=== PATIENT | female | born 1955 | race Caucasian/White ===

== ENCOUNTER 2018-12-21 12:05 | Inpatient (IN) | payer OTHER ==
[2018-12-21] MEDS ORDERED: D50W 25 GM/50 ML SYRINGE IV ONE (12:24)
[2018-12-21] MEDS ORDERED: D5 0.45 NS 1,000 ML IV ONE (12:39)
[2018-12-21 12:40] LABS: Absolute Lymphocytes (CBC) 0.4 K/uL (0.7-4.9); Absolute Monocytes 0.3 K/uL (0.1-1.3); Absolute Neutrophil 7.5 K/uL (1.8-8.0); Basophils % 0.3 % (0-1.3); Eosinophils % 0.2 % (0-4.4); Hematocrit 43.6 % (36.0-45.0); Lymphocytes % 4.6 % (15.3-44.8); MPV 9.4 fL (7.6-11.3); Monocytes % 3.9 % (3.3-12.3); RBC Red Blood Cell Count 4.62 M/uL (3.86-4.86)
--- NOTE | 2018-12-21 12:45 | RAD REPORT ---
EXAM DESCRIPTION: RAD - Tib Fib Left - 12/21/2018 12:38 pm CLINICAL HISTORY: PAIN Ankle pain, deformity COMPARISON: No comparisons FINDINGS: Fracture of the medial malleolus and posterior malleolus is seen with complete tibiotalar dislocation. There is probably also a fracture of the proximal fibular neck although assessment is so mewhat limited. Moderate soft tissue swelling is evident.
[2018-12-21 12:51] LABS: Protime INR 1.11
[2018-12-21] MEDS ORDERED: ONDANSETRON 4 MG/2 ML VIAL ONE (12:52)
[2018-12-21] MEDS ORDERED: HYDROMORPHONE HCL 1 MG/ML INJ ONE ×2 (12:52→18:23)
[2018-12-21 12:53] LABS: BUN Blood Urea Nitrogen 14 mg/dL (7-18); Bicarbonate 27 mmol/L (21-32); Glucose Level 59 mg/dL (74-106); Potassium 3.7 mmol/L (3.5-5.1); Sodium Level 142 mmol/L (136-145)
[2018-12-21 12:59] LABS: Blood Morphology Comment NOT SEEN (NOT SEEN); Platelet Estimate ADEQ
[2018-12-21] MEDS ORDERED: PROPOFOL 200 MG/20 ML VIAL IV ONE (13:09)
--- NOTE | 2018-12-21 14:01 | RAD REPORT ---
EXAM DESCRIPTION: RAD - Ankle Left 3 View - 12/21/2018 1:55 pm CLINICAL HISTORY: post redux Ankle fracture COMPARISON: No comparisons FINDINGS: Previously noted tibiotalar dislocation has been reduced and placed within a splint. Media l and posterior malleolar fracture fragments again noted. Evidence of syndesmotic disruption is prese nt. Bone detail is mildly obscured.
--- NOTE | 2018-12-21 15:48 | ER ---
Nurse's Notes [facility] Name: Adilia Barros Age: 63 yrs Sex: Female : 1955 Arrival Date: 12/21/2018 Time: 12:07 Bed 4 Private MD: Diagnosis: Displaced fracture of medial malleolus of left tibia;Subluxation and dislocation of ankle joint;Other fracture of shaft of left fibula Presentation: 12/21 12:05 Presenting complaint: EMS states: Pt. A \T\ O x 4, felt shaky and fell from a standing rb1 position hitting her head. Denies LOC and being on blood thinners. Left ankle had a deformity at the scene and a splint was applied. Administered Fentanyl 100 mcg IVP x 1 to 20 G L AC. History of breast cancer, hypoglycemia, and hypothyroidism. Is not currently receiving chemotherapy. Allergy to Codeine. Medications Lisinopril and cancer medications, unknown. BGL was 45 at the scene, when EMS rechecked it BGL 65. Care prior to arrival: Splint applied. left ankle Medication(s) given: Fentanyl 100 mcg IVP x 1. Mechanism of Injury: Fall from standing position. 12:05 Method Of Arrival: EMS: [facility] rb1 12:05 Acuity: ROMAIN 2 ss 12:48 Transition of care: patient was not received from another setting of care. Onset of tw2 symptoms was December 21, 2018. Risk Assessment: Do you want to hurt yourself or someone else? Patient reports no desire to harm self or others. Initial Sepsis Screen: Does the patient meet any 2 criteria? No. Patient's initial sepsis screen is negative. Does the patient have a suspected source of infection? No. Patient's initial sepsis screen is negative. 12:49 Trauma event details: Injury occurred in the [facility]. tw2 Trauma Activation: Alert Physician: ED Physician; Name: ; Notified At: ; Arrived At: Physician: General Surgeon; Name: ; Notified At: ; Arrived At: Physician: Radiology; Name: ; Notified At: ; Arrived At: Physician: Respiratory; Name: ; Notified At: ; Arrived At: Physician: Lab; Name: ; Notified At: ; Arrived At: Historical: - Allergies: 12:05 Codeine; rb1 - Home Meds: 12:05 Lisinopril Oral [Active]; cancer medication-unknown [Active]; rb1 - PMHx: 12:05 breast cancer; hypoglycemia; Hypothyroidism; rb1 - PSHx: 12:05 abhijeet knee replacement; Appendectomy; Lumpectomy; ankle; rb1 - Immunization history:: Adult Immunizations up to date. - Social history:: Smoking status: Patient/guardian denies using tobacco. - Immunization history: Last tetanus immunization: < 10 years ago. - Ebola Screening: : Patient negative for fever greater than or equal to 101.5 degrees Fahrenheit, and additional compatible Ebola Virus Disease symptoms. Screenin:05 Abuse screen: Denies threats or abuse. Tuberculosis screening: No symptoms or risk rb1 factors identified. 12:48 Nutritional screening: No deficits noted. Fall Risk Secondary diagnosis (15 points) tw2 hypoglycemia. Primary Survey: 12:05 NO uncontrolled hemorrhage observed. A: The patient needs verbal stimulation to rb1 respond. Airway: patent. Breathing/Chest: Respiratory pattern: regular, Respiratory effort: spontaneous, unlabored, Breath sounds: clear, bilaterally. Chest inspection: symmetrical rise and fall of the chest. Circulation: Pulses: palpable right dorsalis pedis artery and left dorsalis pedis artery. Skin color: cyanotic. Disability Alert. Exposure/Environment: There is no evidence of uncontrolled external bleeding. Obvious injury(ies) are noted at this time: broken left ankle. 12:49 Reassessment Airway Airway Patent Breathing/Chest Respiratory pattern Regular tw2 Respiratory effort Spontaneous Unlabored Breath sounds Clear Chest inspection Symmetrical Circulation Heart tones Present Temperature Warm Dry Disability Alert. Secondary Survey: 12:05 HEENT: No deficits noted. Gastrointestinal: No deficits noted. : No signs and/or rb1 symptoms were reported regarding the genitourinary system. Musculoskeletal: Bony deformity noted of left ankle. Assessment: 12:05 General: Appears uncomfortable, Behavior is calm, cooperative. Pain: Complains of pain rb1 in left ankle Pain currently is 10 out of 10 on a pain scale. Neuro: Level of Consciousness is awake, alert, obeys commands, Oriented to person, place, time, situation. Cardiovascular: Capillary refill < 3 seconds is brisk in bilateral toes. Respiratory: Airway is patent Respiratory effort is even, unlabored, Respiratory pattern is regular, symmetrical. GI: No signs and/or symptoms were reported involving the gastrointestinal system. : No signs and/or symptoms were reported regarding the genitourinary system. Derm: Skin is dry, Skin is normal, Skin temperature is warm left foot is cool, palpable pulses, strong, regular. Musculoskeletal: Range of motion: limited in left ankle. Injury Description: Deformity sustained to left ankle is splint applied to left ankle. 13:10 Reassessment: Patient appears in no apparent distress at this time. Reassessment: sg received report from Erin WRIGHT. Neuro: Level of Consciousness is awake, alert, obeys commands, Oriented to person, place, time, situation. Cardiovascular: Capillary refill is brisk in bilateral toes Patient's skin is warm and dry. Pulses are palpable in left popliteal artery, left posterior tibial artery and left dorsalis pedis artery. Derm: Skin is normal, Skin temperature is warm. 13:35 Reassessment: Patient appears in no apparent distress at this time. Patient is alert, sg oriented x 3, equal unlabored respirations, skin warm/dry/pink. Patient states feeling better. Patient states symptoms have improved. 13:35 Cardiovascular: Capillary refill is brisk in bilateral fingers toes Patient's skin is sg warm and dry. Pulses are palpable in left popliteal artery, left posterior tibial artery and left dorsalis pedis artery. Derm: Skin temperature is warm. 13:50 Reassessment: Patient appears in no apparent distress at this time. Patient is alert, sg oriented x 3, equal unlabored respirations, skin warm/dry/pink. Patient states feeling better. Patient states symptoms have improved. 14:37 Reassessment: Patient appears in no apparent distress at this time. awaiting a call sg back from at this time per , pt updated on POC, v/o received to remove posterior shortleg and apply a long posterior leg splint for support of the LLE, pt updated, stated understanding, will continue to monitor. 15:08 Reassessment: Patient appears in no apparent distress at this time. Patient and/or sg family updated on plan of care and expected duration. Pain level reassessed. Patient is alert, oriented x 3, equal unlabored respirations, skin warm/dry/pink. pt friends at the bedside with pt at this time, awaiting new orders, will continue to monitor Patient states feeling better. Cardiovascular: Patient's skin is warm and dry. Pulses are palpable in right posterior tibial artery, right dorsalis pedis artery, left popliteal artery, left posterior tibial artery and left dorsalis pedis artery. Respiratory: Airway is patent Respiratory effort is even, unlabored, Respiratory pattern is regular, symmetrical. Derm: Skin is pink, warm \T\ dry. 16:00 Reassessment: Patient appears in no apparent distress at this time. Patient and/or sg family updated on plan of care and expected duration. Pain level reassessed. Patient is alert, oriented x 3, equal unlabored respirations, skin warm/dry/pink. Patient states feeling better. Cardiovascular: Patient's skin is warm and dry. Pulses are palpable in right posterior tibial artery, right dorsalis pedis artery, left posterior tibial artery and left dorsalis pedis artery. Respiratory: Airway is patent Respiratory effort is even, unlabored, Respiratory pattern is regular, symmetrical. Derm: Skin is pink, warm \T\ dry. 17:00 Reassessment: Patient appears in no apparent distress at this time. Patient and/or sg family updated on plan of care and expected duration. Pain level reassessed. Patient is alert, oriented x 3, equal unlabored respirations, skin warm/dry/pink. Neuro: Level of Consciousness is awake, alert, obeys commands, Oriented to person, place, time, situation. Cardiovascular: Capillary refill is brisk in bilateral fingers toes Patient's skin is warm and dry. Pulses are palpable in right posterior tibial artery, right dorsalis pedis artery, left posterior tibial artery and left dorsalis pedis artery. Derm: Skin is pink, warm \T\ dry. Derm: Vital Signs: 12:05 BP 126 / 89; Pulse 95; Resp 19; Temp 98.3(O); Pulse Ox 100% ; Weight 90.72 kg (R); rb1 Height 5 ft. 7 in. (170.18 cm) (R); Pain 2/10; 13:05 BP 132 / 82; Pulse 87; Resp 18; Pulse Ox 98% on 100% Non-rebreather mask; Pain 4/10; sg 13:30 BP 117 / 84; Pulse 90; Resp 17; Pulse Ox 96% on R/A; sg 14:26 BP 115 / 78; Pulse 91; Resp 16; Pulse Ox 96% on R/A; Pain 0/10; sg 15:42 BP 118 / 66; Pulse 90; Resp 18 S; Pulse Ox 98% on R/A; sg 16:30 BP 142 / 66; Pulse 90; Resp 17; Pulse Ox 98% on R/A; Pain 0/10; sg 17:30 BP 132 / 70; Pulse 90; Resp 16; Pulse Ox 97% on R/A; Pain 2/10; sg 18:00 BP 165 / 62; Pulse 90; Resp 17; Pulse Ox 98% on R/A; sg 12:05 Body Mass Index 31.32 (90.72 kg, 170.18 cm) rb1 Bryant Coma Score: 12:05 Eye Response: spontaneous(4). Verbal Response: oriented(5). Motor Response: obeys rb1 commands(6). Total: 15. 13:05 Eye Response: spontaneous(4). Verbal Response: oriented(5). Motor Response: obeys sg commands(6). Total: 15. Trauma Score (Adult): 12:05 Eye Response: spontaneous(1); Verbal Response: oriented(1); Motor Response: obeys rb1 commands(2); Systolic BP: > 89 mm Hg(4); Respiratory Rate: 10 to 29 per min(4); Patsy Score: 15; Trauma Score: 12 13:05 Eye Response: spontaneous(1); Verbal Response: oriented(1); Motor Response: obeys sg commands(2); Systolic BP: > 89 mm Hg(4); Respiratory Rate: 10 to 29 per min(4); Bryant Score: 15; Trauma Score: 12 ED Course: 12:05 Patient has correct armband on for positive identification. Bed in low position. Call rb1 light in reach. Side rails up X 1. 12:05 Patient maintains SpO2 saturation greater than 95% on room air. rb1 12:07 Patient arrived in ED. ss 12:09 Robert Lynn MD is Attending Physician. gs 12:22 Erin Danielle, ADRIANA is Primary Nurse. tw2 12:23 Arm band placed on. tw2 12:34 Triage completed. ss 12:39 Initial lab(s) drawn, by nc, sent to lab. Maintain EMS IV. Flushed left saline lock mh5 with 5 ml normal saline. 12:41 Protime (+inr) Sent. mh5 12:41 Basic Metabolic Panel Sent. 5 12:41 CBC with Diff Sent. mh5 12:44 Tib Fib Left XRAY In Process Unspecified. EDMS 12:49 Thermoregulation: warm blanket given to patient. tw2 13:00 Assist provider with reduction of left ankle using manipulation, Set up for procedure. sg Performed by Robert Lynn MD Immobilized with hunter wrap, Patient tolerated well. 13:05 Report given to ADRIANA Rodriguez. tw2 13:15 Consent for conscious sedation explained by physician, signed by patient. sg 13:32 Hunter wrap to left knee and left ankle Orthoglass splint: Posterior short lleg splint sg applied on left leg. stirrup splint applied on left leg. 13:32 Applied post reduction by a physician. sg 13:59 Ankle Left 3 View XRAY In Process Unspecified. EDMS 14:21 Primary Nurse role handed off by Erin Danielle RN sg 14:21 Michael Grant, ADRIANA is Primary Nurse. sg 14:50 Orthoglass splint: Posterior long leg splint applied on left leg. sg 15:46 Sonja Mata MD is Hospitalizing Provider. gs 18:00 Patient admitted, IV remains in place. intact, No redness/swelling at site. sg Administered Medications: 12:14 Drug: D50W 25 ml Route: IVP; Site: left antecubital; ss 12:47 Follow up: Response: No adverse reaction; Blood sugar is elevated; 104 mg/dL tw2 12:30 Drug: D5-1/2 NS 125 ml Route: IV; Rate: bolus; Site: left antecubital; tw2 12:46 Drug: Zofran 4 mg Route: IVP; Site: left antecubital; tw2 13:08 Follow up: Response: No adverse reaction tw2 12:48 Drug: Dilaudid 1 mg Route: IVP; Site: left antecubital; tw2 13:07 Follow up: Response: No adverse reaction tw2 13:25 Drug: Propofol 100 mg {Note: medication administered by , see Moderate Sedation sg Flowsheet.} Route: IVP; Site: left antecubital; 14:00 Follow up: Response: No adverse reaction sg 18:15 Drug: Dilaudid 1 mg Route: IVP; Site: left antecubital; sg Point of Care Testing: Blood Glucose: 12:09 Blood Glucose: 56 mg/dL; rb1 12:48 Blood Glucose: 104 mg/dL; tw2 Ranges: Intake: 12:15 PO: 0ml; Total: 0ml. sg Outcome: 15:47 Decision to Hospitalize by Provider. gs 18:00 Admitted to Med/surg accompanied by tech, family with patient, via stretcher, room 208, sg with chart, Report called to Vinnie WRIGHT 18:00 Condition: good 18:00 Instructed on the need for admit, safety practices, Demonstrated understanding of instructions. 18:00 Patient's length of stay in the Emergency Department was greater than 2 hours. ERP sg decision to dispo ptPatient's length of stay extended due to 18:34 Patient left the ED. sg Signatures: Dispatcher [employer] EDMS Michael Grant RN RN sg Marlene Sheth RN RN Kathy Brody RN RN rb1 Erin Danielle RN RN 2 Linsey Lidna [facility] Robert Lynn MD MD Corrections: (The following items were deleted from the chart) 14:24 13:35 Reassessment: Patient appears in no apparent distress at this time. Patient is sg alert, oriented x 3, equal unlabored respirations, skin warm/dry/pink. report received from Erin Danielle RN sg
--- NOTE | 2018-12-21 15:49 | EDPHYS ---
Physician Documentation [facility] Name: Adilia Barros Age: 63 yrs Sex: Female : 1955 Arrival Date: 12/21/2018 Time: 12:07 Bed 4 Private MD: ED Physician Robert Lynn HPI: 12/21 15:37 This 63 yrs old Female presents to ER via EMS with complaints of Fall Injury. gs 15:37 Details of fall: The patient fell from an upright position. Onset: The symptoms/episode gs began/occurred acutely, just prior to arrival. Associated injuries: The patient sustained anterior aspect of left ankle. Severity of symptoms: At their worst the symptoms were moderate, severe, in the emergency department the symptoms are unchanged. The patient has not experienced similar symptoms in the past. The patient has not recently seen a physician. Historical: - Allergies: 12:05 Codeine; rb1 - Home Meds: 12:05 Lisinopril Oral [Active]; cancer medication-unknown [Active]; rb1 - PMHx: 12:05 breast cancer; hypoglycemia; Hypothyroidism; rb1 - PSHx: 12:05 abhijeet knee replacement; Appendectomy; Lumpectomy; ankle; rb1 - Immunization history:: Adult Immunizations up to date. - Social history:: Smoking status: Patient/guardian denies using tobacco. - Immunization history: Last tetanus immunization: < 10 years ago. - Ebola Screening: : Patient negative for fever greater than or equal to 101.5 degrees Fahrenheit, and additional compatible Ebola Virus Disease symptoms. ROS: 15:37 All other systems are negative. gs Exam: 15:37 Head/Face: Normocephalic, atraumatic. Eyes: Pupils equal round and reactive to light, gs extra-ocular motions intact. Lids and lashes normal. Conjunctiva and sclera are non-icteric and not injected. Cornea within normal limits. Periorbital areas with no swelling, redness, or edema. ENT: Nares patent. No nasal discharge, no septal abnormalities noted. Tympanic membranes are normal and external auditory canals are clear. Oropharynx with no redness, swelling, or masses, exudates, or evidence of obstruction, uvula midline. Mucous membranes moist. Neck: Trachea midline, no thyromegaly or masses palpated, and no cervical lymphadenopathy. Supple, full range of motion without nuchal rigidity, or vertebral point tenderness. No Meningismus. Chest/axilla: Normal chest wall appearance and motion. Nontender with no deformity. No lesions are appreciated. Cardiovascular: Regular rate and rhythm with a normal S1 and S2. No gallops, murmurs, or rubs. Normal PMI, no JVD. No pulse deficits. Respiratory: Lungs have equal breath sounds bilaterally, clear to auscultation and percussion. No rales, rhonchi or wheezes noted. No increased work of breathing, no retractions or nasal flaring. 15:37 Abdomen/GI: Soft, non-tender, with normal bowel sounds. No distension or tympany. No guarding or rebound. No evidence of tenderness throughout. Back: No spinal tenderness. No costovertebral tenderness. Full range of motion. Skin: Warm, dry with normal turgor. Normal color with no rashes, no lesions, and no evidence of cellulitis. Neuro: Awake and alert, GCS 15, oriented to person, place, time, and situation. Cranial nerves II-XII grossly intact. Motor strength 5/5 in all extremities. Sensory grossly intact. Cerebellar exam normal. Normal gait. 15:37 Constitutional: The patient appears alert, awake, in obvious distress, severely distressed. 15:37 Musculoskeletal/extremity: Extremities: noted in the left mcneil: tenderness, ROM: limited active range of motion, limited passive range of motion, limited active range of motion due to pain, limited passive range of motion due to pain, Pulses: are normal with no appreciated deficits, Sensation intact. Joints: the left ankle displays deformity, dislocation, pain at rest, painful range of motion, swelling, tenderness. Vital Signs: 12:05 BP 126 / 89; Pulse 95; Resp 19; Temp 98.3(O); Pulse Ox 100% ; Weight 90.72 kg (R); rb1 Height 5 ft. 7 in. (170.18 cm) (R); Pain 2/10; 13:05 BP 132 / 82; Pulse 87; Resp 18; Pulse Ox 98% on 100% Non-rebreather mask; Pain 4/10; sg 13:30 BP 117 / 84; Pulse 90; Resp 17; Pulse Ox 96% on R/A; sg 14:26 BP 115 / 78; Pulse 91; Resp 16; Pulse Ox 96% on R/A; Pain 0/10; sg 15:42 BP 118 / 66; Pulse 90; Resp 18 S; Pulse Ox 98% on R/A; sg 16:30 BP 142 / 66; Pulse 90; Resp 17; Pulse Ox 98% on R/A; Pain 0/10; sg 17:30 BP 132 / 70; Pulse 90; Resp 16; Pulse Ox 97% on R/A; Pain 2/10; sg 18:00 BP 165 / 62; Pulse 90; Resp 17; Pulse Ox 98% on R/A; sg 12:05 Body Mass Index 31.32 (90.72 kg, 170.18 cm) rb1 Patsy Coma Score: 12:05 Eye Response: spontaneous(4). Verbal Response: oriented(5). Motor Response: obeys rb1 commands(6). Total: 15. 13:05 Eye Response: spontaneous(4). Verbal Response: oriented(5). Motor Response: obeys sg commands(6). Total: 15. Trauma Score (Adult): 12:05 Eye Response: spontaneous(1); Verbal Response: oriented(1); Motor Response: obeys rb1 commands(2); Systolic BP: > 89 mm Hg(4); Respiratory Rate: 10 to 29 per min(4); Patsy Score: 15; Trauma Score: 12 13:05 Eye Response: spontaneous(1); Verbal Response: oriented(1); Motor Response: obeys sg commands(2); Systolic BP: > 89 mm Hg(4); Respiratory Rate: 10 to 29 per min(4); Zap Score: 15; Trauma Score: 12 Procedures: 15:37 Splinting: Splint applied to left leg using Orthoglass splint, applied by tech. post gs reduction film - reveals normal alignment, Examined by me, post splint application: neurovascular intact, 2+ distal pulses palpable, brisk capillary refill noted, Patient tolerated well. Reduction: of the left ankle, using manipulation, Immobilized with OCL splint, Patient tolerated well. Post reduction film - reveals normal alignment. Moderate sedation: Pre-procedure assessment: the patient has been NPO 2 hour(s) prior to arrival, ASA physical classification: II - mild/mod systemic disease that does not interfere with daily routines, Airway assessment: able to hyperextend neck, able to maintain airway, can open mouth without difficulty, Mallampati classification of tongue size: II - faucial pillars and soft palate can be visualized, but uvula is masked by the base of the tongue, Monitoring during procedure: cardiac cath lab manager, continuous pulse oximetry, nurse at bedside at all times, Medications employed: propofol, Post-procedure assessment: the patient is mildly sedated, Respiratory status: even and unlabored. MDM: 12:12 Patient medically screened. gs 13:27 Patient medically screened. gs 15:37 Differential diagnosis: abrasion, fracture, sprain, strain. Data reviewed: vital signs, gs nurses notes. Data reviewed: lab test result(s), radiologic studies. Counseling: I had a detailed discussion with the patient and/or guardian regarding: the historical points, exam findings, and any diagnostic results supporting the discharge/admit diagnosis, the need for further work-up and treatment in the hospital. Response to treatment: the patient's symptoms have markedly improved after treatment. 12/21 12:14 Order name: CBC with Diff; Complete Time: 13:27 12/21 12:14 Order name: Basic Metabolic Panel; Complete Time: 13:27 12/21 12:14 Order name: Protime (+inr); Complete Time: 13:27 12/21 12:14 Order name: Tib Fib Left XRAY; Complete Time: 12:51 12/21 13:02 Order name: Manual Differential; Complete Time: 13:27 EDMS 12/21 13:28 Order name: Ankle Left 3 View XRAY; Complete Time: 14:13 12/21 12:14 Order name: NPO; Complete Time: 13:54 12/21 13:07 Order name: Conscious Sedation; Complete Time: 13:43 tw2 Administered Medications: 12:14 Drug: D50W 25 ml Route: IVP; Site: left antecubital; ss 12:47 Follow up: Response: No adverse reaction; Blood sugar is elevated; 104 mg/dL tw2 12:30 Drug: D5-1/2 NS 125 ml Route: IV; Rate: bolus; Site: left antecubital; tw2 12:46 Drug: Zofran 4 mg Route: IVP; Site: left antecubital; tw2 13:08 Follow up: Response: No adverse reaction tw2 12:48 Drug: Dilaudid 1 mg Route: IVP; Site: left antecubital; tw2 13:07 Follow up: Response: No adverse reaction tw2 13:25 Drug: Propofol 100 mg {Note: medication administered by , see Moderate Sedation sg Flowsheet.} Route: IVP; Site: left antecubital; 14:00 Follow up: Response: No adverse reaction sg 18:15 Drug: Dilaudid 1 mg Route: IVP; Site: left antecubital; sg Point of Care Testing: Blood Glucose: 12:09 Blood Glucose: 56 mg/dL; rb1 12:48 Blood Glucose: 104 mg/dL; tw2 Ranges: Critical Glucose Levels:Adult <50 mg/dl or >400 mg/dl <40 mg/dl or >180 mg/dl Disposition: 12/21/18 15:47 Hospitalization ordered by Sonja Mata for Inpatient Admission. Preliminary diagnosis are Displaced fracture of medial malleolus of left tibia, Subluxation and dislocation of ankle joint, Other fracture of shaft of left fibula. - Bed requested for Telemetry/MedSurg (Inpatient). - Status is Inpatient Admission. sg - Condition is Stable. - Problem is new. - Symptoms have improved. UTI on Admission? No Signatures: Dispatcher [employer] EDMS Mansi Ty Steven, RN RN sg Marlene Sheth RN RN Kathy Brody, ADRIANA WRIGHT [facility] Erin Danielle RN RN tw2 Robert Lynn MD MD Corrections: (The following items were deleted from the chart) 15:47 15:47 Hospitalization Ordered by Sonja Mata MD for Inpatient Admission. Preliminary gs diagnosis is Displaced fracture of medial malleolus of left tibia; Subluxation and dislocation of ankle joint. Bed requested for Telemetry/MedSurg (Inpatient). Status is Inpatient Admission. Condition is Stable. Problem is new. Symptoms have improved. UTI on Admission? No. gs 17:39 15:47 12/21/2018 15:47 Hospitalization Ordered by Sonja Mata MD for Inpatient bd Admission. Preliminary diagnosis is Displaced fracture of medial malleolus of left tibia; Subluxation and dislocation of ankle joint; Other fracture of shaft of left fibula. Bed requested for Telemetry/MedSurg (Inpatient). Status is Inpatient Admission. Condition is Stable. Problem is new. Symptoms have improved. UTI on Admission? No. gs 18:34 17:39 12/21/2018 15:47 Hospitalization Ordered by Sonja Mata MD for Inpatient sg Admission. Preliminary diagnosis is Displaced fracture of medial malleolus of left tibia; Subluxation and dislocation of ankle joint; Other fracture of shaft of left fibula. Bed requested for Telemetry/MedSurg (Inpatient). Status is Inpatient Admission. Condition is Stable. Problem is new. Symptoms have improved. UTI on Admission? No. bd
[2018-12-21] MEDS ORDERED: ONDANSETRON 4 MG/2 ML VIAL IV PRN (18:50)
[2018-12-21 19:59] VITALS: BMI 31.3
[2018-12-21] MEDS: D5.45NS W/KCL 20MEQ 1,000 ML IV SCH (20:00)
[2018-12-21] MEDS: MORPHINE 2 MG/ML SYR IV PRN (20:56)
[2018-12-21] MEDS: DIPHENHYDRAMINE 50 MG/ML VIAL IV PRN (22:03)
[2018-12-21] MEDS ORDERED: TRAZODONE 50 MG TABLET PO PRN (22:38)
[2018-12-22] MEDS: MORPHINE 2 MG/ML SYR IV PRN ×3 (01:02→08:48)
[2018-12-22 04:48] LABS: Urine Appearance CLEAR; Urine Bilirubin NEGATIVE (NEG); Urine Blood NEGATIVE (NEG); Urine Color YELLOW; Urine Glucose NEGATIVE (NEG); Urine Protein NEGATIVE (NEG); Urine Urobilinogen 0.2 mg/dL (0.2-1.0); Urine pH 5.5 (5.0-7.0)
--- NOTE | 2018-12-22 04:50 | HP ---
Date of Admission: 12/21/2018 Chief Complaint: Fall, ankle pain on the left. Code Status: Full. Consultants: Dr. Granda with Orthopedics. History Of Present Illness: The patient is a 63-year-old female with past medical history of hypertension, hypothyroidism, and history of breast cancer on the right breast status post lumpectomy, who was in her usual state of health until day of admission when the patient had a feeling of hypoglycemia. She felt jittery, dizzy, lightheaded, and she had not eaten since 6 p.m. the night prior. The patient ended up having her legs give out from under her and twisted her ankle. The patient had significant pain in her left leg and ankle. Her symptoms are constant, moderate, progressively worsening. She was brought into the ER for further evaluation. Her workup showed a fracture of the medial malleolus and posterior malleolus with complete tibiotalar dislocation, also fracture of the proximal fibular neck. The patient had a reduction done by Dr. Bonner in the ER and cast was placed on the leg. The patient was given medications for pain and then referred for admission. When the patient was seen in the ER, she was awake, alert, oriented x3, complaining of pain. Past Medical History: Hypertension, hypothyroid, history of breast cancer status post lumpectomy and chemotherapy and radiation therapy. Surgical History: Bilateral knee replacements. Allergies: CODEINE, WHICH CAUSES ITCHING. Social History: The patient denies any tobacco use. The patient does use some alcohol. Drinks wine, red wine on occasion, not a daily drinker. The patient is independent in her activities of daily living. Family History: Significant for breast cancer in the mother and the sister. Review of Systems: An 11-point system reviewed, negative except as per HPI. Physical Examination: Vital Signs: Blood pressure 126/89, pulse 95, respirations 19, temperature 98.3 , O2 100% on room air. General: Awake, alert, oriented x3. Elderly female, ill appearing, in pain, obese, BMI 31. HEENT: Normocephalic, atraumatic. PERRLA. EOMI. Moist mucous membranes. Oropharynx is clear. Conjunctiva is anicteric. Neck: Supple. No JVD. Trachea midline. CV: S1, S2. Regular rate and rhythm. Peripheral pulses present. Respiratory: Moving air well bilaterally. No wheezing or stridor. No use of accessory muscles. Gastrointestinal: Abdomen is soft, nontender, nondistended. Positive bowel sounds. No guarding or rigidity. Extremities: No clubbing, cyanosis. The patient does have some left lower extremity edema around the ankle. Musculoskeletal: Left leg in cast. Some tenderness to palpation around the ankle. Neuro: Cranial nerves 2 through 12 intact grossly. No focal neurological deficits. Sensation intact to light touch. Strength is symmetric, bilateral upper and lower extremities. Psych: Mood is okay. Affect is full. Insight and judgment are good. Laboratory Data: INR 1.11. Sodium 142, potassium 3.7, chloride 105, CO2 27, BUN 14, creatinine 0.66, glucose 69, calcium 9.8. WBC 8.2, H and H 14.9, platelets 163, neutrophils 91%, 2% bands. X-ray, tib-fib, left shows fracture of the medial malleolus and posterior malleolus is seen with complete tibiotalar dislocation, probably also a fracture of the proximal fibular neck, although assessment is somewhat limited. Moderate soft tissue swelling is evident. Ankle x-ray reviewed personally. Post reduction shows previously noted tibiotalar dislocation has been reduced and placed with a splint. Medial and posterior malleolar fracture fragments again noted. Evidence of syndesmotic disruption at present. Assessment: A 63-year-old female with: 1. Fall due to hypoglycemia. The patient's blood sugar was 49. Apparently, she has had history of hypoglycemia previously. We will continue to monitor blood glucose levels q.1 hour x2 if not above 70. We will continue to monitor closely. We will start on D5 half NS. Fall precaution. 2. Acute fracture of the left medial malleolus and posterior malleolus with complete tibiotalar dislocation status post reduction with improvement in the displacement. Dr. Granda with Orthopedics has been consulted. The patient will be started on pain control with IV morphine. The patient states that fentanyl did not improve her pain. We will keep n.p.o. after midnight. The patient is stable for surgery. Medically cleared. 3. Essential hypertension. We will resume home medications as appropriate. 4. Hypothyroidism. Resume Synthroid. 5. Obesity. BMI greater than 30. Plan: Admit the patient to Med-Surg, place as inpatient. Length of stay greater than 2 midnights. GAYATHRI Voice ID: [id number]
[2018-12-22 05:10] LABS: Urine Bacteria <20 /HPF (<20); Urine Culture Reflex Order NOT NEEDED; Urine RBC NONE SEEN /HPF (NONE SEEN)
[2018-12-22 05:56] LABS: Absolute Lymphocytes (CBC) 0.6 K/uL (0.7-4.9); Absolute Monocytes 0.5 K/uL (0.1-1.3); Absolute Neutrophil 3.6 K/uL (1.8-8.0); Basophils % 0.3 % (0-1.3); Eosinophils % 3.4 % (0-4.4); Hematocrit 37.8 % (36.0-45.0); Lymphocytes % 11.8 % (15.3-44.8); MPV 9.3 fL (7.6-11.3); Monocytes % 9.5 % (3.3-12.3); RBC Red Blood Cell Count 3.93 M/uL (3.86-4.86)
[2018-12-22 06:12] LABS: BUN Blood Urea Nitrogen 12 mg/dL (7-18); Bicarbonate 30 mmol/L (21-32); Glucose Level 89 mg/dL (74-106); Magnesium 1.9 mg/dL (1.8-2.4); Potassium 3.7 mmol/L (3.5-5.1); Sodium Level 141 mmol/L (136-145)
[2018-12-22] MEDS: D5.45NS W/KCL 20MEQ 1,000 ML IV SCH ×3 (06:23→20:37)
[2018-12-22] MEDS: LEVOTHYROXINE SOD 0.05 MG TABLET PO SCH (06:30)
[2018-12-22] MEDS: VENLAFAXINE HCL XR 75 MG CAP PO SCH (08:00)
[2018-12-22] MEDS: GABAPENTIN 300 MG CAP PO SCH ×2 (08:00→12:00)
[2018-12-22] MEDS ORDERED: CEFAZOLIN/SWI 1gm 1 GM/10 ML SYR IV SCH (08:45)
[2018-12-22] MEDS ORDERED: MORPHINE 2 MG/ML SYR IV ONE (10:58)
--- NOTE | 2018-12-22 11:03 | RAD REPORT ---
EXAM DESCRIPTION: CT - Tib Fib Left Wo Con - 12/22/2018 9:23 am CLINICAL HISTORY: pre-op for ORIF; need proximal fibula as well COMPARISON: Ankle Left 3 View dated 12/21/2018; Tib Fib Left dated 12/21/2018 FINDINGS: Left total knee arthroplasty is noted. Moderate left knee joint effusion is seen. Oblique fracture of the proximal fibular metaphysis is seen. The trimalleolar fracture is seen of the ankle with moderate tibiotalar subluxation. Medial clear spa ce widening of 9 mm is seen compatible with disruption of the syndesmosis. No subtalar dislocation id entified. IMPRESSION: Trimalleolar fracture and subluxation of the ankle with significant disruption of the sy ndesmosis. Oblique fracture proximal fibula. All CT scans are performed using dose optimization technique as appropriate and may include automated exposure control or mA/KV adjustment according to patient size.
[2018-12-22] MEDS ORDERED: CEFAZOLIN SODIUM 1 GM/VIAL ONE (11:12)
[2018-12-22] MEDS ORDERED: Ringers Lactate 1,000 ML IV ONE ×2 (11:12→15:59)
--- NOTE | 2018-12-22 11:53 | P.CNS ---
Date of Consult: 12/22/18 Reason for Consult: fracture dislocation left ankle Requesting Physician: Sonja Mata History of Present Illness: This is a 63-year-old female who suffered a fracture dislocation of her left ankle on 12/21/18.he was given IV sedation and a closed reduction with posterior and coaptation splint applied. The reduction appeared adequate for the posterior dislocation but concern with proximal fibular fracture prompted application of a posterior splint reaching up behind the thigh. Seen the morning following admission, the patient is alert and oriented 3 and cooperative with significant complaints of pain regarding the left ankle. She denies loss of consciousness indicating she tripped on a rug. She denies other injuries Allergies codeine Allergy (Verified 12/21/18 19:37) Itching Hydrocodone-Acetaminophen Allergy (Uncoded 12/21/18 19:37) Itching Home medications list reviewed: Yes Home Medications: Gabapentin 300 mg PO BREAKFAST & LUNCH 12/21/18 Gabapentin 600 mg PO BEDTIME 12/21/18 Levothyroxine [Synthroid*] 0.05 mg PO DAILY 12/21/18 Lisinopril/Hydrochlorothiazide [Zestoretic 20-25 mg Tablet] 1 each PO DAILY Solifenacin [Vesicare*] 5 mg PO BREAKFAST 12/21/18 Trazodone [Desyrel*] 100 mg PO BEDTIME PRN 12/21/18 Venlafaxine HCl [Venlafaxine HCl ER] 150 mg PO BREAKFAST 12/21/18 - Past Medical/Surgical History Diabetic: No -: hypothroidism -: hypertension -: BILATERAL knee surgeries - TKAs -: ANKLE SURGERY -: hYSTERECTOMY -: LUMPECTOMY - Family History Father Medical History: Hypertension Notes: THYROID PROBLEM - Social History Smoking Status: Unknown if ever smoked Alcohol use: Yes CD- Drugs: No Caffeine use: Yes Place of Residence: Home Review of Systems 10-point ROS is otherwise unremarkable Physical Examination Temp Pulse Resp BP Pulse Ox 98.9 F 83 18 117/71 92 12/22/18 08:00 12/22/18 08:00 12/22/18 08:00 12/22/18 08:00 12/22/18 08:00 General: Cooperative, Mild distress Neck: Supple Cardiovascular: Normal pulses Capillary refill: <2 Seconds Gastrointestinal: Soft and benign, Non-distended Musculoskeletal: Tenderness, Cast in place, Other (this patient can demonstrate dorsiflexion of toes and has normal sensation at the first webspace. The Hunter wrap and fiberglass splinting material prevents further exam until removal of splint under anesthesia.) Integumentary: Tenderness/swelling (left ankle) Neurological: Normal tone, Sensation intact External genitalia: Deferred Rectal: Deferred Laboratory Data (last 24 hrs) 12/21/18 12:20: PT 13.0 H, INR 1.11 12/21/18 12:20: Sodium 142, Potassium 3.7, BUN 14, Creatinine 0.66, Glucose 59 L 12/21/18 12:20: WBC 8.2, Hgb 14.9, Hct 43.6, Plt Count 163 Imagings Data: Post-reduction x-rays were reviewed showing excellent position for the talus without evidence of fracture medial malleolus and posterior malleolus and proximal fibular fracture suspected with minimal displacement. STAT CT scan of the ankle and proximal fibula showed the minimally displaced oblique fracture of the proximal fibula. The lateral malleolus indicated disrupted interosseous membrane with avulsion of the anterior tibiofibular ligament with a bone fragment. Posterior malleolar fragment appeared to be small with regard to percentage of articular surface. Medial malleolar fragment and avulsed with dislocation is large. - Problems (1) Ankle dislocation Current Visit: Yes Status: Acute Qualifiers: Encounter type: initial encounter Laterality: left Qualified Code(s): S93.05XA - Dislocation of left ankle joint, initial encounter (2) Closed trimalleolar fracture of left ankle Current Visit: Yes Status: Acute Qualifiers: Encounter type: initial encounter Qualified Code(s): S82.852A - Displaced trimalleolar fracture of left lower leg, initial encounter for closed fracture Conclusions/Impression: This patient has had a fracture dislocation with proximal fibular fracture associated with some fracture lines noted on CT scan in the distal fibula as well as displacement of the interosseous membrane and then avulsion fragment anterior to the fibula from the tibial insertion of the anterior tibiofibular ligament. The lateral malleolus has a large fragment as well the posterior malleolus appears to be a small percentage of the articular margin minimally displaced in the reduction x-ray. PLAN: After discussion of risks and benefits with all questions answered the patient has elected to proceed with general anesthesia and planned open reduction internal fixation left ankle status post closed displaced posterior fracture dislocation left ankle, trimalleolar. Opening the splint should blisters be encountered, the patient is aware that delay of procedure would be necessary waiting for healing of the skin surface to allow an adequate prep prior to ORIF.
[2018-12-22] MEDS ORDERED: BUPIVACA 0.5%/EPI 0.0005%/PF 10 ML VIAL ONE (12:10)
[2018-12-22] MEDS ORDERED: PROPOFOL 200 MG/20 ML VIAL IV ONE (12:28)
[2018-12-22] MEDS ORDERED: MIDAZOLAM HCL 2 MG/2 ML INJ ONE (12:29)
[2018-12-22] MEDS ORDERED: LIDOCAINE 2% MPF 5 ML VIAL ONE (12:29)
[2018-12-22] MEDS ORDERED: FENTANYL CITR 100 MCG/2 ML ONE ×2 (12:29→14:33)
[2018-12-22] MEDS: HYDROMORPHONE HCL 1 MG/ML INJ ONE ×4 (16:03→16:25)
--- NOTE | 2018-12-22 16:17 | P.BOP ---
Preoperative diagnosis: CLOSED DIPLACED FRACTURE DISLOCATION LEFT ANKLE TRIMALLEOLAR Postoperative diagnosis: SAME Primary procedure: ORIF LEFT ANKLE TRIMALLEOLAR FRACTURE DISLOCATION Appeals Analyst: Bhupendra Granda Estimated blood loss: 50 mL Specimen: NONE Findings: FRACTURE DISTAL TIP LATERAL MALL.,MED.MALL.&POST. MALL. Anesthesia: General Complications: None Implants: 6HOLE1/3 TUBULAR PLATE;3.5mmCORT.SCREWS3;4.0 CANNSCREWS2; [id number] Transferred to: Recovery Room Condition: Good
[2018-12-22] MEDS ORDERED: ONDANSETRON 4 MG/2 ML VIAL ONE (16:19)
[2018-12-22] MEDS: MORPHINE 4 MG/ML SYR ONE ×2 (16:36→16:46)
[2018-12-22] MEDS: CEFAZOLIN/SWI 1gm 1 GM/10 ML SYR IVP SCH (17:45)
--- NOTE | 2018-12-22 17:47 | PN ---
Date of Progress Note: 12/22/2018 Subjective: The patient seen and examined, chart reviewed, and case discussed with RN and Dr. Granda . The patient awaiting surgery. Overall, tolerating pain well, but still having some difficulty. A sking for changes in her pain medications. The patient is n.p.o. Medications: List reviewed. Objective: Vital Signs: Temperature 98.9, heart rate 83, blood pressure 117/71, respirations 18, O2 92% on room air. General: Awake, alert, oriented x3. Ill-appearing female, in some moderate distress due to pain. CV: S1, S2. Regular rate and rhythm. Peripheral pulses present. Respiratory: Moving air well bilaterally. No wheezing or stridor. Gastrointestinal: Abdomen is soft, nontender, nondistended. Positive bowel sounds. Extremities: No clubbing, cyanosis. The patient does have some edema on her left ankle. MUSCULOSKELETAL: Pain with range of motion of THE left lower extremity. Tenderness to palpation on the ankle. Neurologic: Nonfocal. The patient has good sensation to light touch. Laboratory Data: Sodium 141, potassium 3.7, chloride 105, CO2 30, BUN 12, creatinine 0.58, glucose 8 9, calcium 8.6, magnesium 1.9. WBC 4.8, H and H 12.5, 37.8, platelets 133, neutrophils 75%. UA is n egative. Lower extremity CT shows trimalleolar fracture and subluxation of the ankle with significan t destruction of the syndesmosis, oblique fracture of the proximal fibula. Assessment And Plan: A 63-year-old female with: 1.Mechanical fall. 2.Left ankle dislocation. 3.Closed fracture of the trimalleolar of the left ankle. 4.Oblique fracture of the proximal fibula. 5.Coronary artery disease. 6.Hypertension, stable. 7.Hypothyroidism. We will continue with Synthroid. 8.Deep vein thrombosis prophylaxis. Will start Lovenox 24 hours post surgery. Plan: The patient is pending surgery today with Dr. Granda. We will resume home medications as appr opriate. SA/MODL Voice ID: [id number] Report ID: [id number]
[2018-12-22] MEDS: MORPHINE 4 MG/ML SYR IV PRN (20:49)
[2018-12-22] MEDS ORDERED: GABAPENTIN 300 MG CAP PO SCH (21:00)
[2018-12-22] MEDS: HYDROCODONE/APAP 7.5/325 MG TAB PO PRN (23:32)
[2018-12-23] MEDS: CEFAZOLIN/SWI 1gm 1 GM/10 ML SYR IVP SCH (01:15)
--- NOTE | 2018-12-23 02:51 | OP ---
Date of Procedure: 12/22/2018 Surgeon: Bhupendra Granda MD Car Groomer: Bhupendra Granda M.D. Preoperative Diagnosis: Closed, displaced fracture/dislocation, left ankle, trimalleolar. Postoperative Diagnosis: Closed, displaced fracture/dislocation, left ankle, trimalleolar. Primary Procedure: Open reduction and internal fixation, left ankle trimalleolar fracture/dislocatio n. Indications: This 63-year-old female had a hypoglycemic episode and fell in her kitchen without awar eness of the actual direction or motion involved in the fall. The patient presented to the emergency room on 12/21/2018 and was found on x-ray to have a posterior dislocation of the talus with fracture of the posterior malleolus and a thin rim around the posterior tibia. The medial malleolus and late ral malleolus were broken. The lateral malleolus was broken at the distal tip, approximately 1.5 cm up from the tip and at the proximal neck wherein a long oblique fracture demonstrated minimal displac ement. The patient was placed in splint support and admitted for pain control and ORIF. The patient was aware of risks and benefits with all questions answered, and she elected to proceed with ORIF of her fracture/dislocation, left ankle. Technique: The patient was taken to the operating room. She was given general anesthesia. Time-out was called, and all pertinent facts of the case were discussed and agreed upon before proceeding. I t was decided to proceed. A tourniquet was applied to the proximal thigh. A bolster under the left buttock to allow access to the lateral ankle was placed. The limb was prepped with Betadine scrub an d paint; and the foot, ankle, and lower leg were exsanguinated with an Esmarch bandage. The tourniqu et was raised initially to 250 mmHg. Oozing during the initial incision laterally prompted raising t he tourniquet to 300 mmHg. It stayed up for a total of 120 minutes. Estimated blood loss during thi s procedure was 50 mL. The lateral incision over the lateral malleolus was made long enough for a 6- hole plate. It gave 1 screw for the distal fragment and then compression technique to bring that fra gment tightly against its broken interface which was aligned with a towel clip and then secured with an angled smooth pin during application of the plate. The cortical screws were placed x3, and 2 hole s in the upper half of the plate were left open for syndesmosis screws. The separation on CT scan dunne d shown the interosseous membrane to have been damaged rather severely. So, 2 cortical screws were p laced across the plate and the fibula. These were fully threaded pins, and the fibula was held in re duction while the threads crossed into the tibia. Lengths were chosen to be nearly fully across the distal tibia. One secured cortex on the other side and made the fixation that much more sturdy. The C-arm was used to visualize the mortise view during this part of the procedure. The lateral part of the incision was irrigated and wet Ray-Tecs were placed in the incision. While attention was turned to the medial malleolus, the incision was made anteriorly over the medial malleolus, exposing the fr agment that was completely avulsed. A good reduction was obtained and secured with 2 parallel C wire s. These pins were then used for using the cannulated drill. One drill bumped into a screw, and the screw length chosen was slightly shorter than that. The second seemed to get to the posterior hodan x, and the cannulated cancellous screw length was again chosen to be a little shorter than going thro ugh the posterior cortex. The medial malleolar fragment was snugly reduced, and C-arm verified the a nkle mortise was appropriate. The foot moved in dorsiflexion to neutral and above. Then, both incis ions were irrigated profusely and closed using 2-0 Vicryl for fascial and subcutaneous tissue and ski n tin for the skin. Xeroform gauze was placed over the incisions after injection of 0.5% Marcain e plain. Again, estimated blood loss was 50 mL. A posterior fiberglass splint was applied after thi ck bandages over the incisions and soft roll were placed on the lower leg. The short-leg splint was chosen with the consideration that a knee immobilizer may be necessary if she has symptoms at the pro ximal end of the left fibula. MARIANNA/KATHRYN Voice ID: [id number] Report ID: [id number]
[2018-12-23] MEDS: ENOXAPARIN 30 MG/0.3 ML SQ SCH ×3 (05:02→21:21)
[2018-12-23] MEDS: MORPHINE 4 MG/ML SYR IV PRN ×2 (05:02→08:55)
[2018-12-23] MEDS: HYDROCODONE/APAP 7.5/325 MG TAB PO PRN ×2 (06:20→13:09)
[2018-12-23] MEDS: LEVOTHYROXINE SOD 0.05 MG TABLET PO SCH (06:21)
[2018-12-23 06:27] LABS: Absolute Lymphocytes (CBC) 0.3 K/uL (0.7-4.9); Absolute Monocytes 0.5 K/uL (0.1-1.3); Absolute Neutrophil 4.2 K/uL (1.8-8.0); Basophils % 0.2 % (0-1.3); Eosinophils % 1.7 % (0-4.4); Hematocrit 36.6 % (36.0-45.0); Lymphocytes % 6.5 % (15.3-44.8); MPV 9.5 fL (7.6-11.3)
[2018-12-23] MEDS: GABAPENTIN 300 MG CAP PO SCH ×2 (08:00→11:38)
[2018-12-23] MEDS: VENLAFAXINE HCL XR 75 MG CAP PO SCH (08:00)
[2018-12-23] MEDS ORDERED: SOLIFENACIN SUCCIN 5 MG TAB PO SCH (08:00)
--- NOTE | 2018-12-23 08:15 | RAD REPORT ---
EXAM DESCRIPTION: RAD - Ankle Left 2 View - 12/23/2018 6:53 am CLINICAL HISTORY: LEFT ORIF ANKLE COMPARISON: Ankle Left 3 View dated 12/21/2018 FINDINGS: Fluoroscopic imaging is submitted from left ankle ORIF procedure. Details of procedure not available. Total fluoroscopy time 0.3 minutes.
[2018-12-23] MEDS ORDERED: hydroCHLOROthiazide 25 MG TAB PO SCH (09:00)
[2018-12-23] MEDS: NEURONTIN 300 MG PO SCH ×2 (09:00→21:21)
[2018-12-23] MEDS ORDERED: HOME MED 1 EA UNK (Lisinopril/Hydrochlorothiazide [Zestoretic 20-25 Mg Tablet] 1 EACH) PO SCH (09:00)
[2018-12-23] MEDS ORDERED: LISINOPRIL 20 MG TAB PO SCH (09:00)
[2018-12-23] MEDS ORDERED: MORPHINE/NS PCA 50 MG/50 ML PCA.SYRING IV PRN (09:28)
[2018-12-23] MEDS ORDERED: NALOXONE 0.4 MG/ML VIAL IV PRN (09:28)
[2018-12-23] MEDS: D5.45NS W/KCL 20MEQ 1,000 ML IV SCH (11:16)
[2018-12-23] MEDS: DIPHENHYDRAMINE 50 MG/ML VIAL IV PRN (13:08)
--- NOTE | 2018-12-23 14:35 | PN ---
Date of Progress Note: 12/23/2018 Subjective: The patient seen and examined. Chart reviewed and case discussed with RN. The patient had surgery yesterday by Dr. Granda. Doing well. However, still complaining of pain. Medications: List reviewed. Physical Examination: Vital Signs: Temperature 100.3, heart rate 104, blood pressure 137/83, respirations 18, O2 90% on ro om air. General: Awake, alert, oriented x3, ill-appearing female in pain, obese. CV: S1 and S2. No murmurs. Regular rate and rhythm. Peripheral pulses present. Respiratory: Moving air well bilaterally. No wheezing. Gastrointestinal: Abdomen is soft, nontender, nondistended. Positive bowel sounds. Extremities: No clubbing or cyanosis. Minimal edema of the left foot. Musculoskeletal: Left lower extremity in splint with Hunter bandage. Neurologic: Nonfocal. The patient is able to move her toes. Has good sensation to light touch. Laboratory Data: WBC 5.1, H and H 12.4 and 36.6, platelets 123, neutrophils 81%. Assessment And Plan: A 63-year-old female with: 1.Status post fall. 2.Left ankle dislocation with close fracture of the trimalleolar of the left ankle as well as obliqu e fracture of the proximal fibula close, initial encounter, status post open reduction and internal f ixation. Appreciate Dr. Granda's input. We will start on DVT prophylaxis with Lovenox 24 hours post surgery. 3.Coronary artery disease, [place] artery and [place] heart without angina, stable. 4.Essential hypertension, stable. 5.Hypothyroidism. Continue Synthroid. 6.Deep vein thrombosis prophylaxis. Start Lovenox once the patient is 24 hours post surgery. Plan: We will adjust pain medications and start on IT HELP DESK TECHNICIAN pump. We will likely need to be referred to rehab. We will start PT evaluation. SA/MODL Voice ID: [id number] Report ID: [id number]
[2018-12-23] MEDS ORDERED: NA CHLORIDE 0.9% 1,000 ML ONE (14:58)
[2018-12-23] MEDS: ACETAMINOPHEN 500 MG TAB PO PRN (23:57)
[2018-12-24] MEDS: SYNTHROID 50 MCG PO SCH (05:28)
[2018-12-24] MEDS ORDERED: VENLAFAXINE 75 MG PO SCH (08:00)
[2018-12-24] MEDS: VENLAFAXINE 75 MG PO SCH (08:58)
[2018-12-24] MEDS: NEURONTIN 300 MG PO SCH ×3 (08:58→21:46)
[2018-12-24] MEDS: VESICARE 5 MG PO SCH (08:58)
[2018-12-24] MEDS: LISINOPRIL HCTZ PO SCH (08:58)
[2018-12-24] MEDS: ENOXAPARIN 30 MG/0.3 ML SQ SCH ×2 (08:59→21:48)
[2018-12-24] MEDS: ACETAMINOPHEN 500 MG TAB PO PRN (10:03)
[2018-12-24] MEDS ORDERED: NA CHLORIDE 0.9% 1,000 ML ONE (10:27)
[2018-12-24 13:50] LABS: Absolute Lymphocytes (CBC) 0.7 K/uL (0.7-4.9); Absolute Monocytes 0.7 K/uL (0.1-1.3); Absolute Neutrophil 7.9 K/uL (1.8-8.0); Basophils % 0.5 % (0-1.3); Eosinophils % 3.2 % (0-4.4); Hematocrit 34.3 % (36.0-45.0); Lymphocytes % 7.2 % (15.3-44.8); Monocytes % 7.4 % (3.3-12.3); RBC Red Blood Cell Count 3.62 M/uL (3.86-4.86)
--- NOTE | 2018-12-24 14:23 | RAD REPORT ---
EXAM DESCRIPTION: RAD - Chest Single View - 12/24/2018 2:04 pm CLINICAL HISTORY: Fever, cough COMPARISON: August 2017 TECHNIQUE: AP portable chest image was obtained 1359 hours . FINDINGS: No peripheral mass or consolidation. No failure or volume overload suspected. Lung marking s are accentuated by a slightly shallow inspiratory effort. Heart and vasculature are normal. No jero urable pleural effusion and no pneumothorax. No acute bony abnormality seen. No acute aortic findings suspected. IMPRESSION: No acute cardiopulmonary process. No significant change from comparison.
[2018-12-24 15:21] LABS: Urine Appearance CLEAR; Urine Bilirubin NEGATIVE (NEG); Urine Blood NEGATIVE (NEG); Urine Color YELLOW; Urine Glucose NEGATIVE (NEG); Urine Protein NEGATIVE (NEG); Urine Specific Gravity 1.015 (1.005-1.030); Urine pH 7.5 (5.0-7.0)
[2018-12-24 15:29] LABS: BUN Blood Urea Nitrogen 9 mg/dL (7-18); Bicarbonate 31 mmol/L (21-32); Glucose Level 147 mg/dL (74-106); Potassium 3.3 mmol/L (3.5-5.1); Sodium Level 137 mmol/L (136-145)
[2018-12-24 15:30] LABS: Urine Bacteria <20 /HPF (<20); Urine RBC <5 /HPF (NONE SEEN)
[2018-12-24 15:31] LABS: Urine Culture Reflex Order NOT NEEDED; Urine Mucus 1+ /HPF (NONE SEEN)
[2018-12-24 15:46] LABS: Urine White Blood Cell Casts OK
[2018-12-24 15:47] LABS: Blood Morphology Comment NOT SEEN (NOT SEEN); Platelet Estimate DECR
--- NOTE | 2018-12-24 17:45 | PN ---
Date of Progress Note: 12/24/2018 Subjective: The patient is seen and examined. Chart reviewed, and case discussed with RN. The yamileth ent does report some headache and nausea. Medications: List reviewed. Physical Examination: Vital signs: T-max 100.8, heart rate 97, blood pressure 137/71, respirations 18, O2 of 96% on room a ir. General: Awake, alert, oriented x3. Somewhat ill-appearing, in mild pain, in some mild distress. CV: S1 and S2. Regular rate and rhythm. Peripheral pulses present. Respiratory: Moving air well bilaterally. No wheezing or stridor. Gastrointestinal: Abdomen is soft, nontender, nondistended. Positive bowel sounds. Extremities: No clubbing, cyanosis, or edema. Musculoskeletal: Left lower extremity in a splint, wrapped with Hunter wrap. Neurologic: Nonfocal. Sensation intact to light touch. Laboratory Data: Pending. Assessment: A 63-year-old female with: 1.Status post fall. 2.Left ankle dislocation with closed fracture of the trimalleolar of the left ankle and oblique frac ture of the proximal fibula, closed, initial encounter, status post open reduction and internal fixat ion. Postoperative day #2. Continue Lovenox for deep venous thrombosis prophylaxis. The patient dunne s been working with physical therapy, however, did not do too much due to generalized malaise and wea kness. 3.Essential hypertension, stable. 4.Fever, likely from atelectasis or developing pneumonia versus urinary tract infection. We will re peat UA and chest x-ray to rule out any source of infection. 5.Hypothyroidism. We will continue Synthroid. 6.Deep venous thrombosis prophylaxis with Lovenox. Plan: The patient has been referred to inpatient rehab. She is doing better on the morphine pain pu mp. We will follow up on chest x-ray and UA, and monitor for further temperature spikes. SA/MODL Voice ID: [id number] Report ID: [id number]
[2018-12-24] MEDS ORDERED: POTASSIUM CL SA 10 MEQ TAB PO ONE (18:30)
[2018-12-25] MEDS: SYNTHROID 50 MCG PO SCH (05:39)
[2018-12-25] MEDS: NEURONTIN 300 MG PO SCH ×3 (05:42→20:44)
[2018-12-25] MEDS: VESICARE 5 MG PO SCH (05:44)
[2018-12-25] MEDS: LISINOPRIL HCTZ PO SCH (05:46)
[2018-12-25 05:59] LABS: BUN Blood Urea Nitrogen 8 mg/dL (7-18); Bicarbonate 31 mmol/L (21-32); Glucose Level 74 mg/dL (74-106); Potassium 3.8 mmol/L (3.5-5.1); Sodium Level 138 mmol/L (136-145)
[2018-12-25] MEDS: VENLAFAXINE 75 MG PO SCH (08:46)
[2018-12-25] MEDS: ENOXAPARIN 30 MG/0.3 ML SQ SCH ×2 (08:47→20:44)
[2018-12-25] MEDS ORDERED: POLYETHYL GLY 3350 17 GM/DOSE PO PRN (08:55)
[2018-12-25] MEDS ORDERED: POTASSIUM CL SA 10 MEQ TAB PO ONE (09:00)
[2018-12-25] MEDS ORDERED: NA CHLORIDE 0.9% 1,000 ML ONE (09:49)
[2018-12-25] MEDS: DOCUSATE NA 100 MG CAP PO SCH ×2 (10:42→20:43)
[2018-12-25] MEDS ORDERED: BISACODYL 10 MG RECTAL SUPP PR PRN (10:55)
--- NOTE | 2018-12-25 11:24 | PN ---
Date of Progress Note: 12/25/2018 Subjective: Patient was seen and examined. Chart reviewed and case discussed with RN. The patient states her pain is still ongoing despite the WELLNESS SPA MANAGER pump. Medication: List reviewed. Physical Examination: Vital Signs: Temperature 98.5, heart rate 85, blood pressure 135/71, respirations 18, O2 94% on room air. General: Awake, alert, oriented x3. Some mild distress due to pain. Obese female. BMI 31. CV: S1, S2. Peripheral pulses present. Regular rate and rhythm. Respiratory: Moving air well bilaterally. No wheezing or stridor. Gastrointestinal: Abdomen is soft, nontender, nondistended. Positive bowel sounds. Extremities: No clubbing, cyanosis, or edema. Neurologic: Nonfocal. Musculoskeletal: Left lower extremity in splint and Hunter wrapped. Laboratory Data: Sodium 138, potassium 3.8, chloride 104, CO2 31, BUN 8, creatinine 0.41, glucose 74 , calcium 8.8. WBC 9.7, H and H 11.7 and 34.3, platelets 135, neutrophils 81%. Assessment And Plan: A 63-year-old female with 1.Status post fall secondary to hypoglycemia. 2.Left ankle dislocation with closed fracture of the trimalleolar as well as oblique fracture of the proximal fibula, also closed, initial encounter, status post open reduction and internal fixation, p ostoperative day #3. Continue Lovenox for deep venous thrombosis prophylaxis. Dr. Alegria is on board. The patient doing well with physical therapy. Still requiring WELLNESS SPA MANAGER pump. Will be weaned off by brett bradley. 3.Essential hypertension, stable. 4.Hypokalemia, replaced. 5.Fever, now afebrile for greater than 24 hours. Repeat UA and chest x-ray were negative. We will encourage ambulation and incentive spirometry. 6.Hypothyroidism. Continue Synthroid. 7.DVT prophylaxis with Lovenox. Plan: Discharge to rehab once accepted. Wean off morphine. The patient is reporting some constipat ion. We will start on stool softeners, likely secondary to narcotics. SA/MODL Voice ID: [id number] Report ID: [id number]
--- NOTE | 2018-12-25 11:48 | P.PN ---
Date of Service: 12/23/18 (POD#1) S: POSTOP DAY 1 PATIENT SEEN IN ROOM, ALERT AND ORIENTED AND COOPERATIVE. COMPLAINS OF PAIN LEFT ANKLE. O: AFEBRILE, VITAL SIGNS STABLE. HEMOGLOBIN 12.5, STABLE. BANDAGE AND SPLINT CLEAN DRY AND INTACT. NEUROVASCULAR EXAM INTACT. VERIFIED SENSATION TO FIRST WEBSPACE, DORSIFLEXION OF TOES AND BRISK CAPILLARY FILLING. PATIENT WORKED WITH PHYSICAL THERAPY BUT BECAME WOOZY AFTER STAND AND 1 STEP WITH WALKER. A: SLOW PROGRESS ON DAY 1. P : PATIENT WAS ENCOURAGED TO ALTERNATE BY MOUTH NORCO AND iv MORPHINE MUCH EVERY 2 HOURS NEEDED FOR PERSISTENT PAIN. MOBILIZATION TOLERATED. THERAPY HAS RECOMMENDED INPATIENT REHABILITATION APPROPRIATE FOR THIS PATIENT.
--- NOTE | 2018-12-25 11:57 | P.PN ---
Date of Service: 12/24/18 (POD#2) S: POSTOP DAY 2 PATIENT SEEN IN ROOM, ALERT AND ORIENTED AND COOPERATIVE. STILL COMPLAINS OF PAIN LEFT ANKLE. O: PATIENT HAS HAD 2 TEMPERATURES RECORDED ABOVE 100, 100.8 AND 100.6. CHEST FILM SHOWS LOW INSPIRATORY EFFORT,BUT NO SIGNIFICANT CHANGES. VITAL SIGNS OTHERWISE STABLE. HEMOGLOBIN 12.4, STABLE. BANDAGE AND SPLINT CLEAN DRY AND INTACT. NEUROVASCULAR EXAM INTACT. VERIFIED SENSATION TO FIRST WEBSPACE, DORSIFLEXION OF TOES AND BRISK CAPILLARY FILLING. PATIENT WORKED WITH PHYSICAL THERAPY AND COVERED 60 FEET WITH A ROLLING WALKER. A: BETTER PROGRESS ON DAY 2. PATIENT'S TEMPERATURE ELEVATIONS LIKELY DUE TO ATELECTASIS. PAIN MEDICATION HAS NOT BEEN EFFECTIVE. P : PATIENT WAS STARTED ON WIRE TAPER PUMP WITH MORPHINE. MOBILIZATION TO CONTINUE TOLERATED. SUSPECT ATELECTASIS CAUSE OF TEMPERATURE ELEVATIONS. PATIENT INSTRUCTED AND WATCHED DURING UTILIZATION OF SPIROMETER.
--- NOTE | 2018-12-25 12:04 | P.PN ---
Date of Service: 12/25/18 (POD#3) S: POSTOP DAY 3 PATIENT SEEN IN ROOM, ALERT AND ORIENTED AND COOPERATIVE. NO COMPLAINTS OF PAIN LEFT ANKLE. PATIENT SITTING UP IN BED PAYING BILLS. PROBLEMS LAST NIGHTLY GETTING IV SITE CHANGED, SHOWING BRUISED AREA ON DORSUM OF LEFT HAND, IV SITE JUST BELOW THE LEFT ANTECUBITAL FOSSA. O: VITAL SIGNS STABLE. HEMOGLOBIN 11.7 STABLE. BANDAGE AND SPLINT CLEAN DRY AND INTACT. NEUROVASCULAR EXAM INTACT. VERIFIED SENSATION TO FIRST WEBSPACE, DORSIFLEXION OF TOES AND BRISK CAPILLARY FILLING. PATIENT WORKED WITH PHYSICAL THERAPY AND AGAIN COVERED 60 FEET THIS MORNING WITH A ROLLING WALKER. A: CONTINUED PROGRESS ON DAY 3. POSTOP PAIN RELENTING ON DAY 3.. P :. MOBILIZATION TO CONTINUE TOLERATED. SUSPECT ATELECTASIS CAUSE OF TEMPERATURE ELEVATIONS. PATIENT INSTRUCTED AND WATCHED DURING UTILIZATION OF SPIROMETER.
[2018-12-25] MEDS ORDERED: MORPHINE 2 MG/ML SYR IV PRN (14:50)
--- NOTE | 2018-12-25 17:16 | RAD REPORT ---
EXAM DESCRIPTION: RAD - Ankle Left 2 View - 12/25/2018 5:09 pm CLINICAL HISTORY: Check rods placement Trauma, pain COMPARISON: Ankle Left 2 View dated 12/22/2018 FINDINGS: Two lag screws are present in the medial malleolus. Lateral fibular plate is present with multiple screws present, including 2 syndesmotic screws. Prominent bone fragment is noted anterior to the distal tibia, ununited. Skin tin are present bilaterally with soft tissue swelling.
[2018-12-25] MEDS: HYDROCODONE/APAP 7.5/325 MG TAB PO PRN (20:42)
[2018-12-26] MEDS: SYNTHROID 50 MCG PO SCH (05:47)
[2018-12-26 06:22] LABS: BUN Blood Urea Nitrogen 9 mg/dL (7-18); Bicarbonate 32 mmol/L (21-32); Glucose Level 72 mg/dL (74-106); Sodium Level 142 mmol/L (136-145)
[2018-12-26 06:41] LABS: Absolute Lymphocytes (CBC) 0.5 K/uL (0.7-4.9); Absolute Monocytes 0.5 K/uL (0.1-1.3); Absolute Neutrophil 3.5 K/uL (1.8-8.0); Basophils % 0.2 % (0-1.3); Eosinophils % 4.8 % (0-4.4); Hematocrit 32.6 % (36.0-45.0); Lymphocytes % 9.6 % (15.3-44.8); MPV 9.5 fL (7.6-11.3); Monocytes % 11.6 % (3.3-12.3); RBC Red Blood Cell Count 3.41 M/uL (3.86-4.86)
[2018-12-26] MEDS: VESICARE 5 MG PO SCH (08:05)
[2018-12-26] MEDS: NEURONTIN 300 MG PO SCH ×3 (08:05→20:53)
[2018-12-26] MEDS: ENOXAPARIN 30 MG/0.3 ML SQ SCH ×2 (08:06→20:52)
[2018-12-26] MEDS: LISINOPRIL HCTZ PO SCH (08:06)
[2018-12-26] MEDS: POLYETHYL GLY 3350 17 GM/DOSE PO SCH (08:06)
[2018-12-26] MEDS: DOCUSATE NA 100 MG CAP PO SCH ×2 (08:06→20:52)
[2018-12-26] MEDS: VENLAFAXINE 75 MG PO SCH (08:09)
[2018-12-26] MEDS: ACETAMINOPHEN 500 MG TAB PO PRN (13:06)
--- NOTE | 2018-12-26 16:21 | PN ---
Date of Progress Note: 12/26/2018 Subjective: The patient is seen and examined. Chart reviewed, and case discussed with RN. The yamileth ent did well overnight. No acute events. Medications: List reviewed. Physical Examination: Vital Signs: Temperature 98.9, heart rate 84, blood pressure 148/84, respirations 18, O2 of 96% on r oom air. General: Awake, alert, oriented x3. An obese female, in no acute distress. CV: S1 and S2. No murmurs. Respiratory: Moving air well bilaterally. No wheezing. Gastrointestinal: Abdomen is soft, nontender, nondistended. Positive bowel sounds. Extremities: No clubbing, cyanosis, or edema. Musculoskeletal: Left lower extremity in splint and bandaged, Hunter wrapped. Minimal amount of blood seeping through the bandage. Laboratory Data: Sodium 142, potassium 4, chloride 103, CO2 of 32, BUN 9, creatinine 0.45, glucose 7 2, calcium 9.3. WBC 4.7, H and H 11 and 32.6, platelets 153. Ankle x-ray from 12/25/[address] in [address]. Skin tin present bilaterally with soft tissue swelling. Prominent bone fragment is noted anterior to the distal tibia, ununited. Assessment: A 63-year-old female with: 1.Status post fall. 2.Left ankle dislocation with closed fracture of the trimalleolar and oblique fracture of the proxim al fibula, closed, initial encounter, status post open reduction and internal fixation, postoperative day #3. Continue Lovenox for deep venous thrombosis prophylaxis. The patient does have some oozing from the incision site, however, hemoglobin levels are stable. Dressing has been reinforced. Appre addie Granda's input. 3.Essential hypertension, stable. 4.Fever. Has been afebrile for greater than 48 hours. Likely from atelectasis. No clear source of infection. 5.Hypothyroidism. Continue Synthroid. 6.Deep vein thrombosis prophylaxis with Lovenox. Plan: Transfer to inpatient rehab once accepted. /KATHRYN Voice ID: [id number] Report ID: [id number]
--- NOTE | 2018-12-26 23:45 | P.PN ---
Date of Service: 12/26/18 (POD#4) S: POSTOP DAY 4 PATIENT SEEN IN ROOM, ALERT AND ORIENTED AND COOPERATIVE. SOME SPOTTING OF BLOOD ON BANDAGE NOTED BY NURSING STAFF, BANDAGE WAS REENFORCED AT MY DIRECTION. O: VITAL SIGNS STABLE. HEMOGLOBIN 11.0, STABLE. BANDAGE WAS REMOVED USING STERILE TECHNIQUE. BOTH THE MEDIAL AND LATERAL INCISIONS WERE EMANATING A SLOW WATERY TRICKLE OF BLOOD. A NEW BANDAGE WAS APPLIED AFTER CHLOHEXADINE SWAB STICK AND ALCOHOL SWABS WERE USED. NEUROVASCULAR EXAM REMAINS INTACT. VERIFIED SENSATION TO FIRST WEBSPACE, DORSIFLEXION OF TOES AND BRISK CAPILLARY FILLING. PATIENT WORKED WITH PHYSICAL THERAPY AND COVERED 90 FEET THIS MORNING WITH A ROLLING WALKER AND 100 FEET WITH SELF-PROPELLED WHEEL CHAIR. PATIENT FELL IN BR DURING UNASSISTED EFFORT. PATIENT DENIES INJURY AND DESCRIBES A SLOW, ALMOST CONTROLLED DESCENT WITH MINIMAL IMPACT. PATIENT ADMONISHED TO CALL FOR ASSISTANCE. A: CONTINUED PROGRESS ON DAY 4. POSTOP PAIN CHART HAS GONE TO ALL [facility] WITH NO MEDICATION FOR PAIN OVER THE LAST 18 HOURS. P: SOME CONCERN WITH BOTH MEDIAL AND LATERAL INCISIONS WEEPING TRICKLES OF WATERY BLOOD ON 4TH POD. WOULD LIKE TO INCREASE CHANCE FOR NORMAL CLOT FORMATION BY REDUCING ANTICOAGULATION THERAPY. WILL PLACE LOVENOX ON HOLD FOR TOMORROW AND NEGOTIATE FOR A REDUCED DOSAGE.
[2018-12-27] MEDS: SYNTHROID 50 MCG PO SCH (05:32)
[2018-12-27 05:49] LABS: Absolute Lymphocytes (CBC) 0.4 K/uL (0.7-4.9); Absolute Monocytes 0.6 K/uL (0.1-1.3); Absolute Neutrophil 4.1 K/uL (1.8-8.0); Basophils % 0.3 % (0-1.3); Hematocrit 33.1 % (36.0-45.0); Lymphocytes % 7.7 % (15.3-44.8); MPV 9.3 fL (7.6-11.3); Monocytes % 11.4 % (3.3-12.3)
[2018-12-27 07:26] LABS: Protime INR 1.18
[2018-12-27] MEDS: ENOXAPARIN 30 MG/0.3 ML SQ SCH (09:00)
[2018-12-27] MEDS: ACETAMINOPHEN 500 MG TAB PO PRN (09:10)
[2018-12-27] MEDS: VESICARE 5 MG PO SCH (09:11)
[2018-12-27] MEDS: LISINOPRIL HCTZ PO SCH (09:12)
[2018-12-27] MEDS: NEURONTIN 300 MG PO SCH ×2 (09:12→12:25)
[2018-12-27] MEDS: VENLAFAXINE 75 MG PO SCH (09:13)
[2018-12-27] MEDS: DOCUSATE NA 100 MG CAP PO SCH (09:14)
[2018-12-27] MEDS: POLYETHYL GLY 3350 17 GM/DOSE PO SCH (09:14)
[2018-12-27 16:58] VITALS: O2SAT 98
[2018-12-27] MEDS ORDERED: ENOXAPARIN 40 MG/0.4 ML SQ SCH (17:00)
[2018-12-27 17:04] VITALS: BP 142/66; TEMP 97.3
--- NOTE | 2018-12-27 17:20 | PN ---
Date of Progress Note: 12/27/2018 Subjective: The patient seen and examined. Chart reviewed and case discussed with RN. The patient overall is doing well. Pain is controlled. Medications: List reviewed. Physical Examination: Vital Signs: Temperature 97.5, heart rate 85, blood pressure 140/93, respirations 16, O2 95% on room air. General: Awake, alert, oriented x3. No acute distress. Obese female. CV: S1, S2. Regular rate and rhythm. Peripheral pulses present. Respiratory: Moving air well bilaterally. No wheezing or stridor. Gastrointestinal: Abdomen is soft, nontender, nondistended. Positive bowel sounds. Extremities: No clubbing, cyanosis, or edema. Musculoskeletal: Left leg in splint, Hunter wrapped. No blood on the bandages. No other drainage. Neuro: Cranial nerves 2-12 intact. Grossly nonfocal. Sensation intact to light touch. Laboratory Data: WBC 5.5, H and H 11.1 and 33.1, platelets 175, neutrophils 75%. Assessment: A 63-year-old female with: 1.Status post fall. 2.Left ankle dislocation with closed fracture of the trimalleolar and oblique fracture of the proxim al fibula, closed, initial encounter, status post open reduction and internal fixation, postoperative day #4. We will adjust dose of Lovenox, reduce it to 40 daily. The patient had some oozing from th e incision site, however, none seen today. Hemoglobin stable. Dressing is reinforced. Dr. Granda i s aware. 3.Essential hypertension, stable. 4.Fever, resolved, likely due to atelectasis. We will continue with incentive spirometry. 5.Hypothyroidism. We will continue Synthroid. 6.Deep vein thrombosis prophylaxis with Lovenox 40 daily, down from 30 b.i.d. Plan: Transfer to rehab once accepted. /KATHRYN Voice ID: [id number] Report ID: [id number]
--- NOTE | 2018-12-28 09:06 | DS ---
Date of Discharge: 12/27/2018 Broom Handle Dipper: Dr. Bhupendra Granda with Orthopedic Surgery. Procedures: On 12/22/2018, open reduction and internal fixation of left ankle trimalleolar fracture dislocation. Admitting Diagnoses: 1.Fall due to hypoglycemia. 2.Acute fracture of the left medial malleolus and posterior malleolus with complete tibiotalar dislo cation status post reduction. 3.Essential hypertension. 4.Hypothyroidism. 5.Obesity, body mass index greater than 30. Discharge Diagnoses: 1.Status post fall. 2.Hypoglycemia, resolved. 3.Left ankle dislocation with closed fracture of the trimalleolar and oblique fracture of the proxim al fibula, closed, initial encounter, status post open reduction and internal fixation with some blee ding from the incision site with Lovenox held for 24 hours. 4.Essential hypertension, stable. 5.Fever, resolved due to atelectasis. 6.Hypothyroidism. 7.Obesity, body mass index 31.3. 8.History of breast cancer. 9.Acute blood loss anemia secondary to postop. Hospital Course: The patient is a 63-year-old female, who comes in with a fall after feeling dizzy a nd lightheaded. The patient had not eaten since 6 p.m., the night prior, found to be hypoglycemic. The patient was found to have a fracture of the medial malleolus on the left side also with complete tibiotalar dislocation as well as a fracture of the proximal fibular neck. The patient was seen by Randi Granda who performed ORIF as mentioned above. The patient did well postoperatively. Her pain was difficult to control. 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 The patient did work well with PT. She did have a fall while in the hospital, but she landed on the shower [employer] and then slid herself down. The patient did not hurt her left leg. She was able to keep that left leg elevated. X-ray was done as well. The patient did have some bleeding from the incision site. The patient had been on Lovenox for DVT prophylaxis. This was held for 24 hours to give the patient chance to heal. Dr. Granda recommended restarting the Lovenox in approximately 24 hours at a lower d ose of 40 daily instead of 30 b.i.d. Overall, the patient did well. [facility], and was accepted. Her electrolyte abnormalities were corrected. Her hemoglobin remained stable. She did have some drop in her hemoglobin as a result of the fractures. The patient did not require transfusion. The patient may benefit from iron infusions or p.o. iron upon discharge. The mora marroquin was then discharged to inpatient rehab in a fair condition. Activity: As per rehab. Medications: As per medication reconciliation list. Followup: Follow up with orthopedic surgeon, Dr. Granda in 1 to 2 weeks. Follow up with PCP in 2 to 3 days. Return to ER for worsening condition. Diet: Heart healthy. For physical exam findings, please see progress note dictated on the day of discharge. Total time spent discharging the patient was 33 minutes. GAYATHRI Voice ID: [id number] Report ID: [id number]
== END 2018-12-27 19:21 | DRG 493 ==
LOC: ER 12:05 → ERHOLD 15:53 → 2ND 18:09
PROVIDERS: ADMIT Family Medicine; ATTEND Family Medicine
PROC: 2W3RX1Z Immobilization of Left Lower Leg using Splint (ICD-10-PCS; principal; 2018-12-21)
PROC: 0QSK04Z Reposition Left Fibula with Internal Fixation Device, Open Approach (ICD-10-PCS; 2018-12-22)
PROC: 0QSH04Z Reposition Left Tibia with Internal Fixation Device, Open Approach (ICD-10-PCS; 2018-12-22)
DX: S82.852A Displaced trimalleolar fracture of left lower leg, initial encounter for closed fracture (principal); J98.11 Atelectasis; S93.05XA Dislocation of left ankle joint, initial encounter; W01.0XXA Fall on same level from slipping, tripping and stumbling without subsequent striking against object, initial encounter; Y93.89 Activity, other specified; Y92.019 Unspecified place in single-family (private) house as the place of occurrence of the external cause; I10 Essential (primary) hypertension; E03.9 Hypothyroidism, unspecified; E16.2 Hypoglycemia, unspecified; Z85.3 Personal history of malignant neoplasm of breast; Z96.653 Presence of artificial knee joint, bilateral; Z88.5 Allergy status to narcotic agent; E66.9 Obesity, unspecified; Z68.31 Body mass index [BMI] 31.0-31.9, adult; I25.10 Atherosclerotic heart disease of native coronary artery without angina pectoris; R50.9 Fever, unspecified
CPT/HCPCS: 36415; 71045; 73700; 80048; 81001; 82962; 83735; 85014; 85018; 85025; 85610; 85730; 94760; 96374; 96375; 97110; 97116; 97163; 97530; 99285; J0690; J1170; J1650; J2250; J2270; J2405; J2704; J3010; J7030

== ENCOUNTER 2018-12-27 16:54 | Inpatient (IN) | payer OTHER ==
--- NOTE | 2018-12-27 17:46 | R.PREADM ---
SCREENING DATE AND TIME 12/27/2018 16:58 (HIDE WASHER) ANTICIPATED REHAB ADMISSION DATE 12/29/2018 REFERRING FACILITY [facility] REFERRAL DATE AND TIME 12/27/2018 16:59 (HIDE WASHER) REFERRAL ROOM# 208 ACUTE ADMIT DATE 12/21/2018 Previous Rehabilitation(s): No. REFERRING PHYSICIAN Sonja Mata REHAB FACILITY [facility] CLINICAL LIAISON Roseanne Guevara PHYSICIAN REVIEWER Dr. Blane Augilar M.D. MR# [id number] NAME CARITO BARROS ADDRESS [address] [place] [address] PHONE [facility] [id number] DATE OF 1955 AGE 63 SSN# [id number] GENDER female MARITAL STATUS RACE white ADMIT FROM 02 - [facility] PRE-HOSPITAL LIVING SETTING 01 - Home (private home/apt. board/care, assisted living, fci, transitional living) HOME TYPE AND DETAILS Type of home: single family house # of levels in the residence: 1 # of steps within the residence: 0 # of steps to enter the residence: 1 PRE-HOSPITAL LIVING WITH Alone FAMILY SUPPORT Yes PRIMARY FAMILY CONTACT NAME JING LARA PRIMARY FAMILY CONTACT PHONE PHONE PRIMARY FAMILY CONTACT ON ADM.? no IS PRIMARY FAMILY CONTACT AUTH. REP.? no 1ST EMERGENCY CONTACT JING LARA 1ST CONTACT PHONE PHONE 1ST CONTACT ON ADM. no IS 1ST CONTACT AUTH. REP.? no PHONE 2ND CONTACT ON ADM.? no PATIENT EMPLOYMENT STATUS Retired (for age) PATIENT EMPLOYER No Employer PAYOR INFORMATION: 1ST PAYOR NAME [facility] HEALTH INSURANCE 1ST PAYOR PHONE [phone] 1ST PAYOR INJURY/ILLNESS DUE TO ACCIDENT? No ANOTHER ALLIANCE PARTY RESPONSIBLE? No PRIMARY REHAB/ACUTE DIAGNOSIS: Closed trimalleolar fracture of left ankle ONSET DATE 12/21/2018 REHAB IMPAIRMENT CATEGORY (KARLO): 20 Miscellaneous (Misc) does NOT meet 60% rule AFFECTED EXTREMITIES: LLE PRIMARY DIAGNOSIS-RELATED SURGERIES: ORIF left trimalleolar fracture - performed by Bhupendra Granda on 12/22/2018 COMORBID REHAB/ACUTE DIAGNOSES: - N/A Hypertension Hypothyroid Breast cancer INTERVENTIONS: - Hypertension Fluid management Medications VS - Hypothyroid Medications RISK FOR COMPLICATIONS: - Hypertension CVA Hypotension MT TIA - Hypothyroid Depression Weight gain SUMMARY OF ACUTE HOSPITALIZATION: Pt. is a 63 yo Right-handed white female. On 12/21/2018 she was admitted to [facility] with diagnosis Closed trimalleolar fracture of left ankle. Her impairment category is Debility 16 - Debility (16). Pre-morbidly, Pt. was independent/mod-I in Transfers Control, Communication, Social Cognition, Self-C are, Locomotion, and Sphincter Control; and she had good Sphincter Control. Currently, she has deficits of Transfers Control, Balance, Locomotion, Endurance, Safety Awareness, a nd Self-Care. Pt. is now referred to [facility] for acute in-patient rehabilitation in order to maximize patient's functional independence in activities of daily living, strength, ROM, and mobi lity. Patient has realistic goal of being discharged at assistance level 5-sup to reside at Home with Fami ly/Relatives. Carito Barros is a 63 year old female that lives alone in a single jim home. Patient is ambulatory wit hout any assistive device. On 12/21/2018, she fell in the kitchen due to hypoglycemic episode and was admitted to [facility] and treated. She is now medically stable but in need of 24-hour nursing, doctor supervision and oversite while receiving acti ve and ongoing intensive PT, OT expected to participate in 3hours of therapy a day/15 hours per week and receive care with an intensive interdisciplinary approach. PAST MEDICAL HISTORY Breast cancer Hypertension Hypothyroid PAST SURGICAL HISTORY: Lumpectomy BILATERAL KNEE REPLACEMENT MEDICATION ALLERGIES: Codeine ENVIRONMENTAL ALLERGIES: None Known - Substance Allergies None Known - Other Allergies None Known CODE STATUS: Full code WEIGHT/HEIGHT/BMI: WEIGHT 200 lbs HEIGHT 5' 7" BMI 31.3 DIET: - Diet Type Regular - Diet - Solid Texture Regular - Diet - Liquid Texture Regular - Tube Feed N/A SKIN DIAGRAM: Incision on Left lower leg; extent - small; stage - NS(Not Stageable). Treatment - Per Physician's Or ders. REVIEW OF SYSTEMS: - Gen Alert and awake Lying in bed No apparent distress Oriented to: person, time, and place - Vital Signs Temperature: 97.3 F SBP/DBP: 142/66 Pulse: 82 Resp: 16 Vital signs stable, afebrile - CVS RRR VITAL SIGNS Temperature: 97.3 F SBP/DBP: 142/66 Pulse: 82 Resp: 16 Vital signs stable, afebrile CURRENT SPHINCTER CONTROL: Pre-hospital bladder status: continent # of bladder accidents in the last 7 days prior to screenin Pre-hospital bowel status: continent # of bowel accidents in the last 7 days prior to screenin Last Bowel Movement Date: 12/27/2018 DETAILED CURRENT FUNCTIONAL STATUS: - Bladder accident frequency: Ind - No accidents in the past 7 days - Bowel accident frequency: Ind - No accidents in the past 7 days - Walking score based on distance walked: 2(5149ft) - Wheelchair score based on distance traveled: 0(N/A) FUNCTIONAL STATUS: - Self-Care A. Eating Ind Ind B. Grooming Ind Ind C. Bathing Ind sup D. Dressing - Upper Ind Ind E. Dressing - Lower Ind sup F. Toileting Ind sup - Sphincter Control G: Bladder control Ind Ind H: Bowel control Ind Ind - Transfers Control I. Bed/Chair/Wheelchair Ind sup J. Toilet Ind sup K. Tub/Shower Ind ADNO - Locomotion L. Walk/Wheelchair (C) Ind sup L. Walk/Wheelchair (W) Ind sup M. Stairs Ind ADNO - Communication N. Comprehension (B) Ind Ind O. Expression (B) Ind Ind - Social Cognition P. Social Interaction Ind Ind Q. Problem Solving Ind Ind R. Memory Ind Ind - Endurance Fair - Balance Fair - Safety Awareness Fair CURRENT FUNC. DEFICITS: Transfers Control, Balance, Locomotion, Endurance, Safety Awareness, and Self-Care THERAPY NOTES FROM ACUTE CARE: Attached. SPECIAL NEEDS: - Safety Concerns Skin breakdown precautions needed due to skin breakdown risk PRECAUTIONS: - Weight Bearing Precaution NWB left LE PATIENT NEEDS ACTIVE AND ONGOING THERAPEUTIC INTERVENTION OF MULTIPLE THERAPY DISCIPLINES, INCLUDING: - Occupational Therapy Evaluate and Treat. - Physical Therapy Evaluate and Treat. PATIENT NEEDS CLOSE MEDICAL SUPERVISION BY A REHABILITATION PHYSICIAN FOR: Bowel and Bladder Management Coordination of Treatment Team Medical and Co-Morbidity Management Wound Care Pain Management DVT Management PATIENT REQUIRES 24X7 REHAB NURSING FOR MEDICAL AND FUNCTIONAL MGT. OF THE FOLLOWING DEFICITS: ADL's Ambulation Bowel and Bladder Management Communication Disease Management Medication Management Patient/Family Education Providing Safe Environment Skin Integrity Transfers Pain Management PATIENT REQUIRES INTENSIVE, COORDINATED INTERDISCIPLINARY APPROACH TO REHAB: Arranging Home Equipment/Services Discharge Planning Family Intervention/Training [employer] Supervisor/Case Management PATIENT REHAB POTENTIAL: Expected level of measurable improvement will be of a practical value to patient's functional capacit y or adaptations to impairments Has a viable Discharge Plan Medically appropriate; condition is sufficiently stable to participate in intensive rehab program Patient is able and expected to receive 3 hours of individualized therapy daily on at least 5 of ever y 7 days Patient's prognosis for significant practical improvement within a reasonable period of time appears Good DISCHARGE PLAN: - Estimated Length of Stay (days) 13. - Consensus on plan Discharge plan has been discussed with primary caregiver. Patient/Family is in agreement with the kyung n. Primary caregiver is in agreement with the plan. - Patient/Family Goals Return home with assistance. - Planned Living Setting Upon Discharge Home, to live with Family/Relatives. RECOMMENDED CARE LEVEL: IRF RECOMMENDATION DETAILS: Recommended Admission to Comprehensive Rehabilitation Program to Increase Functional Turner SCREENER'S COMPLETENESS CONFIRMATION: - Screening Confirmation The patient data collection on this preadmission screening form is finished PHYSICIANS REVIEW AND ADMISSION DETERMINATION Admit - Based on my review of the Pre-Admission Screening results, in my medical judgment and experie nce, I concur with the findings and recommend admission to [facility], as this patient requires an IRF level of care. SIGNATURE PANEL: Clinical Liaison - [electronically] signed by Roseanne Guevara on 12/27/2018 at 17:37 (HIDE WASHER) Television Repairer - /__/____ at __:__ Physician Reviewer - [electronically] signed by Dr. Blane Aguilar M.D. on 12/27/2018 at 17:45 (HIDE WASHER )
[2018-12-27 20:06] VITALS: BMI 30.5
[2018-12-27 21:28] LABS: Urine Appearance CLEAR; Urine Bilirubin NEGATIVE (NEG); Urine Blood NEGATIVE (NEG); Urine Color YELLOW; Urine Glucose NEGATIVE (NEG); Urine Protein NEGATIVE (NEG)
[2018-12-27] MEDS: HYDROCODONE/APAP 7.5/325 MG TAB PO PRN (21:39)
[2018-12-27 21:40] LABS: Urine Bacteria <20 /HPF (<20); Urine Culture Reflex Order NOT NEEDED; Urine RBC <5 /HPF (NONE SEEN)
[2018-12-27] MEDS: DOCUSATE NA 100 MG CAP PO SCH (21:41)
[2018-12-27] MEDS: GABAPENTIN 300 MG CAP PO SCH (21:42)
[2018-12-27] MEDS ORDERED: POLYETHYL GLY 3350 17 GM/DOSE PO ONE (22:22)
[2018-12-27] MEDS ORDERED: BISACODYL 10 MG RECTAL SUPP PR PRN (22:22)
[2018-12-27] MEDS ORDERED: TRAZODONE 50 MG TABLET PO PRN (22:30)
--- NOTE | 2018-12-28 01:31 | FAST ---
SHIFT START DATE/TIME: 12/27/2018 19:00 (SUPERVISOR PIPELINE) SHIFT END DATE/TIME: 12/28/2018 07:00 (SUPERVISOR PIPELINE) NAME CRAITO MUNOZ DATE OF : 1955 DATE OF ADMISSION: 12/27/2018 19:35 (SUPERVISOR PIPELINE) PHONE: AGE: 63 SSN# [id number] GENDER: Female ENCOUNTER PHYSICIAN: Dr. Blane Aguilar M.D. ADMISSION DIAGNOSIS: - Debility 16 - Debility (16) Closed trimalleolar fracture of left ankle. EATING: Activity did not occur on this shift EATING - SCORE: 0-UNK GROOMING: Wash, rinse, and dry hands GROOMING - STEP 1: Does the patient require the assistance of a person or device, or need extra time when grooming? Yes. GROOMING - STEP 2: Does the patient require the assistance of a helper? No. The patient only requires an assistive devic e, OR takes more than reasonable time to groom, OR there is a concern for safety as the patient groom s GROOMING - SCORE: 6-MILAGRO BATHING: Activity did not occur on this shift BATHING - SCORE: 0-UNK DRESSING - UPPER BODY: Patient is not dressing in public clothing ARTICLES SCORE Total number of steps: 0 DRESSING - UPPER BODY - SCORE: 0-UNK DRESSING - LOWER BODY: Patient is not dressing in public clothing ARTICLES SCORE Total number of steps: 0 DRESSING - LOWER BODY - SCORE: 0-UNK TOILETING: TOILETING - STEP 1: Does the patient require the assistance of a person or device, or need extra time with toileting? Yes . TOILETING - STEP 2: Does the patient require the assistance of a helper? Yes. TOILETING - STEP 3: How much assistance does the patient require from the helper? Hands-on assistance from the helper TOILETING - STEP 4: Of the 3 tasks: 1) Adjusting clothing prior to use, 2) Cleansing of perineal area, 3) Adjusting clot zachariah after use; How many tasks does the patient perform WITHOUT assistance of the helper? Two tasks TOILETING - SCORE: 3-MOD BLADDER MANAGEMENT: BLADDER MANAGEMENT - STEP 1: Does the patient control the bladder completely and intentionally without equipment or devices or med ications, and is always continent? Yes. BLADDER MANAGEMENT - SCORE: 7-IND BOWEL MANAGEMENT: Activity did not occur on this shift BOWEL MANAGEMENT - SCORE: 7-IND TRANSFERS: BED, CHAIR, WHEELCHAIR: TRANSFERS: BED, CHAIR, WHEELCHAIR - STEP 1: Does the patient require assistance of a person or device, or need extra time with bed, chair, or whe elchair transfers? Yes. TRANSFERS: BED, CHAIR, WHEELCHAIR - STEP 2: Does the patient require the assistance of a helper? Yes. TRANSFERS: BED, CHAIR, WHEELCHAIR - STEP 3: How much assistance does the patient require from the helper? Steadying/guiding assistance TRANSFERS: BED, CHAIR, WHEELCHAIR - SCORE: 4-MIN TRANSFERS: TOILET: TRANSFERS: TOILET - STEP 1: Does the patient require the assistance of a person or device, or need extra time with toilet transfe rs? Yes. TRANSFERS: TOILET - STEP 2: Does the patient require the assistance of a helper? Yes. TRANSFERS: TOILET - STEP 3: How much assistance does the patient require from the helper? Only supervision, cuing, coaxing, OR he lp to set out transfer equipment or to lock brakes and/or lift foot rests TRANSFERS: TOILET - SCORE: 5-SUP TRANSFERS: SHOWER: Activity did not occur on this shift TRANSFERS: SHOWER - SCORE: 0-UNK TRANSFERS: TUB: Activity did not occur on this shift TRANSFERS: TUB - SCORE: 0-UNK LOCOMOTION: WALK: Activity did not occur on this shift LOCOMOTION: WALK - SCORE: 0-UNK LOCOMOTION: WHEELCHAIR: Activity did not occur on this shift LOCOMOTION: WHEELCHAIR - SCORE: 0-UNK COMPREHENSION: COMPREHENSION: TYPE: Both COMPREHENSION - STEP 1: Does the patient require help from a person or device, or need extra time to understand complex and a bstract ideas (such as current events, finances, discharge planning, medical issues, relationships, e tc)? No. COMPREHENSION - STEP 2: Does the patient need extra time, require an assistive device (such as glasses for visual comprehensi on or a hearing aid for auditory comprehension) or does s/he have mild difficulty understanding compl ex and abstract information? Yes. COMPREHENSION - SCORE: 6-MILAGRO EXPRESSION EXPRESSION: TYPE: Both EXPRESSION - STEP 1: Does the patient require help from a person or device, or need extra time expressing complex and abst ract ideas (such as current events, finances, discharge planning, medical issues, relationships, etc) ? No. EXPRESSION - STEP 2: Does the patient need extra time, require an assistive device (such as augmentive communication syste m or a communication board), OR does s/he have mild difficulty expressing complex and abstract ideas (including mild dysarthria or mild word-find problems)? No. EXPRESSION - SCORE: 7-IND SOCIAL INTERACTION: SOCIAL INTERACTION - STEP 1: Does the patient require a helper to interact with others in social and therapeutic situations? No. SOCIAL INTERACTION - STEP 2: Does the patient need extra time in social situations, OR does s/he interact with staff, other patien ts, and family members ONLY in structured environments, OR does s/he require medication for social in teraction? No. SOCIAL INTERACTION - SCORE: 7-IND PROBLEM SOLVING: PROBLEM SOLVING - STEP 1: Does the patient need help from a person or device, or need extra time to solve complex problems such as managing a checking account or confronting interpersonal problems? No. PROBLEM SOLVING - STEP 2: Does the patient require extra time to make decisions or solve problems, OR does s/he have slight dif ficulty reading, initiating, or self-correcting in unfamiliar situations? Yes, patient needs extra ti me. PROBLEM SOLVING - SCORE: 6-MILAGRO MEMORY: MEMORY - STEP 1: Does the patient need help from a person or device, or need extra time to remember frequently encount ered people, daily routines, and executing requests? No. MEMORY - STEP 2: Does the patient have slight difficulty recognizing frequently encountered people, daily routines, or executing requests without the need for repetition or using self-initiated or environmental cues to remember? Yes. MEMORY - SCORE: 6-MILAGRO SIGNATURE PANEL: The following modified sections: Eating - Score, Grooming - Score, Dressing - Upper Body - Score, Anup ssing - Lower Body - Score, Toileting - Score, Bladder Management - Score, Bowel Management - Score, Transfers: Bed, Chair, Wheelchair - Score, Transfers: Toilet - Score, Transfers: Shower - Score, Jaime sfers: Tub - Score, Locomotion: Walk - Score, Locomotion: Wheelchair - Score, Comprehension - Score, Expression - Score, Social Interaction - Score, Problem Solving - Score, Memory - Score were [electro nically] signed by Yani Kruse CNA on ThuDec 28 2018 01:30:30 GMT-0600 (Central Standard Time)
[2018-12-28] MEDS ORDERED: LEVOTHYROXINE SOD 0.05 MG TABLET PO SCH (06:30)
[2018-12-28 06:31] LABS: Absolute Lymphocytes (CBC) 0.4 K/uL (0.7-4.9); Absolute Monocytes 0.5 K/uL (0.1-1.3); Absolute Neutrophil 3.5 K/uL (1.8-8.0); Basophils % 0.3 % (0-1.3); Eosinophils % 5.7 % (0-4.4); Hematocrit 33.3 % (36.0-45.0); Monocytes % 11.1 % (3.3-12.3); RBC Red Blood Cell Count 3.54 M/uL (3.86-4.86)
[2018-12-28 06:34] LABS: Albumin 3.1 g/dL (3.4-5.0); BUN Blood Urea Nitrogen 10 mg/dL (7-18); Bicarbonate 32 mmol/L (21-32); Glucose Level 70 mg/dL (74-106); Magnesium 2.2 mg/dL (1.8-2.4); Potassium 3.9 mmol/L (3.5-5.1); Prealbumin 12.5 mg/dL (20-40); Sodium Level 140 mmol/L (136-145)
[2018-12-28] MEDS ORDERED: GABAPENTIN 300 MG CAP PO SCH (08:00)
[2018-12-28] MEDS ORDERED: VESICARE 5 MG PO SCH (08:00)
[2018-12-28] MEDS: POLYETHYL GLY 3350 17 GM/DOSE PO SCH (08:00)
[2018-12-28] MEDS: GABAPENTIN 300 MG CAP PO SCH ×3 (08:13→20:00)
[2018-12-28] MEDS: HYDROCODONE/APAP 7.5/325 MG TAB PO PRN ×3 (08:13→21:12)
[2018-12-28] MEDS: ENOXAPARIN 40 MG/0.4 ML SQ SCH (08:13)
[2018-12-28] MEDS: DOCUSATE NA 100 MG CAP PO SCH ×2 (08:13→19:51)
[2018-12-28] MEDS: VENLAFAXINE 75 MG PO SCH (11:04)
[2018-12-28] MEDS: LISINOPRIL HCTZ PO SCH (11:04)
[2018-12-28] MEDS: VESICARE 5 MG PO SCH (11:40)
[2018-12-28] MEDS: NYSTATIN PWDR 100000 UNIT/GM TOP SCH ×2 (11:41→19:51)
[2018-12-28] MEDS: HYDROCORTISONE 1 % CREAM 30GM TOP PRN ×2 (11:41→19:51)
[2018-12-28] MEDS ORDERED: MELATONIN 3 MG TABLET PO PRN (14:41)
--- NOTE | 2018-12-28 15:33 | FAST ---
ENCOUNTER DATE AND TIME: 12/28/2018 08:00 (REGISTRAR COLLEGE OR UNIVERSITY) NAME CARITO MUNOZ DATE OF : 1955 DATE OF ADMISSION: 12/27/2018 19:35 (REGISTRAR COLLEGE OR UNIVERSITY) PHONE: AGE: 63 N# [id number] GENDER: Female ENCOUNTER PHYSICIAN: Dr. Blane Aguilar M.D. ADMISSION DIAGNOSIS: - Debility 16 - Debility (16) Closed trimalleolar fracture of left ankle. EATING: Activity did not occur on this shift EATING - SCORE: 0-UNK GROOMING: Activity did not occur on this shift GROOMING - SCORE: 0-UNK BATHING: Activity did not occur on this shift BATHING - SCORE: 0-UNK DRESSING - UPPER BODY: Activity did not occur on this shift Patient is not dressing in public clothing ARTICLES SCORE Total number of steps: 0 DRESSING - UPPER BODY - SCORE: 0-UNK DRESSING - LOWER BODY: Activity did not occur on this shift Patient is not dressing in public clothing ARTICLES SCORE Total number of steps: 0 DRESSING - LOWER BODY - SCORE: 0-UNK TOILETING: Activity did not occur on this shift TOILETING - SCORE: 0-UNK BLADDER MANAGEMENT: Activity did not occur on this shift BLADDER MANAGEMENT - SCORE: 7-IND BOWEL MANAGEMENT: Activity did not occur on this shift BOWEL MANAGEMENT - SCORE: 7-IND TRANSFERS: BED, CHAIR, WHEELCHAIR: TRANSFERS: BED, CHAIR, WHEELCHAIR - STEP 1: Does the patient require assistance of a person or device, or need extra time with bed, chair, or whe elchair transfers? Yes. TRANSFERS: BED, CHAIR, WHEELCHAIR - STEP 2: Does the patient require the assistance of a helper? Yes. TRANSFERS: BED, CHAIR, WHEELCHAIR - STEP 3: How much assistance does the patient require from the helper? Steadying/guiding assistance TRANSFERS: BED, CHAIR, WHEELCHAIR - SCORE: 4-MIN TRANSFERS: TOILET: Activity did not occur on this shift TRANSFERS: TOILET - SCORE: 0-UNK TRANSFERS: SHOWER: Activity did not occur on this shift TRANSFERS: SHOWER - SCORE: 0-UNK TRANSFERS: TUB: Activity did not occur on this shift TRANSFERS: TUB - SCORE: 0-UNK LOCOMOTION: WALK: LOCOMOTION: WALK - STEP 1: Does the patient need help from a person or device, or need extra time to walk 150 feet? Yes. LOCOMOTION: WALK - STEP 2: How much assistance does the patient require to walk a minimum of 150 feet? Patient walks less than 1 50 feet - but more than 50 feet - with the assistance of only one helper LOCOMOTION: WALK - SCORE: 2-MAX LOCOMOTION: WHEELCHAIR: LOCOMOTION: WHEELCHAIR - STEP 1: Does the patient need help to go 150 feet in a wheelchair? Yes. LOCOMOTION: WHEELCHAIR - STEP 2: How much assistance does the patient need from the helper? Only supervision, cuing, or coaxing LOCOMOTION: WHEELCHAIR - SCORE: 5-SUP LOCOMOTION: STAIRS: Activity did not occur on this shift LOCOMOTION: STAIRS - SCORE: 0-UNK COMPREHENSION: COMPREHENSION - SCORE: 0-UNK EXPRESSION EXPRESSION - SCORE: 0-UNK SOCIAL INTERACTION: SOCIAL INTERACTION - SCORE: 0-UNK PROBLEM SOLVING: PROBLEM SOLVING - SCORE: 0-UNK MEMORY: MEMORY - SCORE: 0-UNK SIGNATURE PANEL: The following modified sections: Transfers: Bed, Chair, Wheelchair - Score, Transfers: Toilet - Score , Locomotion: Walk - Score, Locomotion: Wheelchair - Score, Locomotion: Stairs - Score were [electron ically] signed by Jake Bhat PT on ThuDec 28 2018 15:31:55 GMT-0600 (Central Standard Time)
--- NOTE | 2018-12-28 18:10 | R.HP ---
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 board/care, assisted living, fci, transitional living) PRE-HOSPITAL LIVING WITH Alone ENCOUNTER PHYSICIAN: Dr. Blane Aguilar M.D. 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 is a 63 yo Right-handed white female. On 12/21/2018 she was admitted to [facility] with diagnosis Closed trimalleolar fracture of left ankle. Her impairment category is Debility 16 - Debility (16). Pre-morbidly, Pt. was independent/mod-I in Transfers Control, Communication, Social Cognition, Self-C are, Locomotion, and Sphincter Control; and she had good Sphincter Control. Currently, she has deficits of Transfers Control, Balance, Locomotion, Endurance, Safety Awareness, a nd Self-Care. Pt. is now referred to [facility] for acute in-patient rehabilitation in order to maximize patient's functional independence in activities of daily living, strength, ROM, and mobi lity. Patient has realistic goal of being discharged at assistance level 5-sup to reside at Home with Fami ly/Relatives. Carito Barros is a 63 year old female that lives alone in a single jim home. Patient is ambulatory wit hout any assistive device. On 12/21/2018, she fell in the kitchen due to hypoglycemic episode and was admitted to [facility] and treated. She is now medically stable but in need of 24-hour nursing, doctor supervision and oversite while receiving acti ve and ongoing intensive PT, OT expected to participate in 3hours of therapy a day/15 hours per week and receive care with an intensive interdisciplinary approach. MEDICATION ALLERGIES: Codeine ENVIRONMENTAL ALLERGIES: None Known - Substance Allergies None Known - Other Allergies None Known PAST MEDICAL HISTORY: Breast cancer Hypertension Hypothyroid PAST SURGICAL HISTORY: Lumpectomy BILATERAL KNEE REPLACEMENT FAMILY HISTORY: Family history is not contributory. SOCIAL HISTORY: - Home Living Alone REVIEW OF SYSTEMS: - Gen No Chills Fatigue No Fever - Eyes No Double Vision No itchiness - ENMT No Difficulty Swallowing - CVS No Chest Discomfort No Chest Pain Fatigue No Weight Gain - Resp No Cough No Shortness of Breath - GI Continent No Abdominal Pain No Constipation No Diarrhea - Continent No Kidney Pain No Painful Urination No Urinary Urgency - MSK No Joint Pain Muscle Cramps Stiffness - Skin No Itching No Rash No Suspicious Lesions - Neuro Coordination Difficulty No Difficulty with Concentration No Memory Loss No Seizures Weakness - Psych No Anxiety No Depression No HIV Exposure No Persistent Infections No Seasonal Allergies - Endo No Cold/Heat Intolerance No Excessive Hunger No Excessive Thirst No Excessive Urination PHYSICAL EXAM - Gen Alert and awake Lying in bed No apparent distress Oriented to: person, time, and place - Skin No breakdown No abnormalities - Eyes No abnormalities - ENMT No abnormalities - Neck No abnormalities - CVS RRR - Chest No abnormalities - Resp Clear to auscultation - Abd + bowel sounds - GI Soft Deferred - No abnormalities - Ext Left lower ext in immob - MSK 4+/5 weakness in left lower extremity - Neuro 4/5 strength left lower extremity. - Psych No abnormalities VITAL SIGNS Temperature: 97.3 F SBP/DBP: 141/85 Pulse: 78 Resp: 16 Hgb is 11.4, WBC is 4.7, Creatinine is 0.5, prealbumin 12.5, UA show trace esterase. NURSING: - Shower allowing shower PRECAUTIONS: - Weight Bearing Precaution NWB left LE ACTIVITIES OOB only with supervision FUNCTIONAL STATUS: - Self-Care A. Eating Ind Ind B. Grooming Ind Ind C. Bathing Ind sup D. Dressing - Upper Ind Ind E. Dressing - Lower Ind sup F. Toileting Ind sup - Sphincter Control G: Bladder control Ind Ind H: Bowel control Ind Ind - Transfers Control I. Bed/Chair/Wheelchair Ind sup J. Toilet Ind sup K. Tub/Shower Ind ADNO - Locomotion L. Walk/Wheelchair (C) Ind sup L. Walk/Wheelchair (W) Ind sup M. Stairs Ind ADNO - Communication N. Comprehension (B) Ind Ind O. Expression (B) Ind Ind - Social Cognition P. Social Interaction Ind Ind Q. Problem Solving Ind Ind R. Memory Ind Ind - Endurance Fair - Balance Fair - Safety Awareness Fair CURRENT FUNC. DEFICITS: Transfers Control, Balance, Locomotion, Endurance, Safety Awareness, and Self-Care ASSESSMENT: Pt. is a 63 yo Right-handed white female.On 12/21/2018 she was admitted to [facility] with diagnosis Closed trimalleolar fracture of left ankle.Her impairment category is Debility 16 - Debility (16).Pre-morbidly, Pt. was independent/mod-I in Transfers Control, Communication, Soci al Cognition, Self-Care, Locomotion, and Sphincter Control; and she had good Sphincter Control.Curren tly, she has deficits of Transfers Control, Balance, Locomotion, Endurance, Safety Awareness, and Felisha f-Care.Pt. is now referred to [facility] for acute in-patient rehabilitation i n order to maximize patient's functional independence in activities of daily living, strength, ROM, a nd mobility.- Rehab Goal Patient has realistic goal of being discharged at assistance level 5-sup to reside at Home with Fami ly/Relatives. Carito Barros is a 63 year old female that lives alone in a single jim home. Patient is ambulatory wit hout any assistive device. On 12/21/2018, she fell in the kitchen due to hypoglycemic episode and was admitted to [facility] and treated. She is now medically stable but in need of 24-hour nursing, doctor supervision and oversite while receiving acti ve and ongoing intensive PT, OT expected to participate in 3hours of therapy a day/15 hours per week and receive care with an intensive interdisciplinary approach.REHAB PLAN: - Physical Therapy Gait dysfunction - to improve, our physical therapists will perform initial evaluation of pt's status upon admission and devise an individualized program for Gait Training, and Wheel Chair mobility Inability to transfer - to improve, our physical therapists will perform initial evaluation of pt's s tatus upon admission and devise an individualized program for Bed mobility Need for home safety evaluation - to improve, our physical therapists will perform initial evaluation of pt's status upon admission and devise an individualized program for Home Evaluation Need in caregiver upon discharge - to improve, our physical therapists will perform initial evaluatio n of pt's status upon admission and devise an individualized program for Caregiver Training New precaution - to improve, our physical therapists will perform initial evaluation of pt's status u zarina admission and devise an individualized program for Patient precaution education Poor balance - to improve, our physical therapists will perform initial evaluation of pt's status upo n admission and devise an individualized program for Balance Training Poor endurance - to improve, our physical therapists will perform initial evaluation of pt's status u zarina admission and devise an individualized program for Endurance Training Weakness - to improve, our physical therapists will perform initial evaluation of pt's status upon ad mission and devise an individualized program for Aquatic Therapy, Neuromuscular Reeducation, and Stre ngthening Achieving independence - to improve, our physical therapists will perform initial evaluation of pt's status upon admission and devise an individualized program for Community Reintegration Activities - Occupational Therapy ADL deficits - to improve, our occupation therapists will perform initial evaluation of pt's status u zarina admission and devise an individualized program for Bathing, Bed mobility, Community Reintegration , Cooking, Dressing, Eating, Fine Motor Skills, Grooming, Homemaking, Kitchen Mobility, Laundry, Constanza ent Education, Safety Awareness, Splinting - Positioning, Transfers(Toilet, Tub, Shower), and Wheel C hair Management Need for animal care assistant - to improve, our occupation therapists will perform initial evaluation of pt's s tatus upon admission and devise an individualized program for Caregiver Training Weakness - to improve, our occupation therapists will perform initial evaluation of pt's status upon admission and devise an individualized program for Aquatic Therapy, Balance, Endurance, UE ROM, and U E strengthening MEDICAL PLAN: - Diet Type Start Regular - Diet - Liquid Texture Start Regular - Tube Feed Start N/A - Weight Bearing Precaution NWB left LE - Diet - Solid Texture Regular - Shower shower DISCHARGE PLAN: - Estimated Length of Stay (days) 13. - Consensus on plan Discharge plan has been discussed with primary caregiver. Patient/Family is in agreement with the kyung n. Primary caregiver is in agreement with the plan. - Patient/Family Goals Return home with assistance. - Planned Living Setting Upon Discharge Home, to live with Family/Relatives. SIGNATURE PANEL: (MINER PLACER)
--- NOTE | 2018-12-28 18:12 | PAPE ---
PATIENT: [facility] MR# [id number] REFERRING DOCTOR maria l Mata EVALUATION DATE AND TIME 12/28/2018 18:11 ([employer]) NAME CARITO MUNOZ DATE OF 1955 AGE 63 PHONE N# [id number] GENDER female EVALUATING PHYSICIAN Dr. Blane Aguilar M.D. ADMISSION DIAGNOSIS: Closed trimalleolar fracture of left ankle ONSET DATE 12/21/2018 SECONDARY/COMORBID DIAGNOSES TIERED: - N/A Hypertension Hypothyroid Breast cancer POST-ADMISSION FUNCTIONAL/MEDICAL STATUS: - Bladder Same accident frequency: Ind - No accidents in the past 7 days - Bowel Same accident frequency: Ind - No accidents in the past 7 days - Walking Same score based on distance walked: 2(6640ft) - Wheelchair Same score based on distance traveled: 0(N/A) STATUS CHANGE EVALUATION: No change in Functional or Medical Status is identified compared with Pre-Admission screening. PATIENT NEEDS CLOSE MEDICAL SUPERVISION BY A REHABILITATION PHYSICIAN FOR: Bowel and Bladder Management Coordination of Treatment Team Medical and Co-Morbidity Management Wound Care Pain Management DVT Management PATIENT REQUIRES 24X7 REHAB NURSING FOR MEDICAL AND FUNCTIONAL MGT. OF THE FOLLOWING DEFICITS: ADL's Ambulation Bowel and Bladder Management Communication Disease Management Medication Management Patient/Family Education Providing Safe Environment Skin Integrity Transfers Pain Management PATIENT REQUIRES INTENSIVE, COORDINATED INTERDISCIPLINARY APPROACH TO REHAB: Arranging Home Equipment/Services Discharge Planning Family Intervention/Training Curriculum Development Manager/Case Management LIST OF IDENTIFIED AND POTENTIAL PROBLEMS: Alteration in leisure activities Bladder, Incontinence Blood Pressure, Hypertension/hypotension Issues Bowel, Incontinence Infection, Actual or Potential Mobility Impaired Pain, Alteration in Comfort Self Care Deficit Skin Integrity, Actual or Potential Urinary Tract Infection (UTI), Actual or Potential RISK FOR COMPLICATIONS - Hypertension CVA. Hypotension. DC. TIA. - Hypothyroid Depression. Weight gain. INTERVENTIONS - Hypertension - Hypothyroid Medications. PATIENT COULD BE AT RISK FOR COMPLICATIONS FROM ADVERSE MEDICAL CONDITIONS DUE TO HIS/HER COMORBIDITI ES AND THE RIGORS OF THE INTENSIVE REHABILLITATION PROGRAM. METHODS OR INTERVENTIONS TO AVOID COMPLIC ATIONS INCLUDE: - Deep Vein Thrombosis (DVT) Prophylaxis therapy for prevention . Sequential Compression Device (SCD). TE D Hose. - Bleeding Assess lab values and manage abnormalities. Nursing to teach precautions for anti-coagulation therapy . Wound to be assessed every shift. - Infection Clinical staff to assess and manage the signs and symptoms of infection including fever, redness, war mth, etc. - Urinary Tract Infection - Falls Patient will be evaluated for Fall Precautions and will be placed on Fall Precautions as indicated pe r protocol. - Skin Breakdown Nursing will assess skin daily using assessment tool and will place on Skin Breakdown Precautions as indicated per protocol. - Pain Clinical staff may employ non-medication methods such as massage, distraction, decrease stimulus, etc . as needed. Clinical staff will assess patient's pain level every shift per protocol to assess and e nsure pain management effectiveness. Medications will be given and the pain level re-assessed. PRELIMINARY PLAN OF CARE: - Physical Therapy Patient needs Physical Therapy for a daily minimum of 1.5 hours at least 5 out of 7 days, to improve: Mobility, Strengthening, Transfers, Stretching, ROM, Endurance, Ability to manage stairs, Gait, and Balance. - Rehabilitation Nursing Patient requires 24x7 Rehabilitation Nursing for: Pain Issues, Identifying and preventing risk factor s, Monitoring and reporting current medical conditions, Assisting with ambulation and transfer, Sindy ting with all ADL-s, Teaching patients about disease process and medications, Family teaching, Provid ing safe environment, Bowel and Bladder Issues, Skin Integrity, and Medication Management. Patient needs Curriculum Development Manager and/or Case Management for: Discharge Planning, Arranging Home Equipmen t or Services, and Family Interventions. - Dietary and Nutrition Services Patient needs Dietary and Nutrition Services for: Adequate Nutrition, Nutritional Supplements, and Nu tritional Education. - Occupational Therapy Patient needs Occupational Therapy for a daily minimum of 1.5 hours at least 5 out of 7 days, to impr ove Activities of Daily Living, including: Eating, Grooming, Bathing, Dressing, Toileting, Toilet Tra nsfers, Community Reintegration, Higher functional activities, Adaptive Equipment, Splinting, Househo ld Tasks, and Other activities as determined. POTENTIAL FUNCTIONAL GOALS FOR PATIENT TO ACHIEVE BY DISCHARGE: - Safety Precaution Patient will remain free from falls or injury at time of discharge. - Bed Mobility Patient will perform bed mobility at 4-Nirmala level of assistance. - Transfers Patient will complete transfers from bed to chair at 4-Nirmala level of assistance. - Mobility Patient will ambulate 150 ft with 4-Nirmala level of assistance with RW. PATIENT REHAB POTENTIAL Expected level of measurable improvement will be of a practical value to patient's functional capacit y or adaptations to impairments Has a viable Discharge Plan Medically appropriate; condition is sufficiently stable to participate in intensive rehab program Patient is able and expected to receive 3 hours of individualized therapy daily on at least 5 of ever y 7 days Patient's prognosis for significant practical improvement within a reasonable period of time appears Good DISCHARGE PLAN: - Estimated Length of Stay (days) 13. - Consensus on plan Discharge plan has been discussed with primary caregiver. Patient/Family is in agreement with the kyung n. Primary caregiver is in agreement with the plan. - Patient/Family Goals Return home with assistance. - Planned Living Setting Upon Discharge Home, to live with Family/Relatives. CONCLUSION ON REHABILITATION NECESSITY: I have evaluated patient's pre-admission functional status and, comparing it to the patient's post-ad mission functional status now, I conclude that the pre-admission assessment was accurate. Patient's c ondition on admission supports the medical necessity of admission to IRF. It is safe to proceed with patient's therapy program. SIGNATURE PANEL: ([employer])
[2018-12-28] MEDS: MELATONIN 3 MG TABLET PO PRN (21:12)
[2018-12-28] MEDS: PROMOD 30 ML DOSE PO SCH (21:13)
--- NOTE | 2018-12-29 00:47 | FAST ---
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 Blane Aguilar M.D. ADMISSION DIAGNOSIS: - Debility 16 - Debility (16) Closed trimalleolar fracture of left ankle. EATING: Activity did not occur on this shift EATING - SCORE: 0-UNK GROOMING: Wash, rinse, and dry hands GROOMING - STEP 1: Does the patient require the assistance of a person or device, or need extra time when grooming? Yes. GROOMING - STEP 2: Does the patient require the assistance of a helper? Yes. GROOMING - STEP 3: How much assistance does the patient require from the helper? Only prior equipment preparation/set up from the helper GROOMING - SCORE: 5-SUP BATHING: Activity did not occur on this shift BATHING - SCORE: 0-UNK DRESSING - UPPER BODY: Patient is not dressing in public clothing ARTICLES SCORE Total number of steps: 0 DRESSING - UPPER BODY - SCORE: 0-UNK DRESSING - LOWER BODY: Patient is not dressing in public clothing ARTICLES SCORE Total number of steps: 0 DRESSING - LOWER BODY - SCORE: 0-UNK TOILETING: TOILETING - STEP 1: Does the patient require the assistance of a person or device, or need extra time with toileting? Yes . TOILETING - STEP 2: Does the patient require the assistance of a helper? Yes. TOILETING - STEP 3: How much assistance does the patient require from the helper? Hands-on assistance from the helper TOILETING - STEP 4: Of the 3 tasks: 1) Adjusting clothing prior to use, 2) Cleansing of perineal area, 3) Adjusting clot zachariah after use; How many tasks does the patient perform WITHOUT assistance of the helper? Three tasks with steadying assistance from the helper TOILETING - SCORE: 4-MIN BLADDER MANAGEMENT: BLADDER MANAGEMENT - STEP 1: Does the patient control the bladder completely and intentionally without equipment or devices or med ications, and is always continent? No. BLADDER MANAGEMENT - STEP 2: Does the patient require the assistance of a helper? Yes. BLADDER MANAGEMENT - STEP 3: How much assistance does the patient require from the helper? Only supervision, stand-by, cuing, or c oaxing BLADDER MANAGEMENT - SCORE: 5-SUP BOWEL MANAGEMENT: Activity did not occur on this shift BOWEL MANAGEMENT - SCORE: 7-IND TRANSFERS: BED, CHAIR, WHEELCHAIR: TRANSFERS: BED, CHAIR, WHEELCHAIR - STEP 1: Does the patient require assistance of a person or device, or need extra time with bed, chair, or whe elchair transfers? Yes. TRANSFERS: BED, CHAIR, WHEELCHAIR - STEP 2: Does the patient require the assistance of a helper? Yes. TRANSFERS: BED, CHAIR, WHEELCHAIR - STEP 3: How much assistance does the patient require from the helper? Steadying/guiding assistance TRANSFERS: BED, CHAIR, WHEELCHAIR - SCORE: 4-MIN TRANSFERS: TOILET: TRANSFERS: TOILET - STEP 1: Does the patient require the assistance of a person or device, or need extra time with toilet transfe rs? Yes. TRANSFERS: TOILET - STEP 2: Does the patient require the assistance of a helper? Yes. TRANSFERS: TOILET - STEP 3: How much assistance does the patient require from the helper? Only supervision, cuing, coaxing, OR he lp to set out transfer equipment or to lock brakes and/or lift foot rests TRANSFERS: TOILET - SCORE: 5-SUP TRANSFERS: SHOWER: Activity did not occur on this shift TRANSFERS: SHOWER - SCORE: 0-UNK TRANSFERS: TUB: Activity did not occur on this shift TRANSFERS: TUB - SCORE: 0-UNK LOCOMOTION: WALK: Activity did not occur on this shift LOCOMOTION: WALK - SCORE: 0-UNK LOCOMOTION: WHEELCHAIR: Activity did not occur on this shift LOCOMOTION: WHEELCHAIR - SCORE: 0-UNK COMPREHENSION: COMPREHENSION: TYPE: Both COMPREHENSION - STEP 1: Does the patient require help from a person or device, or need extra time to understand complex and a bstract ideas (such as current events, finances, discharge planning, medical issues, relationships, e tc)? No. COMPREHENSION - STEP 2: Does the patient need extra time, require an assistive device (such as glasses for visual comprehensi on or a hearing aid for auditory comprehension) or does s/he have mild difficulty understanding compl ex and abstract information? Yes. COMPREHENSION - SCORE: 6-MILAGRO EXPRESSION EXPRESSION: TYPE: Both EXPRESSION - STEP 1: Does the patient require help from a person or device, or need extra time expressing complex and abst ract ideas (such as current events, finances, discharge planning, medical issues, relationships, etc) ? No. EXPRESSION - STEP 2: Does the patient need extra time, require an assistive device (such as augmentive communication syste m or a communication board), OR does s/he have mild difficulty expressing complex and abstract ideas (including mild dysarthria or mild word-find problems)? No. EXPRESSION - SCORE: 7-IND SOCIAL INTERACTION: SOCIAL INTERACTION - STEP 1: Does the patient require a helper to interact with others in social and therapeutic situations? No. SOCIAL INTERACTION - STEP 2: Does the patient need extra time in social situations, OR does s/he interact with staff, other patien ts, and family members ONLY in structured environments, OR does s/he require medication for social in teraction? Yes, patient needs extra time SOCIAL INTERACTION - SCORE: 6-MILAGRO PROBLEM SOLVING: PROBLEM SOLVING - STEP 1: Does the patient need help from a person or device, or need extra time to solve complex problems such as managing a checking account or confronting interpersonal problems? No. PROBLEM SOLVING - STEP 2: Does the patient require extra time to make decisions or solve problems, OR does s/he have slight dif ficulty reading, initiating, or self-correcting in unfamiliar situations? Yes, patient needs extra ti me. PROBLEM SOLVING - SCORE: 6-MILAGRO MEMORY: MEMORY - STEP 1: Does the patient need help from a person or device, or need extra time to remember frequently encount ered people, daily routines, and executing requests? No. MEMORY - STEP 2: Does the patient have slight difficulty recognizing frequently encountered people, daily routines, or executing requests without the need for repetition or using self-initiated or environmental cues to remember? Yes. MEMORY - SCORE: 6-MILAGRO SIGNATURE PANEL: The following modified sections: Eating - Score, Grooming - Score, Dressing - Upper Body - Score, Anup ssing - Lower Body - Score, Toileting - Score, Bladder Management - Score, Bowel Management - Score, Transfers: Bed, Chair, Wheelchair - Score, Transfers: Toilet - Score, Transfers: Shower - Score, Jaime sfers: Tub - Score, Locomotion: Walk - Score, Locomotion: Wheelchair - Score, Comprehension - Score, Expression - Score, Social Interaction - Score, Problem Solving - Score, Memory - Score were [electro nically] signed by Yani Kruse CNA on ThuDec 29 2018 00:46:21 GMT-0600 (Central Standard Time)
[2018-12-29] MEDS: SYNTHROID 50 MCG PO SCH (07:10)
[2018-12-29] MEDS: HYDROCODONE/APAP 7.5/325 MG TAB PO PRN ×4 (07:15→19:59)
[2018-12-29] MEDS: NYSTATIN PWDR 100000 UNIT/GM TOP SCH ×2 (07:17→19:59)
[2018-12-29] MEDS: HYDROCORTISONE 1 % CREAM 30GM TOP PRN (07:17)
[2018-12-29] MEDS: GABAPENTIN 300 MG CAP PO SCH ×3 (07:21→19:59)
[2018-12-29] MEDS: ENOXAPARIN 40 MG/0.4 ML SQ SCH (07:21)
[2018-12-29] MEDS: FERROUS SULFATE 325 MG TAB PO SCH (07:59)
[2018-12-29] MEDS: FE SULF/FA/VIT B COMP & C TAB PO SCH (07:59)
[2018-12-29] MEDS: VESICARE 5 MG PO SCH (08:00)
[2018-12-29] MEDS: DOCUSATE NA 100 MG CAP PO SCH ×2 (08:00→19:58)
[2018-12-29] MEDS: POLYETHYL GLY 3350 17 GM/DOSE PO SCH (08:00)
[2018-12-29] MEDS: LISINOPRIL HCTZ PO SCH (08:00)
[2018-12-29] MEDS: VENLAFAXINE 75 MG PO SCH (08:01)
[2018-12-29] MEDS: PROMOD 30 ML DOSE PO SCH ×2 (08:01→19:59)
--- NOTE | 2018-12-29 15:17 | FAST ---
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 Blane Aguilar M.D. ADMISSION DIAGNOSIS: - Debility 16 - Debility (16) Closed trimalleolar fracture of left ankle. EATING: Activity did not occur on this shift EATING - SCORE: 0-UNK GROOMING: Activity did not occur on this shift GROOMING - SCORE: 0-UNK BATHING: Activity did not occur on this shift BATHING - SCORE: 0-UNK DRESSING - UPPER BODY: Activity did not occur on this shift Patient is not dressing in public clothing ARTICLES SCORE Total number of steps: 0 DRESSING - UPPER BODY - SCORE: 0-UNK DRESSING - LOWER BODY: Activity did not occur on this shift Patient is not dressing in public clothing ARTICLES SCORE Total number of steps: 0 DRESSING - LOWER BODY - SCORE: 0-UNK TOILETING: Activity did not occur on this shift TOILETING - SCORE: 0-UNK BLADDER MANAGEMENT: Activity did not occur on this shift BLADDER MANAGEMENT - SCORE: 7-IND BOWEL MANAGEMENT: Activity did not occur on this shift BOWEL MANAGEMENT - SCORE: 7-IND TRANSFERS: BED, CHAIR, WHEELCHAIR: TRANSFERS: BED, CHAIR, WHEELCHAIR - STEP 1: Does the patient require assistance of a person or device, or need extra time with bed, chair, or whe elchair transfers? Yes. TRANSFERS: BED, CHAIR, WHEELCHAIR - STEP 2: Does the patient require the assistance of a helper? Yes. TRANSFERS: BED, CHAIR, WHEELCHAIR - STEP 3: How much assistance does the patient require from the helper? Only supervision TRANSFERS: BED, CHAIR, WHEELCHAIR - SCORE: 5-SUP TRANSFERS: TOILET: Activity did not occur on this shift TRANSFERS: TOILET - SCORE: 0-UNK TRANSFERS: SHOWER: Activity did not occur on this shift TRANSFERS: SHOWER - SCORE: 0-UNK TRANSFERS: TUB: Activity did not occur on this shift TRANSFERS: TUB - SCORE: 0-UNK LOCOMOTION: WALK: LOCOMOTION: WALK - STEP 1: Does the patient need help from a person or device, or need extra time to walk 150 feet? Yes. LOCOMOTION: WALK - STEP 2: How much assistance does the patient require to walk a minimum of 150 feet? Patient walks less than 1 50 feet - but more than 50 feet - with the assistance of only one helper LOCOMOTION: WALK - SCORE: 2-MAX LOCOMOTION: WHEELCHAIR: LOCOMOTION: WHEELCHAIR - STEP 1: Does the patient need help to go 150 feet in a wheelchair? No. LOCOMOTION: WHEELCHAIR - SCORE: 6-MILAGRO LOCOMOTION: STAIRS: Activity did not occur on this shift LOCOMOTION: STAIRS - SCORE: 0-UNK COMPREHENSION: COMPREHENSION - SCORE: 0-UNK EXPRESSION EXPRESSION - SCORE: 0-UNK SOCIAL INTERACTION: SOCIAL INTERACTION - SCORE: 0-UNK PROBLEM SOLVING: PROBLEM SOLVING - SCORE: 0-UNK MEMORY: MEMORY - SCORE: 0-UNK SIGNATURE PANEL: The following modified sections: Transfers: Bed, Chair, Wheelchair - Score, Transfers: Toilet - Score , Locomotion: Walk - Score, Locomotion: Wheelchair - Score, Locomotion: Stairs - Score were [electron lela] signed by Jake Bhat PT on ThuDec 29 2018 15:16:52 GMT-0600 (Central Standard Time)
--- NOTE | 2018-12-29 15:36 | FAST ---
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 Blane Aguilar M.D. ADMISSION DIAGNOSIS: - Debility 16 - Debility (16) Closed trimalleolar fracture of left ankle. EATING: EATING - STEP 1: Does the patient require the assistance of a person or device, or need extra time when eating? Yes. EATING - STEP 2: Does the patient require the assistance of a helper? Yes. EATING - STEP 3: Does the patient perform half or more of the eating tasks? Yes. EATING - STEP 4: Does the patient need only supervision, cuing, coaxing OR help to apply an orthosis OR help to cut fo od, open containers, pour liquids, or butter bread? Yes. EATING - SCORE: 5-SUP GROOMING: Comb/brush hair Oral care Wash, rinse, and dry face Wash, rinse, and dry hands GROOMING - STEP 1: Does the patient require the assistance of a person or device, or need extra time when grooming? Yes. GROOMING - STEP 2: Does the patient require the assistance of a helper? Yes. GROOMING - STEP 3: How much assistance does the patient require from the helper? Only prior equipment preparation/set up from the helper GROOMING - SCORE: 5-SUP BATHING: Activity did not occur on this shift BATHING - SCORE: 0-UNK DRESSING - UPPER BODY: Activity did not occur on this shift ARTICLES SCORE Total number of steps: 0 DRESSING - UPPER BODY - SCORE: 0-UNK DRESSING - LOWER BODY: Activity did not occur on this shift ARTICLES SCORE Total number of steps: 0 DRESSING - LOWER BODY - SCORE: 0-UNK TOILETING: TOILETING - STEP 1: Does the patient require the assistance of a person or device, or need extra time with toileting? Yes . TOILETING - STEP 2: Does the patient require the assistance of a helper? Yes. TOILETING - STEP 3: How much assistance does the patient require from the helper? Hands-on assistance from the helper TOILETING - STEP 4: Of the 3 tasks: 1) Adjusting clothing prior to use, 2) Cleansing of perineal area, 3) Adjusting clot zachariah after use; How many tasks does the patient perform WITHOUT assistance of the helper? Three tasks with steadying assistance from the helper TOILETING - SCORE: 4-MIN BLADDER MANAGEMENT: BLADDER MANAGEMENT - STEP 1: Does the patient control the bladder completely and intentionally without equipment or devices or med ications, and is always continent? No. BLADDER MANAGEMENT - STEP 2: Does the patient require the assistance of a helper? No, patient requires and independently uses an a ssistive device, such as a urinal, bedpan, bedside commode, catheter, absorbent pad, or collecting de vice BLADDER MANAGEMENT - SCORE: 6-MILAGRO BOWEL MANAGEMENT: Activity did not occur on this shift BOWEL MANAGEMENT - SCORE: 7-IND TRANSFERS: BED, CHAIR, WHEELCHAIR: TRANSFERS: BED, CHAIR, WHEELCHAIR - STEP 1: Does the patient require assistance of a person or device, or need extra time with bed, chair, or whe elchair transfers? Yes. TRANSFERS: BED, CHAIR, WHEELCHAIR - STEP 2: Does the patient require the assistance of a helper? Yes. TRANSFERS: BED, CHAIR, WHEELCHAIR - STEP 3: How much assistance does the patient require from the helper? Steadying/guiding assistance TRANSFERS: BED, CHAIR, WHEELCHAIR - SCORE: 4-MIN TRANSFERS: TOILET: TRANSFERS: TOILET - STEP 1: Does the patient require the assistance of a person or device, or need extra time with toilet transfe rs? Yes. TRANSFERS: TOILET - STEP 2: Does the patient require the assistance of a helper? Yes. TRANSFERS: TOILET - STEP 3: How much assistance does the patient require from the helper? Patient performs half or more of the tr ansferring tasks TRANSFERS: TOILET - STEP 4: Does the patient need only incidental help such as contact guard or steadying during toilet transfer? No. Patient needs more than incidental help TRANSFERS: TOILET - SCORE: 3-MOD TRANSFERS: SHOWER: Activity did not occur on this shift TRANSFERS: SHOWER - SCORE: 0-UNK TRANSFERS: TUB: Activity did not occur on this shift TRANSFERS: TUB - SCORE: 0-UNK LOCOMOTION: WALK: Activity did not occur on this shift LOCOMOTION: WALK - SCORE: 0-UNK LOCOMOTION: WHEELCHAIR: Activity did not occur on this shift LOCOMOTION: WHEELCHAIR - SCORE: 0-UNK COMPREHENSION: COMPREHENSION: TYPE: Both COMPREHENSION - STEP 1: Does the patient require help from a person or device, or need extra time to understand complex and a bstract ideas (such as current events, finances, discharge planning, medical issues, relationships, e tc)? No. COMPREHENSION - STEP 2: Does the patient need extra time, require an assistive device (such as glasses for visual comprehensi on or a hearing aid for auditory comprehension) or does s/he have mild difficulty understanding compl ex and abstract information? Yes. COMPREHENSION - SCORE: 6-MILAGRO EXPRESSION EXPRESSION: TYPE: Both EXPRESSION - STEP 1: Does the patient require help from a person or device, or need extra time expressing complex and abst ract ideas (such as current events, finances, discharge planning, medical issues, relationships, etc) ? No. EXPRESSION - STEP 2: Does the patient need extra time, require an assistive device (such as augmentive communication syste m or a communication board), OR does s/he have mild difficulty expressing complex and abstract ideas (including mild dysarthria or mild word-find problems)? Yes. EXPRESSION - SCORE: 6-MILAGRO SOCIAL INTERACTION: SOCIAL INTERACTION - STEP 1: Does the patient require a helper to interact with others in social and therapeutic situations? No. SOCIAL INTERACTION - STEP 2: Does the patient need extra time in social situations, OR does s/he interact with staff, other patien ts, and family members ONLY in structured environments, OR does s/he require medication for social in teraction? Yes, patient needs extra time SOCIAL INTERACTION - SCORE: 6-MILAGRO PROBLEM SOLVING: PROBLEM SOLVING - STEP 1: Does the patient need help from a person or device, or need extra time to solve complex problems such as managing a checking account or confronting interpersonal problems? No. PROBLEM SOLVING - STEP 2: Does the patient require extra time to make decisions or solve problems, OR does s/he have slight dif ficulty reading, initiating, or self-correcting in unfamiliar situations? Yes, patient needs extra ti me. PROBLEM SOLVING - SCORE: 6-MILAGRO MEMORY: MEMORY - STEP 1: Does the patient need help from a person or device, or need extra time to remember frequently encount ered people, daily routines, and executing requests? No. MEMORY - STEP 2: Does the patient have slight difficulty recognizing frequently encountered people, daily routines, or executing requests without the need for repetition or using self-initiated or environmental cues to remember? Yes. MEMORY - SCORE: 6-MILAGRO SIGNATURE PANEL: The following modified sections: Eating - Score, Grooming - Score, Bathing - Score, Dressing - Upper Body - Score, Dressing - Lower Body - Score, Toileting - Score, Bladder Management - Score, Bowel Man agement - Score, Transfers: Bed, Chair, Wheelchair - Score, Transfers: Toilet - Score, Transfers: Elsa wer - Score, Transfers: Tub - Score, Locomotion: Walk - Score, Locomotion: Wheelchair - Score, Compre hension - Score, Expression - Score, Social Interaction - Score, Problem Solving - Score, Memory - Sc ore were [electronically] signed by Clarke Bonner on ThuDec 29 2018 15:35:38 GMT-0600 (Central Standard Time)
--- NOTE | 2018-12-29 18:10 | R.PN ---
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 Pt denied any depression. Propelled wheelchair 250' with physical therapist in tow. VITAL SIGNS Temperature: 97.3 F SBP/DBP: 141/85 Pulse: 78 Resp: 16 Hgb is 11.4, WBC is 4.7, Creatinine is 0.5, prealbumin 12.5, UA show trace esterase. MEDICATION ALLERGIES: Codeine ENVIRONMENTAL ALLERGIES: None Known - Substance Allergies None Known - Other Allergies None Known NURSING: - Shower allowing shower PRECAUTIONS: - Weight Bearing Precaution NWB left LE ACTIVITIES OOB only with supervision THERAPIES: - Occupational Therapy Evaluate and Treat. - Physical Therapy Evaluate and Treat. PHYSICAL EXAM - Gen Alert and awake Lying in bed No apparent distress Oriented to: person, time, and place - Skin No breakdown No abnormalities - Eyes No abnormalities - ENMT No abnormalities - Neck No abnormalities - CVS RRR - Chest No abnormalities - Resp Clear to auscultation - Abd + bowel sounds - GI Soft Deferred - No abnormalities - Ext Left lower ext in immob - MSK 4+/5 weakness in left lower extremity - Neuro 4/5 strength left lower extremity. - Psych No abnormalities ASSESSMENT: Pt. is a 63 yo Right-handed white female.On 12/21/2018 she was admitted to [facility] with diagnosis Closed trimalleolar fracture of left ankle.Her impairment category is Debility 16 - Debility (16).Pre-morbidly, Pt. was independent/mod-I in Transfers Control, Communication, Soci al Cognition, Self-Care, Locomotion, and Sphincter Control; and she had good Sphincter Control.Curren tly, she has deficits of Transfers Control, Balance, Locomotion, Endurance, Safety Awareness, and Felisha f-Care.Pt. is now referred to [facility] for acute in-patient rehabilitation i n order to maximize patient's functional independence in activities of daily living, strength, ROM, a nd mobility.- Rehab Goal Patient has realistic goal of being discharged at assistance level 5-sup to reside at Home with Fami ly/Relatives. MDM/PLAN: - Physical Therapy Gait dysfunction - to improve, our physical therapists will perform initial evaluation of pt's statu s upon admission and devise an individualized program for Gait Training, and Wheel Chair mobility Inability to transfer - to improve, our physical therapists will perform initial evaluation of pt's status upon admission and devise an individualized program for Bed mobility Need for home safety evaluation - to improve, our physical therapists will perform initial evaluatio n of pt's status upon admission and devise an individualized program for Home Evaluation Need in caregiver upon discharge - to improve, our physical therapists will perform initial evaluati on of pt's status upon admission and devise an individualized program for Caregiver Training New precaution - to improve, our physical therapists will perform initial evaluation of pt's status upon admission and devise an individualized program for Patient precaution education Poor balance - to improve, our physical therapists will perform initial evaluation of pt's status up on admission and devise an individualized program for Balance Training Poor endurance - to improve, our physical therapists will perform initial evaluation of pt's status upon admission and devise an individualized program for Endurance Training Weakness - to improve, our physical therapists will perform initial evaluation of pt's status upon a dmission and devise an individualized program for Aquatic Therapy, Neuromuscular Reeducation, and Str engthening Achieving independence - to improve, our physical therapists will perform initial evaluation of pt's status upon admission and devise an individualized program for Community Reintegration Activities - Occupational Therapy ADL deficits - to improve, our occupation therapists will perform initial evaluation of pt's status upon admission and devise an individualized program for Bathing, Bed mobility, Community Reintegratio n, Cooking, Dressing, Eating, Fine Motor Skills, Grooming, Homemaking, Kitchen Mobility, Laundry, Pat ient Education, Safety Awareness, Splinting - Positioning, Transfers(Toilet, Tub, Shower), and Wheel Chair Management Need for ocular care technician - to improve, our occupation therapists will perform initial evaluation of pt's status upon admission and devise an individualized program for Caregiver Training Weakness - to improve, our occupation therapists will perform initial evaluation of pt's status upon admission and devise an individualized program for Aquatic Therapy, Balance, Endurance, UE ROM, and UE strengthening - Diet Type Continue Regular - Diet - Liquid Texture Continue Regular - Tube Feed Continue N/A - Weight Bearing Precaution NWB left LE - Diet - Solid Texture Continue Regular - Shower allowing shower FUNCTIONAL STATUS: UPDATED AT WEEKLY TEAM CONFERENCE - Bladder Same accident frequency: 7-Ind - No accidents in the past 7 days - Bowel Same accident frequency: 7-Ind - No accidents in the past 7 days - Walking Same score based on distance walked: 2(50-149ft) - Wheelchair Same score based on distance traveled: 0(N/A) FUNCTIONAL STATUS: - Self-Care A. Eating Ind B. Grooming Ind C. Bathing sup D. Dressing - Upper Ind E. Dressing - Lower sup F. Toileting sup - Sphincter Control G: Bladder control Ind H: Bowel control Ind - Transfers Control I. Bed/Chair/Wheelchair sup J. Toilet sup K. Tub/Shower ADNO - Locomotion L. Walk/Wheelchair (C) sup L. Walk/Wheelchair (W) sup M. Stairs ADNO - Communication N. Comprehension (B) Ind O. Expression (B) Ind - Social Cognition P. Social Interaction Ind Q. Problem Solving Ind R. Memory Ind - Endurance Fair - Balance Fair - Safety Awareness Fair CURRENT FUNC. DEFICITS: Transfers Control, Balance, Locomotion, Endurance, Safety Awareness, and Self-Care SIGNATURE PANEL: ([facility])
[2018-12-29] MEDS: MELATONIN 3 MG TABLET PO PRN (19:58)
[2018-12-29] MEDS: CRANBERRY FRUIT EXTRACT 200 MG CAP PO SCH (19:58)
--- NOTE | 2018-12-29 20:42 | P.PN ---
Date of Service: 12/29/18 (POD#6) S: PATIENT DOING WELL TODAY, CHALLENGED BY PHYSICAL DEMANDS OF 5TH FLOOR REHAB. NO C/O PAIN THIS VISIT. O: AFEBRILE, VSS, PATIENT FREELY LIFTING LLE WITH GOOD CONTROL. DISCUSSED REMOVAL OF JAGDISH AND APPLICATION OF BOOT OR CAST ON DAY 14 POST-OP. A: PATIENT MAKING GOOD PROGRESS IN REHAB EFFORT. P: APPT TO MY OFFICE FOR STAPLE REMOVAL LATTER PART OF NEXT WEEK IF DISCHARGED PRIOR TO THAT TIME.
--- NOTE | 2018-12-30 03:11 | FAST ---
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 Blane Aguilar M.D. ADMISSION DIAGNOSIS: - Debility 16 - Debility (16) Closed trimalleolar fracture of left ankle. EATING: Activity did not occur on this shift EATING - SCORE: 0-UNK GROOMING: Wash, rinse, and dry hands GROOMING - STEP 1: Does the patient require the assistance of a person or device, or need extra time when grooming? No. GROOMING - SCORE: 7-IND BATHING: Activity did not occur on this shift BATHING - SCORE: 0-UNK DRESSING - UPPER BODY: Activity did not occur on this shift ARTICLES SCORE Total number of steps: 0 DRESSING - UPPER BODY - SCORE: 0-UNK DRESSING - LOWER BODY: Activity did not occur on this shift ARTICLES SCORE Total number of steps: 0 DRESSING - LOWER BODY - SCORE: 0-UNK TOILETING: TOILETING - STEP 1: Does the patient require the assistance of a person or device, or need extra time with toileting? Yes . TOILETING - STEP 2: Does the patient require the assistance of a helper? Yes. TOILETING - STEP 3: How much assistance does the patient require from the helper? Only supervision TOILETING - SCORE: 5-SUP BLADDER MANAGEMENT: BLADDER MANAGEMENT - STEP 1: Does the patient control the bladder completely and intentionally without equipment or devices or med ications, and is always continent? Yes. BLADDER MANAGEMENT - SCORE: 7-IND BOWEL MANAGEMENT: Activity did not occur on this shift BOWEL MANAGEMENT - SCORE: 7-IND TRANSFERS: BED, CHAIR, WHEELCHAIR: TRANSFERS: BED, CHAIR, WHEELCHAIR - STEP 1: Does the patient require assistance of a person or device, or need extra time with bed, chair, or whe elchair transfers? Yes. TRANSFERS: BED, CHAIR, WHEELCHAIR - STEP 2: Does the patient require the assistance of a helper? Yes. TRANSFERS: BED, CHAIR, WHEELCHAIR - STEP 3: How much assistance does the patient require from the helper? Only supervision TRANSFERS: BED, CHAIR, WHEELCHAIR - SCORE: 5-SUP TRANSFERS: TOILET: TRANSFERS: TOILET - STEP 1: Does the patient require the assistance of a person or device, or need extra time with toilet transfe rs? Yes. TRANSFERS: TOILET - STEP 2: Does the patient require the assistance of a helper? Yes. TRANSFERS: TOILET - STEP 3: How much assistance does the patient require from the helper? Only supervision, cuing, coaxing, OR he lp to set out transfer equipment or to lock brakes and/or lift foot rests TRANSFERS: TOILET - SCORE: 5-SUP TRANSFERS: SHOWER: Activity did not occur on this shift TRANSFERS: SHOWER - SCORE: 0-UNK TRANSFERS: TUB: Activity did not occur on this shift TRANSFERS: TUB - SCORE: 0-UNK LOCOMOTION: WALK: Activity did not occur on this shift LOCOMOTION: WALK - SCORE: 0-UNK LOCOMOTION: WHEELCHAIR: Activity did not occur on this shift LOCOMOTION: WHEELCHAIR - SCORE: 0-UNK COMPREHENSION: COMPREHENSION: TYPE: Both COMPREHENSION - STEP 1: Does the patient require help from a person or device, or need extra time to understand complex and a bstract ideas (such as current events, finances, discharge planning, medical issues, relationships, e tc)? No. COMPREHENSION - STEP 2: Does the patient need extra time, require an assistive device (such as glasses for visual comprehensi on or a hearing aid for auditory comprehension) or does s/he have mild difficulty understanding compl ex and abstract information? Yes. COMPREHENSION - SCORE: 6-MILAGRO EXPRESSION EXPRESSION: TYPE: Both EXPRESSION - STEP 1: Does the patient require help from a person or device, or need extra time expressing complex and abst ract ideas (such as current events, finances, discharge planning, medical issues, relationships, etc) ? No. EXPRESSION - STEP 2: Does the patient need extra time, require an assistive device (such as augmentive communication syste m or a communication board), OR does s/he have mild difficulty expressing complex and abstract ideas (including mild dysarthria or mild word-find problems)? No. EXPRESSION - SCORE: 7-IND SOCIAL INTERACTION: SOCIAL INTERACTION - STEP 1: Does the patient require a helper to interact with others in social and therapeutic situations? No. SOCIAL INTERACTION - STEP 2: Does the patient need extra time in social situations, OR does s/he interact with staff, other patien ts, and family members ONLY in structured environments, OR does s/he require medication for social in teraction? No. SOCIAL INTERACTION - SCORE: 7-IND PROBLEM SOLVING: PROBLEM SOLVING - STEP 1: Does the patient need help from a person or device, or need extra time to solve complex problems such as managing a checking account or confronting interpersonal problems? No. PROBLEM SOLVING - STEP 2: Does the patient require extra time to make decisions or solve problems, OR does s/he have slight dif ficulty reading, initiating, or self-correcting in unfamiliar situations? No. PROBLEM SOLVING - SCORE: 7-IND MEMORY: MEMORY - STEP 1: Does the patient need help from a person or device, or need extra time to remember frequently encount ered people, daily routines, and executing requests? No. MEMORY - STEP 2: Does the patient have slight difficulty recognizing frequently encountered people, daily routines, or executing requests without the need for repetition or using self-initiated or environmental cues to remember? No. MEMORY - SCORE: 7-IND SIGNATURE PANEL: The following modified sections: Eating - Score, Grooming - Score, Bathing - Score, Dressing - Upper Body - Score, Dressing - Lower Body - Score, Toileting - Score, Bladder Management - Score, Bowel Man agement - Score, Transfers: Bed, Chair, Wheelchair - Score, Transfers: Toilet - Score, Transfers: Elsa wer - Score, Transfers: Tub - Score, Locomotion: Walk - Score, Locomotion: Wheelchair - Score, Compre hension - Score, Expression - Score, Social Interaction - Score, Problem Solving - Score, Memory - Sc ore were [electronically] signed by Elaine Rico CNA on ThuDec 30 2018 03:10:13 T-0600 ([facility])
[2018-12-30 06:28] LABS: Absolute Lymphocytes (CBC) 0.6 K/uL (0.7-4.9); Absolute Monocytes 0.5 K/uL (0.1-1.3); Absolute Neutrophil 3.8 K/uL (1.8-8.0); Basophils % 0.3 % (0-1.3); Eosinophils % 5.1 % (0-4.4); Hematocrit 35.5 % (36.0-45.0); Lymphocytes % 10.8 % (15.3-44.8); MPV 8.9 fL (7.6-11.3); RBC Red Blood Cell Count 3.78 M/uL (3.86-4.86)
[2018-12-30 07:12] LABS: Albumin 3.3 g/dL (3.4-5.0); BUN Blood Urea Nitrogen 12 mg/dL (7-18); Bicarbonate 32 mmol/L (21-32); Glucose Level 81 mg/dL (74-106); Potassium 4.6 mmol/L (3.5-5.1); Prealbumin 16.6 mg/dL (20-40); Sodium Level 145 mmol/L (136-145)
[2018-12-30] MEDS: SYNTHROID 50 MCG PO SCH (07:23)
[2018-12-30] MEDS: ENOXAPARIN 40 MG/0.4 ML SQ SCH (07:24)
[2018-12-30] MEDS: GABAPENTIN 300 MG CAP PO SCH ×3 (07:24→20:28)
[2018-12-30] MEDS: FE SULF/FA/VIT B COMP & C TAB PO SCH (07:25)
[2018-12-30] MEDS: DOCUSATE NA 100 MG CAP PO SCH ×2 (07:25→19:19)
[2018-12-30] MEDS: CRANBERRY FRUIT EXTRACT 200 MG CAP PO SCH ×2 (07:25→19:19)
[2018-12-30] MEDS: FERROUS SULFATE 325 MG TAB PO SCH (07:25)
[2018-12-30] MEDS: HYDROCODONE/APAP 7.5/325 MG TAB PO PRN ×4 (07:26→21:02)
[2018-12-30] MEDS: VENLAFAXINE 75 MG PO SCH (07:30)
[2018-12-30] MEDS: LISINOPRIL HCTZ PO SCH (07:30)
[2018-12-30] MEDS: VESICARE 5 MG PO SCH (07:31)
[2018-12-30] MEDS: POLYETHYL GLY 3350 17 GM/DOSE PO SCH (07:32)
[2018-12-30] MEDS: PROMOD 30 ML DOSE PO SCH ×2 (08:54→19:19)
[2018-12-30] MEDS: NYSTATIN PWDR 100000 UNIT/GM TOP SCH ×2 (12:03→19:19)
--- NOTE | 2018-12-30 14:19 | FAST ---
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 Blane Aguilar M.D. ADMISSION DIAGNOSIS: - Debility 16 - Debility (16) Closed trimalleolar fracture of left ankle. EATING: EATING - STEP 1: Does the patient require the assistance of a person or device, or need extra time when eating? Yes. EATING - STEP 2: Does the patient require the assistance of a helper? No, patient only requires an assistive device, O R s/he takes more than reasonable time to eat, OR there is a safety concern, OR s/he requires modifie d food consistency EATING - SCORE: 6-MILAGRO GROOMING: Activity did not occur on this shift GROOMING - SCORE: 0-UNK BATHING: Activity did not occur on this shift BATHING - SCORE: 0-UNK DRESSING - UPPER BODY: Activity did not occur on this shift ARTICLES SCORE Total number of steps: 0 DRESSING - UPPER BODY - SCORE: 0-UNK DRESSING - LOWER BODY: Activity did not occur on this shift ARTICLES SCORE Total number of steps: 0 DRESSING - LOWER BODY - SCORE: 0-UNK TOILETING: TOILETING - STEP 1: Does the patient require the assistance of a person or device, or need extra time with toileting? Yes . TOILETING - STEP 2: Does the patient require the assistance of a helper? Yes. TOILETING - STEP 3: How much assistance does the patient require from the helper? Only supervision TOILETING - SCORE: 5-SUP BLADDER MANAGEMENT: BLADDER MANAGEMENT - STEP 1: Does the patient control the bladder completely and intentionally without equipment or devices or med ications, and is always continent? No. BLADDER MANAGEMENT - STEP 2: Does the patient require the assistance of a helper? No, patient requires and independently uses an a ssistive device, such as a urinal, bedpan, bedside commode, catheter, absorbent pad, or collecting de vice BLADDER MANAGEMENT - SCORE: 6-MILAGRO BOWEL MANAGEMENT: Activity did not occur on this shift BOWEL MANAGEMENT - SCORE: 7-IND TRANSFERS: BED, CHAIR, WHEELCHAIR: TRANSFERS: BED, CHAIR, WHEELCHAIR - STEP 1: Does the patient require assistance of a person or device, or need extra time with bed, chair, or whe elchair transfers? Yes. TRANSFERS: BED, CHAIR, WHEELCHAIR - STEP 2: Does the patient require the assistance of a helper? Yes. TRANSFERS: BED, CHAIR, WHEELCHAIR - STEP 3: How much assistance does the patient require from the helper? Steadying/guiding assistance TRANSFERS: BED, CHAIR, WHEELCHAIR - SCORE: 4-MIN TRANSFERS: TOILET: TRANSFERS: TOILET - STEP 1: Does the patient require the assistance of a person or device, or need extra time with toilet transfe rs? Yes. TRANSFERS: TOILET - STEP 2: Does the patient require the assistance of a helper? Yes. TRANSFERS: TOILET - STEP 3: How much assistance does the patient require from the helper? Patient performs half or more of the tr ansferring tasks TRANSFERS: TOILET - STEP 4: Does the patient need only incidental help such as contact guard or steadying during toilet transfer? Yes. TRANSFERS: TOILET - SCORE: 4-MIN TRANSFERS: SHOWER: Activity did not occur on this shift TRANSFERS: SHOWER - SCORE: 0-UNK TRANSFERS: TUB: Activity did not occur on this shift TRANSFERS: TUB - SCORE: 0-UNK LOCOMOTION: WALK: Activity did not occur on this shift LOCOMOTION: WALK - SCORE: 0-UNK LOCOMOTION: WHEELCHAIR: Activity did not occur on this shift LOCOMOTION: WHEELCHAIR - SCORE: 0-UNK COMPREHENSION: COMPREHENSION: TYPE: Both COMPREHENSION - STEP 1: Does the patient require help from a person or device, or need extra time to understand complex and a bstract ideas (such as current events, finances, discharge planning, medical issues, relationships, e tc)? No. COMPREHENSION - STEP 2: Does the patient need extra time, require an assistive device (such as glasses for visual comprehensi on or a hearing aid for auditory comprehension) or does s/he have mild difficulty understanding compl ex and abstract information? No. COMPREHENSION - SCORE: 7-IND EXPRESSION EXPRESSION: TYPE: Both EXPRESSION - STEP 1: Does the patient require help from a person or device, or need extra time expressing complex and abst ract ideas (such as current events, finances, discharge planning, medical issues, relationships, etc) ? No. EXPRESSION - STEP 2: Does the patient need extra time, require an assistive device (such as augmentive communication syste m or a communication board), OR does s/he have mild difficulty expressing complex and abstract ideas (including mild dysarthria or mild word-find problems)? Yes. EXPRESSION - SCORE: 6-MILAGRO SOCIAL INTERACTION: SOCIAL INTERACTION - STEP 1: Does the patient require a helper to interact with others in social and therapeutic situations? No. SOCIAL INTERACTION - STEP 2: Does the patient need extra time in social situations, OR does s/he interact with staff, other patien ts, and family members ONLY in structured environments, OR does s/he require medication for social in teraction? No. SOCIAL INTERACTION - SCORE: 7-IND PROBLEM SOLVING: PROBLEM SOLVING - STEP 1: Does the patient need help from a person or device, or need extra time to solve complex problems such as managing a checking account or confronting interpersonal problems? No. PROBLEM SOLVING - STEP 2: Does the patient require extra time to make decisions or solve problems, OR does s/he have slight dif ficulty reading, initiating, or self-correcting in unfamiliar situations? Yes, patient needs extra ti me. PROBLEM SOLVING - SCORE: 6-MILAGRO MEMORY: MEMORY - STEP 1: Does the patient need help from a person or device, or need extra time to remember frequently encount ered people, daily routines, and executing requests? No. MEMORY - STEP 2: Does the patient have slight difficulty recognizing frequently encountered people, daily routines, or executing requests without the need for repetition or using self-initiated or environmental cues to remember? Yes. MEMORY - SCORE: 6-MILAGRO SIGNATURE PANEL: The following modified sections: Eating - Score, Grooming - Score, Bathing - Score, Dressing - Upper Body - Score, Dressing - Lower Body - Score, Toileting - Score, Bladder Management - Score, Bowel Man agement - Score, Transfers: Bed, Chair, Wheelchair - Score, Transfers: Toilet - Score, Transfers: Elsa wer - Score, Transfers: Tub - Score, Locomotion: Walk - Score, Locomotion: Wheelchair - Score, Compre hension - Score, Expression - Score, Social Interaction - Score, Problem Solving - Score, Memory - Sc ore were [electronically] signed by Clarke Bonner on ThuDec 30 2018 14:17:53 GMT-0600 (Central Standard Time)
--- NOTE | 2018-12-30 15:00 | FAST ---
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 Blane Aguilar M.D. ADMISSION DIAGNOSIS: - Debility 16 - Debility (16) Closed trimalleolar fracture of left ankle. EATING: EATING - STEP 1: Does the patient require the assistance of a person or device, or need extra time when eating? No. EATING - SCORE: 7-IND GROOMING: Comb/brush hair Oral care Patient applied make-up Wash, rinse, and dry face Wash, rinse, and dry hands GROOMING - STEP 1: Does the patient require the assistance of a person or device, or need extra time when grooming? No. GROOMING - SCORE: 7-IND BATHING: Abdomen Buttocks Chest Left arm Left lower leg and foot Left upper leg Perineal area Right arm Right lower leg and foot Right upper leg BATHING - STEP 1: Does the patient require the assistance of a person or device, or need extra time when bathing? Yes. BATHING - STEP 2: Does the patient require the assistance of a helper? Yes. BATHING - STEP 3: How much assistance does the patient require from the helper? Only incidental help such as placement of a wash cloth in his/her hand a few times as s/he bathes OR help to bathe just one or two areas of the body BATHING - SCORE: 4-MIN DRESSING - UPPER BODY: T-shirt/pullover shirt (four steps) ARTICLES SCORE Total number of steps: 4 DRESSING - UPPER BODY - STEP 1: Does the patient require help from a person or device, or need extra time when dressing above the jatin[address] st? Yes. DRESSING - UPPER BODY - STEP 2: Does the patient require the assistance of a helper? Yes. DRESSING - UPPER BODY - STEP 3: Does the helper touch the patient while dressing? No. DRESSING - UPPER BODY - SCORE: 5-SUP DRESSING - LOWER BODY: Elastic waist pants (three steps) Sock - Left foot (one step) Sock - Right foot (one step) Underwear (three steps) ARTICLES SCORE Total number of steps: 8 DRESSING - LOWER BODY - STEP 1: Does the patient require help from a person or device, or need extra time when dressing below the jatinder st? Yes. DRESSING - LOWER BODY - STEP 2: Does the patient require the assistance of a helper? Yes. DRESSING - LOWER BODY - STEP 3: Does the helper touch the patient while dressing? Yes. DRESSING - LOWER BODY - STEP 4: How many of the total steps does the patient complete on his/her own? 1 DRESSING - LOWER BODY - STEP 5: Does patient require total assistance for dressing below the waist such as the helper holding clothin g and performing basically all the activities? No. DRESSING - LOWER BODY - SCORE: 2-MAX TOILETING: Activity did not occur on this shift TOILETING - SCORE: 0-UNK BLADDER MANAGEMENT: Activity did not occur on this shift BLADDER MANAGEMENT - SCORE: 7-IND BOWEL MANAGEMENT: Activity did not occur on this shift BOWEL MANAGEMENT - SCORE: 7-IND TRANSFERS: BED, CHAIR, WHEELCHAIR: Activity did not occur on this shift TRANSFERS: BED, CHAIR, WHEELCHAIR - SCORE: 0-UNK TRANSFERS: TOILET: Activity did not occur on this shift TRANSFERS: TOILET - SCORE: 0-UNK TRANSFERS: SHOWER: TRANSFERS: SHOWER - STEP 1: Does the patient require the assistance of a person or device, or need extra time with shower transfe rs? Yes. TRANSFERS: SHOWER - STEP 2: Does the patient require the assistance of a helper? Yes. TRANSFERS: SHOWER - STEP 3: How much assistance does the patient require from the helper? Only incidental help such as contact gu arding or steadying during shower transfers, or help to lift one leg into the shower TRANSFERS: SHOWER - SCORE: 4-MIN TRANSFERS: TUB: Activity did not occur on this shift TRANSFERS: TUB - SCORE: 0-UNK LOCOMOTION: WALK: Activity did not occur on this shift LOCOMOTION: WALK - SCORE: 0-UNK LOCOMOTION: WHEELCHAIR: Activity did not occur on this shift LOCOMOTION: WHEELCHAIR - SCORE: 0-UNK LOCOMOTION: STAIRS: Activity did not occur on this shift LOCOMOTION: STAIRS - SCORE: 0-UNK COMPREHENSION: COMPREHENSION: TYPE: Both COMPREHENSION - STEP 1: Does the patient require help from a person or device, or need extra time to understand complex and a bstract ideas (such as current events, finances, discharge planning, medical issues, relationships, e tc)? No. COMPREHENSION - STEP 2: Does the patient need extra time, require an assistive device (such as glasses for visual comprehensi on or a hearing aid for auditory comprehension) or does s/he have mild difficulty understanding compl ex and abstract information? No. COMPREHENSION - SCORE: 7-IND EXPRESSION EXPRESSION: TYPE: Both EXPRESSION - STEP 1: Does the patient require help from a person or device, or need extra time expressing complex and abst ract ideas (such as current events, finances, discharge planning, medical issues, relationships, etc) ? No. EXPRESSION - STEP 2: Does the patient need extra time, require an assistive device (such as augmentive communication syste m or a communication board), OR does s/he have mild difficulty expressing complex and abstract ideas (including mild dysarthria or mild word-find problems)? No. EXPRESSION - SCORE: 7-IND SOCIAL INTERACTION: SOCIAL INTERACTION - STEP 1: Does the patient require a helper to interact with others in social and therapeutic situations? No. SOCIAL INTERACTION - STEP 2: Does the patient need extra time in social situations, OR does s/he interact with staff, other patien ts, and family members ONLY in structured environments, OR does s/he require medication for social in teraction? No. SOCIAL INTERACTION - SCORE: 7-IND PROBLEM SOLVING: PROBLEM SOLVING - STEP 1: Does the patient need help from a person or device, or need extra time to solve complex problems such as managing a checking account or confronting interpersonal problems? No. PROBLEM SOLVING - STEP 2: Does the patient require extra time to make decisions or solve problems, OR does s/he have slight dif ficulty reading, initiating, or self-correcting in unfamiliar situations? No. PROBLEM SOLVING - SCORE: 7-IND MEMORY: MEMORY - STEP 1: Does the patient need help from a person or device, or need extra time to remember frequently encount ered people, daily routines, and executing requests? No. MEMORY - STEP 2: Does the patient have slight difficulty recognizing frequently encountered people, daily routines, or executing requests without the need for repetition or using self-initiated or environmental cues to remember? No. MEMORY - SCORE: 7-IND SIGNATURE PANEL: The following modified sections: Eating - Score, Grooming - Score, Bathing - Score, Dressing - Upper Body - Score, Dressing - Lower Body - Score, Toileting - Score, Transfers: Bed, Chair, Wheelchair - S core, Transfers: Toilet - Score, Transfers: Tub - Score, Transfers: Shower - Score, Comprehension - S core, Expression - Score, Social Interaction - Score, Problem Solving - Score, Memory - Score were [e lectronically] signed by Nivia Moore OT on ThuDec 30 2018 14:59:23 T-0600 (Central Standard T morgan)
--- NOTE | 2018-12-30 15:56 | FAST ---
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 Blane Aguilar M.D. ADMISSION DIAGNOSIS: - Debility 16 - Debility (16) Closed trimalleolar fracture of left ankle. EATING: Activity did not occur on this shift EATING - SCORE: 0-UNK GROOMING: Activity did not occur on this shift GROOMING - SCORE: 0-UNK BATHING: Activity did not occur on this shift BATHING - SCORE: 0-UNK DRESSING - UPPER BODY: Activity did not occur on this shift Patient is not dressing in public clothing ARTICLES SCORE Total number of steps: 0 DRESSING - UPPER BODY - SCORE: 0-UNK DRESSING - LOWER BODY: Activity did not occur on this shift Patient is not dressing in public clothing ARTICLES SCORE Total number of steps: 0 DRESSING - LOWER BODY - SCORE: 0-UNK TOILETING: Activity did not occur on this shift TOILETING - SCORE: 0-UNK BLADDER MANAGEMENT: Activity did not occur on this shift BLADDER MANAGEMENT - SCORE: 7-IND BOWEL MANAGEMENT: Activity did not occur on this shift BOWEL MANAGEMENT - SCORE: 7-IND TRANSFERS: BED, CHAIR, WHEELCHAIR: TRANSFERS: BED, CHAIR, WHEELCHAIR - STEP 1: Does the patient require assistance of a person or device, or need extra time with bed, chair, or whe elchair transfers? Yes. TRANSFERS: BED, CHAIR, WHEELCHAIR - STEP 2: Does the patient require the assistance of a helper? No. Patient only requires an assistive device fo r bed, chair, wheelchair transfers such as a sliding board, grab bar, or brace, OR s/he takes more th an reasonable time, OR there is a safety concern when s/he performs the transfers TRANSFERS: BED, CHAIR, WHEELCHAIR - SCORE: 6-MILAGRO TRANSFERS: TOILET: Activity did not occur on this shift TRANSFERS: TOILET - SCORE: 0-UNK TRANSFERS: SHOWER: Activity did not occur on this shift TRANSFERS: SHOWER - SCORE: 0-UNK TRANSFERS: TUB: Activity did not occur on this shift TRANSFERS: TUB - SCORE: 0-UNK LOCOMOTION: WALK: LOCOMOTION: WALK - STEP 1: Does the patient need help from a person or device, or need extra time to walk 150 feet? Yes. LOCOMOTION: WALK - STEP 2: How much assistance does the patient require to walk a minimum of 150 feet? Patient walks less than 1 50 feet - but more than 50 feet - with the assistance of only one helper LOCOMOTION: WALK - SCORE: 2-MAX LOCOMOTION: WHEELCHAIR: LOCOMOTION: WHEELCHAIR - STEP 1: Does the patient need help to go 150 feet in a wheelchair? No. LOCOMOTION: WHEELCHAIR - SCORE: 6-MILAGRO LOCOMOTION: STAIRS: Activity did not occur on this shift LOCOMOTION: STAIRS - SCORE: 0-UNK COMPREHENSION: COMPREHENSION - SCORE: 0-UNK EXPRESSION EXPRESSION - SCORE: 0-UNK SOCIAL INTERACTION: SOCIAL INTERACTION - SCORE: 0-UNK PROBLEM SOLVING: PROBLEM SOLVING - SCORE: 0-UNK MEMORY: MEMORY - SCORE: 0-UNK SIGNATURE PANEL: The following modified sections: Transfers: Bed, Chair, Wheelchair - Score, Transfers: Toilet - Score , Locomotion: Walk - Score, Locomotion: Wheelchair - Score, Locomotion: Stairs - Score were [electron icarey] signed by Jake Bhat PT on ThuDec 30 2018 15:55:39 GMT-0600 (Central Standard Time)
[2018-12-30] MEDS: MELATONIN 3 MG TABLET PO PRN (20:28)
--- NOTE | 2018-12-31 00:59 | FAST ---
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 Blane Aguilar M.D. ADMISSION DIAGNOSIS: - Debility 16 - Debility (16) Closed trimalleolar fracture of left ankle. EATING: Activity did not occur on this shift EATING - SCORE: 0-UNK GROOMING: Activity did not occur on this shift GROOMING - SCORE: 0-UNK BATHING: Activity did not occur on this shift BATHING - SCORE: 0-UNK DRESSING - UPPER BODY: Activity did not occur on this shift ARTICLES SCORE Total number of steps: 0 DRESSING - UPPER BODY - SCORE: 0-UNK DRESSING - LOWER BODY: Activity did not occur on this shift ARTICLES SCORE Total number of steps: 0 DRESSING - LOWER BODY - SCORE: 0-UNK TOILETING: TOILETING - STEP 1: Does the patient require the assistance of a person or device, or need extra time with toileting? Yes . TOILETING - STEP 2: Does the patient require the assistance of a helper? Yes. TOILETING - STEP 3: How much assistance does the patient require from the helper? Only supervision TOILETING - SCORE: 5-SUP BLADDER MANAGEMENT: BLADDER MANAGEMENT - STEP 1: Does the patient control the bladder completely and intentionally without equipment or devices or med ications, and is always continent? Yes. BLADDER MANAGEMENT - SCORE: 7-IND BOWEL MANAGEMENT: Activity did not occur on this shift BOWEL MANAGEMENT - SCORE: 7-IND TRANSFERS: BED, CHAIR, WHEELCHAIR: TRANSFERS: BED, CHAIR, WHEELCHAIR - STEP 1: Does the patient require assistance of a person or device, or need extra time with bed, chair, or whe elchair transfers? Yes. TRANSFERS: BED, CHAIR, WHEELCHAIR - STEP 2: Does the patient require the assistance of a helper? Yes. TRANSFERS: BED, CHAIR, WHEELCHAIR - STEP 3: How much assistance does the patient require from the helper? Only supervision TRANSFERS: BED, CHAIR, WHEELCHAIR - SCORE: 5-SUP TRANSFERS: TOILET: TRANSFERS: TOILET - STEP 1: Does the patient require the assistance of a person or device, or need extra time with toilet transfe rs? Yes. TRANSFERS: TOILET - STEP 2: Does the patient require the assistance of a helper? Yes. TRANSFERS: TOILET - STEP 3: How much assistance does the patient require from the helper? Only supervision, cuing, coaxing, OR he lp to set out transfer equipment or to lock brakes and/or lift foot rests TRANSFERS: TOILET - SCORE: 5-SUP TRANSFERS: SHOWER: Activity did not occur on this shift TRANSFERS: SHOWER - SCORE: 0-UNK TRANSFERS: TUB: Activity did not occur on this shift TRANSFERS: TUB - SCORE: 0-UNK LOCOMOTION: WALK: Activity did not occur on this shift LOCOMOTION: WALK - SCORE: 0-UNK LOCOMOTION: WHEELCHAIR: Activity did not occur on this shift LOCOMOTION: WHEELCHAIR - SCORE: 0-UNK COMPREHENSION: COMPREHENSION: TYPE: Both COMPREHENSION - STEP 1: Does the patient require help from a person or device, or need extra time to understand complex and a bstract ideas (such as current events, finances, discharge planning, medical issues, relationships, e tc)? No. COMPREHENSION - STEP 2: Does the patient need extra time, require an assistive device (such as glasses for visual comprehensi on or a hearing aid for auditory comprehension) or does s/he have mild difficulty understanding compl ex and abstract information? Yes. COMPREHENSION - SCORE: 6-MILAGRO EXPRESSION EXPRESSION: TYPE: Both EXPRESSION - STEP 1: Does the patient require help from a person or device, or need extra time expressing complex and abst ract ideas (such as current events, finances, discharge planning, medical issues, relationships, etc) ? No. EXPRESSION - STEP 2: Does the patient need extra time, require an assistive device (such as augmentive communication syste m or a communication board), OR does s/he have mild difficulty expressing complex and abstract ideas (including mild dysarthria or mild word-find problems)? No. EXPRESSION - SCORE: 7-IND SOCIAL INTERACTION: SOCIAL INTERACTION - STEP 1: Does the patient require a helper to interact with others in social and therapeutic situations? No. SOCIAL INTERACTION - STEP 2: Does the patient need extra time in social situations, OR does s/he interact with staff, other patien ts, and family members ONLY in structured environments, OR does s/he require medication for social in teraction? No. SOCIAL INTERACTION - SCORE: 7-IND PROBLEM SOLVING: PROBLEM SOLVING - STEP 1: Does the patient need help from a person or device, or need extra time to solve complex problems such as managing a checking account or confronting interpersonal problems? No. PROBLEM SOLVING - STEP 2: Does the patient require extra time to make decisions or solve problems, OR does s/he have slight dif ficulty reading, initiating, or self-correcting in unfamiliar situations? No. PROBLEM SOLVING - SCORE: 7-IND MEMORY: MEMORY - STEP 1: Does the patient need help from a person or device, or need extra time to remember frequently encount ered people, daily routines, and executing requests? No. MEMORY - STEP 2: Does the patient have slight difficulty recognizing frequently encountered people, daily routines, or executing requests without the need for repetition or using self-initiated or environmental cues to remember? No. MEMORY - SCORE: 7-IND SIGNATURE PANEL: The following modified sections: Eating - Score, Grooming - Score, Bathing - Score, Dressing - Upper Body - Score, Dressing - Lower Body - Score, Toileting - Score, Bladder Management - Score, Bowel Man agement - Score, Transfers: Bed, Chair, Wheelchair - Score, Transfers: Toilet - Score, Transfers: Elsa wer - Score, Transfers: Tub - Score, Locomotion: Walk - Score, Locomotion: Wheelchair - Score, Compre hension - Score, Expression - Score, Social Interaction - Score, Problem Solving - Score, Memory - Sc ore were [electronically] signed by Elaine Rico CNA on ThuDec 31 2018 00:59:28 T-0600 ([facility])
[2018-12-31] MEDS: SYNTHROID 50 MCG PO SCH (07:01)
[2018-12-31] MEDS: NYSTATIN PWDR 100000 UNIT/GM TOP SCH ×2 (07:02→19:41)
[2018-12-31] MEDS: ENOXAPARIN 40 MG/0.4 ML SQ SCH (07:02)
[2018-12-31] MEDS: LIDOCAINE 5% PATCH TOP SCH (07:02)
[2018-12-31] MEDS: POLYETHYL GLY 3350 17 GM/DOSE PO SCH (08:00)
[2018-12-31] MEDS: VESICARE 5 MG PO SCH (08:05)
[2018-12-31] MEDS: VENLAFAXINE 75 MG PO SCH (08:05)
[2018-12-31] MEDS: HYDROCORTISONE 1 % CREAM 30GM TOP PRN (08:05)
[2018-12-31] MEDS: LISINOPRIL HCTZ PO SCH (08:06)
[2018-12-31] MEDS: HYDROCODONE/APAP 7.5/325 MG TAB PO PRN ×4 (08:07→21:52)
[2018-12-31] MEDS: FE SULF/FA/VIT B COMP & C TAB PO SCH (08:07)
[2018-12-31] MEDS: GABAPENTIN 300 MG CAP PO SCH ×3 (08:07→20:57)
[2018-12-31] MEDS: CRANBERRY FRUIT EXTRACT 200 MG CAP PO SCH ×2 (08:07→19:41)
[2018-12-31] MEDS: FERROUS SULFATE 325 MG TAB PO SCH (08:07)
[2018-12-31] MEDS: DOCUSATE NA 100 MG CAP PO SCH ×2 (08:07→19:41)
[2018-12-31] MEDS: PROMOD 30 ML DOSE PO SCH ×2 (08:08→19:42)
--- NOTE | 2018-12-31 09:46 | P.RH.PN ---
Estimated Length of Stay: 12 Expected Discharge Date: 01/07/19 Discharge Disposition Plan: Home Family Support: Yes Penitentiary Goal: Mobility, Transfers, Self Care Vital Signs: Last Vital Signs Temp 98.1 F 12/31/18 06:50 Pulse 74 12/31/18 06:50 Resp 18 12/31/18 06:50 BP 141/79 H 12/31/18 06:50 Pulse Ox 98 12/31/18 06:50 Laboratory: Laboratory Last Values WBC 5.1 K/uL (4.3-10.9) 12/30/18 05:56 RBC 3.78 M/uL (3.86-4.86) L 12/30/18 05:56 Hgb 11.9 g/dL (12.0-15.0) L 12/30/18 05:56 Hct 35.5 % (36.0-45.0) L 12/30/18 05:56 MCV 93.8 fL (80-100) 12/30/18 05:56 MCH 31.6 pg (27.0-35.0) 12/30/18 05:56 MCHC 33.7 g/dL (32.0-36.0) 12/30/18 05:56 RDW 14.5 % (12.1-15.2) 12/30/18 05:56 Plt Count 258 K/uL (152-406) D 12/30/18 05:56 MPV 8.9 fL (7.6-11.3) 12/30/18 05:56 Neutrophils % 74.8 % (41.7-73.7) H 12/30/18 05:56 Lymphocytes % 10.8 % (15.3-44.8) L 12/30/18 05:56 Monocytes % 9.0 % (3.3-12.3) 12/30/18 05:56 Eosinophils % 5.1 % (0-4.4) H 12/30/18 05:56 Basophils % 0.3 % (0-1.3) 12/30/18 05:56 Absolute Neutrophils 3.8 K/uL (1.8-8.0) 12/30/18 05:56 Absolute Lymphocytes 0.6 K/uL (0.7-4.9) L 12/30/18 05:56 Absolute Monocytes 0.5 K/uL (0.1-1.3) 12/30/18 05:56 Absolute Eosinophils 0.3 K/uL (0-0.5) 12/30/18 05:56 Absolute Basophils 0.0 K/uL (0-0.5) 12/30/18 05:56 Sodium 145 mmol/L (136-145) 12/30/18 05:56 Potassium 4.6 mmol/L (3.5-5.1) 12/30/18 05:56 Chloride 106 mmol/L (98-107) 12/30/18 05:56 Carbon Dioxide 32 mmol/L (21-32) 12/30/18 05:56 BUN 12 mg/dL (7-18) 12/30/18 05:56 Creatinine 0.54 mg/dL (0.55-1.3) L 12/30/18 05:56 Estimated GFR > 90 mL/min (=/>90) 12/30/18 05:56 Glucose 81 mg/dL (74-106) 12/30/18 05:56 Calcium 9.5 mg/dL (8.5-10.1) 12/30/18 05:56 Magnesium 2.2 mg/dL (1.8-2.4) 12/28/18 06:06 Albumin 3.3 g/dL (3.4-5.0) L 12/30/18 05:56 Prealbumin 16.6 mg/dL (20-40) L 12/30/18 05:56 Urine Color Yellow 12/27/18 20:45 Urine Appearance Clear 12/27/18 20:45 Urine pH 7.0 (5.0-7.0) 12/27/18 20:45 Ur Specific [place] 1.010 (1.005-1.030) 12/27/18 20:45 Urine Ketones Negative (NEG) 12/27/18 20:45 Urine Blood Negative (NEG) 12/27/18 20:45 Urine Nitrite Negative (NEG) 12/27/18 20:45 Urine Bilirubin Negative (NEG) 12/27/18 20:45 Urine Urobilinogen 1.0 mg/dL (0.2-1.0) 12/27/18 20:45 Ur Leukocyte Esterase Trace (NEG) H 12/27/18 20:45 Urine RBC <5 /HPF (NONE SEEN) 12/27/18 20:45 Urine WBC <5 /HPF (<5) 12/27/18 20:45 Ur Squamous Epith Cells <5 /HPF (NONE SEEN) 12/27/18 20:45 Urine Bacteria <20 /HPF (<20) 12/27/18 20:45 Urine Culture Reflexed Not needed 12/27/18 20:45 Urine Glucose Negative (NEG) 12/27/18 20:45 Urine Total Protein Negative (NEG) 12/27/18 20:45 Weight: 195 lb 1 oz Wound Present: Yes Closed Surgical Incision Present: Yes Negative Pressure Wound Therapy Present: No Physician Update: Her labs have been reviewed and are stable. She is making good progress with physical and occupational therapy. Pain Issues: Lidoderm patch 5% Daily. [place] 7.5mg Q4H PRN Functional Improvement: pt has demonstrated improvement with functional mobility and ambulation. pt does continue to rapidly fatigue and requires further therapy to enhance tolerance. Functional Improvement Occupational Therapy: pt can benifit with further therapy to address pt's overall weakness in the upper extremities for sit to stands and for functional transfers. Cont to increase pt's static standing balance endurance for adl and Iadl tasks, due to NWB on the left UE. Cont to work on building pt's endurance and educating pt on energy conservation techniques. Summary: Patient's care plan and retirement goals have been reviewed and revised as necessary. Please see the Rehabilitation Signature page for all necessary signatures.
--- NOTE | 2018-12-31 10:20 | FAST ---
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 Blane Aguilar M.D. ADMISSION DIAGNOSIS: - Debility 16 - Debility (16) Closed trimalleolar fracture of left ankle. EATING: EATING - STEP 1: Does the patient require the assistance of a person or device, or need extra time when eating? No. EATING - SCORE: 7-IND GROOMING: GROOMING - STEP 1: Does the patient require the assistance of a person or device, or need extra time when grooming? Yes. GROOMING - STEP 2: Does the patient require the assistance of a helper? No. The patient only requires an assistive devic e, OR takes more than reasonable time to groom, OR there is a concern for safety as the patient groom s GROOMING - SCORE: 6-MILAGRO BATHING: Activity did not occur on this shift BATHING - SCORE: 0-UNK DRESSING - UPPER BODY: Activity did not occur on this shift ARTICLES SCORE Total number of steps: 0 DRESSING - UPPER BODY - SCORE: 0-UNK DRESSING - LOWER BODY: Activity did not occur on this shift ARTICLES SCORE Total number of steps: 0 DRESSING - LOWER BODY - SCORE: 0-UNK TOILETING: TOILETING - STEP 1: Does the patient require the assistance of a person or device, or need extra time with toileting? Yes . TOILETING - STEP 2: Does the patient require the assistance of a helper? Yes. TOILETING - STEP 3: How much assistance does the patient require from the helper? Only supervision TOILETING - SCORE: 5-SUP BLADDER MANAGEMENT: BLADDER MANAGEMENT - STEP 1: Does the patient control the bladder completely and intentionally without equipment or devices or med ications, and is always continent? Yes. BLADDER MANAGEMENT - SCORE: 7-IND BLADDER MANAGEMENT - FREQUENCY OF ACCIDENTS: BLADDER MANAGEMENT(FA) - STEP 1: How many accidents has the patient had during the current shift? 0 BOWEL MANAGEMENT: BOWEL MANAGEMENT - STEP 1: Does the patient control bowels completely and intentionally without equipment devices or medications AND is always continent? Yes. BOWEL MANAGEMENT - SCORE: 7-IND BOWEL MANAGEMENT - FREQUENCY OF ACCIDENTS: BOWEL MANAGEMENT(FA) - STEP 1: How many accidents has the patient had during the current shift? 0 TRANSFERS: BED, CHAIR, WHEELCHAIR: TRANSFERS: BED, CHAIR, WHEELCHAIR - STEP 1: Does the patient require assistance of a person or device, or need extra time with bed, chair, or whe elchair transfers? Yes. TRANSFERS: BED, CHAIR, WHEELCHAIR - STEP 2: Does the patient require the assistance of a helper? Yes. TRANSFERS: BED, CHAIR, WHEELCHAIR - STEP 3: How much assistance does the patient require from the helper? Only supervision TRANSFERS: BED, CHAIR, WHEELCHAIR - SCORE: 5-SUP TRANSFERS: TOILET: TRANSFERS: TOILET - STEP 1: Does the patient require the assistance of a person or device, or need extra time with toilet transfe rs? Yes. TRANSFERS: TOILET - STEP 2: Does the patient require the assistance of a helper? Yes. TRANSFERS: TOILET - STEP 3: How much assistance does the patient require from the helper? Only supervision, cuing, coaxing, OR he lp to set out transfer equipment or to lock brakes and/or lift foot rests TRANSFERS: TOILET - SCORE: 5-SUP TRANSFERS: SHOWER: Activity did not occur on this shift TRANSFERS: SHOWER - SCORE: 0-UNK TRANSFERS: TUB: Activity did not occur on this shift TRANSFERS: TUB - SCORE: 0-UNK LOCOMOTION: WALK: Activity did not occur on this shift LOCOMOTION: WALK - SCORE: 0-UNK LOCOMOTION: WHEELCHAIR: Activity did not occur on this shift LOCOMOTION: WHEELCHAIR - SCORE: 0-UNK COMPREHENSION: COMPREHENSION - SCORE: 0-UNK EXPRESSION EXPRESSION - SCORE: 0-UNK SOCIAL INTERACTION: SOCIAL INTERACTION - SCORE: 0-UNK PROBLEM SOLVING: PROBLEM SOLVING - SCORE: 0-UNK MEMORY: MEMORY - SCORE: 0-UNK SIGNATURE PANEL: The following modified sections: Eating - Score, Grooming - Score, Bathing - Score, Dressing - Upper Body - Score, Dressing - Lower Body - Score, Toileting - Score, Bladder Management - Score, Bowel Man agement - Score, Transfers: Bed, Chair, Wheelchair - Score, Transfers: Toilet - Score, Transfers: Elsa wer - Score, Transfers: Tub - Score, Locomotion: Walk - Score, Locomotion: Wheelchair - Score, Compre hension - Score, Expression - Score, Social Interaction - Score, Problem Solving - Score, Memory - Sc ore were [electronically] signed by Belkis Nieto CNA on ThuDec 31 2018 10:19:20 GMT-0600 (Cent[place] Standard Time)
--- NOTE | 2018-12-31 14:24 | FAST ---
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 Blane Aguilar M.D. ADMISSION DIAGNOSIS: - Debility 16 - Debility (16) Closed trimalleolar fracture of left ankle. EATING: Activity did not occur on this shift EATING - SCORE: 0-UNK GROOMING: Activity did not occur on this shift GROOMING - SCORE: 0-UNK BATHING: Activity did not occur on this shift BATHING - SCORE: 0-UNK DRESSING - UPPER BODY: Activity did not occur on this shift Patient is not dressing in public clothing ARTICLES SCORE Total number of steps: 0 DRESSING - UPPER BODY - SCORE: 0-UNK DRESSING - LOWER BODY: Activity did not occur on this shift Patient is not dressing in public clothing ARTICLES SCORE Total number of steps: 0 DRESSING - LOWER BODY - SCORE: 0-UNK TOILETING: Activity did not occur on this shift TOILETING - SCORE: 0-UNK BLADDER MANAGEMENT: Activity did not occur on this shift BLADDER MANAGEMENT - SCORE: 7-IND BOWEL MANAGEMENT: Activity did not occur on this shift BOWEL MANAGEMENT - SCORE: 7-IND TRANSFERS: BED, CHAIR, WHEELCHAIR: TRANSFERS: BED, CHAIR, WHEELCHAIR - STEP 1: Does the patient require assistance of a person or device, or need extra time with bed, chair, or whe elchair transfers? Yes. TRANSFERS: BED, CHAIR, WHEELCHAIR - STEP 2: Does the patient require the assistance of a helper? No. Patient only requires an assistive device fo r bed, chair, wheelchair transfers such as a sliding board, grab bar, or brace, OR s/he takes more th an reasonable time, OR there is a safety concern when s/he performs the transfers TRANSFERS: BED, CHAIR, WHEELCHAIR - STEP 3: How much assistance does the patient require from the helper? Only supervision TRANSFERS: BED, CHAIR, WHEELCHAIR - SCORE: 5-SUP TRANSFERS: TOILET: TRANSFERS: TOILET - STEP 1: Does the patient require the assistance of a person or device, or need extra time with toilet transfe rs? Yes. TRANSFERS: TOILET - STEP 2: Does the patient require the assistance of a helper? No. Patient only requires an assistive device [place] as a grab bar or special seat, OR s/he takes more than reasonable time to perform toilet transfers , OR there is a safety concern when s/he performs toilet transfers. TRANSFERS: TOILET - SCORE: 6-MILAGRO TRANSFERS: SHOWER: Activity did not occur on this shift TRANSFERS: SHOWER - SCORE: 0-UNK TRANSFERS: TUB: Activity did not occur on this shift TRANSFERS: TUB - SCORE: 0-UNK LOCOMOTION: WALK: LOCOMOTION: WALK - STEP 1: Does the patient need help from a person or device, or need extra time to walk 150 feet? Yes. LOCOMOTION: WALK - STEP 2: How much assistance does the patient require to walk a minimum of 150 feet? Only supervision, cuing, or coaxing LOCOMOTION: WALK - SCORE: 5-SUP LOCOMOTION: WHEELCHAIR: LOCOMOTION: WHEELCHAIR - STEP 1: Does the patient need help to go 150 feet in a wheelchair? Yes. LOCOMOTION: WHEELCHAIR - STEP 2: How much assistance does the patient need from the helper? Only supervision, cuing, or coaxing LOCOMOTION: WHEELCHAIR - SCORE: 5-SUP LOCOMOTION: STAIRS: LOCOMOTION: STAIRS - STEP 1: Does the patient need help to go up and down 12 to 14 stairs? Yes. LOCOMOTION: STAIRS - STEP 2: How much assistance does the patient need from the helper to go a minimum of 12 to 14 stairs? More th an incidental help LOCOMOTION: STAIRS - SCORE: 3-MOD COMPREHENSION: COMPREHENSION - SCORE: 0-UNK EXPRESSION EXPRESSION - SCORE: 0-UNK SOCIAL INTERACTION: SOCIAL INTERACTION - SCORE: 0-UNK PROBLEM SOLVING: PROBLEM SOLVING - SCORE: 0-UNK MEMORY: MEMORY - SCORE: 0-UNK SIGNATURE PANEL: The following modified sections: Transfers: Bed, Chair, Wheelchair - Score, Transfers: Toilet - Score , Locomotion: Walk - Score, Locomotion: Wheelchair - Score, Locomotion: Stairs - Score were [florian vogel] signed by Delliah Bergman PTA on ThuDec 31 2018 14:23:08 GMT-0600 (Central Standard Time)
[2018-12-31] MEDS: MELATONIN 3 MG TABLET PO PRN (19:42)
--- NOTE | 2019-01-01 02:18 | FAST ---
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 Blane Aguilar M.D. ADMISSION DIAGNOSIS: - Debility 16 - Debility (16) Closed trimalleolar fracture of left ankle. EATING: Activity did not occur on this shift EATING - SCORE: 0-UNK GROOMING: Activity did not occur on this shift GROOMING - SCORE: 0-UNK BATHING: Activity did not occur on this shift BATHING - SCORE: 0-UNK DRESSING - UPPER BODY: Patient is not dressing in public clothing ARTICLES SCORE Total number of steps: 0 DRESSING - UPPER BODY - SCORE: 0-UNK DRESSING - LOWER BODY: Patient is not dressing in public clothing ARTICLES SCORE Total number of steps: 0 DRESSING - LOWER BODY - SCORE: 0-UNK TOILETING: TOILETING - STEP 1: Does the patient require the assistance of a person or device, or need extra time with toileting? Yes . TOILETING - STEP 2: Does the patient require the assistance of a helper? Yes. TOILETING - STEP 3: How much assistance does the patient require from the helper? Only supervision TOILETING - SCORE: 5-SUP BLADDER MANAGEMENT: BLADDER MANAGEMENT - STEP 1: Does the patient control the bladder completely and intentionally without equipment or devices or med ications, and is always continent? Yes. BLADDER MANAGEMENT - SCORE: 7-IND BOWEL MANAGEMENT: Activity did not occur on this shift BOWEL MANAGEMENT - SCORE: 7-IND TRANSFERS: BED, CHAIR, WHEELCHAIR: TRANSFERS: BED, CHAIR, WHEELCHAIR - STEP 1: Does the patient require assistance of a person or device, or need extra time with bed, chair, or whe elchair transfers? Yes. TRANSFERS: BED, CHAIR, WHEELCHAIR - STEP 2: Does the patient require the assistance of a helper? Yes. TRANSFERS: BED, CHAIR, WHEELCHAIR - STEP 3: How much assistance does the patient require from the helper? Only supervision TRANSFERS: BED, CHAIR, WHEELCHAIR - SCORE: 5-SUP TRANSFERS: TOILET: TRANSFERS: TOILET - STEP 1: Does the patient require the assistance of a person or device, or need extra time with toilet transfe rs? Yes. TRANSFERS: TOILET - STEP 2: Does the patient require the assistance of a helper? Yes. TRANSFERS: TOILET - STEP 3: How much assistance does the patient require from the helper? Only supervision, cuing, coaxing, OR he lp to set out transfer equipment or to lock brakes and/or lift foot rests TRANSFERS: TOILET - SCORE: 5-SUP TRANSFERS: SHOWER: Activity did not occur on this shift TRANSFERS: SHOWER - SCORE: 0-UNK TRANSFERS: TUB: Activity did not occur on this shift TRANSFERS: TUB - SCORE: 0-UNK LOCOMOTION: WALK: Activity did not occur on this shift LOCOMOTION: WALK - SCORE: 0-UNK LOCOMOTION: WHEELCHAIR: Activity did not occur on this shift LOCOMOTION: WHEELCHAIR - SCORE: 0-UNK COMPREHENSION: COMPREHENSION: TYPE: Both COMPREHENSION - STEP 1: Does the patient require help from a person or device, or need extra time to understand complex and a bstract ideas (such as current events, finances, discharge planning, medical issues, relationships, e tc)? No. COMPREHENSION - STEP 2: Does the patient need extra time, require an assistive device (such as glasses for visual comprehensi on or a hearing aid for auditory comprehension) or does s/he have mild difficulty understanding compl ex and abstract information? Yes. COMPREHENSION - SCORE: 6-MILAGRO EXPRESSION EXPRESSION: TYPE: Both EXPRESSION - STEP 1: Does the patient require help from a person or device, or need extra time expressing complex and abst ract ideas (such as current events, finances, discharge planning, medical issues, relationships, etc) ? No. EXPRESSION - STEP 2: Does the patient need extra time, require an assistive device (such as augmentive communication syste m or a communication board), OR does s/he have mild difficulty expressing complex and abstract ideas (including mild dysarthria or mild word-find problems)? No. EXPRESSION - SCORE: 7-IND SOCIAL INTERACTION: SOCIAL INTERACTION - STEP 1: Does the patient require a helper to interact with others in social and therapeutic situations? No. SOCIAL INTERACTION - STEP 2: Does the patient need extra time in social situations, OR does s/he interact with staff, other patien ts, and family members ONLY in structured environments, OR does s/he require medication for social in teraction? No. SOCIAL INTERACTION - SCORE: 7-IND PROBLEM SOLVING: PROBLEM SOLVING - STEP 1: Does the patient need help from a person or device, or need extra time to solve complex problems such as managing a checking account or confronting interpersonal problems? No. PROBLEM SOLVING - STEP 2: Does the patient require extra time to make decisions or solve problems, OR does s/he have slight dif ficulty reading, initiating, or self-correcting in unfamiliar situations? No. PROBLEM SOLVING - SCORE: 7-IND MEMORY: MEMORY - STEP 1: Does the patient need help from a person or device, or need extra time to remember frequently encount ered people, daily routines, and executing requests? No. MEMORY - STEP 2: Does the patient have slight difficulty recognizing frequently encountered people, daily routines, or executing requests without the need for repetition or using self-initiated or environmental cues to remember? No. MEMORY - SCORE: 7-IND
[2019-01-01] MEDS: SYNTHROID 50 MCG PO SCH (06:32)
[2019-01-01] MEDS: ENOXAPARIN 40 MG/0.4 ML SQ SCH (06:33)
[2019-01-01] MEDS: POLYETHYL GLY 3350 17 GM/DOSE PO SCH (08:00)
[2019-01-01] MEDS: LIDOCAINE 5% PATCH TOP SCH (08:07)
[2019-01-01] MEDS: DOCUSATE NA 100 MG CAP PO SCH ×2 (08:07→20:23)
[2019-01-01] MEDS: CRANBERRY FRUIT EXTRACT 200 MG CAP PO SCH ×2 (08:07→20:23)
[2019-01-01] MEDS: GABAPENTIN 300 MG CAP PO SCH ×3 (08:07→20:23)
[2019-01-01] MEDS: FERROUS SULFATE 325 MG TAB PO SCH (08:07)
[2019-01-01] MEDS: FE SULF/FA/VIT B COMP & C TAB PO SCH (08:07)
[2019-01-01] MEDS: HYDROCODONE/APAP 7.5/325 MG TAB PO PRN ×3 (08:08→18:09)
[2019-01-01] MEDS: PROMOD 30 ML DOSE PO SCH ×2 (08:09→20:23)
[2019-01-01] MEDS: NYSTATIN PWDR 100000 UNIT/GM TOP SCH (08:09)
[2019-01-01] MEDS: VENLAFAXINE 75 MG PO SCH (08:09)
[2019-01-01] MEDS: VESICARE 5 MG PO SCH (08:10)
[2019-01-01] MEDS: LISINOPRIL HCTZ PO SCH (08:10)
[2019-01-01] MEDS ORDERED: NYSTATIN PWDR 100000 UNIT/GM TOP PRN (10:07)
--- NOTE | 2019-01-01 14:12 | FAST ---
SHIFT START DATE/TIME: 01/01/2019 07:00 (MOLD DUMPER) SHIFT END DATE/TIME: 01/01/2019 19:00 (MOLD DUMPER) NAME CARITO MUNOZ DATE OF : 1955 DATE OF ADMISSION: 12/27/2018 19:35 (MOLD DUMPER) PHONE: AGE: 63 SSN# [id number] GENDER: Female ENCOUNTER PHYSICIAN: Dr. Blane Aguilar M.D. ADMISSION DIAGNOSIS: - Debility 16 - Debility (16) Closed trimalleolar fracture of left ankle. EATING: EATING - STEP 1: Does the patient require the assistance of a person or device, or need extra time when eating? Yes. EATING - STEP 2: Does the patient require the assistance of a helper? No, patient only requires an assistive device, O R s/he takes more than reasonable time to eat, OR there is a safety concern, OR s/he requires modifie d food consistency EATING - SCORE: 6-MILAGRO GROOMING: Comb/brush hair Oral care Patient applied make-up Wash, rinse, and dry face Wash, rinse, and dry hands GROOMING - STEP 1: Does the patient require the assistance of a person or device, or need extra time when grooming? Yes. GROOMING - STEP 2: Does the patient require the assistance of a helper? No. The patient only requires an assistive devic e, OR takes more than reasonable time to groom, OR there is a concern for safety as the patient groom s GROOMING - SCORE: 6-MILAGRO BATHING: Activity did not occur on this shift BATHING - SCORE: 0-UNK DRESSING - UPPER BODY: Bra (three steps) T-shirt/pullover shirt (four steps) ARTICLES SCORE Total number of steps: 7 DRESSING - UPPER BODY - STEP 1: Does the patient require help from a person or device, or need extra time when dressing above the [address]? Yes. DRESSING - UPPER BODY - STEP 2: Does the patient require the assistance of a helper? No. Patient only requires an assistive device, s uch as a button hook, velcro, or baseball hand sewer. OR s/he takes more than reasonable time as s/he dresses the upper body. OR there is a concern for safety when s/he dresses the upper body DRESSING - UPPER BODY - SCORE: 6-MILAGRO DRESSING - LOWER BODY: Elastic waist pants (three steps) Slip-on shoe - Left foot (one step) Slip-on shoe - Right foot (one step) Sock - Left foot (one step) Sock - Right foot (one step) Underwear (three steps) ARTICLES SCORE Total number of steps: 10 DRESSING - LOWER BODY - STEP 1: Does the patient require help from a person or device, or need extra time when dressing below the j[address] st? Yes. DRESSING - LOWER BODY - STEP 2: Does the patient require the assistance of a helper? No. Patient requires an assistive device such as a baseball hand sewer. OR s/he takes more than reasonable time as s/he dresses the lower body, OR there is a con cern for safety when s/he dresses the lower body DRESSING - LOWER BODY - SCORE: 6-MILAGRO TOILETING: TOILETING - STEP 1: Does the patient require the assistance of a person or device, or need extra time with toileting? Yes . TOILETING - STEP 2: Does the patient require the assistance of a helper? Yes. TOILETING - STEP 3: How much assistance does the patient require from the helper? Only supervision TOILETING - SCORE: 5-SUP BLADDER MANAGEMENT: BLADDER MANAGEMENT - STEP 1: Does the patient control the bladder completely and intentionally without equipment or devices or med ications, and is always continent? No. BLADDER MANAGEMENT - STEP 2: Does the patient require the assistance of a helper? No, patient requires and independently uses an a ssistive device, such as a urinal, bedpan, bedside commode, catheter, absorbent pad, or collecting de vice BLADDER MANAGEMENT - SCORE: 6-MILAGRO BLADDER MANAGEMENT - FREQUENCY OF ACCIDENTS: BLADDER MANAGEMENT(FA) - STEP 1: How many accidents has the patient had during the current shift? 0 BOWEL MANAGEMENT: Activity did not occur on this shift BOWEL MANAGEMENT - SCORE: 7-IND BOWEL MANAGEMENT - FREQUENCY OF ACCIDENTS: BOWEL MANAGEMENT(FA) - STEP 1: How many accidents has the patient had during the current shift? 0 TRANSFERS: BED, CHAIR, WHEELCHAIR: TRANSFERS: BED, CHAIR, WHEELCHAIR - STEP 1: Does the patient require assistance of a person or device, or need extra time with bed, chair, or whe elchair transfers? Yes. TRANSFERS: BED, CHAIR, WHEELCHAIR - STEP 2: Does the patient require the assistance of a helper? Yes. TRANSFERS: BED, CHAIR, WHEELCHAIR - STEP 3: How much assistance does the patient require from the helper? Only supervision TRANSFERS: BED, CHAIR, WHEELCHAIR - SCORE: 5-SUP TRANSFERS: TOILET: TRANSFERS: TOILET - STEP 1: Does the patient require the assistance of a person or device, or need extra time with toilet transfe rs? Yes. TRANSFERS: TOILET - STEP 2: Does the patient require the assistance of a helper? Yes. TRANSFERS: TOILET - STEP 3: How much assistance does the patient require from the helper? Only supervision, cuing, coaxing, OR he lp to set out transfer equipment or to lock brakes and/or lift foot rests TRANSFERS: TOILET - SCORE: 5-SUP TRANSFERS: SHOWER: Activity did not occur on this shift TRANSFERS: SHOWER - SCORE: 0-UNK TRANSFERS: TUB: Activity did not occur on this shift TRANSFERS: TUB - SCORE: 0-UNK LOCOMOTION: WALK: Activity did not occur on this shift LOCOMOTION: WALK - SCORE: 0-UNK LOCOMOTION: WHEELCHAIR: Activity did not occur on this shift LOCOMOTION: WHEELCHAIR - SCORE: 0-UNK COMPREHENSION: COMPREHENSION: TYPE: Both COMPREHENSION - STEP 1: Does the patient require help from a person or device, or need extra time to understand complex and a bstract ideas (such as current events, finances, discharge planning, medical issues, relationships, e tc)? No. COMPREHENSION - STEP 2: Does the patient need extra time, require an assistive device (such as glasses for visual comprehensi on or a hearing aid for auditory comprehension) or does s/he have mild difficulty understanding compl ex and abstract information? No. COMPREHENSION - SCORE: 7-IND EXPRESSION EXPRESSION: TYPE: Both EXPRESSION - STEP 1: Does the patient require help from a person or device, or need extra time expressing complex and abst ract ideas (such as current events, finances, discharge planning, medical issues, relationships, etc) ? No. EXPRESSION - STEP 2: Does the patient need extra time, require an assistive device (such as augmentive communication syste m or a communication board), OR does s/he have mild difficulty expressing complex and abstract ideas (including mild dysarthria or mild word-find problems)? Yes. EXPRESSION - SCORE: 6-MILAGRO SOCIAL INTERACTION: SOCIAL INTERACTION - STEP 1: Does the patient require a helper to interact with others in social and therapeutic situations? No. SOCIAL INTERACTION - STEP 2: Does the patient need extra time in social situations, OR does s/he interact with staff, other patien ts, and family members ONLY in structured environments, OR does s/he require medication for social in teraction? Yes, patient needs extra time SOCIAL INTERACTION - SCORE: 6-MILAGRO PROBLEM SOLVING: PROBLEM SOLVING - STEP 1: Does the patient need help from a person or device, or need extra time to solve complex problems such as managing a checking account or confronting interpersonal problems? No. PROBLEM SOLVING - STEP 2: Does the patient require extra time to make decisions or solve problems, OR does s/he have slight dif ficulty reading, initiating, or self-correcting in unfamiliar situations? Yes, patient needs extra ti me. PROBLEM SOLVING - SCORE: 6-MILAGRO MEMORY: MEMORY - STEP 1: Does the patient need help from a person or device, or need extra time to remember frequently encount ered people, daily routines, and executing requests? No. MEMORY - STEP 2: Does the patient have slight difficulty recognizing frequently encountered people, daily routines, or executing requests without the need for repetition or using self-initiated or environmental cues to remember? Yes. MEMORY - SCORE: 6-MILAGRO SIGNATURE PANEL: The following modified sections: Eating - Score, Grooming - Score, Bathing - Score, Dressing - Upper Body - Score, Dressing - Lower Body - Score, Toileting - Score, Bladder Management - Score, Bowel Man agement - Score, Transfers: Bed, Chair, Wheelchair - Score, Transfers: Toilet - Score, Transfers: Elsa wer - Score, Transfers: Tub - Score, Locomotion: Walk - Score, Locomotion: Wheelchair - Score, Compre hension - Score, Expression - Score, Social Interaction - Score, Problem Solving - Score, Memory - Sc ore were [electronically] signed by Janett Christie C.N.A. on ThuJan 01 2019 14:11:53 GMT-0600 ([facility] Standard Time)
[2019-01-01] MEDS: MELATONIN 3 MG TABLET PO PRN (20:23)
--- NOTE | 2019-01-02 02:57 | FAST ---
SHIFT START DATE/TIME: 01/01/2019 19:00 (CLINICAL TRIAL EDUCATOR) SHIFT END DATE/TIME: 01/02/2019 07:00 (CLINICAL TRIAL EDUCATOR) NAME CARITO MUNOZ DATE OF : 1955 DATE OF ADMISSION: 12/27/2018 19:35 (CLINICAL TRIAL EDUCATOR) PHONE: AGE: 63 SSN# [id number] GENDER: Female ENCOUNTER PHYSICIAN: Dr. Blane Aguilar M.D. ADMISSION DIAGNOSIS: - Debility 16 - Debility (16) Closed trimalleolar fracture of left ankle. EATING: Activity did not occur on this shift EATING - SCORE: 0-UNK GROOMING: Wash, rinse, and dry hands GROOMING - STEP 1: Does the patient require the assistance of a person or device, or need extra time when grooming? Yes. GROOMING - STEP 2: Does the patient require the assistance of a helper? No. The patient only requires an assistive devic e, OR takes more than reasonable time to groom, OR there is a concern for safety as the patient groom s GROOMING - SCORE: 6-MILAGRO BATHING: Activity did not occur on this shift BATHING - SCORE: 0-UNK DRESSING - UPPER BODY: Patient is not dressing in public clothing ARTICLES SCORE Total number of steps: 0 DRESSING - UPPER BODY - SCORE: 0-UNK DRESSING - LOWER BODY: Patient is not dressing in public clothing ARTICLES SCORE Total number of steps: 0 DRESSING - LOWER BODY - SCORE: 0-UNK TOILETING: TOILETING - STEP 1: Does the patient require the assistance of a person or device, or need extra time with toileting? Yes . TOILETING - STEP 2: Does the patient require the assistance of a helper? Yes. TOILETING - STEP 3: How much assistance does the patient require from the helper? Hands-on assistance from the helper TOILETING - STEP 4: Of the 3 tasks: 1) Adjusting clothing prior to use, 2) Cleansing of perineal area, 3) Adjusting clot zachariah after use; How many tasks does the patient perform WITHOUT assistance of the helper? Three tasks with steadying assistance from the helper TOILETING - SCORE: 4-MIN BLADDER MANAGEMENT: BLADDER MANAGEMENT - STEP 1: Does the patient control the bladder completely and intentionally without equipment or devices or med ications, and is always continent? No. BLADDER MANAGEMENT - STEP 2: Does the patient require the assistance of a helper? No, patient only requires extra time BLADDER MANAGEMENT - SCORE: 6-MILAGRO BOWEL MANAGEMENT: Activity did not occur on this shift BOWEL MANAGEMENT - SCORE: 7-IND TRANSFERS: BED, CHAIR, WHEELCHAIR: TRANSFERS: BED, CHAIR, WHEELCHAIR - STEP 1: Does the patient require assistance of a person or device, or need extra time with bed, chair, or whe elchair transfers? Yes. TRANSFERS: BED, CHAIR, WHEELCHAIR - STEP 2: Does the patient require the assistance of a helper? Yes. TRANSFERS: BED, CHAIR, WHEELCHAIR - STEP 3: How much assistance does the patient require from the helper? Steadying/guiding assistance TRANSFERS: BED, CHAIR, WHEELCHAIR - SCORE: 4-MIN TRANSFERS: TOILET: TRANSFERS: TOILET - STEP 1: Does the patient require the assistance of a person or device, or need extra time with toilet transfe rs? Yes. TRANSFERS: TOILET - STEP 2: Does the patient require the assistance of a helper? Yes. TRANSFERS: TOILET - STEP 3: How much assistance does the patient require from the helper? Only supervision, cuing, coaxing, OR he lp to set out transfer equipment or to lock brakes and/or lift foot rests TRANSFERS: TOILET - SCORE: 5-SUP TRANSFERS: SHOWER: Activity did not occur on this shift TRANSFERS: SHOWER - SCORE: 0-UNK TRANSFERS: TUB: Activity did not occur on this shift TRANSFERS: TUB - SCORE: 0-UNK LOCOMOTION: WALK: Activity did not occur on this shift LOCOMOTION: WALK - SCORE: 0-UNK LOCOMOTION: WHEELCHAIR: Activity did not occur on this shift LOCOMOTION: WHEELCHAIR - SCORE: 0-UNK COMPREHENSION: COMPREHENSION: TYPE: Both COMPREHENSION - STEP 1: Does the patient require help from a person or device, or need extra time to understand complex and a bstract ideas (such as current events, finances, discharge planning, medical issues, relationships, e tc)? No. COMPREHENSION - STEP 2: Does the patient need extra time, require an assistive device (such as glasses for visual comprehensi on or a hearing aid for auditory comprehension) or does s/he have mild difficulty understanding compl ex and abstract information? Yes. COMPREHENSION - SCORE: 6-MILAGRO EXPRESSION EXPRESSION: TYPE: Both EXPRESSION - STEP 1: Does the patient require help from a person or device, or need extra time expressing complex and abst ract ideas (such as current events, finances, discharge planning, medical issues, relationships, etc) ? No. EXPRESSION - STEP 2: Does the patient need extra time, require an assistive device (such as augmentive communication syste m or a communication board), OR does s/he have mild difficulty expressing complex and abstract ideas (including mild dysarthria or mild word-find problems)? No. EXPRESSION - SCORE: 7-IND SOCIAL INTERACTION: SOCIAL INTERACTION - STEP 1: Does the patient require a helper to interact with others in social and therapeutic situations? No. SOCIAL INTERACTION - STEP 2: Does the patient need extra time in social situations, OR does s/he interact with staff, other patien ts, and family members ONLY in structured environments, OR does s/he require medication for social in teraction? Yes, patient needs extra time SOCIAL INTERACTION - SCORE: 6-MILAGRO PROBLEM SOLVING: PROBLEM SOLVING - STEP 1: Does the patient need help from a person or device, or need extra time to solve complex problems such as managing a checking account or confronting interpersonal problems? No. PROBLEM SOLVING - STEP 2: Does the patient require extra time to make decisions or solve problems, OR does s/he have slight dif ficulty reading, initiating, or self-correcting in unfamiliar situations? Yes, patient needs extra ti me. PROBLEM SOLVING - SCORE: 6-MILAGRO MEMORY: MEMORY - STEP 1: Does the patient need help from a person or device, or need extra time to remember frequently encount ered people, daily routines, and executing requests? No. MEMORY - STEP 2: Does the patient have slight difficulty recognizing frequently encountered people, daily routines, or executing requests without the need for repetition or using self-initiated or environmental cues to remember? Yes. MEMORY - SCORE: 6-MILAGRO SIGNATURE PANEL: The following modified sections: Eating - Score, Grooming - Score, Dressing - Upper Body - Score, Anup ssing - Lower Body - Score, Toileting - Score, Bladder Management - Score, Bowel Management - Score, Transfers: Bed, Chair, Wheelchair - Score, Transfers: Toilet - Score, Transfers: Shower - Score, Jaime sfers: Tub - Score, Locomotion: Walk - Score, Locomotion: Wheelchair - Score, Comprehension - Score, Expression - Score, Social Interaction - Score, Problem Solving - Score, Memory - Score were [electro nically] signed by Yani Kruse CNA on ThuJan 02 2019 02:56:37 GMT-0600 (Central Standard Time)
[2019-01-02] MEDS: HYDROCODONE/APAP 7.5/325 MG TAB PO PRN ×4 (03:50→19:11)
[2019-01-02] MEDS: SYNTHROID 50 MCG PO SCH (07:05)
[2019-01-02] MEDS: ENOXAPARIN 40 MG/0.4 ML SQ SCH (07:06)
[2019-01-02] MEDS: LIDOCAINE 5% PATCH TOP SCH (07:06)
[2019-01-02] MEDS: DOCUSATE NA 100 MG CAP PO SCH ×2 (08:00→19:12)
[2019-01-02] MEDS: CRANBERRY FRUIT EXTRACT 200 MG CAP PO SCH ×2 (08:00→19:12)
[2019-01-02] MEDS: POLYETHYL GLY 3350 17 GM/DOSE PO SCH (08:00)
[2019-01-02] MEDS: FE SULF/FA/VIT B COMP & C TAB PO SCH (08:01)
[2019-01-02] MEDS: FERROUS SULFATE 325 MG TAB PO SCH (08:01)
[2019-01-02] MEDS: GABAPENTIN 300 MG CAP PO SCH ×3 (08:01→20:35)
[2019-01-02] MEDS: VENLAFAXINE 75 MG PO SCH (08:01)
[2019-01-02] MEDS: LISINOPRIL HCTZ PO SCH (08:01)
[2019-01-02] MEDS: PROMOD 30 ML DOSE PO SCH ×2 (08:02→19:12)
[2019-01-02] MEDS: VESICARE 5 MG PO SCH (08:02)
[2019-01-02] MEDS: BACLOFEN 10 MG TAB PO SCH (09:36)
[2019-01-02] MEDS: predniSONE 20 MG TAB PO SCH (09:37)
--- NOTE | 2019-01-02 14:01 | FAST ---
SHIFT START DATE/TIME: 01/02/2019 07:00 (ANGIOGRAPHY NURSE) SHIFT END DATE/TIME: 01/02/2019 19:00 (ANGIOGRAPHY NURSE) NAME CARITO MUNOZ DATE OF : 1955 DATE OF ADMISSION: 12/27/2018 19:35 (ANGIOGRAPHY NURSE) PHONE: AGE: 63 SSN# [id number] GENDER: Female ENCOUNTER PHYSICIAN: Dr. Blane Aguilar M.D. ADMISSION DIAGNOSIS: - Debility 16 - Debility (16) Closed trimalleolar fracture of left ankle. EATING: EATING - STEP 1: Does the patient require the assistance of a person or device, or need extra time when eating? Yes. EATING - STEP 2: Does the patient require the assistance of a helper? No, patient only requires an assistive device, O R s/he takes more than reasonable time to eat, OR there is a safety concern, OR s/he requires modifie d food consistency EATING - SCORE: 6-MILAGRO GROOMING: Comb/brush hair Oral care Wash, rinse, and dry face GROOMING - STEP 1: Does the patient require the assistance of a person or device, or need extra time when grooming? Yes. GROOMING - STEP 2: Does the patient require the assistance of a helper? No. The patient only requires an assistive devic e, OR takes more than reasonable time to groom, OR there is a concern for safety as the patient groom s GROOMING - SCORE: 6-MILAGRO BATHING: Activity did not occur on this shift BATHING - SCORE: 0-UNK DRESSING - UPPER BODY: Bra (three steps) T-shirt/pullover shirt (four steps) ARTICLES SCORE Total number of steps: 7 DRESSING - UPPER BODY - STEP 1: Does the patient require help from a person or device, or need extra time when dressing above the j[address]? No. DRESSING - UPPER BODY - SCORE: 7-IND DRESSING - LOWER BODY: Elastic waist pants (three steps) Tied or buckled shoe - Left foot (two steps) Tied or buckled shoe - Right foot (two steps) Underwear (three steps) ARTICLES SCORE Total number of steps: 10 DRESSING - LOWER BODY - STEP 1: Does the patient require help from a person or device, or need extra time when dressing below the j[address]? Yes. DRESSING - LOWER BODY - STEP 2: Does the patient require the assistance of a helper? No. Patient requires an assistive device such as a ultrasonographer. OR s/he takes more than reasonable time as s/he dresses the lower body, OR there is a con cern for safety when s/he dresses the lower body DRESSING - LOWER BODY - SCORE: 6-MILAGRO TOILETING: TOILETING - STEP 1: Does the patient require the assistance of a person or device, or need extra time with toileting? Yes . TOILETING - STEP 2: Does the patient require the assistance of a helper? Yes. TOILETING - STEP 3: How much assistance does the patient require from the helper? Only supervision TOILETING - SCORE: 5-SUP BLADDER MANAGEMENT: BLADDER MANAGEMENT - STEP 1: Does the patient control the bladder completely and intentionally without equipment or devices or med ications, and is always continent? No. BLADDER MANAGEMENT - STEP 2: Does the patient require the assistance of a helper? No, patient requires and independently uses an a ssistive device, such as a urinal, bedpan, bedside commode, catheter, absorbent pad, or collecting de vice BLADDER MANAGEMENT - SCORE: 6-MILAGRO BLADDER MANAGEMENT - FREQUENCY OF ACCIDENTS: BLADDER MANAGEMENT(FA) - STEP 1: How many accidents has the patient had during the current shift? 5 BOWEL MANAGEMENT: BOWEL MANAGEMENT - STEP 1: Does the patient control bowels completely and intentionally without equipment devices or medications AND is always continent? No. BOWEL MANAGEMENT - STEP 2: Does the patient require the assistance of a helper? No, patient requires medication for control such as stool softeners, suppositories, laxatives, enemas, or OTC medications BOWEL MANAGEMENT - SCORE: 6-MILAGRO BOWEL MANAGEMENT - FREQUENCY OF ACCIDENTS: BOWEL MANAGEMENT(FA) - STEP 1: How many accidents has the patient had during the current shift? 0 TRANSFERS: BED, CHAIR, WHEELCHAIR: TRANSFERS: BED, CHAIR, WHEELCHAIR - STEP 1: Does the patient require assistance of a person or device, or need extra time with bed, chair, or whe elchair transfers? Yes. TRANSFERS: BED, CHAIR, WHEELCHAIR - STEP 2: Does the patient require the assistance of a helper? Yes. TRANSFERS: BED, CHAIR, WHEELCHAIR - STEP 3: How much assistance does the patient require from the helper? Only supervision TRANSFERS: BED, CHAIR, WHEELCHAIR - SCORE: 5-SUP TRANSFERS: TOILET: TRANSFERS: TOILET - STEP 1: Does the patient require the assistance of a person or device, or need extra time with toilet transfe rs? Yes. TRANSFERS: TOILET - STEP 2: Does the patient require the assistance of a helper? Yes. TRANSFERS: TOILET - STEP 3: How much assistance does the patient require from the helper? Only supervision, cuing, coaxing, OR he lp to set out transfer equipment or to lock brakes and/or lift foot rests TRANSFERS: TOILET - SCORE: 5-SUP TRANSFERS: SHOWER: Activity did not occur on this shift TRANSFERS: SHOWER - SCORE: 0-UNK TRANSFERS: TUB: Activity did not occur on this shift TRANSFERS: TUB - SCORE: 0-UNK LOCOMOTION: WALK: Activity did not occur on this shift LOCOMOTION: WALK - SCORE: 0-UNK LOCOMOTION: WHEELCHAIR: LOCOMOTION: WHEELCHAIR - STEP 1: Does the patient need help to go 150 feet in a wheelchair? No. LOCOMOTION: WHEELCHAIR - SCORE: 6-MILAGRO COMPREHENSION: COMPREHENSION: TYPE: Both COMPREHENSION - STEP 1: Does the patient require help from a person or device, or need extra time to understand complex and a bstract ideas (such as current events, finances, discharge planning, medical issues, relationships, e tc)? No. COMPREHENSION - STEP 2: Does the patient need extra time, require an assistive device (such as glasses for visual comprehensi on or a hearing aid for auditory comprehension) or does s/he have mild difficulty understanding compl ex and abstract information? No. COMPREHENSION - SCORE: 7-IND EXPRESSION EXPRESSION: TYPE: Both EXPRESSION - STEP 1: Does the patient require help from a person or device, or need extra time expressing complex and abst ract ideas (such as current events, finances, discharge planning, medical issues, relationships, etc) ? No. EXPRESSION - STEP 2: Does the patient need extra time, require an assistive device (such as augmentive communication syste m or a communication board), OR does s/he have mild difficulty expressing complex and abstract ideas (including mild dysarthria or mild word-find problems)? Yes. EXPRESSION - SCORE: 6-MILAGRO SOCIAL INTERACTION: SOCIAL INTERACTION - STEP 1: Does the patient require a helper to interact with others in social and therapeutic situations? No. SOCIAL INTERACTION - STEP 2: Does the patient need extra time in social situations, OR does s/he interact with staff, other patien ts, and family members ONLY in structured environments, OR does s/he require medication for social in teraction? No. SOCIAL INTERACTION - SCORE: 7-IND PROBLEM SOLVING: PROBLEM SOLVING - STEP 1: Does the patient need help from a person or device, or need extra time to solve complex problems such as managing a checking account or confronting interpersonal problems? No. PROBLEM SOLVING - STEP 2: Does the patient require extra time to make decisions or solve problems, OR does s/he have slight dif ficulty reading, initiating, or self-correcting in unfamiliar situations? Yes, patient needs extra ti me. PROBLEM SOLVING - SCORE: 6-MILAGRO MEMORY: MEMORY - STEP 1: Does the patient need help from a person or device, or need extra time to remember frequently encount ered people, daily routines, and executing requests? No. MEMORY - STEP 2: Does the patient have slight difficulty recognizing frequently encountered people, daily routines, or executing requests without the need for repetition or using self-initiated or environmental cues to remember? Yes. MEMORY - SCORE: 6-MILAGRO SIGNATURE PANEL: The following modified sections: Eating - Score, Grooming - Score, Bathing - Score, Dressing - Upper Body - Score, Dressing - Lower Body - Score, Toileting - Score, Bladder Management - Score, Bowel Man agement - Score, Transfers: Bed, Chair, Wheelchair - Score, Transfers: Toilet - Score, Transfers: Elsa wer - Score, Transfers: Tub - Score, Locomotion: Walk - Score, Locomotion: Wheelchair - Score, Compre hension - Score, Expression - Score, Social Interaction - Score, Problem Solving - Score, Memory - Sc ore were [electronically] signed by Janett Christie C.N.A. on ThuJan 02 2019 14:00:28 GMT-0600 ([facility] Standard Time)
[2019-01-02] MEDS ORDERED: D50W 25 GM/50 ML SYRINGE IV PRN (14:29)
[2019-01-02] MEDS ORDERED: GLUCAGON 1 MG/VIAL IM PRN (14:29)
[2019-01-02] MEDS: INSULIN -REGULAR HUMAN 50 UNIT/0.5 ML ML SQ SCH ×2 (16:30→20:36)
[2019-01-02] MEDS: MELATONIN 3 MG TABLET PO PRN (20:35)
[2019-01-03] MEDS: HYDROCODONE/APAP 7.5/325 MG TAB PO PRN ×4 (02:01→20:31)
--- NOTE | 2019-01-03 03:07 | FAST ---
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 Blane Aguilar M.D. ADMISSION DIAGNOSIS: - Debility 16 - Debility (16) Closed trimalleolar fracture of left ankle. EATING: Activity did not occur on this shift EATING - SCORE: 0-UNK GROOMING: Activity did not occur on this shift GROOMING - SCORE: 0-UNK BATHING: Activity did not occur on this shift BATHING - SCORE: 0-UNK DRESSING - UPPER BODY: Patient is not dressing in public clothing ARTICLES SCORE Total number of steps: 0 DRESSING - UPPER BODY - SCORE: 0-UNK DRESSING - LOWER BODY: Patient is not dressing in public clothing ARTICLES SCORE Total number of steps: 0 DRESSING - LOWER BODY - SCORE: 0-UNK TOILETING: TOILETING - STEP 1: Does the patient require the assistance of a person or device, or need extra time with toileting? Yes . TOILETING - STEP 2: Does the patient require the assistance of a helper? Yes. TOILETING - STEP 3: How much assistance does the patient require from the helper? Only supervision TOILETING - SCORE: 5-SUP BLADDER MANAGEMENT: BLADDER MANAGEMENT - STEP 1: Does the patient control the bladder completely and intentionally without equipment or devices or med ications, and is always continent? Yes. BLADDER MANAGEMENT - SCORE: 7-IND BOWEL MANAGEMENT: Activity did not occur on this shift BOWEL MANAGEMENT - SCORE: 7-IND TRANSFERS: BED, CHAIR, WHEELCHAIR: TRANSFERS: BED, CHAIR, WHEELCHAIR - STEP 1: Does the patient require assistance of a person or device, or need extra time with bed, chair, or whe elchair transfers? Yes. TRANSFERS: BED, CHAIR, WHEELCHAIR - STEP 2: Does the patient require the assistance of a helper? Yes. TRANSFERS: BED, CHAIR, WHEELCHAIR - STEP 3: How much assistance does the patient require from the helper? Steadying/guiding assistance TRANSFERS: BED, CHAIR, WHEELCHAIR - SCORE: 4-MIN TRANSFERS: TOILET: TRANSFERS: TOILET - STEP 1: Does the patient require the assistance of a person or device, or need extra time with toilet transfe rs? Yes. TRANSFERS: TOILET - STEP 2: Does the patient require the assistance of a helper? Yes. TRANSFERS: TOILET - STEP 3: How much assistance does the patient require from the helper? Only supervision, cuing, coaxing, OR he lp to set out transfer equipment or to lock brakes and/or lift foot rests TRANSFERS: TOILET - SCORE: 5-SUP TRANSFERS: SHOWER: Activity did not occur on this shift TRANSFERS: SHOWER - SCORE: 0-UNK TRANSFERS: TUB: Activity did not occur on this shift TRANSFERS: TUB - SCORE: 0-UNK LOCOMOTION: WALK: Activity did not occur on this shift LOCOMOTION: WALK - SCORE: 0-UNK LOCOMOTION: WHEELCHAIR: Activity did not occur on this shift LOCOMOTION: WHEELCHAIR - SCORE: 0-UNK COMPREHENSION: COMPREHENSION: TYPE: Both COMPREHENSION - STEP 1: Does the patient require help from a person or device, or need extra time to understand complex and a bstract ideas (such as current events, finances, discharge planning, medical issues, relationships, e tc)? No. COMPREHENSION - STEP 2: Does the patient need extra time, require an assistive device (such as glasses for visual comprehensi on or a hearing aid for auditory comprehension) or does s/he have mild difficulty understanding compl ex and abstract information? Yes. COMPREHENSION - SCORE: 6-MILAGRO EXPRESSION EXPRESSION: TYPE: Both EXPRESSION - STEP 1: Does the patient require help from a person or device, or need extra time expressing complex and abst ract ideas (such as current events, finances, discharge planning, medical issues, relationships, etc) ? No. EXPRESSION - STEP 2: Does the patient need extra time, require an assistive device (such as augmentive communication syste m or a communication board), OR does s/he have mild difficulty expressing complex and abstract ideas (including mild dysarthria or mild word-find problems)? No. EXPRESSION - SCORE: 7-IND SOCIAL INTERACTION: SOCIAL INTERACTION - STEP 1: Does the patient require a helper to interact with others in social and therapeutic situations? No. SOCIAL INTERACTION - STEP 2: Does the patient need extra time in social situations, OR does s/he interact with staff, other patien ts, and family members ONLY in structured environments, OR does s/he require medication for social in teraction? Yes, patient needs extra time SOCIAL INTERACTION - SCORE: 6-MILAGRO PROBLEM SOLVING: PROBLEM SOLVING - STEP 1: Does the patient need help from a person or device, or need extra time to solve complex problems such as managing a checking account or confronting interpersonal problems? No. PROBLEM SOLVING - STEP 2: Does the patient require extra time to make decisions or solve problems, OR does s/he have slight dif ficulty reading, initiating, or self-correcting in unfamiliar situations? Yes, patient needs extra ti me. PROBLEM SOLVING - SCORE: 6-MILAGRO MEMORY: MEMORY - STEP 1: Does the patient need help from a person or device, or need extra time to remember frequently encount ered people, daily routines, and executing requests? No. MEMORY - STEP 2: Does the patient have slight difficulty recognizing frequently encountered people, daily routines, or executing requests without the need for repetition or using self-initiated or environmental cues to remember? No. MEMORY - SCORE: 7-IND SIGNATURE PANEL: The following modified sections: Eating - Score, Grooming - Score, Dressing - Upper Body - Score, Anup ssing - Lower Body - Score, Toileting - Score, Bladder Management - Score, Bowel Management - Score, Transfers: Bed, Chair, Wheelchair - Score, Transfers: Toilet - Score, Transfers: Shower - Score, Jaime sfers: Tub - Score, Locomotion: Walk - Score, Locomotion: Wheelchair - Score, Comprehension - Score, Expression - Score, Social Interaction - Score, Problem Solving - Score, Memory - Score were [electro nically] signed by Yani Kruse CNA on ThuJan 03 2019 03:06:29 GMT-0600 (Central Standard Time)
[2019-01-03] MEDS: SYNTHROID 50 MCG PO SCH (07:01)
[2019-01-03] MEDS: INSULIN -REGULAR HUMAN 50 UNIT/0.5 ML ML SQ SCH ×4 (07:05→20:30)
[2019-01-03] MEDS: PROMOD 30 ML DOSE PO SCH ×2 (08:00→20:30)
[2019-01-03] MEDS: VENLAFAXINE 75 MG PO SCH (08:08)
[2019-01-03] MEDS: VESICARE 5 MG PO SCH (08:09)
[2019-01-03] MEDS: LISINOPRIL HCTZ PO SCH (08:10)
[2019-01-03] MEDS: CRANBERRY FRUIT EXTRACT 200 MG CAP PO SCH ×2 (08:10→20:29)
[2019-01-03] MEDS: POLYETHYL GLY 3350 17 GM/DOSE PO SCH (08:11)
[2019-01-03] MEDS: LIDOCAINE 5% PATCH TOP SCH (08:11)
[2019-01-03] MEDS: FERROUS SULFATE 325 MG TAB PO SCH (08:11)
[2019-01-03] MEDS: FE SULF/FA/VIT B COMP & C TAB PO SCH (08:11)
[2019-01-03] MEDS: predniSONE 20 MG TAB PO SCH (08:11)
[2019-01-03] MEDS: DOCUSATE NA 100 MG CAP PO SCH ×2 (08:11→20:30)
[2019-01-03] MEDS: ENOXAPARIN 40 MG/0.4 ML SQ SCH (08:12)
[2019-01-03] MEDS: GABAPENTIN 300 MG CAP PO SCH ×3 (08:12→20:30)
--- NOTE | 2019-01-03 14:47 | FAST ---
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 Blane Aguilar M.D. ADMISSION DIAGNOSIS: - Debility 16 - Debility (16) Closed trimalleolar fracture of left ankle. EATING: Activity did not occur on this shift EATING - SCORE: 0-UNK GROOMING: Activity did not occur on this shift GROOMING - SCORE: 0-UNK BATHING: Activity did not occur on this shift BATHING - SCORE: 0-UNK DRESSING - UPPER BODY: Activity did not occur on this shift Patient is not dressing in public clothing ARTICLES SCORE Total number of steps: 0 DRESSING - UPPER BODY - SCORE: 0-UNK DRESSING - LOWER BODY: Activity did not occur on this shift Patient is not dressing in public clothing ARTICLES SCORE Total number of steps: 0 DRESSING - LOWER BODY - SCORE: 0-UNK TOILETING: Activity did not occur on this shift TOILETING - SCORE: 0-UNK BLADDER MANAGEMENT: Activity did not occur on this shift BLADDER MANAGEMENT - SCORE: 7-IND BOWEL MANAGEMENT: Activity did not occur on this shift BOWEL MANAGEMENT - SCORE: 7-IND TRANSFERS: BED, CHAIR, WHEELCHAIR: TRANSFERS: BED, CHAIR, WHEELCHAIR - STEP 1: Does the patient require assistance of a person or device, or need extra time with bed, chair, or whe elchair transfers? Yes. TRANSFERS: BED, CHAIR, WHEELCHAIR - STEP 2: Does the patient require the assistance of a helper? No. Patient only requires an assistive device fo r bed, chair, wheelchair transfers such as a sliding board, grab bar, or brace, OR s/he takes more th an reasonable time, OR there is a safety concern when s/he performs the transfers TRANSFERS: BED, CHAIR, WHEELCHAIR - SCORE: 6-MILAGRO TRANSFERS: TOILET: Activity did not occur on this shift TRANSFERS: TOILET - SCORE: 0-UNK TRANSFERS: SHOWER: Activity did not occur on this shift TRANSFERS: SHOWER - SCORE: 0-UNK TRANSFERS: TUB: Activity did not occur on this shift TRANSFERS: TUB - SCORE: 0-UNK LOCOMOTION: WALK: HOUSEHOLD EXCEPTION: Patient walks at least 50 feet independently (with or without a device) LOCOMOTION: WALK - SCORE: 5-SUP LOCOMOTION: WHEELCHAIR: LOCOMOTION: WHEELCHAIR - STEP 1: Does the patient need help to go 150 feet in a wheelchair? No. LOCOMOTION: WHEELCHAIR - SCORE: 6-MILAGRO LOCOMOTION: STAIRS: LOCOMOTION: STAIRS - STEP 1: Does the patient need help to go up and down 12 to 14 stairs? Yes. LOCOMOTION: STAIRS - STEP 2: How much assistance does the patient need from the helper to go a minimum of 12 to 14 stairs? The pat ient goes less than 12 stairs, but at least 4 stairs LOCOMOTION: STAIRS - SCORE: 2-MAX COMPREHENSION: COMPREHENSION - SCORE: 0-UNK EXPRESSION EXPRESSION - SCORE: 0-UNK SOCIAL INTERACTION: SOCIAL INTERACTION - SCORE: 0-UNK PROBLEM SOLVING: PROBLEM SOLVING - SCORE: 0-UNK MEMORY: MEMORY - SCORE: 0-UNK SIGNATURE PANEL: The following modified sections: Transfers: Bed, Chair, Wheelchair - Score, Transfers: Toilet - Score , Locomotion: Walk - Score, Locomotion: Wheelchair - Score, Locomotion: Stairs - Score were [electron lela] signed by Jake Bhat PT on ThuJan 03 2019 14:46:28 GMT-0600 (Central Standard Time)
--- NOTE | 2019-01-03 15:00 | FAST ---
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 Blane Aguilar M.D. ADMISSION DIAGNOSIS: - Debility 16 - Debility (16) Closed trimalleolar fracture of left ankle. EATING: EATING - STEP 1: Does the patient require the assistance of a person or device, or need extra time when eating? Yes. EATING - STEP 2: Does the patient require the assistance of a helper? No, patient only requires an assistive device, O R s/he takes more than reasonable time to eat, OR there is a safety concern, OR s/he requires modifie d food consistency EATING - SCORE: 6-MILAGRO GROOMING: Comb/brush hair Wash, rinse, and dry face Wash, rinse, and dry hands GROOMING - STEP 1: Does the patient require the assistance of a person or device, or need extra time when grooming? Yes. GROOMING - STEP 2: Does the patient require the assistance of a helper? No. The patient only requires an assistive devic e, OR takes more than reasonable time to groom, OR there is a concern for safety as the patient groom s GROOMING - SCORE: 6-MILAGRO BATHING: Activity did not occur on this shift BATHING - SCORE: 0-UNK DRESSING - UPPER BODY: Activity did not occur on this shift ARTICLES SCORE Total number of steps: 0 DRESSING - UPPER BODY - SCORE: 0-UNK DRESSING - LOWER BODY: Activity did not occur on this shift ARTICLES SCORE Total number of steps: 0 DRESSING - LOWER BODY - SCORE: 0-UNK TOILETING: TOILETING - STEP 1: Does the patient require the assistance of a person or device, or need extra time with toileting? Yes . TOILETING - STEP 2: Does the patient require the assistance of a helper? Yes. TOILETING - STEP 3: How much assistance does the patient require from the helper? Only supervision TOILETING - SCORE: 5-SUP BLADDER MANAGEMENT: BLADDER MANAGEMENT - STEP 1: Does the patient control the bladder completely and intentionally without equipment or devices or med ications, and is always continent? No. BLADDER MANAGEMENT - STEP 2: Does the patient require the assistance of a helper? No, patient requires and independently uses an a ssistive device, such as a urinal, bedpan, bedside commode, catheter, absorbent pad, or collecting de vice BLADDER MANAGEMENT - SCORE: 6-MILAGRO BOWEL MANAGEMENT: Activity did not occur on this shift BOWEL MANAGEMENT - SCORE: 7-IND TRANSFERS: BED, CHAIR, WHEELCHAIR: TRANSFERS: BED, CHAIR, WHEELCHAIR - STEP 1: Does the patient require assistance of a person or device, or need extra time with bed, chair, or whe elchair transfers? Yes. TRANSFERS: BED, CHAIR, WHEELCHAIR - STEP 2: Does the patient require the assistance of a helper? Yes. TRANSFERS: BED, CHAIR, WHEELCHAIR - STEP 3: How much assistance does the patient require from the helper? Steadying/guiding assistance TRANSFERS: BED, CHAIR, WHEELCHAIR - SCORE: 4-MIN TRANSFERS: TOILET: TRANSFERS: TOILET - STEP 1: Does the patient require the assistance of a person or device, or need extra time with toilet transfe rs? Yes. TRANSFERS: TOILET - STEP 2: Does the patient require the assistance of a helper? Yes. TRANSFERS: TOILET - STEP 3: How much assistance does the patient require from the helper? Patient performs half or more of the tr ansferring tasks TRANSFERS: TOILET - STEP 4: Does the patient need only incidental help such as contact guard or steadying during toilet transfer? Yes. TRANSFERS: TOILET - SCORE: 4-MIN TRANSFERS: SHOWER: Activity did not occur on this shift TRANSFERS: SHOWER - SCORE: 0-UNK TRANSFERS: TUB: Activity did not occur on this shift TRANSFERS: TUB - SCORE: 0-UNK LOCOMOTION: WALK: Activity did not occur on this shift LOCOMOTION: WALK - SCORE: 0-UNK LOCOMOTION: WHEELCHAIR: Activity did not occur on this shift LOCOMOTION: WHEELCHAIR - SCORE: 0-UNK COMPREHENSION: COMPREHENSION: TYPE: Both COMPREHENSION - STEP 1: Does the patient require help from a person or device, or need extra time to understand complex and a bstract ideas (such as current events, finances, discharge planning, medical issues, relationships, e tc)? No. COMPREHENSION - STEP 2: Does the patient need extra time, require an assistive device (such as glasses for visual comprehensi on or a hearing aid for auditory comprehension) or does s/he have mild difficulty understanding compl ex and abstract information? Yes. COMPREHENSION - SCORE: 6-MILAGRO EXPRESSION EXPRESSION: TYPE: Both EXPRESSION - STEP 1: Does the patient require help from a person or device, or need extra time expressing complex and abst ract ideas (such as current events, finances, discharge planning, medical issues, relationships, etc) ? No. EXPRESSION - STEP 2: Does the patient need extra time, require an assistive device (such as augmentive communication syste m or a communication board), OR does s/he have mild difficulty expressing complex and abstract ideas (including mild dysarthria or mild word-find problems)? Yes. EXPRESSION - SCORE: 6-MILAGRO SOCIAL INTERACTION: SOCIAL INTERACTION - STEP 1: Does the patient require a helper to interact with others in social and therapeutic situations? No. SOCIAL INTERACTION - STEP 2: Does the patient need extra time in social situations, OR does s/he interact with staff, other patien ts, and family members ONLY in structured environments, OR does s/he require medication for social in teraction? Yes, patient needs extra time SOCIAL INTERACTION - SCORE: 6-MILAGRO PROBLEM SOLVING: PROBLEM SOLVING - STEP 1: Does the patient need help from a person or device, or need extra time to solve complex problems such as managing a checking account or confronting interpersonal problems? No. PROBLEM SOLVING - STEP 2: Does the patient require extra time to make decisions or solve problems, OR does s/he have slight dif ficulty reading, initiating, or self-correcting in unfamiliar situations? Yes, patient needs extra ti me. PROBLEM SOLVING - SCORE: 6-MILAGRO MEMORY: MEMORY - STEP 1: Does the patient need help from a person or device, or need extra time to remember frequently encount ered people, daily routines, and executing requests? No. MEMORY - STEP 2: Does the patient have slight difficulty recognizing frequently encountered people, daily routines, or executing requests without the need for repetition or using self-initiated or environmental cues to remember? Yes. MEMORY - SCORE: 6-MILAGRO SIGNATURE PANEL: The following modified sections: Eating - Score, Grooming - Score, Bathing - Score, Dressing - Upper Body - Score, Dressing - Lower Body - Score, Toileting - Score, Bladder Management - Score, Bowel Man agement - Score, Transfers: Bed, Chair, Wheelchair - Score, Transfers: Toilet - Score, Transfers: Elsa wer - Score, Transfers: Tub - Score, Locomotion: Walk - Score, Locomotion: Wheelchair - Score, Compre hension - Score, Expression - Score, Social Interaction - Score, Problem Solving - Score, Memory - Sc ore were [electronically] signed by Clarke Bonner on ThuJan 03 2019 14:59:37 GMT-0600 (Central Standard Time)
[2019-01-03] MEDS: MAGNESIUM OXIDE 400 MG TAB PO SCH (20:29)
[2019-01-03] MEDS: MELATONIN 3 MG TABLET PO PRN (20:30)
--- NOTE | 2019-01-03 21:16 | R.PN ---
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 Pt denied any depression. Propelled wheelchair 250' with physical therapist in tow. VITAL SIGNS Temperature: 97.3 F SBP/DBP: 153/88 Pulse: 6 Resp: 16 Hgb is 11.4, WBC is 4.7, Creatinine is 0.5, prealbumin 12.5, UA show trace esterase. Ambulated 250' with modified independence. MEDICATION ALLERGIES: Codeine ENVIRONMENTAL ALLERGIES: None Known - Substance Allergies None Known - Other Allergies None Known NURSING: - Shower allowing shower PRECAUTIONS: - Weight Bearing Precaution NWB left LE ACTIVITIES OOB only with supervision THERAPIES: - Occupational Therapy Evaluate and Treat. - Physical Therapy Evaluate and Treat. PHYSICAL EXAM - Gen Alert and awake Lying in bed No apparent distress Oriented to: person, time, and place - Skin No breakdown No abnormalities - Eyes No abnormalities - ENMT No abnormalities - Neck No abnormalities - CVS RRR - Chest No abnormalities - Resp Clear to auscultation - Abd + bowel sounds - GI Soft Deferred - No abnormalities - Ext Left lower ext in immob - MSK 4+/5 weakness in left lower extremity - Neuro 4/5 strength left lower extremity. - Psych No abnormalities ASSESSMENT: Pt. is a 63 yo Right-handed white female.On 12/21/2018 she was admitted to [facility] with diagnosis Closed trimalleolar fracture of left ankle.Her impairment category is Debility 16 - Debility (16).Pre-morbidly, Pt. was independent/mod-I in Transfers Control, Communication, Soci al Cognition, Self-Care, Locomotion, and Sphincter Control; and she had good Sphincter Control.Curren tly, she has deficits of Transfers Control, Balance, Locomotion, Endurance, Safety Awareness, and Felisha f-Care.Pt. is now referred to [facility] for acute in-patient rehabilitation i n order to maximize patient's functional independence in activities of daily living, strength, ROM, a nd mobility.- Rehab Goal Patient has realistic goal of being discharged at assistance level 5-sup to reside at Home with Fami ly/Relatives. MDM/PLAN: - Physical Therapy Gait dysfunction - to improve, our physical therapists will perform initial evaluation of pt's statu s upon admission and devise an individualized program for Gait Training, and Wheel Chair mobility Inability to transfer - to improve, our physical therapists will perform initial evaluation of pt's status upon admission and devise an individualized program for Bed mobility Need for home safety evaluation - to improve, our physical therapists will perform initial evaluatio n of pt's status upon admission and devise an individualized program for Home Evaluation Need in caregiver upon discharge - to improve, our physical therapists will perform initial evaluati on of pt's status upon admission and devise an individualized program for Caregiver Training New precaution - to improve, our physical therapists will perform initial evaluation of pt's status upon admission and devise an individualized program for Patient precaution education Poor balance - to improve, our physical therapists will perform initial evaluation of pt's status up on admission and devise an individualized program for Balance Training Poor endurance - to improve, our physical therapists will perform initial evaluation of pt's status upon admission and devise an individualized program for Endurance Training Weakness - to improve, our physical therapists will perform initial evaluation of pt's status upon a dmission and devise an individualized program for Aquatic Therapy, Neuromuscular Reeducation, and Str engthening Achieving independence - to improve, our physical therapists will perform initial evaluation of pt's status upon admission and devise an individualized program for Community Reintegration Activities - Occupational Therapy ADL deficits - to improve, our occupation therapists will perform initial evaluation of pt's status upon admission and devise an individualized program for Bathing, Bed mobility, Community Reintegratio n, Cooking, Dressing, Eating, Fine Motor Skills, Grooming, Homemaking, Kitchen Mobility, Laundry, Pat ient Education, Safety Awareness, Splinting - Positioning, Transfers(Toilet, Tub, Shower), and Wheel Chair Management Need for eye care professional - to improve, our occupation therapists will perform initial evaluation of pt's status upon admission and devise an individualized program for Caregiver Training Weakness - to improve, our occupation therapists will perform initial evaluation of pt's status upon admission and devise an individualized program for Aquatic Therapy, Balance, Endurance, UE ROM, and UE strengthening - Diet Type Continue Regular - Diet - Liquid Texture Continue Regular - Tube Feed Continue N/A - Weight Bearing Precaution NWB left LE - Diet - Solid Texture Continue Regular - Shower allowing shower FUNCTIONAL STATUS: UPDATED AT WEEKLY TEAM CONFERENCE - Bladder Same accident frequency: 7-Ind - No accidents in the past 7 days - Bowel Same accident frequency: 7-Ind - No accidents in the past 7 days - Walking Same score based on distance walked: 2(50-149ft) - Wheelchair Same score based on distance traveled: 0(N/A) FUNCTIONAL STATUS: - Self-Care A. Eating Ind B. Grooming Ind C. Bathing sup D. Dressing - Upper Ind E. Dressing - Lower sup F. Toileting sup - Sphincter Control G: Bladder control Ind H: Bowel control Ind - Transfers Control I. Bed/Chair/Wheelchair sup J. Toilet sup K. Tub/Shower ADNO - Locomotion L. Walk/Wheelchair (C) sup L. Walk/Wheelchair (W) sup M. Stairs ADNO - Communication N. Comprehension (B) Ind O. Expression (B) Ind - Social Cognition P. Social Interaction Ind Q. Problem Solving Ind R. Memory Ind - Endurance Fair - Balance Fair - Safety Awareness Fair CURRENT FUNC. DEFICITS: Transfers Control, Balance, Locomotion, Endurance, Safety Awareness, and Self-Care SIGNATURE PANEL: ([facility])
--- NOTE | 2019-01-04 01:24 | FAST ---
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 Blane Aguilar M.D. ADMISSION DIAGNOSIS: - Debility 16 - Debility (16) Closed trimalleolar fracture of left ankle. EATING: Activity did not occur on this shift EATING - SCORE: 0-UNK GROOMING: Activity did not occur on this shift GROOMING - SCORE: 0-UNK BATHING: Activity did not occur on this shift BATHING - SCORE: 0-UNK DRESSING - UPPER BODY: Activity did not occur on this shift ARTICLES SCORE Total number of steps: 0 DRESSING - UPPER BODY - SCORE: 0-UNK DRESSING - LOWER BODY: Activity did not occur on this shift ARTICLES SCORE Total number of steps: 0 DRESSING - LOWER BODY - SCORE: 0-UNK TOILETING: TOILETING - STEP 1: Does the patient require the assistance of a person or device, or need extra time with toileting? Yes . TOILETING - STEP 2: Does the patient require the assistance of a helper? Yes. TOILETING - STEP 3: How much assistance does the patient require from the helper? Only supervision TOILETING - SCORE: 5-SUP BLADDER MANAGEMENT: BLADDER MANAGEMENT - STEP 1: Does the patient control the bladder completely and intentionally without equipment or devices or med ications, and is always continent? Yes. BLADDER MANAGEMENT - SCORE: 7-IND BOWEL MANAGEMENT: Activity did not occur on this shift BOWEL MANAGEMENT - SCORE: 7-IND TRANSFERS: BED, CHAIR, WHEELCHAIR: TRANSFERS: BED, CHAIR, WHEELCHAIR - STEP 1: Does the patient require assistance of a person or device, or need extra time with bed, chair, or whe elchair transfers? Yes. TRANSFERS: BED, CHAIR, WHEELCHAIR - STEP 2: Does the patient require the assistance of a helper? Yes. TRANSFERS: BED, CHAIR, WHEELCHAIR - STEP 3: How much assistance does the patient require from the helper? Only supervision TRANSFERS: BED, CHAIR, WHEELCHAIR - SCORE: 5-SUP TRANSFERS: TOILET: TRANSFERS: TOILET - STEP 1: Does the patient require the assistance of a person or device, or need extra time with toilet transfe rs? Yes. TRANSFERS: TOILET - STEP 2: Does the patient require the assistance of a helper? Yes. TRANSFERS: TOILET - STEP 3: How much assistance does the patient require from the helper? Only supervision, cuing, coaxing, OR he lp to set out transfer equipment or to lock brakes and/or lift foot rests TRANSFERS: TOILET - SCORE: 5-SUP TRANSFERS: SHOWER: Activity did not occur on this shift TRANSFERS: SHOWER - SCORE: 0-UNK TRANSFERS: TUB: Activity did not occur on this shift TRANSFERS: TUB - SCORE: 0-UNK LOCOMOTION: WALK: Activity did not occur on this shift LOCOMOTION: WALK - SCORE: 0-UNK LOCOMOTION: WHEELCHAIR: Activity did not occur on this shift LOCOMOTION: WHEELCHAIR - SCORE: 0-UNK COMPREHENSION: COMPREHENSION: TYPE: Both COMPREHENSION - STEP 1: Does the patient require help from a person or device, or need extra time to understand complex and a bstract ideas (such as current events, finances, discharge planning, medical issues, relationships, e tc)? No. COMPREHENSION - STEP 2: Does the patient need extra time, require an assistive device (such as glasses for visual comprehensi on or a hearing aid for auditory comprehension) or does s/he have mild difficulty understanding compl ex and abstract information? Yes. COMPREHENSION - SCORE: 6-MILAGRO EXPRESSION EXPRESSION: TYPE: Both EXPRESSION - STEP 1: Does the patient require help from a person or device, or need extra time expressing complex and abst ract ideas (such as current events, finances, discharge planning, medical issues, relationships, etc) ? No. EXPRESSION - STEP 2: Does the patient need extra time, require an assistive device (such as augmentive communication syste m or a communication board), OR does s/he have mild difficulty expressing complex and abstract ideas (including mild dysarthria or mild word-find problems)? No. EXPRESSION - SCORE: 7-IND SOCIAL INTERACTION: SOCIAL INTERACTION - STEP 1: Does the patient require a helper to interact with others in social and therapeutic situations? No. SOCIAL INTERACTION - STEP 2: Does the patient need extra time in social situations, OR does s/he interact with staff, other patien ts, and family members ONLY in structured environments, OR does s/he require medication for social in teraction? No. SOCIAL INTERACTION - SCORE: 7-IND PROBLEM SOLVING: PROBLEM SOLVING - STEP 1: Does the patient need help from a person or device, or need extra time to solve complex problems such as managing a checking account or confronting interpersonal problems? No. PROBLEM SOLVING - STEP 2: Does the patient require extra time to make decisions or solve problems, OR does s/he have slight dif ficulty reading, initiating, or self-correcting in unfamiliar situations? No. PROBLEM SOLVING - SCORE: 7-IND MEMORY: MEMORY - STEP 1: Does the patient need help from a person or device, or need extra time to remember frequently encount ered people, daily routines, and executing requests? No. MEMORY - STEP 2: Does the patient have slight difficulty recognizing frequently encountered people, daily routines, or executing requests without the need for repetition or using self-initiated or environmental cues to remember? No. MEMORY - SCORE: 7-IND SIGNATURE PANEL: The following modified sections: Eating - Score, Grooming - Score, Bathing - Score, Dressing - Upper Body - Score, Dressing - Lower Body - Score, Toileting - Score, Bladder Management - Score, Bowel Man agement - Score, Transfers: Bed, Chair, Wheelchair - Score, Transfers: Toilet - Score, Transfers: Elsa wer - Score, Transfers: Tub - Score, Locomotion: Walk - Score, Locomotion: Wheelchair - Score, Compre hension - Score, Expression - Score, Social Interaction - Score, Problem Solving - Score, Memory - Sc ore were [electronically] signed by Elaine Rico CNA on ThuJan 04 2019 01:23:50 T-0600 ([facility])
[2019-01-04] MEDS: CRANBERRY FRUIT EXTRACT 200 MG CAP PO SCH ×2 (07:05→19:54)
[2019-01-04] MEDS: LISINOPRIL HCTZ PO SCH (07:06)
[2019-01-04] MEDS: FERROUS SULFATE 325 MG TAB PO SCH (07:06)
[2019-01-04] MEDS: VESICARE 5 MG PO SCH (07:06)
[2019-01-04] MEDS: VENLAFAXINE 75 MG PO SCH (07:08)
[2019-01-04] MEDS: ENOXAPARIN 40 MG/0.4 ML SQ SCH (07:08)
[2019-01-04] MEDS: GABAPENTIN 300 MG CAP PO SCH ×3 (07:09→19:59)
[2019-01-04] MEDS: SYNTHROID 50 MCG PO SCH (07:09)
[2019-01-04] MEDS: DOCUSATE NA 100 MG CAP PO SCH ×2 (07:09→19:54)
[2019-01-04] MEDS: MAGNESIUM OXIDE 400 MG TAB PO SCH ×2 (07:09→19:54)
[2019-01-04] MEDS: FE SULF/FA/VIT B COMP & C TAB PO SCH (07:10)
[2019-01-04] MEDS: BACLOFEN 10 MG TAB PO SCH (07:10)
[2019-01-04] MEDS: predniSONE 20 MG TAB PO SCH (07:11)
[2019-01-04] MEDS: LIDOCAINE 5% PATCH TOP SCH (07:11)
[2019-01-04] MEDS: INSULIN -REGULAR HUMAN 50 UNIT/0.5 ML ML SQ SCH ×4 (07:30→20:07)
[2019-01-04] MEDS: POLYETHYL GLY 3350 17 GM/DOSE PO SCH (08:00)
[2019-01-04] MEDS: HYDROCODONE/APAP 7.5/325 MG TAB PO PRN ×3 (08:14→19:55)
[2019-01-04] MEDS: PROMOD 30 ML DOSE PO SCH ×2 (08:50→19:54)
--- NOTE | 2019-01-04 10:10 | FAST ---
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 Blane Aguilar M.D. ADMISSION DIAGNOSIS: - Debility 16 - Debility (16) Closed trimalleolar fracture of left ankle. EATING: EATING - STEP 1: Does the patient require the assistance of a person or device, or need extra time when eating? Yes. EATING - STEP 2: Does the patient require the assistance of a helper? No, patient only requires an assistive device, O R s/he takes more than reasonable time to eat, OR there is a safety concern, OR s/he requires modifie d food consistency EATING - SCORE: 6-MILAGRO GROOMING: Comb/brush hair Oral care GROOMING - STEP 1: Does the patient require the assistance of a person or device, or need extra time when grooming? No. GROOMING - SCORE: 7-IND BATHING: Activity did not occur on this shift BATHING - SCORE: 0-UNK DRESSING - UPPER BODY: Bra (three steps) T-shirt/pullover shirt (four steps) ARTICLES SCORE Total number of steps: 7 DRESSING - UPPER BODY - STEP 1: Does the patient require help from a person or device, or need extra time when dressing above the jatin[address] st? Yes. DRESSING - UPPER BODY - STEP 2: Does the patient require the assistance of a helper? Yes. DRESSING - UPPER BODY - STEP 3: Does the helper touch the patient while dressing? No. DRESSING - UPPER BODY - SCORE: 5-SUP DRESSING - LOWER BODY: ARTICLES SCORE Total number of steps: 3 DRESSING - LOWER BODY - STEP 1: Does the patient require help from a person or device, or need extra time when dressing below the jatinder st? Yes. DRESSING - LOWER BODY - STEP 2: Does the patient require the assistance of a helper? Yes. DRESSING - LOWER BODY - STEP 3: Does the helper touch the patient while dressing? No. DRESSING - LOWER BODY - SCORE: 5-SUP TOILETING: TOILETING - STEP 1: Does the patient require the assistance of a person or device, or need extra time with toileting? Yes . TOILETING - STEP 2: Does the patient require the assistance of a helper? Yes. TOILETING - STEP 3: How much assistance does the patient require from the helper? Hands-on assistance from the helper TOILETING - STEP 4: Of the 3 tasks: 1) Adjusting clothing prior to use, 2) Cleansing of perineal area, 3) Adjusting clot zachariah after use; How many tasks does the patient perform WITHOUT assistance of the helper? Three tasks with steadying assistance from the helper TOILETING - SCORE: 4-MIN BLADDER MANAGEMENT: BLADDER MANAGEMENT - STEP 1: Does the patient control the bladder completely and intentionally without equipment or devices or med ications, and is always continent? No. BLADDER MANAGEMENT - STEP 2: Does the patient require the assistance of a helper? No, patient requires and independently uses an a ssistive device, such as a urinal, bedpan, bedside commode, catheter, absorbent pad, or collecting de vice BLADDER MANAGEMENT - SCORE: 6-MILAGRO BOWEL MANAGEMENT: Activity did not occur on this shift BOWEL MANAGEMENT - SCORE: 7-IND TRANSFERS: BED, CHAIR, WHEELCHAIR: TRANSFERS: BED, CHAIR, WHEELCHAIR - STEP 1: Does the patient require assistance of a person or device, or need extra time with bed, chair, or whe elchair transfers? Yes. TRANSFERS: BED, CHAIR, WHEELCHAIR - STEP 2: Does the patient require the assistance of a helper? Yes. TRANSFERS: BED, CHAIR, WHEELCHAIR - STEP 3: How much assistance does the patient require from the helper? Steadying/guiding assistance TRANSFERS: BED, CHAIR, WHEELCHAIR - SCORE: 4-MIN TRANSFERS: TOILET: TRANSFERS: TOILET - STEP 1: Does the patient require the assistance of a person or device, or need extra time with toilet transfe rs? Yes. TRANSFERS: TOILET - STEP 2: Does the patient require the assistance of a helper? Yes. TRANSFERS: TOILET - STEP 3: How much assistance does the patient require from the helper? Patient performs half or more of the tr ansferring tasks TRANSFERS: TOILET - STEP 4: Does the patient need only incidental help such as contact guard or steadying during toilet transfer? Yes. TRANSFERS: TOILET - SCORE: 4-MIN TRANSFERS: SHOWER: Activity did not occur on this shift TRANSFERS: SHOWER - SCORE: 0-UNK TRANSFERS: TUB: Activity did not occur on this shift TRANSFERS: TUB - SCORE: 0-UNK LOCOMOTION: WALK: Activity did not occur on this shift LOCOMOTION: WALK - SCORE: 0-UNK LOCOMOTION: WHEELCHAIR: Activity did not occur on this shift LOCOMOTION: WHEELCHAIR - SCORE: 0-UNK COMPREHENSION: COMPREHENSION: TYPE: Both COMPREHENSION - STEP 1: Does the patient require help from a person or device, or need extra time to understand complex and a bstract ideas (such as current events, finances, discharge planning, medical issues, relationships, e tc)? No. COMPREHENSION - STEP 2: Does the patient need extra time, require an assistive device (such as glasses for visual comprehensi on or a hearing aid for auditory comprehension) or does s/he have mild difficulty understanding compl ex and abstract information? Yes. COMPREHENSION - SCORE: 6-MILAGRO EXPRESSION EXPRESSION: TYPE: Both EXPRESSION - STEP 1: Does the patient require help from a person or device, or need extra time expressing complex and abst ract ideas (such as current events, finances, discharge planning, medical issues, relationships, etc) ? No. EXPRESSION - STEP 2: Does the patient need extra time, require an assistive device (such as augmentive communication syste m or a communication board), OR does s/he have mild difficulty expressing complex and abstract ideas (including mild dysarthria or mild word-find problems)? Yes. EXPRESSION - SCORE: 6-MILAGRO SOCIAL INTERACTION: SOCIAL INTERACTION - STEP 1: Does the patient require a helper to interact with others in social and therapeutic situations? No. SOCIAL INTERACTION - STEP 2: Does the patient need extra time in social situations, OR does s/he interact with staff, other patien ts, and family members ONLY in structured environments, OR does s/he require medication for social in teraction? Yes, patient needs extra time SOCIAL INTERACTION - SCORE: 6-MILAGRO PROBLEM SOLVING: PROBLEM SOLVING - STEP 1: Does the patient need help from a person or device, or need extra time to solve complex problems such as managing a checking account or confronting interpersonal problems? No. PROBLEM SOLVING - STEP 2: Does the patient require extra time to make decisions or solve problems, OR does s/he have slight dif ficulty reading, initiating, or self-correcting in unfamiliar situations? Yes, patient needs extra ti me. PROBLEM SOLVING - SCORE: 6-MILAGRO MEMORY: MEMORY - STEP 1: Does the patient need help from a person or device, or need extra time to remember frequently encount ered people, daily routines, and executing requests? No. MEMORY - STEP 2: Does the patient have slight difficulty recognizing frequently encountered people, daily routines, or executing requests without the need for repetition or using self-initiated or environmental cues to remember? Yes. MEMORY - SCORE: 6-MILAGRO SIGNATURE PANEL: The following modified sections: Eating - Score, Grooming - Score, Bathing - Score, Dressing - Upper Body - Score, Dressing - Lower Body - Score, Toileting - Score, Bladder Management - Score, Bowel Man agement - Score, Transfers: Bed, Chair, Wheelchair - Score, Transfers: Shower - Score, Transfers: Andrew let - Score, Transfers: Tub - Score, Locomotion: Walk - Score, Locomotion: Wheelchair - Score, Compre hension - Score, Expression - Score, Social Interaction - Score, Problem Solving - Score, Memory - Sc ore were [electronically] signed by Clarke Bonner on ThuJan 04 2019 10:09:05 GMT-0600 (Central Standard Time)
--- NOTE | 2019-01-04 15:53 | FAST ---
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 Blane Aguilar M.D. ADMISSION DIAGNOSIS: - Debility 16 - Debility (16) Closed trimalleolar fracture of left ankle. EATING: Activity did not occur on this shift EATING - SCORE: 0-UNK GROOMING: Activity did not occur on this shift GROOMING - SCORE: 0-UNK BATHING: Activity did not occur on this shift BATHING - SCORE: 0-UNK DRESSING - UPPER BODY: Activity did not occur on this shift Patient is not dressing in public clothing ARTICLES SCORE Total number of steps: 0 DRESSING - UPPER BODY - SCORE: 0-UNK DRESSING - LOWER BODY: Activity did not occur on this shift Patient is not dressing in public clothing ARTICLES SCORE Total number of steps: 0 DRESSING - LOWER BODY - SCORE: 0-UNK TOILETING: Activity did not occur on this shift TOILETING - SCORE: 0-UNK BLADDER MANAGEMENT: Activity did not occur on this shift BLADDER MANAGEMENT - SCORE: 7-IND BOWEL MANAGEMENT: Activity did not occur on this shift BOWEL MANAGEMENT - SCORE: 7-IND TRANSFERS: BED, CHAIR, WHEELCHAIR: TRANSFERS: BED, CHAIR, WHEELCHAIR - STEP 1: Does the patient require assistance of a person or device, or need extra time with bed, chair, or whe elchair transfers? Yes. TRANSFERS: BED, CHAIR, WHEELCHAIR - STEP 2: Does the patient require the assistance of a helper? No. Patient only requires an assistive device fo r bed, chair, wheelchair transfers such as a sliding board, grab bar, or brace, OR s/he takes more th an reasonable time, OR there is a safety concern when s/he performs the transfers TRANSFERS: BED, CHAIR, WHEELCHAIR - SCORE: 6-MILAGRO TRANSFERS: TOILET: Activity did not occur on this shift TRANSFERS: TOILET - SCORE: 0-UNK TRANSFERS: SHOWER: Activity did not occur on this shift TRANSFERS: SHOWER - SCORE: 0-UNK TRANSFERS: TUB: Activity did not occur on this shift TRANSFERS: TUB - SCORE: 0-UNK LOCOMOTION: WALK: LOCOMOTION: WALK - STEP 1: Does the patient need help from a person or device, or need extra time to walk 150 feet? No. LOCOMOTION: WALK - STEP 2: Does the patient need an assistive device (such as an orthosis, prosthesis, crutches, or walker) to g o 150 feet, OR does s/he take more than reasonable time, OR is there a concern for safety? Yes, the p atient needs an assistive device LOCOMOTION: WALK - SCORE: 6-MILAGRO LOCOMOTION: WHEELCHAIR: Activity did not occur on this shift LOCOMOTION: WHEELCHAIR - SCORE: 0-UNK LOCOMOTION: STAIRS: Activity did not occur on this shift LOCOMOTION: STAIRS - SCORE: 0-UNK COMPREHENSION: COMPREHENSION - SCORE: 0-UNK EXPRESSION EXPRESSION - SCORE: 0-UNK SOCIAL INTERACTION: SOCIAL INTERACTION - SCORE: 0-UNK PROBLEM SOLVING: PROBLEM SOLVING - SCORE: 0-UNK MEMORY: MEMORY - SCORE: 0-UNK SIGNATURE PANEL: The following modified sections: Transfers: Bed, Chair, Wheelchair - Score, Transfers: Toilet - Score , Locomotion: Walk - Score, Locomotion: Wheelchair - Score, Locomotion: Stairs - Score were [electron lela] signed by Lloyd Mosquera PTA on ThuJan 04 2019 15:52:19 GMT-0600 (Central Standard Time)
--- NOTE | 2019-01-04 17:53 | R.PN ---
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 Pt denied any depression. Propelled wheelchair 250' with physical therapist in tow. Lab review shows labile blood sugars ranging 44 to to 210 while on prednisone 20 mg daily. Ambulated 300' with modified independence. VITAL SIGNS Temperature: 97.4 F SBP/DBP: 138/85 Pulse: 75 Resp: 14 Hgb is 11.4, WBC is 4.7, Creatinine is 0.5, prealbumin 12.5, UA show trace esterase. MEDICATION ALLERGIES: Codeine ENVIRONMENTAL ALLERGIES: None Known - Substance Allergies None Known - Other Allergies None Known NURSING: - Shower allowing shower PRECAUTIONS: - Weight Bearing Precaution NWB left LE ACTIVITIES OOB only with supervision THERAPIES: - Occupational Therapy Evaluate and Treat. - Physical Therapy Evaluate and Treat. PHYSICAL EXAM - Gen Alert and awake Lying in bed No apparent distress Oriented to: person, time, and place - Skin No breakdown No abnormalities - Eyes No abnormalities - ENMT No abnormalities - Neck No abnormalities - CVS RRR - Chest No abnormalities - Resp Clear to auscultation - Abd + bowel sounds - GI Soft Deferred - No abnormalities - Ext Left lower ext in immob - MSK 4+/5 weakness in left lower extremity - Neuro 4/5 strength left lower extremity. - Psych No abnormalities ASSESSMENT: Pt. is a 63 yo Right-handed white female.On 12/21/[address] admitted [address] [facility] with diagnosis Closed trimalleolar fracture of left ankle.Her impairment category is Debility 16 - Debility (16).Pre-morbidly, Pt. was independent/mod-I in Transfers Control, Communication, Soci al Cognition, Self-Care, Locomotion, and Sphincter Control; and she had good Sphincter Control.Curren tly, she has deficits of Transfers Control, Balance, Locomotion, Endurance, Safety Awareness, and Felisha f-Care.Pt. is now referred to [facility] for acute in-patient rehabilitation i n order to maximize patient's functional independence in activities of daily living, strength, ROM, a nd mobility.- Rehab Goal Patient has realistic goal of being discharged at assistance level 5-sup to reside at Home with Fami ly/Relatives. MDM/PLAN: - Physical Therapy Gait dysfunction - to improve, our physical therapists will perform initial evaluation of pt's statu s upon admission and devise an individualized program for Gait Training, and Wheel Chair mobility Inability to transfer - to improve, our physical therapists will perform initial evaluation of pt's status upon admission and devise an individualized program for Bed mobility Need for home safety evaluation - to improve, our physical therapists will perform initial evaluatio n of pt's status upon admission and devise an individualized program for Home Evaluation Need in caregiver upon discharge - to improve, our physical therapists will perform initial evaluati on of pt's status upon admission and devise an individualized program for Caregiver Training New precaution - to improve, our physical therapists will perform initial evaluation of pt's status upon admission and devise an individualized program for Patient precaution education Poor balance - to improve, our physical therapists will perform initial evaluation of pt's status up on admission and devise an individualized program for Balance Training Poor endurance - to improve, our physical therapists will perform initial evaluation of pt's status upon admission and devise an individualized program for Endurance Training Weakness - to improve, our physical therapists will perform initial evaluation of pt's status upon a dmission and devise an individualized program for Aquatic Therapy, Neuromuscular Reeducation, and Str engthening Achieving independence - to improve, our physical therapists will perform initial evaluation of pt's status upon admission and devise an individualized program for Community Reintegration Activities - Occupational Therapy ADL deficits - to improve, our occupation therapists will perform initial evaluation of pt's status upon admission and devise an individualized program for Bathing, Bed mobility, Community Reintegratio n, Cooking, Dressing, Eating, Fine Motor Skills, Grooming, Homemaking, Kitchen Mobility, Laundry, Pat ient Education, Safety Awareness, Splinting - Positioning, Transfers(Toilet, Tub, Shower), and Wheel Chair Management Need for career development coordinator/teacher - to improve, our occupation therapists will perform initial evaluation of pt's status upon admission and devise an individualized program for Caregiver Training Weakness - to improve, our occupation therapists will perform initial evaluation of pt's status upon admission and devise an individualized program for Aquatic Therapy, Balance, Endurance, UE ROM, and UE strengthening - Diet Type Continue Regular - Diet - Liquid Texture Continue Regular - Tube Feed Continue N/A - Weight Bearing Precaution NWB left LE - Diet - Solid Texture Continue Regular - Shower allowing shower FUNCTIONAL STATUS: UPDATED AT WEEKLY TEAM CONFERENCE - Bladder Same accident frequency: 7-Ind - No accidents in the past 7 days - Bowel Same accident frequency: 7-Ind - No accidents in the past 7 days - Walking Same score based on distance walked: 2(50-149ft) - Wheelchair Same score based on distance traveled: 0(N/A) FUNCTIONAL STATUS: - Self-Care A. Eating Ind B. Grooming Ind C. Bathing sup D. Dressing - Upper Ind E. Dressing - Lower sup F. Toileting sup - Sphincter Control G: Bladder control Ind H: Bowel control Ind - Transfers Control I. Bed/Chair/Wheelchair sup J. Toilet sup K. Tub/Shower ADNO - Locomotion L. Walk/Wheelchair (C) sup L. Walk/Wheelchair (W) sup M. Stairs ADNO - Communication N. Comprehension (B) Ind O. Expression (B) Ind - Social Cognition P. Social Interaction Ind Q. Problem Solving Ind R. Memory Ind - Endurance Fair - Balance Fair - Safety Awareness Fair CURRENT FUNC. 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
--- NOTE | 2019-01-05 01:20 | FAST ---
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 Blane Aguilar M.D. ADMISSION DIAGNOSIS: - Debility 16 - Debility (16) Closed trimalleolar fracture of left ankle. EATING: Activity did not occur on this shift EATING - SCORE: 0-UNK GROOMING: Activity did not occur on this shift GROOMING - SCORE: 0-UNK BATHING: Activity did not occur on this shift BATHING - SCORE: 0-UNK DRESSING - UPPER BODY: Activity did not occur on this shift ARTICLES SCORE Total number of steps: 0 DRESSING - UPPER BODY - SCORE: 0-UNK DRESSING - LOWER BODY: Activity did not occur on this shift ARTICLES SCORE Total number of steps: 0 DRESSING - LOWER BODY - SCORE: 0-UNK TOILETING: TOILETING - STEP 1: Does the patient require the assistance of a person or device, or need extra time with toileting? Yes . TOILETING - STEP 2: Does the patient require the assistance of a helper? Yes. TOILETING - STEP 3: How much assistance does the patient require from the helper? Only supervision TOILETING - SCORE: 5-SUP BLADDER MANAGEMENT: BLADDER MANAGEMENT - STEP 1: Does the patient control the bladder completely and intentionally without equipment or devices or med ications, and is always continent? Yes. BLADDER MANAGEMENT - SCORE: 7-IND BOWEL MANAGEMENT: Activity did not occur on this shift BOWEL MANAGEMENT - SCORE: 7-IND TRANSFERS: BED, CHAIR, WHEELCHAIR: TRANSFERS: BED, CHAIR, WHEELCHAIR - STEP 1: Does the patient require assistance of a person or device, or need extra time with bed, chair, or whe elchair transfers? Yes. TRANSFERS: BED, CHAIR, WHEELCHAIR - STEP 2: Does the patient require the assistance of a helper? Yes. TRANSFERS: BED, CHAIR, WHEELCHAIR - STEP 3: How much assistance does the patient require from the helper? Only supervision TRANSFERS: BED, CHAIR, WHEELCHAIR - SCORE: 5-SUP TRANSFERS: TOILET: TRANSFERS: TOILET - STEP 1: Does the patient require the assistance of a person or device, or need extra time with toilet transfe rs? Yes. TRANSFERS: TOILET - STEP 2: Does the patient require the assistance of a helper? Yes. TRANSFERS: TOILET - STEP 3: How much assistance does the patient require from the helper? Only supervision, cuing, coaxing, OR he lp to set out transfer equipment or to lock brakes and/or lift foot rests TRANSFERS: TOILET - SCORE: 5-SUP TRANSFERS: SHOWER: Activity did not occur on this shift TRANSFERS: SHOWER - SCORE: 0-UNK TRANSFERS: TUB: Activity did not occur on this shift TRANSFERS: TUB - SCORE: 0-UNK LOCOMOTION: WALK: Activity did not occur on this shift LOCOMOTION: WALK - SCORE: 0-UNK LOCOMOTION: WHEELCHAIR: Activity did not occur on this shift LOCOMOTION: WHEELCHAIR - SCORE: 0-UNK COMPREHENSION: COMPREHENSION: TYPE: Both COMPREHENSION - STEP 1: Does the patient require help from a person or device, or need extra time to understand complex and a bstract ideas (such as current events, finances, discharge planning, medical issues, relationships, e tc)? No. COMPREHENSION - STEP 2: Does the patient need extra time, require an assistive device (such as glasses for visual comprehensi on or a hearing aid for auditory comprehension) or does s/he have mild difficulty understanding compl ex and abstract information? Yes. COMPREHENSION - SCORE: 6-MILAGRO EXPRESSION EXPRESSION: TYPE: Both EXPRESSION - STEP 1: Does the patient require help from a person or device, or need extra time expressing complex and abst ract ideas (such as current events, finances, discharge planning, medical issues, relationships, etc) ? No. EXPRESSION - STEP 2: Does the patient need extra time, require an assistive device (such as augmentive communication syste m or a communication board), OR does s/he have mild difficulty expressing complex and abstract ideas (including mild dysarthria or mild word-find problems)? No. EXPRESSION - SCORE: 7-IND SOCIAL INTERACTION: SOCIAL INTERACTION - STEP 1: Does the patient require a helper to interact with others in social and therapeutic situations? No. SOCIAL INTERACTION - STEP 2: Does the patient need extra time in social situations, OR does s/he interact with staff, other patien ts, and family members ONLY in structured environments, OR does s/he require medication for social in teraction? No. SOCIAL INTERACTION - SCORE: 7-IND PROBLEM SOLVING: PROBLEM SOLVING - STEP 1: Does the patient need help from a person or device, or need extra time to solve complex problems such as managing a checking account or confronting interpersonal problems? No. PROBLEM SOLVING - STEP 2: Does the patient require extra time to make decisions or solve problems, OR does s/he have slight dif ficulty reading, initiating, or self-correcting in unfamiliar situations? No. PROBLEM SOLVING - SCORE: 7-IND MEMORY: MEMORY - STEP 1: Does the patient need help from a person or device, or need extra time to remember frequently encount ered people, daily routines, and executing requests? No. MEMORY - STEP 2: Does the patient have slight difficulty recognizing frequently encountered people, daily routines, or executing requests without the need for repetition or using self-initiated or environmental cues to remember? No. MEMORY - SCORE: 7-IND SIGNATURE PANEL: The following modified sections: Eating - Score, Grooming - Score, Bathing - Score, Dressing - Upper Body - Score, Dressing - Lower Body - Score, Toileting - Score, Bladder Management - Score, Bowel Man agement - Score, Transfers: Bed, Chair, Wheelchair - Score, Transfers: Toilet - Score, Transfers: Elsa wer - Score, Transfers: Tub - Score, Locomotion: Walk - Score, Locomotion: Wheelchair - Score, Compre hension - Score, Expression - Score, Social Interaction - Score, Problem Solving - Score, Memory - Sc ore were [electronically] signed by Elaine Rico CNA on ThuJan 05 2019 01:19:19 T-0600 ([facility])
[2019-01-05] MEDS: SYNTHROID 50 MCG PO SCH (06:29)
[2019-01-05] MEDS: ENOXAPARIN 40 MG/0.4 ML SQ SCH (06:29)
[2019-01-05 06:41] VITALS: BP 149/84; TEMP 96.2
[2019-01-05] MEDS: INSULIN -REGULAR HUMAN 50 UNIT/0.5 ML ML SQ SCH ×2 (07:30→11:30)
[2019-01-05] MEDS: PROMOD 30 ML DOSE PO SCH (08:00)
[2019-01-05] MEDS: POLYETHYL GLY 3350 17 GM/DOSE PO SCH (08:20)
[2019-01-05] MEDS: LIDOCAINE 5% PATCH TOP SCH (08:20)
[2019-01-05] MEDS: CRANBERRY FRUIT EXTRACT 200 MG CAP PO SCH (08:21)
[2019-01-05] MEDS: MAGNESIUM OXIDE 400 MG TAB PO SCH (08:21)
[2019-01-05] MEDS: FE SULF/FA/VIT B COMP & C TAB PO SCH (08:21)
[2019-01-05] MEDS: BACLOFEN 10 MG TAB PO SCH (08:21)
[2019-01-05] MEDS: FERROUS SULFATE 325 MG TAB PO SCH (08:21)
[2019-01-05] MEDS: DOCUSATE NA 100 MG CAP PO SCH (08:21)
[2019-01-05] MEDS: GABAPENTIN 300 MG CAP PO SCH ×2 (08:21→14:00)
[2019-01-05] MEDS: LISINOPRIL HCTZ PO SCH (08:36)
[2019-01-05] MEDS: HYDROCODONE/APAP 7.5/325 MG TAB PO PRN (08:36)
[2019-01-05] MEDS: VENLAFAXINE 75 MG PO SCH (08:36)
[2019-01-05] MEDS: VESICARE 5 MG PO SCH (08:37)
--- NOTE | 2019-01-05 14:03 | FAST ---
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 Blane Aguilar M.D. ADMISSION DIAGNOSIS: - Debility 16 - Debility (16) Closed trimalleolar fracture of left ankle. EATING: EATING - STEP 1: Does the patient require the assistance of a person or device, or need extra time when eating? Yes. EATING - STEP 2: Does the patient require the assistance of a helper? No, patient only requires an assistive device, O R s/he takes more than reasonable time to eat, OR there is a safety concern, OR s/he requires modifie d food consistency EATING - SCORE: 6-MILAGRO GROOMING: Comb/brush hair Oral care Wash, rinse, and dry face Wash, rinse, and dry hands GROOMING - STEP 1: Does the patient require the assistance of a person or device, or need extra time when grooming? Yes. GROOMING - STEP 2: Does the patient require the assistance of a helper? No. The patient only requires an assistive devic e, OR takes more than reasonable time to groom, OR there is a concern for safety as the patient groom s GROOMING - SCORE: 6-MILAGRO BATHING: Activity did not occur on this shift BATHING - SCORE: 0-UNK DRESSING - UPPER BODY: Button down shirt or blouse - NOT tucked in (four steps) T-shirt/pullover shirt (four steps) ARTICLES SCORE Total number of steps: 8 DRESSING - UPPER BODY - STEP 1: Does the patient require help from a person or device, or need extra time when dressing above the [address] st? Yes. DRESSING - UPPER BODY - STEP 2: Does the patient require the assistance of a helper? No. Patient only requires an assistive device, s uch as a button hook, velcro, or director of scout work. OR s/he takes more than reasonable time as s/he dresses the upper body. OR there is a concern for safety when s/he dresses the upper body DRESSING - UPPER BODY - SCORE: 6-MILAGRO DRESSING - LOWER BODY: Elastic waist pants (three steps) Sock - Right foot (one step) Tied or buckled shoe - Right foot (two steps) Underwear (three steps) ARTICLES SCORE Total number of steps: 9 DRESSING - LOWER BODY - STEP 1: Does the patient require help from a person or device, or need extra time when dressing below the j[address] st? Yes. DRESSING - LOWER BODY - STEP 2: Does the patient require the assistance of a helper? No. Patient requires an assistive device such as a director of scout work. OR s/he takes more than reasonable time as s/he dresses the lower body, OR there is a con cern for safety when s/he dresses the lower body DRESSING - LOWER BODY - SCORE: 6-MILAGRO TOILETING: TOILETING - STEP 1: Does the patient require the assistance of a person or device, or need extra time with toileting? Yes . TOILETING - STEP 2: Does the patient require the assistance of a helper? No. TOILETING - SCORE: 6-MILAGRO BLADDER MANAGEMENT: BLADDER MANAGEMENT - STEP 1: Does the patient control the bladder completely and intentionally without equipment or devices or med ications, and is always continent? No. BLADDER MANAGEMENT - STEP 2: Does the patient require the assistance of a helper? No, patient requires and independently uses an a ssistive device, such as a urinal, bedpan, bedside commode, catheter, absorbent pad, or collecting de vice BLADDER MANAGEMENT - SCORE: 6-MILAGRO BLADDER MANAGEMENT - FREQUENCY OF ACCIDENTS: BLADDER MANAGEMENT(FA) - STEP 1: How many accidents has the patient had during the current shift? 0 BOWEL MANAGEMENT: Activity did not occur on this shift BOWEL MANAGEMENT - SCORE: 7-IND BOWEL MANAGEMENT - FREQUENCY OF ACCIDENTS: BOWEL MANAGEMENT(FA) - STEP 1: How many accidents has the patient had during the current shift? 0 TRANSFERS: BED, CHAIR, WHEELCHAIR: TRANSFERS: BED, CHAIR, WHEELCHAIR - STEP 1: Does the patient require assistance of a person or device, or need extra time with bed, chair, or whe elchair transfers? Yes. TRANSFERS: BED, CHAIR, WHEELCHAIR - STEP 2: Does the patient require the assistance of a helper? No. Patient only requires an assistive device fo r bed, chair, wheelchair transfers such as a sliding board, grab bar, or brace, OR s/he takes more th an reasonable time, OR there is a safety concern when s/he performs the transfers TRANSFERS: BED, CHAIR, WHEELCHAIR - SCORE: 6-MILAGRO TRANSFERS: TOILET: TRANSFERS: TOILET - STEP 1: Does the patient require the assistance of a person or device, or need extra time with toilet transfe rs? Yes. TRANSFERS: TOILET - STEP 2: Does the patient require the assistance of a helper? No. Patient only requires an assistive device [place] as a grab bar or special seat, OR s/he takes more than reasonable time to perform toilet transfers , OR there is a safety concern when s/he performs toilet transfers. TRANSFERS: TOILET - SCORE: 6-MILAGRO TRANSFERS: SHOWER: Activity did not occur on this shift TRANSFERS: SHOWER - SCORE: 0-UNK TRANSFERS: TUB: Activity did not occur on this shift TRANSFERS: TUB - SCORE: 0-UNK LOCOMOTION: WALK: Activity did not occur on this shift LOCOMOTION: WALK - SCORE: 0-UNK LOCOMOTION: WHEELCHAIR: LOCOMOTION: WHEELCHAIR - STEP 1: Does the patient need help to go 150 feet in a wheelchair? Yes. LOCOMOTION: WHEELCHAIR - STEP 2: How much assistance does the patient need from the helper? Only supervision, cuing, or coaxing LOCOMOTION: WHEELCHAIR - SCORE: 5-SUP COMPREHENSION: COMPREHENSION: TYPE: Both COMPREHENSION - STEP 1: Does the patient require help from a person or device, or need extra time to understand complex and a bstract ideas (such as current events, finances, discharge planning, medical issues, relationships, e tc)? No. COMPREHENSION - STEP 2: Does the patient need extra time, require an assistive device (such as glasses for visual comprehensi on or a hearing aid for auditory comprehension) or does s/he have mild difficulty understanding compl ex and abstract information? Yes. COMPREHENSION - SCORE: 6-MILAGRO EXPRESSION EXPRESSION: TYPE: Both EXPRESSION - STEP 1: Does the patient require help from a person or device, or need extra time expressing complex and abst ract ideas (such as current events, finances, discharge planning, medical issues, relationships, etc) ? No. EXPRESSION - STEP 2: Does the patient need extra time, require an assistive device (such as augmentive communication syste m or a communication board), OR does s/he have mild difficulty expressing complex and abstract ideas (including mild dysarthria or mild word-find problems)? Yes. EXPRESSION - SCORE: 6-MILAGRO SOCIAL INTERACTION: SOCIAL INTERACTION - STEP 1: Does the patient require a helper to interact with others in social and therapeutic situations? No. SOCIAL INTERACTION - STEP 2: Does the patient need extra time in social situations, OR does s/he interact with staff, other patien ts, and family members ONLY in structured environments, OR does s/he require medication for social in teraction? Yes, patient needs extra time SOCIAL INTERACTION - SCORE: 6-MILAGRO PROBLEM SOLVING: PROBLEM SOLVING - STEP 1: Does the patient need help from a person or device, or need extra time to solve complex problems such as managing a checking account or confronting interpersonal problems? No. PROBLEM SOLVING - STEP 2: Does the patient require extra time to make decisions or solve problems, OR does s/he have slight dif ficulty reading, initiating, or self-correcting in unfamiliar situations? Yes, patient needs extra ti me. PROBLEM SOLVING - SCORE: 6-MILAGRO MEMORY: MEMORY - STEP 1: Does the patient need help from a person or device, or need extra time to remember frequently encount ered people, daily routines, and executing requests? No. MEMORY - STEP 2: Does the patient have slight difficulty recognizing frequently encountered people, daily routines, or executing requests without the need for repetition or using self-initiated or environmental cues to remember? Yes. MEMORY - SCORE: 6-MILAGRO SIGNATURE PANEL: The following modified sections: Eating - Score, Grooming - Score, Bathing - Score, Dressing - Upper Body - Score, Dressing - Lower Body - Score, Toileting - Score, Bladder Management - Score, Bowel Man agement - Score, Transfers: Bed, Chair, Wheelchair - Score, Transfers: Toilet - Score, Transfers: Elsa wer - Score, Transfers: Tub - Score, Locomotion: Walk - Score, Locomotion: Wheelchair - Score, Compre hension - Score, Expression - Score, Social Interaction - Score, Problem Solving - Score, Memory - Sc ore were [electronically] signed by Ave AbebeNTunde on ThuJan 05 2019 14:03:08 GMT-0600 ([facility])
--- NOTE | 2019-01-05 14:14 | FAST ---
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 Blane Aguilar M.D. ADMISSION DIAGNOSIS: - Debility 16 - Debility (16) Closed trimalleolar fracture of left ankle. EATING: Activity did not occur on this shift EATING - SCORE: 0-UNK GROOMING: Activity did not occur on this shift GROOMING - SCORE: 0-UNK BATHING: Activity did not occur on this shift BATHING - SCORE: 0-UNK DRESSING - UPPER BODY: Activity did not occur on this shift Patient is not dressing in public clothing ARTICLES SCORE Total number of steps: 0 DRESSING - UPPER BODY - SCORE: 0-UNK DRESSING - LOWER BODY: Activity did not occur on this shift Patient is not dressing in public clothing ARTICLES SCORE Total number of steps: 0 DRESSING - LOWER BODY - SCORE: 0-UNK TOILETING: Activity did not occur on this shift TOILETING - SCORE: 0-UNK BLADDER MANAGEMENT: Activity did not occur on this shift BLADDER MANAGEMENT - SCORE: 7-IND BOWEL MANAGEMENT: Activity did not occur on this shift BOWEL MANAGEMENT - SCORE: 7-IND TRANSFERS: BED, CHAIR, WHEELCHAIR: TRANSFERS: BED, CHAIR, WHEELCHAIR - STEP 1: Does the patient require assistance of a person or device, or need extra time with bed, chair, or whe elchair transfers? Yes. TRANSFERS: BED, CHAIR, WHEELCHAIR - STEP 2: Does the patient require the assistance of a helper? No. Patient only requires an assistive device fo r bed, chair, wheelchair transfers such as a sliding board, grab bar, or brace, OR s/he takes more th an reasonable time, OR there is a safety concern when s/he performs the transfers TRANSFERS: BED, CHAIR, WHEELCHAIR - SCORE: 6-MILAGRO TRANSFERS: TOILET: TRANSFERS: TOILET - STEP 1: Does the patient require the assistance of a person or device, or need extra time with toilet transfe rs? Yes. TRANSFERS: TOILET - STEP 2: Does the patient require the assistance of a helper? No. Patient only requires an assistive device [place] as a grab bar or special seat, OR s/he takes more than reasonable time to perform toilet transfers , OR there is a safety concern when s/he performs toilet transfers. TRANSFERS: TOILET - SCORE: 6-MILAGRO TRANSFERS: SHOWER: Activity did not occur on this shift TRANSFERS: SHOWER - SCORE: 0-UNK TRANSFERS: TUB: Activity did not occur on this shift TRANSFERS: TUB - SCORE: 0-UNK LOCOMOTION: WALK: HOUSEHOLD EXCEPTION: Patient walks at least 50 feet independently (with or without a device) LOCOMOTION: WALK - SCORE: 5-SUP LOCOMOTION: WHEELCHAIR: LOCOMOTION: WHEELCHAIR - STEP 1: Does the patient need help to go 150 feet in a wheelchair? No. LOCOMOTION: WHEELCHAIR - SCORE: 6-MILAGRO LOCOMOTION: STAIRS: LOCOMOTION: STAIRS - STEP 1: Does the patient need help to go up and down 12 to 14 stairs? Yes. LOCOMOTION: STAIRS - STEP 2: How much assistance does the patient need from the helper to go a minimum of 12 to 14 stairs? Only [place] pervision, cuing, or coaxing LOCOMOTION: STAIRS - SCORE: 5-SUP COMPREHENSION: COMPREHENSION - SCORE: 0-UNK EXPRESSION EXPRESSION - SCORE: 0-UNK SOCIAL INTERACTION: SOCIAL INTERACTION - SCORE: 0-UNK PROBLEM SOLVING: PROBLEM SOLVING - SCORE: 0-UNK MEMORY: MEMORY - SCORE: 0-UNK SIGNATURE PANEL: The following modified sections: Transfers: Bed, Chair, Wheelchair - Score, Transfers: Toilet - Score , Locomotion: Walk - Score, Locomotion: Wheelchair - Score, Locomotion: Stairs - Score were [florian vogel] signed by Kathy Cantu PTA on ThuJan 05 2019 14:13:15 GMT-0600 (Central Standard Time)
== END 2019-01-05 14:45 | disposition home health service (06) | DRG 561 ==
LOC: 5TH 19:46
PROVIDERS: ADMIT Psychiatry & Neurology Neurology with Special Qualifications in Child Neurology; ATTEND Psychiatry & Neurology Neurology with Special Qualifications in Child Neurology
DX: S82.852D Displaced trimalleolar fracture of left lower leg, subsequent encounter for closed fracture with routine healing (principal); R53.81 Other malaise; I10 Essential (primary) hypertension; E03.9 Hypothyroidism, unspecified; Z85.3 Personal history of malignant neoplasm of breast
CPT/HCPCS: 36415; 80048; 81001; 82040; 82962; 83735; 84134; 85025; 87086; 87088; 97110; 97112; 97116; 97150; 97162; 97167; 97530; 97542; J1650; J7512

== ENCOUNTER 2019-09-21 08:12 | Day surgery (SDC) | payer OTHER ==
[2019-09-14 11:01] LABS: Absolute Lymphocytes (CBC) 0.6 K/uL (0.7-4.9); Basophils % 0.4 % (0-1.3); Hematocrit 41.3 % (36.0-45.0); Lymphocytes % 10.4 % (15.3-44.8); MPV 9.4 fL (7.6-11.3)
[2019-09-14 11:05] LABS: Protime INR 1.05
[2019-09-14 11:41] LABS: Potassium 3.4 mmol/L (3.5-5.1)
[2019-09-21] MEDS ORDERED: Ringers Lactate 1,000 ML IV ONE (08:25)
[2019-09-21] MEDS ORDERED: CEFAZOLIN/SWI 1gm 1 GM/10 ML SYR ONE (08:25)
[2019-09-21] MEDS ORDERED: LIDOCAINE 2% MPF 5 ML VIAL ONE (10:18)
[2019-09-21] MEDS ORDERED: MIDAZOLAM HCL 2 MG/2 ML INJ ONE (10:18)
[2019-09-21] MEDS ORDERED: PROPOFOL 200 MG/20 ML VIAL IV ONE (10:18)
[2019-09-21] MEDS ORDERED: FENTANYL CITR 100 MCG/2 ML ONE (10:19)
[2019-09-21] MEDS ORDERED: dexAMETHasone 4 MG/ML VIAL ONE (11:04)
[2019-09-21] MEDS ORDERED: ONDANSETRON 4 MG/2 ML VIAL ONE (11:04)
--- NOTE | 2019-09-21 11:51 | P.BOP ---
Preoperative diagnosis: Painful hardware left ankle Postoperative diagnosis: same Primary procedure: removal of hardware left ankle Day Care Home Mother: NONE,NONE Estimated blood loss: <5 cc Specimen: none Findings: see dictation Anesthesia: General Complications: None Implants: none Fluids & blood products: per anesthesia; TT: 26 mins @ 250 mmHg Transferred to: Recovery Room Condition: Good
--- NOTE | 2019-09-21 12:07 | RAD REPORT ---
EXAM DESCRIPTION: RAD - Ankle Left 3 View -09/21/2019 11:52 am CLINICAL HISTORY: Left ankle surgery FINDINGS: Intraoperative images reveal a sideplate and screws being removed from the fibula. Four fluoroscopic spot images obtained. Fluoroscopy time 0.1 minute Surgery performed by Dr. Vernon
--- NOTE | 2019-09-21 12:20 | RAD REPORT ---
EXAM DESCRIPTION: RAD - Ankle Left 2 View - 09/21/2019 12:09 pm CLINICAL HISTORY: Left ankle surgery FINDINGS: Sideplate and screws have been removed from the fibula and tibia. Two screws affix tibial fracture No dislocation
[2019-09-21] MEDS ORDERED: HYDROMORPHONE HCL 1 MG/ML INJ ONE (12:21)
[2019-09-21] MEDS ORDERED: HYDROCODONE/APAP 7.5/325 MG TAB ONE (12:58)
[2019-09-21] MEDS ORDERED: HYDROCODONE/APAP 7.5/325 MG TAB PO ONE (13:00)
[2019-09-21 13:44] VITALS: BP 103/57; TEMP 97; O2SAT 97
--- NOTE | 2019-09-23 08:57 | OP ---
Date of Procedure: 09/21/2019 Surgeon: Gold Vernon MD Preoperative Diagnosis: Painful left ankle hardware. Postoperative Diagnosis: Painful left ankle hardware. Procedure Performed: Removal of hardware, left ankle. Anesthesia: General LMA. Fluids: Per Anesthesia records. Estimated Blood Loss: Less than 5 mL. Tourniquet Time: 26 minutes at 250 mmHg. Implants: None. Complications: None. Indication For Procedure: Adilia is a 64-year-old female, presented to my clinic with painful hardware over the lateral malleolus as well as hardware loosening after undergoing ORIF for left bimalleolar fracture in December 2018. I discussed with the patient risks and benefits associated with the operative and nonoperative treatment. She expressed understanding and elected to proceed with operative treatment. Description Of Procedure: After informed consent was obtained, the patient was identified in the preoperative holding area. The left lower extremity is marked. The patient was then brought back to the operating room, transferred to the operating table in the supine fashion, placed under general LMA anesthesia. The left lower extremity was then prepped and draped in the usual sterile fashion. A time-out was initiated. The correct patient and procedure were confirmed and identified. The patient had received her preop prophylactic antibiotics. Left lower extremity was then exsanguinated using an Esmarch. The tourniquet was inflated to 250 mmHg. Approximately, a 1 cm incision was placed over the distal aspect and incision using fluoroscopy for guidance of the prior screws. The distal screw was found to be loose and palpable subcutaneously at the distal aspect of the incision. With this the screw was then removed. A second incision was made over the next most distal screw. Dissection was taken down, the screw then removed without complication. Finally , a 3 cm incision was made proximally at the proximal aspect of the plate using fluoroscopy and removing the syndesmosis screws as well as proximal cortical screw was removed without complication. A [place] elevator was then placed just deep to the third tubular plate, then it was elevated and the plate was then removed without complication out of the proximal incision. The wounds were then irrigated thoroughly with normal saline, skin was approximated using a 3-0 nylon, sterile dressings were applied. The patient was awakened and transferred to PACU in stable condition. Postoperative Plan: She will be weightbearing as tolerated and she will follow up in my clinic in 2 weeks for wound check. CV/MODL Voice ID: [id number] Report ID: [id number]
== END 2019-09-21 13:38 | disposition home or self-care (01) ==
LOC: OR 08:12
PROVIDERS: ATTEND Orthopaedic Surgery Sports Medicine
PROC: 0SPG04Z Removal of Internal Fixation Device from Left Ankle Joint, Open Approach (ICD-10-PCS; principal; 2019-09-21 09:30)
DX: T85.848A Pain due to other internal prosthetic devices, implants and grafts, initial encounter (principal); I10 Essential (primary) hypertension; E03.9 Hypothyroidism, unspecified; Z88.6 Allergy status to analgesic agent; Z85.3 Personal history of malignant neoplasm of breast; Z82.49 Family history of ischemic heart disease and other diseases of the circulatory system
CPT/HCPCS: 85025; 80048; 36415; 85610; 82947 ×2; 85730; 73610; 73600; 20680; J2704; J2250; J3010; J1170; J0690; J7120; J2405

== ENCOUNTER 2019-11-19 14:35 | Emergency (ER) | payer MEDICARE, SELFPAY ==
[2019-11-19] MEDS ORDERED: HYDROCODONE/APAP 5/325 MG TAB ONE ×2 (15:58→16:22)
--- NOTE | 2019-11-19 16:26 | RAD REPORT ---
EXAM DESCRIPTION: RAD - Wrist Left 3 View - 11/19/2019 4:05 pm CLINICAL HISTORY: Left wrist pain status post injury FINDINGS: An impacted mildly displaced fracture involves the distal radius. Avulsion fracture ulnar styloid process. No dislocation
--- NOTE | 2019-11-19 17:35 | ER ---
Nurse's Notes [facility] Name: Adilia Barros Age: 64 yrs Sex: Female : 1955 Arrival Date: 11/19/2019 Time: 14:36 Bed 14 Private MD: Michael Yanez Diagnosis: Distal Radial Fracture;Ulnar Styloid Fracture Presentation: 11/19 15:03 Presenting complaint: Patient states: slipped in water last night in the kitchen, fell jl7 and hurt left wrist, swelling and redness noted to left wrist. Transition of care: patient was not received from another setting of care. Onset of symptoms was November 18, 2019. Risk Assessment: Do you want to hurt yourself or someone else? Patient reports no desire to harm self or others. Initial Sepsis Screen: Does the patient meet any 2 criteria? No. Patient's initial sepsis screen is negative. Does the patient have a suspected source of infection? No. Patient's initial sepsis screen is negative. Care prior to arrival: None. 15:03 Method Of Arrival: Ambulatory [facility] er 15:03 Acuity: ROMAIN 4 jl7 Triage Assessment: 15:07 General: Appears in no apparent distress. uncomfortable, Behavior is calm, cooperative, jl7 appropriate for age. Pain: Complains of pain in left wrist Pain currently is 10 out of 10 on a pain scale. Cardiovascular: Pulses are palpable in left radial artery. Musculoskeletal: Swelling present in left wrist. Historical: - Allergies: 15:07 Codeine; jl7 - Home Meds: 15:07 lisinopril Oral [Active]; Metoprolol Tartrate Oral [Active]; Trazodone Oral [Active]; jl7 cancer medication-unknown [Active]; - PMHx: 15:07 breast cancer; HYPOGLYCEMIA; Hypothyroidism; Hypertension; jl7 - PSHx: 15:07 abhijeet knee replacement; Appendectomy; Lumpectomy; ankle; jl7 - Immunization history:: Adult Immunizations up to date. - Social history:: Smoking status: Patient denies any tobacco usage or history of. - Ebola Screening: : No symptoms or risks identified at this time. Screenin:17 Abuse screen: Denies threats or abuse. Denies injuries from another. Nutritional ls4 screening: No deficits noted. Tuberculosis screening: No symptoms or risk factors identified. Fall Risk Fall in past 12 months (25 points). Secondary diagnosis (15 points) No IV (0 pts). Ambulatory Aid- None/Bed Rest/Nurse Assist (0 pts). Gait- Normal/Bed Rest/Wheelchair (0 pts) Mental Status- Oriented to own ability (0 pts). Total Escudero Fall Scale indicates Low Risk Score (25-44 pts). Side Rails Up X 2 Placed close to Nursing Station Frequent Obs/Assesments occuring Family Present and informed to notify staff if they need to leave bedside As available Patient and Family Educated on Fall Prevention Program and strategies. Assessment: 15:10 General: Appears uncomfortable, Behavior is calm, cooperative. ls4 15:10 Pain: Complains of pain in left arm and left wrist Pain currently is 7 out of 10 on a ls4 pain scale. Quality of pain is described as throbbing. Neuro: No deficits noted. Cardiovascular: No deficits noted. Respiratory: No deficits noted. GI: No deficits noted. : No deficits noted. Derm: No deficits noted. Musculoskeletal: Circulation, motion, and sensation intact. Capillary refill < 3 seconds, Range of motion: intact in all extremities, Bony deformity noted of left arm and left wrist Swelling present in left wrist and left arm. 16:00 Reassessment: Patient appears in no apparent distress at this time. Patient and/or ls4 family updated on plan of care and expected duration. Pain level reassessed. Patient is alert, oriented x 3, equal unlabored respirations, skin warm/dry/pink. 17:00 Reassessment: Patient appears in no apparent distress at this time. Patient and/or ls4 family updated on plan of care and expected duration. Pain level reassessed. Patient is alert, oriented x 3, equal unlabored respirations, skin warm/dry/pink. 18:00 Reassessment: Patient appears in no apparent distress at this time. Patient and/or ls4 family updated on plan of care and expected duration. Pain level reassessed. Patient is alert, oriented x 3, equal unlabored respirations, skin warm/dry/pink. Patient states feeling better. Vital Signs: 15:07 BP 173 / 92; Pulse 79; Resp 16 S; Temp 98.4(O); Pulse Ox 98% on R/A; Weight 94.35 kg jl7 (R); Height 5 ft. 7 in. (170.18 cm) (R); Pain 10/10; 16:10 BP 148 / 82; Pulse 76; Resp 16; Temp 98.0; Pulse Ox 99% on R/A; Pain 7/10; ls4 17:00 BP 136 / 70; Pulse 74; Resp 14; Pulse Ox 100% on R/A; Pain 5/10; ls4 17:45 BP 142 / 80; Pulse 70; Resp 14; Pulse Ox 100% on R/A; Pain 4/10; ls4 15:07 Body Mass Index 32.58 (94.35 kg, 170.18 cm) jl7 ED Course: 14:36 Patient arrived in ED. mr 14:36 Michael Yanez MD is Private Physician. mr 15:05 Triage completed. jl7 15:07 Arm band placed on right wrist. jl7 15:10 Se Morris PA is PHCP. jmm 15:10 Aline Paige MD is Attending Physician. jmm 15:16 Landy Joe, ADRIANA is Primary Nurse. ls4 15:18 Patient has correct armband on for positive identification. Fall risk band placed. Bed ls4 in low position. Call light in reach. Side rails up X2. Adult w/ patient. 16:05 Wrist Left (3 View) XRAY In Process Unspecified. EDMS 16:58 Orthoglass splint: Sugar tong splint applied on left arm. Sling applied to. 5 17:34 Gold Vernon MD is Referral Physician. jmm 17:45 No provider procedures requiring assistance completed. Patient did not have IV access ls4 during this emergency room visit. 11/20 00:22 CMS INTACT POST SPLINTING, CAP REFILL <3 SEC DISTALLY. ls4 Administered Medications: 11/19 16:00 Drug: Cornelius 5 mg-325 mg 2 tabs Route: PO; ls4 16:30 Follow up: Response: No adverse reaction; Marked relief of symptoms; Pain is decreased ls4 Outcome: 17:35 Discharge ordered by . jmm 17:45 Discharged to home ambulatory, with family. ls4 17:45 Condition: good 17:45 Discharge instructions given to patient, family, Instructed on discharge instructions, follow up and referral plans. safety practices, Demonstrated understanding of instructions, follow-up care, medications, Prescriptions given X 1. 18:06 Patient left the ED. ls4 Signatures: Dispatcher [employer] EDMS Se Morris PA PA jmm Rivera, Mary mr Linsey Linda 5 Lise Segundo RN RN jl7 Landy Joe RN RN ls4
--- NOTE | 2019-11-19 17:35 | EDPHYS ---
Physician Documentation [facility] Name: Adilia Barros Age: 64 yrs Sex: Female : 1955 Arrival Date: 11/19/2019 Time: 14:36 Bed 14 Private MD: Michael Yanez ED Physician Aline Paige HPI: 11/19 15:25 This 64 yrs old Female presents to ER via Ambulatory with complaints of Fall jmm Injury, Wrist Pain. 15:27 The patient or guardian complains of injury, pain. Onset: The symptoms/episode jmm began/occurred acutely, just prior to arrival. Modifying factors: The symptoms are alleviated by remaining still, the symptoms are aggravated by movement. Associated signs and symptoms: Pertinent positives: erythema, swelling. This is a 64 year old female with a history of HTN that presents to the ED with complaints of left wrist pain beginning yesterday after falling from a standing position on an outstretched hand. Denies other injury. . Historical: - Allergies: 15:07 Codeine; jl7 - Home Meds: 15:07 lisinopril Oral [Active]; Metoprolol Tartrate Oral [Active]; Trazodone Oral [Active]; jl7 cancer medication-unknown [Active]; - PMHx: 15:07 breast cancer; HYPOGLYCEMIA; Hypothyroidism; Hypertension; jl7 - PSHx: 15:07 abhijeet knee replacement; Appendectomy; Lumpectomy; ankle; jl7 - Immunization history:: Adult Immunizations up to date. - Social history:: Smoking status: Patient denies any tobacco usage or history of. - Ebola Screening: : No symptoms or risks identified at this time. ROS: 15:27 Constitutional: Negative for fever, chills, and weight loss, Cardiovascular: Negative jmm for chest pain, palpitations, and edema, Respiratory: Negative for shortness of breath, cough, wheezing, and pleuritic chest pain. 15:27 MS/extremity: Positive for injury or acute deformity, erythema, pain. 15:27 All other systems are negative. Exam: 15:27 Constitutional: This is a well developed, well nourished patient who is awake, alert, jmm and in no acute distress. Head/Face: atraumatic. Eyes: EOMI, no conjunctival erythema appreciated ENT: Moist Mucus Membranes Neck: Trachea midline, Supple Chest/axilla: Normal chest wall appearance and motion. Cardiovascular: Regular rate and rhythm. No edema appreciated Respiratory: Normal respirations, no respiratory distress appreciated Abdomen/GI: Non distended, soft Back: Normal ROM 15:27 Musculoskeletal/extremity: swelling noted to the left wrist, distal ulna ttp, radial pulse appreciated, < 2 sec dist cap refill, compartments are soft, NVI. 15:27 Skin: erythema noted to the left distal ulnar region. 15:27 Neuro: Orientation: is normal, Mentation: is normal, Memory: is normal. 15:27 Psych: Behavior/mood is pleasant, cooperative. Vital Signs: 15:07 BP 173 / 92; Pulse 79; Resp 16 S; Temp 98.4(O); Pulse Ox 98% on R/A; Weight 94.35 kg jl7 (R); Height 5 ft. 7 in. (170.18 cm) (R); Pain 10/10; 16:10 BP 148 / 82; Pulse 76; Resp 16; Temp 98.0; Pulse Ox 99% on R/A; Pain 7/10; ls4 17:00 BP 136 / 70; Pulse 74; Resp 14; Pulse Ox 100% on R/A; Pain 5/10; ls4 17:45 BP 142 / 80; Pulse 70; Resp 14; Pulse Ox 100% on R/A; Pain 4/10; ls4 15:07 Body Mass Index 32.58 (94.35 kg, 170.18 cm) jl7 Procedures: 17:33 Splinting: Splint applied to left wrist using sling, sugar tong. applied by techSilvino sewell Examined by me, post splint application: neurovascular intact, 2+ distal pulses palpable, brisk capillary refill noted, Patient tolerated well. MDM: 15:23 Patient medically screened. donato 17:33 Data reviewed: vital signs, nurses notes. Counseling: I had a detailed discussion with donato the patient and/or guardian regarding: the historical points, exam findings, and any diagnostic results supporting the discharge/admit diagnosis, radiology results, the need for outpatient follow up, to return to the emergency department if symptoms worsen or persist or if there are any questions or concerns that arise at home. ED course: Patient advised to follow up with ortho for reevaluation. Patient otherwise given strict return precautions for increased pain, numbness, ect. Patient understood and agrees with the plan of care. . 11/19 15:24 Order name: Wrist Left (3 View) XRAY; Complete Time: 17:00 [facility] 11/19 16:14 Order name: Sugar Tong Forearm Splint; Complete Time: 16:57 [facility] 11/19 16:14 Order name: Sling; Complete Time: 16:57 [facility] Administered Medications: 16:00 Drug: Nucla 5 mg-325 mg 2 tabs Route: PO; ls4 16:30 Follow up: Response: No adverse reaction; Marked relief of symptoms; Pain is decreased ls4 Disposition: : Co-signature as Attending Physician, Aline Paige MD. ma2 Disposition: 11/19/19 17:35 Discharged to Home. Impression: Distal Radial Fracture, Ulnar Styloid Fracture. - Condition is Stable. - Discharge Instructions: Radial Fracture, Ulnar Fracture. - Prescriptions for Ultracet 37.5- 325 mg Oral Tablet - take 1 tablet by ORAL route every 6 hours - for up to 5 days; do not exceed 8 tablets per day.; 20 tablet. - Medication Reconciliation Form, Thank You Letter, Antibiotic Education, Prescription Opioid Use form. - Follow up: Gold Vernon MD; When: 2 - 3 days; Reason: Recheck today's complaints, Continuance of care, Re-evaluation by your physician. Signatures: Dispatcher [employer] EDMS Se Morris PA PA jmm Leal, Jahala, RN RN jl7 Aline Paige MD MD ma2 Landy Joe RN RN ls4 Corrections: (The following items were deleted from the chart) 18:06 17:35 11/19/2019 17:35 Discharged to Home. Impression: Distal Radial Fracture; Ulnar ls4 Styloid Fracture. Condition is Stable. Forms are Medication Reconciliation Form, Thank You Letter, Antibiotic Education, Prescription Opioid Use. Follow up: Dr. Gold Vernon; When: 2 - 3 days; Reason: Recheck today's complaints, Continuance of care, Re-evaluation by your physician. [facility]
== END 2019-11-19 18:06 | disposition home or self-care (01) ==
LOC: ER 14:35
PROC: 2W3DX1Z Immobilization of Left Lower Arm using Splint (ICD-10-PCS; principal; 2019-11-19)
DX: S52.502A Unspecified fracture of the lower end of left radius, initial encounter for closed fracture (principal); S52.612A Displaced fracture of left ulna styloid process, initial encounter for closed fracture; W19.XXXA Unspecified fall, initial encounter; Y93.9 Activity, unspecified; Y92.9 Unspecified place or not applicable; Z85.3 Personal history of malignant neoplasm of breast; Z88.5 Allergy status to narcotic agent; Z96.653 Presence of artificial knee joint, bilateral; I10 Essential (primary) hypertension; E03.9 Hypothyroidism, unspecified
CPT/HCPCS: 99284

== ENCOUNTER 2019-12-24 09:47 | Emergency (ER) | payer MEDICARE ==
[2019-12-24] MEDS ORDERED: FENTANYL CITR 100 MCG/2 ML ONE (11:29)
[2019-12-24] MEDS ORDERED: DIAZEPAM 10 MG/2 ML INJ SYRINGE ONE (11:29)
--- NOTE | 2019-12-24 12:09 | RAD REPORT ---
EXAM DESCRIPTION: CT - CTHCSPWOC - 12/24/2019 11:47 am CLINICAL HISTORY: headache, neck pain, history of torticollis, left upper extremity pain, hypertensi on and breast cancer COMPARISON: CT cervical spine August 2015 TECHNIQUE: Axial 5 mm thick images of the head were obtained. Axial 2 mm thick images of the cervic al spine were obtained with sagittal and coronal reconstruction images generated and reviewed. All CT scans are performed using dose optimization technique as appropriate and may include automated exposure control or mA/KV adjustment according to patient size. FINDINGS: No intracranial hemorrhage, mass, edema or acute intracranial finding. No suspicion for ac trent infarction. Atrophy and chronic ischemic changes are present mild in severity. Ventricles are in proportion to volume loss. Arterial tree calcifications are present. Mastoid air cells and paranasal sinuses are clear. No globe or orbit abnormality seen. Cervical bodies are normal in height. No fracture or pathologic bone process. There is reversal of th e usual cervical lordosis with the apex at C5. Slight anterior subluxation of C4 on C5. C2-3 disc spa ce is normal height. All other disc levels show loss in height. This is most pronounced at C5-6 and C 6-7. Multilevel facet joint degenerative changes are present. Bony foraminal encroachment seen at C3- 4 and C4-5. This is more pronounced at C5-6 and on the left at C6-7. Central canal detail is inheren tly limited. No paraspinal mass or hematoma. IMPRESSION: No hemorrhage, edema or acute intracranial finding. No fracture or acute cervical spine finding. Prominent degenerative change present. Patient has a right lateral tilt of the cervical spine but no significant subluxation or rotation abn ormality.
--- NOTE | 2019-12-24 12:12 | RAD REPORT ---
EXAM DESCRIPTION: CT - Neck Angio - 12/24/2019 11:47 am CLINICAL HISTORY: headache, neck pain TECHNIQUE: During dynamic enhancement using nonionic IV contrast, axial 2 mm thick images of the nec k were obtained. Sagittal and axial reconstruction images were generated using MIP technique and revi ewed. All CT scans are performed using dose optimization technique as appropriate and may include automated exposure control or mA/KV adjustment according to patient size. FINDINGS: No aneurysm or vascular malformation identified. No carotid or vertebral dissection. No aortic arch or great vessel origin abnormality seen. Vertebral artery origins unremarkable as well . No stenosis, vasculitis or other significant carotid artery finding. Mild atherosclerotic changes a re present at the origin of the left subclavian artery. Right internal carotid artery is tortuous etta ing an aberrant course to the midline at the midcervical level. This does create the convex bowing to the posterior oropharynx region. IMPRESSION: Very little atherosclerotic calcifications are present. No stenosis, dissection or sign ificant cervical vascular finding.
--- NOTE | 2019-12-24 12:14 | RAD REPORT ---
EXAM DESCRIPTION: CT - Head angio - 12/24/2019 11:47 am CLINICAL HISTORY: headache, neck TECHNIQUE: During dynamic enhancement using nonionic IV contrast, axial 1 millimeter thick images of the head were obtained. Sagittal and axial reconstruction images were generated using MIP technique and reviewed. All CT scans are performed using dose optimization technique as appropriate and may include automated exposure control or mA/KV adjustment according to patient size. COMPARISON: CT head same date FINDINGS: No aneurysm or vascular malformation identified. Major venous sinuses are patent. Atherosclerotic calcifications are present in the cavernous portion of each internal carotid artery. Significant luminal narrowing is not identified. Anterior communicating artery is present. No large p osterior communicating artery seen. Note occlusion of the named branch identified. No significant lum inal narrowing. No other areas of measurable atherosclerotic calcification. Basilar artery and distal vertebral arteries show no suspicious findings. IMPRESSION: Distal internal carotid artery atherosclerotic calcifications are present without signi ficant stenosis identifiable. No other significant vascular disease or significant finding noted.
--- NOTE | 2019-12-24 12:39 | ER ---
Nurse's Notes [facility] Name: Adilia Barros Age: 64 yrs Sex: Female : 1955 Arrival Date: 12/24/2019 Time: 09:49 Bed 6 Private MD: Diagnosis: Headache;Strain of muscle, fascia and tendon at neck level Presentation: 12/24 09:59 Presenting complaint: Patient states: HEADACHE, TORTICOLLIS, PAIN RADIATING TO LUE. bp Transition of care: patient was not received from another setting of care. Onset of symptoms was December 24, 2019. Risk Assessment: Do you want to hurt yourself or someone else? Patient reports no desire to harm self or others. Initial Sepsis Screen: Does the patient meet any 2 criteria? No. Patient's initial sepsis screen is negative. Does the patient have a suspected source of infection? No. Patient's initial sepsis screen is negative. Care prior to arrival: None. 09:59 Method Of Arrival: Ambulatory bp 09:59 Acuity: ROMAIN 3 bp Triage Assessment: 10:03 Headache History: Denies prior headaches. General: Appears in no apparent distress. bp comfortable, Behavior is cooperative, appropriate for age, anxious. Pain: Complains of pain in head Pain currently is 4 out of 10 on a pain scale. Pain began 3 hours ago. Also complains of NECK PAIN. EENT: No deficits noted. Neuro: Level of Consciousness is awake, alert, obeys commands, Oriented to person, place, time, situation, Appropriate for age. Cardiovascular: No deficits noted. Respiratory: No deficits noted. GI: No signs and/or symptoms were reported involving the gastrointestinal system. : No signs and/or symptoms were reported regarding the genitourinary system. Derm: No deficits noted. Musculoskeletal: Range of motion: TORTICOLLIS. Historical: - Allergies: 10:03 Codeine; bp - Home Meds: 10:03 lisinopril Oral [Active]; Metoprolol Tartrate Oral [Active]; levothyroxine oral bp [Active]; anastrozole oral oral [Active]; - PMHx: 10:03 breast cancer; Hypertension; HYPOGLYCEMIA; Hypothyroidism; bp - Immunization history:: Adult Immunizations up to date. - Coronavirus screen:: The patient has NOT had contact with known/suspected case of Coronavirus? Proceed with normal triage procedures. - Social history:: Smoking status: unknown. - Ebola Screening: : No symptoms or risks identified at this time. Screenin:09 Abuse screen: Denies threats or abuse. Denies injuries from another. Nutritional bp screening: No deficits noted. Tuberculosis screening: No symptoms or risk factors identified. Fall Risk None identified. Assessment: 10:24 General: Appears in no apparent distress. Behavior is calm. General: Pt has cast to her ah left arm x4 weeks, she also states that she had neck xrays done yesterday and has a follow up appt with ortho on January 02. Pain: Complains of pain in occipital area and base of the skull, and also complains of pain in the neck Pain does not radiate. Pain currently is 9 out of 10 on a pain scale. Quality of pain is described as sharp, Pain began 1 day ago. Is intermittent, Aggravated by turning head Also complains of nausea. Neuro: Level of Consciousness is awake, alert, Oriented to person, place, time, situation, General Neurologist are unable to squeeze on left side due to a cast. Speech is normal, Facial symmetry appears normal, Pupils are PERRLA, Reports numbness in left arm. Cardiovascular: Reports palpitations, Denies chest pain, Heart tones S1 S2 present Capillary refill < 3 seconds Patient's skin is warm and dry. Pulses are palpable in right radial artery, right dorsalis pedis artery and left dorsalis pedis artery. Respiratory: Breath sounds are clear bilaterally. GI: Abdomen is non-distended, Bowel sounds present X 4 quads. : No signs and/or symptoms were reported regarding the genitourinary system. EENT: No signs and/or symptoms were reported regarding the EENT system. Derm: Skin is intact, is healthy with good turgor. 10:53 Reassessment: PIV PLACED, RESULTS PENDING FOR RAD CREATININE. CT PENDING. bp 12:00 Reassessment: ALL CURRENT ORDERS COMPLETED, RESULTS PENDING FOR RADIOLOGY. bp 13:00 Reassessment: PT D/C HOME AMBULATORY WITH FAMILY, DX WITH CERVICAL SPRAIN. bp Vital Signs: 10:05 BP 117 / 73; Pulse 86; Resp 19; Temp 97.9; Pulse Ox 95% ; Weight 86.18 kg; Height 5 ft. bp 7 in. (170.18 cm); 10:52 BP 106 / 85; Pulse 77; Resp 18; Pulse Ox 95% ; bp 12:00 BP 159 / 101; Pulse 65; Resp 17; Pulse Ox 96% ; bp 13:00 BP 116 / 87; Pulse 72; Resp 17; Temp 98; Pulse Ox 98% ; bp 10:05 Body Mass Index 29.76 (86.18 kg, 170.18 cm) bp ED Course: 09:49 Patient arrived in ED. as 09:52 Michael Hawkins, RN is Primary Nurse. bp 09:54 Se Morris PA is PHCP. jmm 09:55 Deandre Cross MD is Attending Physician. [facility] 10:00 Triage completed. bp 10:05 Arm band placed on. bp 10:09 Patient has correct armband on for positive identification. Bed in low position. Call bp light in reach. Side rails up X2. Adult w/ patient. 10:52 Creatinine for Radiology Sent. bp 10:52 Inserted saline lock: 20 gauge in left antecubital area, using aseptic technique. Blood bp collected. 11:00 Radiology exam delayed due to lab results not completed at this time. (BUN/Creatinine). mw3 11:47 CT completed. Patient tolerated procedure well. Patient moved back from CT. mw3 13:02 No provider procedures requiring assistance completed. IV discontinued, intact, bp bleeding controlled, No redness/swelling at site. Pressure dressing applied. Administered Medications: 11:30 Drug: Valium 2 mg Route: IVP; Site: left antecubital; bp 13:02 Follow up: Response: Pain is decreased bp 11:31 Drug: fentaNYL (PF) 25 mcg Route: IVP; Site: left antecubital; bp 13:02 Follow up: Response: Pain is decreased bp Outcome: 12:38 Discharge ordered by . donato 13:01 Discharged to home ambulatory, with family. bp 13:01 Condition: stable 13:01 Discharge instructions given to patient, Instructed on discharge instructions, follow up and referral plans. medication usage, Demonstrated understanding of instructions, follow-up care, medications, Prescriptions given X 2. 13:03 Patient left the ED. bp Signatures: Se Morris PA PA jmm Martinez, Amelia as Michael Hawknis, RN RN Ladi Main mw3 Michelle Dunne RN RN
--- NOTE | 2019-12-24 12:39 | EDPHYS ---
Physician Documentation [facility] Name: Adilia Barros Age: 64 yrs Sex: Female : 1955 Arrival Date: 12/24/2019 Time: 09:49 Bed 6 Private MD: ED Physician Deandre Cross HPI: 12/24 10:27 This 64 yrs old Female presents to ER via Ambulatory with complaints of jmm Headache, Neck Pain, >24Hrs Old, Numbness - l arm/hand. 10:27 The patient complains of pain to the top of head, right jain, left jain, left jmm frontal area, left side of the back of head, left temporal area, left occipital area, left base of the skull, right frontal area, right side of the back of head, right temporal area, right occipital area and right base of the skull. Onset: The symptoms/episode began/occurred gradually, 1 day(s) ago. Associated signs and symptoms: Pertinent positives: neck pain. This is a 64 year old female with a history of htn, hypoglycemia that presents to the ED with complaints of neck pain and headache. Patient states the headache began yesterday. Denies photosensitivity. Patient states her pain will occasionally radiate into her left upper extremity. Denies weakness. Denies vomiting, denies fever. . Historical: - Allergies: 10:03 Codeine; bp - Home Meds: 10:03 lisinopril Oral [Active]; Metoprolol Tartrate Oral [Active]; levothyroxine oral bp [Active]; anastrozole oral oral [Active]; - PMHx: 10:03 breast cancer; Hypertension; HYPOGLYCEMIA; Hypothyroidism; bp - Immunization history:: Adult Immunizations up to date. - Coronavirus screen:: The patient has NOT had contact with known/suspected case of Coronavirus? Proceed with normal triage procedures. - Social history:: Smoking status: unknown. - Ebola Screening: : No symptoms or risks identified at this time. ROS: 10:27 Constitutional: Negative for fever, chills, and weight loss, Cardiovascular: Negative jmm for chest pain, palpitations, and edema, Respiratory: Negative for shortness of breath, cough, wheezing, and pleuritic chest pain. 10:27 Neck: Positive for pain with movement. 10:27 Neuro: Positive for headache. 10:27 All other systems are negative. Exam: 10:27 Constitutional: This is a well developed, well nourished patient who is awake, alert, jmm and in no acute distress. Head/Face: atraumatic. Eyes: EOMI, no conjunctival erythema appreciated ENT: Moist Mucus Membranes 10:27 Chest/axilla: Normal chest wall appearance and motion. Cardiovascular: Regular rate and rhythm. No edema appreciated Respiratory: Normal respirations, no respiratory distress appreciated Abdomen/GI: Non distended, soft Back: Normal ROM Skin: General appearance color normal MS/ Extremity: Moves all extremities, no obvious deformities appreciated, no edema noted to the lower extremities Neuro: Awake and alert, normal gait Psych: Behavior is normal, Mood is normal, Patient is cooperative and pleasant 10:27 Neck: ROM/movement: is normal, lateral neck pain on palpation, no midline tenderness. Vital Signs: 10:05 BP 117 / 73; Pulse 86; Resp 19; Temp 97.9; Pulse Ox 95% ; Weight 86.18 kg; Height 5 ft. bp 7 in. (170.18 cm); 10:52 BP 106 / 85; Pulse 77; Resp 18; Pulse Ox 95% ; bp 12:00 BP 159 / 101; Pulse 65; Resp 17; Pulse Ox 96% ; bp 13:00 BP 116 / 87; Pulse 72; Resp 17; Temp 98; Pulse Ox 98% ; bp 10:05 Body Mass Index 29.76 (86.18 kg, 170.18 cm) bp MDM: 10:27 Patient medically screened. [facility] 12:37 Data reviewed: vital signs, nurses notes. Counseling: I had a detailed discussion with [facility] the patient and/or guardian regarding: the historical points, exam findings, and any diagnostic results supporting the discharge/admit diagnosis, lab results, radiology results, the need for outpatient follow up, smoking cessation. ED course: Imaging studies negative. Patient pain has decreased in the ED. I discussed with the patient the need to follow up with pcp and otherwise given strict return precautions. patient understood and agrees with the plan of care. . 12/24 10:30 Order name: Creatinine for Radiology [facility] 12/24 11:10 Order name: Creatinine (Radiology Only); Complete Time: 11:13 EDMA 12/24 10:30 Order name: CT Head C Spine [facility] 12/24 10:30 Order name: CT Head Angio [facility] 12/24 10:30 Order name: CT Neck Angio [facility] 12/24 12:10 Order name: CT; Complete Time: 12:14 EDMA 12/24 10:30 Order name: Saline Lock; Complete Time: 10:52 [facility] 12/24 12:14 Order name: CT; Complete Time: 12:14 EDMA 12/24 12:15 Order name: CT; Complete Time: 12:18 EDMS Administered Medications: 11:30 Drug: Valium 2 mg Route: IVP; Site: left antecubital; bp 13:02 Follow up: Response: Pain is decreased bp 11:31 Drug: fentaNYL (PF) 25 mcg Route: IVP; Site: left antecubital; bp 13:02 Follow up: Response: Pain is decreased bp Disposition: 14:20 Co-signature as Attending Physician, Deandre Cross MD. rn Disposition: 12/24/19 12:38 Discharged to Home. Impression: Headache, Strain of muscle, fascia and tendon at neck level. - Condition is Stable. - Discharge Instructions: General Headache Without Cause, Cervical Sprain. - Prescriptions for Prednisone 20 mg Oral Tablet - take 3 tablet by ORAL route once daily for 5 days; 15 tablet. orphenadrine citrate 100 mg Oral Tablet Sustained Release - take 1 tablet by ORAL route 2 times per day As needed; 20 tablet. - Medication Reconciliation Form, Thank You Letter, Antibiotic Education, Prescription Opioid Use form. - Follow up: Private Physician; When: 2 - 3 days; Reason: Recheck today's complaints, Continuance of care, Re-evaluation by your physician. Signatures: Dispatcher [employer] [facility] Se Morris PA PA jmm Nieto, Roman, MD MD rn Peltier, Brian, RN RN bp Corrections: (The following items were deleted from the chart) 13:03 12:38 12/24/2019 12:38 Discharged to Home. Impression: Headache; Strain of muscle, bp fascia and tendon at neck level. Condition is Stable. Forms are Medication Reconciliation Form, Thank You Letter, Antibiotic Education, Prescription Opioid Use. Follow up: Private Physician; When: 2 - 3 days; Reason: Recheck today's complaints, Continuance of care, Re-evaluation by your physician. donato
[2019-12-24 13:31] VITALS: BP 116/87; TEMP 98; O2SAT 98
== END 2019-12-24 13:03 | disposition home or self-care (01) ==
LOC: ER 09:47
DX: S16.1XXA Strain of muscle, fascia and tendon at neck level, initial encounter (principal); I10 Essential (primary) hypertension; E03.9 Hypothyroidism, unspecified; Z85.3 Personal history of malignant neoplasm of breast; Z88.5 Allergy status to narcotic agent
CPT/HCPCS: 36415; 70450; 72125; 70496; 70498; 96375; 96374; 99284; Q9967; J3360; J3010

== ENCOUNTER 2021-01-17 13:59 | Emergency (ER) | payer MEDICARE ==
--- OUTSIDE RECORDS SUMMARY | 2021-01-17 14:01 | XMS REPORT | Continuity of Care Document ---
:1955 Author Organization [facility] t Address [address] [place] [address] Care Team Providers Name Role Phone Galen Watson MD Attending Clinician Only, Test Attending Clinician Unavailable Doctor Unassigned, Name Attending Clinician Unavailable Provider, Urgent Care Attending Clinician Unavailable Shaheen Yanez Attending Clinician Dusty WRIGHT, T Attending Clinician Unavailable Lab, Fam Pob I Attending Clinician Unavailable Galen Watson MD Admitting Clinician Problems This patient has no known problems. Allergies, Adverse Reactions, Alerts This patient has no known allergies or adverse reactions. Medications This patient has no known medications. Procedures This patient has no known procedures. Encounters Start End Encounter Admission Attending Care Care Encounter Source Date/Time Date/Time Type Type Clinicians Facility Department ID 2020-10-03 2020-10-03 [facility] [id number] 07:10:00 09:07:00 Encounter Oxana bryant [id number] [place] [id number] Surgical [id number] Center 071 2020-10-02 2020-10-02 Laboratory Only, [facility] [id number] 11:22:32 11:37:32 Only Test [place] [id number] [place] [id number] [place] [id number] 353 2020-10-02 2020-10-02 Orders Doctor [place] [id number] 00:00:00 00:00:00 Only Unassigned, EDEL [id number] [facility] [id number] 2020-09-18 2020-09-18 Urgent Provider, [facility] [id number] 17:08:48 18:15:00 Care [facility] [id number] Care [place] [id number] Professio [phone] nal 044 [address] One 2020-09-12 2020-09-12 Orders Doctor PO [id number] 00:00:00 00:00:00 Only Unassigned, EDEL [id number] [place] [facility] [id number] 2020-06-05 2020-06-05 Telephone PO Yanez [id number] 00:00:00 00:00:00 [facility] [place] [id number] [facility] [id number] 2020-06-05 2020-06-05 Letter PO [place] [id number] 00:00:00 00:00:00 (Out) Dea Alva PLUMM[facility] [id number] [facility] [id number] 2020-06-01 2020-06-01 Laboratory Lab, [facility] [id number] 14:41:25 15:01:25 Only Fam Pob I Health [id number] [place] [id number] Professio [phone] nal 044 [address] One 2020-06-01 2020-06-01 Letter Doctor PO [id number] 00:00:00 00:00:00 (Out) Unassigned, EDEL [id number] [place] [facility] [id number] Results This patient has no known results.
--- NOTE | 2021-01-17 15:05 | ER ---
Nurse's Notes [facility] Name: Adilia Barros Age: 65 yrs Sex: Female : 1955 Arrival Date: 01/17/2021 Time: 14:00 Bed 14 Private MD: Diagnosis: Displaced fracture of left distal radius Presentation: 01/17 14:05 Chief complaint: Patient states: Slipped and fell 2 nights [employer]. Tried catching self ca1 with L arm, reports pain and swelling on L wrist. Coronavirus screen: Client denies travel out of the [place] in the last 14 days. At this time, the client does not indicate any symptoms associated with coronavirus-19. Ebola Screen: Patient negative for fever greater than or equal to 101.5 degrees Fahrenheit, and additional compatible Ebola Virus Disease symptoms Patient denies exposure to infectious person. Patient denies travel to an Ebola-affected area in the 21 days before illness onset. No symptoms or risks identified at this time. Initial Sepsis Screen: Does the patient meet any 2 criteria? No. Patient's initial sepsis screen is negative. Does the patient have a suspected source of infection? No. Patient's initial sepsis screen is negative. Risk Assessment: Do you want to hurt yourself or someone else? Patient reports no desire to harm self or others. Onset of symptoms was January 15, 2021. 14:05 Method Of Arrival: Ambulatory ca1 14:05 Acuity: ROMAIN 4 ca1 Historical: - Allergies: 14:09 Codeine; ca1 - Home Meds: 14:09 anastrozole Oral [Active]; levothyroxine oral [Active]; lisinopril Oral [Active]; ca1 Metoprolol Tartrate Oral [Active]; gabapentin oral oral [Active]; - PMHx: 14:09 breast cancer; Hypertension; HYPOGLYCEMIA; Hypothyroidism; ca1 - PSHx: 14:09 Hysterectomy; Appendectomy; ankle surgery; Mastectomy, Right; Lumpectomy; ca1 - Immunization history:: Client reports receiving the 2nd dose of the Covid vaccine, Date received: December 2020 Pneumococcal vaccine is up to date, Flu vaccine is up to date. - Social history:: Smoking status: Patient denies any tobacco usage or history of. Screenin:45 Abuse screen: Denies threats or abuse. Denies injuries from another. Nutritional jl7 screening: No deficits noted. Tuberculosis screening: No symptoms or risk factors identified. Fall Risk None identified. Assessment: 14:45 General: Appears in no apparent distress. uncomfortable, Behavior is calm, cooperative, jl7 appropriate for age. Pain: Complains of pain in left wrist Pain currently is 9 out of 10 on a pain scale. Neuro: Level of Consciousness is awake, alert, obeys commands, Oriented to person, place, time, situation. Cardiovascular: Patient's skin is warm and dry. Respiratory: Airway is patent Respiratory effort is even, unlabored, Respiratory pattern is regular, symmetrical. Derm: Skin is pink, warm \T\ dry. Musculoskeletal: Range of motion: intact in all extremities, Swelling present in left wrist. Vital Signs: 14:05 BP 133 / 101; Pulse 111; Resp 16 S; Temp 97.3(TE); Pulse Ox 97% on R/A; Weight 103.42 ca1 kg (R); Height 5 ft. 7 in. (170.18 cm) (R); Pain 9/10; 14:05 Body Mass Index 35.71 (103.42 kg, 170.18 cm) ca1 ED Course: 14:00 Patient arrived in ED. bg2 14:07 Triage completed. ca1 14:09 Arm band placed on right wrist. ca1 14:24 Saloni Anderson FNP-C [facility]. kb 14:24 Josh Baker MD is Attending Physician. kb 14:40 Lise Segundo, ADRIANA is Primary Nurse. jl7 14:45 Patient has correct armband on for positive identification. Bed in low position. Call jl7 light in reach. Side rails up X 1. 14:49 Forearm Left XRAY In Process Unspecified. EDMS 15:19 No provider procedures requiring assistance completed. Patient did not have IV access jl7 during this emergency room visit. 15:19 Orthoglass splint: Sugar tong splint applied on left arm. Sling applied to left arm. jl7 Administered Medications: 15:10 Drug: [place] (7.5 mg-325 mg) 1 tabs Route: PO; jl7 15:20 Follow up: Response: Medication administered at discharge. jl7 15:17 Drug: Ibuprofen 800 mg Route: PO; jl7 15:20 Follow up: Response: Medication administered at discharge. jl7 Outcome: 15:04 Discharge ordered by MD. kb 15:30 Discharged to home ambulatory. jl7 15:30 Condition: stable 15:30 Discharge instructions given to patient, Instructed on discharge instructions, follow up and referral plans. medication usage, Demonstrated understanding of instructions, follow-up care, medications, Prescriptions given X 1. 15:31 Patient left the ED. jl7 Signatures: Dispatcher [employer] EDMS Saloni Anderson, OBDULIA-Galen STEINER-Barbara Barreto 2 Lise Segundo, RN RN jl7 Heather Ruiz RN RN ca1
--- NOTE | 2021-01-17 15:05 | EDPHYS ---
Physician Documentation [facility] Name: Adilia Barros Age: 65 yrs Sex: Female : 1955 Arrival Date: 01/17/2021 Time: 14:00 Bed 14 Private MD: ED Physician Josh Baker HPI: 01/17 15:01 This 65 yrs old Female presents to ER via Ambulatory with complaints of Wrist kb Injury. 15:01 The patient or guardian reports injury, pain, swelling, tenderness. The complaints kb affect the left wrist diffusely. Context: The problem was sustained at home, resulted from a fall, on an outstretched hand. Onset: The symptoms/episode began/occurred 2 day(s) ago. Modifying factors: The symptoms are alleviated by nothing, the symptoms are aggravated by movement. Associated signs and symptoms: The patient has no apparent associated signs or symptoms. The patient has not experienced similar symptoms in the past. The patient has not recently seen a physician. Pt reports wrist pain after slip and fall in kitchen 2 days ago. Historical: - Allergies: 14:09 Codeine; ca1 - Home Meds: 14:09 anastrozole Oral [Active]; levothyroxine oral [Active]; lisinopril Oral [Active]; ca1 Metoprolol Tartrate Oral [Active]; gabapentin oral oral [Active]; - PMHx: 14:09 breast cancer; Hypertension; HYPOGLYCEMIA; Hypothyroidism; ca1 - PSHx: 14:09 Hysterectomy; Appendectomy; ankle surgery; Mastectomy, Right; Lumpectomy; ca1 - Immunization history:: Client reports receiving the 2nd dose of the Covid vaccine, Date received: December 2020 Pneumococcal vaccine is up to date, Flu vaccine is up to date. - Social history:: Smoking status: Patient denies any tobacco usage or history of. ROS: 15:01 Constitutional: Negative for fever, chills, and weight loss, Skin: Negative for injury, kb rash, and discoloration, Neuro: Negative for headache, weakness, numbness, tingling, and seizure. 15:01 MS/extremity: Positive for injury or acute deformity, pain, swelling, tenderness, of the left wrist. Exam: 15:03 Constitutional: This is a well developed, well nourished patient who is awake, alert, kb and in no acute distress. Head/Face: Normocephalic, atraumatic. Respiratory: Respirations even and unlabored. No increased work of breathing, no retractions or nasal flaring. Skin: Warm, dry with normal turgor. Normal color. Neuro: Awake and alert, GCS 15, oriented to person, place, time, and situation. Moves all extremities. Normal gait. 15:03 Musculoskeletal/extremity: Extremities: grossly normal except: noted in the left wrist: decreased ROM, deformity, pain, swelling, tenderness, ROM: limited active range of motion due to pain, in the left wrist, Circulation is intact in all extremities. Sensation intact. Vital Signs: 14:05 BP 133 / 101; Pulse 111; Resp 16 S; Temp 97.3(TE); Pulse Ox 97% on R/A; Weight 103.42 ca1 kg (R); Height 5 ft. 7 in. (170.18 cm) (R); Pain 9/10; 14:05 Body Mass Index 35.71 (103.42 kg, 170.18 cm) ca1 Procedures: 15:28 Splinting: Splint applied to left arm using Orthoglass splint, applied by tech. kb Examined by me, post splint application: neurovascular intact, brisk capillary refill noted, Patient tolerated well. MDM: 14:33 Patient medically screened. kb 14:59 Data reviewed: vital signs, nurses notes. Data interpreted: Pulse oximetry: on room air kb is 97 %. Interpretation: normal. Counseling: I had a detailed discussion with the patient and/or guardian regarding: the historical points, exam findings, and any diagnostic results supporting the discharge/admit diagnosis, radiology results, the need for outpatient follow up, a orthopedic surgeon, to return to the emergency department if symptoms worsen or persist or if there are any questions or concerns that arise at home. 01/17 14:24 Order name: Forearm Left XRAY; Complete Time: 15:21 kb 01/17 14:59 Order name: Sugar Tong Forearm Splint; Complete Time: 15:16 kb Administered Medications: 15:10 Drug: [place] (7.5 mg-325 mg) 1 tabs Route: PO; jl7 15:20 Follow up: Response: Medication administered at discharge. jl7 15:17 Drug: Ibuprofen 800 mg Route: PO; jl7 15:20 Follow up: Response: Medication administered at discharge. jl7 Disposition: 18:30 Co-signature as Attending Physician, Josh Baker MD I agree with the assessment and tw4 plan of care. Disposition: 01/17/21 15:04 Discharged to Home. Impression: Displaced fracture of left distal radius. - Condition is Stable. - Discharge Instructions: Forearm Fracture, [id number]-[id number]. - Prescriptions for Tramadol 50 mg Oral Tablet - take 1 tablet by ORAL route every 8 hours as needed; 12 tablet. - Medication Reconciliation Form, Thank You Letter, Antibiotic Education, Prescription Opioid Use form. - Follow up: Emergency Department; When: As needed; Reason: Worsening of condition. Follow up: Private Physician; When: 2 - 3 days; Reason: Recheck today's complaints, Continuance of care, Re-evaluation by your physician. Signatures: Dispatcher [employer] EDWI Saloni Anderson, OBDULIA-C PROFESSOR OF SURGERY-Lise Islas RN RN jl7 Josh Baker MD MD tw4 Heather Ruiz RN RN ca1 Corrections: (The following items were deleted from the chart) 14:48 14:11 Wrist Left 3 View+RAD.RAD.BRZ ordered. [facility] EDWI 15:31 15:04 01/17/2021 15:04 Discharged to Home. Impression: Displaced fracture of left jl7 distal radius. Condition is Stable. Forms are Medication Reconciliation Form, Thank You Letter, Antibiotic Education, Prescription Opioid Use. Follow up: Emergency Department; When: As needed; Reason: Worsening of condition. Follow up: Private Physician; When: 2 - 3 days; Reason: Recheck today's complaints, Continuance of care, Re-evaluation by your physician. kb
--- NOTE | 2021-01-17 15:12 | RAD REPORT ---
EXAM DESCRIPTION: RAD - Forearm Left - 01/17/2021 2:49 pm CLINICAL HISTORY: PAIN, trip and fall 2 days earlier COMPARISON: None. FINDINGS: Minimal degenerative changes are present at the elbow joint with no elevated posterior fat pad. No acute finding at the elbow joint. Ulna is intact. Patient has a comminuted fracture of the d istal radius with minimal dorsal angulation. No pathologic change. No carpal bone dislocation. No per iosteal reaction or dislocation change. No foreign body or other soft tissue abnormality. IMPRESSION: Comminuted fracture of the distal right radius extending to the articular surface. There is minimal dorsal angulation.
[2021-01-17] MEDS ORDERED: HYDROCODONE/APAP 7.5/325 MG TAB ONE ×2 (15:18→15:23)
[2021-01-17] MEDS ORDERED: IBUPROFEN 400 MG TAB ONE (15:18)
[2021-01-17 15:35] VITALS: BP 133/101; TEMP 97.3; O2SAT 97
== END 2021-01-17 15:31 | disposition home or self-care (01) ==
LOC: ER 13:59
PROC: 2W3DX1Z Immobilization of Left Lower Arm using Splint (ICD-10-PCS; principal; 2021-01-17)
DX: S52.502A Unspecified fracture of the lower end of left radius, initial encounter for closed fracture (principal); W01.0XXA Fall on same level from slipping, tripping and stumbling without subsequent striking against object, initial encounter; Y93.01 Activity, walking, marching and hiking; Y92.000 Kitchen of unspecified non-institutional (private) residence as the place of occurrence of the external cause; Z85.3 Personal history of malignant neoplasm of breast; Z90.11 Acquired absence of right breast and nipple; Z88.5 Allergy status to narcotic agent; E03.9 Hypothyroidism, unspecified; I10 Essential (primary) hypertension
CPT/HCPCS: 99284

== ENCOUNTER 2023-02-05 11:47 | Inpatient (IN) | payer OTHER ==
--- OUTSIDE RECORDS SUMMARY | 2023-02-07 23:01 | XMS REPORT | Continuity of Care Document ---
:1955 Author Organization [facility] t Address [address] [facility] [address] [place] [address] Care Team Providers Name Role Phone MARIBEL FARAH Primary Care Physician Unavailable Tam ROMERO, Aline Torre Attending Clinician [phone] Joseph ROMERO, Shaheen Guerrero Attending Clinician [phone] Guilherme ROMERO, Melida Whitt Attending Clinician Humberto ROMERO, Dony Castano Attending Clinician [phone] Linsey Melgar MD Attending Clinician LINSEY MELGAR Attending Clinician Unavailable Maribel Farah Attending Clinician Unavailable Michael Yanez Attending Clinician Unavailable DEANGELO RAMÍREZ Attending Clinician Unavailable OXANA GROSS Attending Clinician Unavailable FLAQUITA REED Attending Clinician Unavailable ALINE TURCIOS I. Attending Clinician Unavailable FLAQUITA REED Attending Clinician Unavailable Deangelo Ramírez MD Attending Clinician [phone] ANA REBOLLAR Attending Clinician Unavailable KELSI MCGARRY Attending Clinician Unavailable Ezra Lopes Attending Clinician Doctor Unassigned, Peever Attending Clinician Unavailable Alondra Rai Attending Clinician LAMPALONDRA ROBISON Attending Clinician Unavailable Only, Adc Test Attending Clinician Unavailable Twin Alcala MD Attending Clinician Pob, [facility] Lab Main Attending Clinician Unavailable Hany Cole MD Attending Clinician HANY COLE Attending Clinician Unavailable Jessica Lyle Attending Clinician Maribel Farah Attending Clinician Rosa Major Attending Clinician ROSA ELLIS Attending Clinician Unavailable Oxana Gross MD Attending Clinician YURIDIA BOGGS Attending Clinician Unavailable Provider, [facility] Attending Clinician Unavailable Yuridia Green Attending Clinician Michael Yanez Attending Clinician Dea Montano RN Attending Clinician Unavailable Lab, Adc Fam Pob I Attending Clinician Unavailable Fabien Dennis Attending Clinician FABIEN ARBOLEDA Attending Clinician Unavailable ALINE TURCIOS I. Admitting Clinician Unavailable Maribel Farah Admitting Clinician Unavailable DEANGELO RAMÍREZ Admitting Clinician Unavailable OXANA GROSS Admitting Clinician Unavailable JT MELENDEZ Admitting Clinician Unavailable Deangelo Ramírez MD Admitting Clinician [phone] Walter ROMERO, Oxana Aaron Admitting Clinician Payers Payer Name Policy Type Policy Number Effective Date Expiration Date Paula ag [facility] WELLMED [id number] 2021 2022 00:00:00 00:00:00 WELLMED/AARP [id number] 2020 MEDICARE 00:00:00 ADVANTAGE [employer] MEDICARE [id number] 2022 ADVANTAGE PPO 00:00:00 [employer] GOLD PLS [id number] 2022 HMO 00:00:00 AARP MCR [id number] 2021 [facility] ADVANTAGE 00:00:00 - [facility] AARP MEDICARE C1 [id number] [facility] - [facility] Problems Condition Condition Condition Status Onset Resolution Last Treating Co mments Source Name Details Category Date Date Treatment Clinician Date Osteoarthr Osteoarthr Disease Recurre [facility] Cerebral Cerebral Disease [facility] Oropharyng Oropharyng Disease Active [facility] e[facility] eal [facility]02 [facility] dysphagia dysphagia 00:00: Medi mejia 00 Center Hypothyroi Hypothyroi Disease Recurre [facility] Breast Breast Disease Recurre [facility] cancer cancer nce 02[facility] Hypertensi Hypertensi Disease Recurre [facility]ce [facility] Prediabete Prediabete Disease Recurre [facility] nce 02[facility]01 [facility] Center Rhabdomyol Rhabdomyol Disease Active [facility] ysis ysis 02-01 [facility] Hypokalemi Hypokalemi Disease Active [facility] a a 02-01 [facility] Center Hypomagnes Hypomagnes Disease Active [facility] emia emia 02-01 [facility] Acute Acute Disease Active [facility] encephalop encephalop 02-01 [facility] kes athy athy 00:00: Medical 00 Center Stroke Stroke Disease Recurre [facility] 01-31 [facility] 00 [facility] S/P S/P Disease Active Univers reverse reverse 7-28 ity of total total 00:00: [place] shoulder shoulder 00 Medica l arthroplas arthroplas Br anch ty, right ty, right Obesity Obesity Disease Active Univers (BMI (BMI 5-24 ity of 30-39.9) 30-39.9) 00:00: [place] [address] Medical Branch Fall, Problem Common initial [facility] encounter [facility] [id number] Hypoglycem Problem Co mmon ia [facility] [id number] Balance Problem Commo n problem [facility] [id number] Memory Problem Common changes [facility] [id number] Post-traum Problem C ommon [id number] atic [facility] osteoarthr - [facility] itis of St left ankle [facility] Malignant Malignant Problem Com mon neoplasm neoplasm [facility] upper-inne upper-inne St r quadrant r quadrant Mary Jane kes of female of right Medic al breast female Center breast Obesity Body mass Problem Commo n index Spirit (BMI) of [facility] 30.[address] 39[address]9 [facility] [id number] Hx of Problem Common breast [facility] cancer [facility] [id number] Acne Problem Common rosacea [facility] [id number] Mixed Problem Common stress and Spirit urge - [facility] urinary [facility] [id number] Essential Problem Comm on hypertensi [facility] on [facility] [id number] Anxiety Problem Common [facility] Osteoporos Osteoporos Problem C ommon is is [facility] [id number] Acquired Problem Comm on hypothyroi [facility] dism [facility] Hematoma Hematoma Problem Commo n [facility] Disorder Disorder Problem Active 2022-03-14 Memoria of rotator of rotator 22:55:30 l cuff cuff Zeferino (disorder) (disorder) Active Problem 03/14/2022 [facility] Morbid Morbid Problem Active 2022-03-14 David antonia obesity obesity 22:55:30 l (disorder) (disorder) He rmann Active Problem 03/14/2022 [facility] Paresthesi Paresthes Problem Active 2022-03-14 Memoria a ia 22:55:30 l (finding) (finding) Herm danial Active Problem 03/14/2022 [facility] Tremor Tremor Problem Active 2022-03-14 David antonia (finding) (finding) 22:55:30 l Active [place] Problem 03/14/2022 [facility] Amnesia Amnesia Problem Active 2022-03-14 Me moria (finding) (finding) 22:55:30 l Active Zeferino Problem 03/14/2022 [facility] Carpal Carpal Problem Active 2022-03-14 Dvaid [place]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 NO KNOWN Drug Active [facility] ALLERGIE Class ity of [facility] Social History Social Habit Start Date Stop Date Quantity Comments Source History of [facility] - Tobacco Use [facility] History Pending sale to [facility] o f Alcohol Frequency [place] M edical Branch History [facility] University o f Alcohol Std [place] Medical Drinks Branch History Pending sale to [facility] o f Alcohol Binge [place] Medic al Branch Exposure to 2022-07-04 2022-07-14 Not sure University of SARS-CoV-2 00:00:00 14:42:00 [facility] (event) Branch Alcohol intake 2021-10-09 2021-10-09 .24 /d University 00:00:00 00:00:00 [facility] Branch Social History 2020-08-16 2020-08-16 [facility] Rossana josé miguel 20:08:17 20:08:17 Tobacco use and 2017-03-24 2017-03-24 Smokeless tobacco Un iversity of exposure 00:00:00 00:00:00 non-user [facility] Alcohol Comment 2014-10-20 2014-10-20 2 drinks per week Un iversity of 00:00:00 00:00:00 [facility] Sex Ass[birth year] CHANTEL Mclean Mary Jane kes 00:00:00 00:00:00 Medical Center Smoking Status Start Date Stop Date Source Never Smoker [facility] Ex-smoker 2017-03-24 00:00:00 2017-03-24 00:00:00 [facility] Medications Ordered Filled Start Stop Current Ordering Indication Dosage Frequency Signature Comments Components Source Medication Medication Date Date Medication? Clinician (SIG) Name Name lisinopriL 2022- Yes 20mg QD Take [address] (PRINIVIL,Z 4-08 05-08 tablet (20 L ukes ESTRIL) 20 00:00: 23:59 mg total) M edical MG tablet 00 :00 by mouth Center in the morning for 30 days. carvediloL 2022- Yes 25mg Q.5D Take [address] (COREG) 25 4-08 05-08 tablet (25 Mary Jane kes MG tablet 00:00: 23:59 mg total) Me dical 00 :00 by mouth Center in the morning and 1 tablet (25 mg total) before bedtime. Do all this for 30 days. NIFEdipine 2022- Yes 30mg Q.5D Take [address] (PROCARDIA- 4-08 05-08 tablet (30 L ukes XL) 30 MG 00:00: 23:59 mg total) Me dical (OSM) 24 hr 00 :00 by mouth Cent er tablet in the morning and 1 tablet (30 mg total) before bedtime. Do all this for 30 days. NIFEdipine 2022- No 60mg Q.5D Take [address] (PROCARDIA- 4-08 04-08 tablet (60 L ukes XL) 60 MG 00:00: 00:00 mg total) Me dical (OSM) 24 hr 00 :00 by mouth Cent er tablet in the morning and 1 tablet (60 mg total) before bedtime. Do all this for 30 days. Azithromyci Azithromyci 2023-0 No QD Azithromyc n 250 MG n 250 MG 3-14 in 250 MG 00:00: 00 traMADoL 2022-0 2022- No 50mg Take 1-[address] (ULTRAM) 50 3-13 04-08 tablets Luke s mg tablet 00:00: 00:00 (50-100 mg M edical 00 :00 total) by Center mouth 4 (four) times daily as needed. Max Daily Amount: 400 mg solifenacin 2022- No 5mg QD Take [address] (VESIcare) 3-13 04-08 tablet (5 Gavin es 5 MG tablet 00:00: 00:00 mg total) Medical 00 :00 by mouth Center in the morning. HYDROcodone 2022- No 1{tbl} Take [address] -acetaminop 3-13 -08 tablet by Mary Jane robertson hen (NORCO 00:00: 00:00 mouth Medic al 10-325) 00 :00 every 4 Center 10-325 mg (four) per tablet hours as needed. Max Daily Amount: 6 tablets fluticasone 0 Yes 1{spray Q.5D [address] propionate 3-12 } the [facility] (FLONASE) 00:00: morning Medic al 50 00 and 1 Center mcg/actuati spray on nasal before spray bedtime. venlafaxine Yes 150mg QD Take [address] (EFFEXOR-XR 3-06 capsule [facility] ) 150 MG 24 00:00: (150 mg Med ical hr capsule 00 total) by Cent er mouth in the morning. anastrozole Yes 1mg QD Take [address] (ARIMIDEX) 2-28 tablet (1 Luke s 1 mg tablet 00:00: mg total) M edical 00 by mouth Center in the morning. metoprolol 0 2022- No 100mg QD Take [address] succinate 2-27 04-08 tablet [facility] (TOPROL-XL) 00:00: 00:00 (100 mg Me dical 100 MG 24 00 :00 total) by Cente r hr tablet mouth in the morning. lisinopril- 2022-0 2022- No 1{tbl} QD Take [address] hydroCHLORO 2-16 04-08 tablet by Mary Jane robertson thiazide 00:00: 00:00 mouth in Medi mejia (PRINZIDE,Z 00 :00 the Center ESTORETIC) morning. 20-25 mg per tablet levothyroxi 2022-0 Yes 50ug QD Take [address] ne 1-19 tablet (50 [facility] (SYNTHROID, 00:00: mcg total) Medical LEVOTHROID) 00 by mouth Cent er 50 MCG in the tablet morning. Bupivicaine Bupivicaine 0 No 2.5mg [facility] [place] 03 [facility] 00:00: - [facility] [address] [facility] Depo-Medrol Depo-Medrol 0 No 40mg Common (Methylpred (Methylpred 1-03 S pirit nisolone) nisolone) 00:00: - C HI 40mg 40mg 00 [facility] Bupivicaine Bupivicaine 0 No 2.5mg [facility] [place] Victoria 11-04 Spirit 00:00: - [facility] Depo-Medrol Depo-Medrol 0 No 40mg Common (Methylpred (Methylpred 1-03 S pirit nisolone) nisolone) 00:00: - C HI 40mg 40mg 00 [facility] Bupivicaine Bupivicaine 0 No 2.5mg [facility] [place] Victoria 11-04 Spirit 00:00: - [facility] Depo-Medrol Depo-Medrol 2022-0 No 40mg Common (Methylpred (Methylpred 1-03 S pirit nisolone) nisolone) 00:00: - C HI 40mg 40mg 00 [facility] Bupivicaine Bupivicaine 2022-0 No 2.5mg [facility] [place] 03 [facility] 00:00: - [facility] Depo-Medrol Depo-Medrol 0 No 40mg Common (Methylpred (Methylpred 1-03 S pirit nisolone) nisolone) 00:00: - C HI 40mg 40mg 00 [facility] Bupivicaine Bupivicaine 2022-0 No 2.5mg [facility] Victoria 11-04 Spirit 00:00: - [facility] DEPO-Medrol DEPO-Medrol 0 No 40mg Common 1-03 Spirit 00:00: - [facility] Valium 5 MG Valium 5 MG 2021- No Valium 5 2-05 MG 00:00: 00 Valium 5 MG Valium 5 MG 2021- No Valium 5 2-05 MG 00:00: 00 Valium 5 MG Valium 5 MG 2021- No Valium 5 2-05 MG 00:00: 00 Valium 5 MG Valium 5 MG 2021- No Valium 5 2-05 MG 00:00: 00 Valium 5 MG Valium 5 MG 2021- No Valium 5 2-05 MG 00:00: 00 Valium 5 MG Valium 5 MG 2021- No Valium 5 2-05 MG 00:00: 00 clonazePAM clonazePAM 2021-11 No 1{table clonazePAM 0.5 MG 0.5 MG 1-04 t} 0.5 MG 00:00: 00 clonazePAM clonazePAM 2021- No 1{table clonazePAM 0.5 MG 0.5 MG 1-04 t} 0.5 MG 00:00: 00 clonazePAM clonazePAM 2021- No 1{table clonazePAM 0.5 MG 0.5 MG 1-04 t} 0.5 MG 00:00: 00 clonazePAM clonazePAM 2021-1 No 1{table clonazePAM 0.5 MG 0.5 MG 1-04 t} 0.5 MG 00:00: 00 clonazePAM clonazePAM 2021-1 No 1{table clonazePAM 0.5 MG 0.5 MG 1-04 t} 0.5 MG 00:00: 00 clonazePAM clonazePAM 2021-1 No 1{table clonazePAM 0.5 MG 0.5 MG 1-04 t} 0.5 MG 00:00: 00 clonazePAM clonazePAM 2021-1 No 1{table clonazePAM 0.5 MG 0.5 MG 1-04 t} 0.5 MG 00:00: 00 clonazePAM clonazePAM 2021-1 No 1{table clonazePAM 0.5 MG 0.5 MG 1-04 t} 0.5 MG 00:00: 00 clonazePAM clonazePAM 2021-1 No 1{table clonazePAM 0.5 MG 0.5 MG 1-04 t} 0.5 MG 00:00: 00 Venlafaxine Venlafaxine 2021-11 No 1{capsu QD Venlafaxin HCl ER 150 HCl ER 150 0-04 le_with e HCl ER MG MG 00:00: _food} 150 MG 00 Venlafaxine Venlafaxine 2021-11 No 1{capsu QD Venlafaxin HCl ER 75 HCl ER 75 0-04 le_with e HCl ER MG MG 00:00: _food} 75 MG 00 Venlafaxine Venlafaxine 2021-11 No 1{capsu QD Venlafaxin HCl ER 150 HCl ER 150 0-04 le_with e HCl ER MG MG 00:00: _food} 150 MG 00 Venlafaxine Venlafaxine 2021-11 No 1{capsu QD Venlafaxin HCl ER 75 HCl ER 75 0-04 le_with e HCl ER MG MG 00:00: _food} 75 MG 00 Venlafaxine Venlafaxine 2021-11 No 1{capsu QD Venlafaxin HCl ER 150 HCl ER 150 0-04 le_with e HCl ER MG MG 00:00: _food} 150 MG 00 Venlafaxine Venlafaxine 2021-11 No 1{capsu QD Venlafaxin HCl ER 75 HCl ER 75 0-04 le_with e HCl ER MG MG 00:00: _food} 75 MG 00 Venlafaxine Venlafaxine 2021-11 No 1{capsu QD Venlafaxin HCl ER 150 HCl ER 150 0-04 le_with e HCl ER MG MG 00:00: _food} 150 MG 00 Venlafaxine Venlafaxine 2021-11 No 1{capsu QD Venlafaxin HCl ER 75 HCl ER 75 0-04 le_with e HCl ER MG MG 00:00: _food} 75 MG 00 Venlafaxine Venlafaxine 2021-11 No 1{capsu QD Venlafaxin HCl ER 150 HCl ER 150 0-04 le_with e HCl ER MG MG 00:00: _food} 150 MG 00 Venlafaxine Venlafaxine 2021-11 No 1{capsu QD Venlafaxin HCl ER 75 HCl ER 75 0-04 le_with e HCl ER MG MG 00:00: _food} 75 MG 00 Venlafaxine Venlafaxine 2021-11 No 1{capsu QD Venlafaxin HCl ER 75 HCl ER 75 0-04 le_with e HCl ER MG MG 00:00: _food} 75 MG 00 Venlafaxine Venlafaxine 2021-11 No 1{capsu QD Venlafaxin HCl ER 150 HCl ER 150 0-04 le_with e HCl ER MG MG 00:00: _food} 150 MG 00 Venlafaxine Venlafaxine 2021-11 No 1{capsu QD Venlafaxin HCl ER 150 HCl ER 150 0-04 le_with e HCl ER MG MG 00:00: _food} 150 MG 00 Venlafaxine Venlafaxine 2021-11 No 1{capsu QD Venlafaxin HCl ER 75 HCl ER 75 0-04 le_with e HCl ER MG MG 00:00: _food} 75 MG 00 Venlafaxine Venlafaxine 2021-11 No 1{capsu QD Venlafaxin HCl ER 150 HCl ER 150 0-04 le_with e HCl ER MG MG 00:00: _food} 150 MG 00 Venlafaxine Venlafaxine 2021-11 No 1{capsu QD Venlafaxin HCl ER 75 HCl ER 75 0-04 le_with e HCl ER MG MG 00:00: _food} 75 MG 00 Venlafaxine Venlafaxine 2021-11 No 1{capsu QD Venlafaxin HCl ER 150 HCl ER 150 0-04 le_with e HCl ER MG MG 00:00: _food} 150 MG 00 Venlafaxine Venlafaxine 2021-11 No 1{capsu QD Venlafaxin HCl ER 75 HCl ER 75 0-04 le_with e HCl ER MG MG 00:00: _food} 75 MG 00 Fluconazole Fluconazole 2021- No 1{table QD Fluconazol 150 MG 150 MG 07-10 t} e 150 MG 00:00: 00:00 00 :00 Sulfamethox Sulfamethox 2021- No 1{table BID Sulfametho azole-Trime azole-Trime 07-08 t} xazole-Tri thoprim thoprim 00:00: 00:00 methoprim 800-160 MG 800-160 MG 00 :00 800-160 MG Sulfamethox Sulfamethox 2022-0 2022- No 1{table BID Sulfametho azole-Trime azole-Trime 07-08 t} xazole-Tri thoprim thoprim 00:00: 00:00 methoprim 800-160 MG 800-160 MG 00 :00 800-160 MG Ciprofloxac Ciprofloxac 2021-0 2- No 1{table BID Ciprofloxa in HCl 500 in HCl 500 07-04 t} megan HCl MG MG 00:00: 00:00 500 MG 00 :00 Ciprofloxac Ciprofloxac 2021-0 2- No 1{table BID Ciprofloxa in HCl 500 in HCl 500 07-04 t} megan HCl MG MG 00:00: 00:00 500 MG 00 :00 Valium 5 MG Valium 5 MG 2-0 No Valium 5 7-11 MG 00:00: 00 Valium 5 MG Valium 5 MG 2-0 No Valium 5 7-11 MG 00:00: 00 Valium 5 MG Valium 5 MG 2-0 No Valium 5 7-11 MG 00:00: 00 Valium 5 MG Valium 5 MG 2022-0 No Valium 5 7-11 MG 00:00: 00 Valium 5 MG Valium 5 MG 2-0 No Valium 5 7-11 MG 00:00: 00 Valium 5 MG Valium 5 MG 2022-0 No Valium 5 7-11 MG 00:00: 00 Valium 5 MG Valium 5 MG 2022-0 No Valium 5 7-11 MG 00:00: 00 Valium 5 MG Valium 5 MG 2022-0 No Valium 5 7-11 MG 00:00: 00 Valium 5 MG Valium 5 MG 2022-0 No Valium 5 7-11 MG 00:00: 00 Valium 5 MG Valium 5 MG 2022-0 No Valium 5 7-11 MG 00:00: 00 Valium 5 MG Valium 5 MG 2022-0 No Valium 5 7-11 MG 00:00: 00 Valium 5 MG Valium 5 MG 2022-0 No Valium 5 7-11 MG 00:00: 00 Valium 5 MG Valium 5 MG 2022-0 No Valium 5 7-11 MG 00:00: 00 Valium 5 MG Valium 5 MG 2022-0 No Valium 5 7-11 MG 00:00: 00 Valium 5 MG Valium 5 MG 2022-0 No Valium 5 7-11 MG 00:00: 00 Valium 5 MG Valium 5 MG 2022-0 No Valium 5 7-11 MG 00:00: 00 Valium 5 MG Valium 5 MG 2-0 No Valium 5 7-11 MG 00:00: 00 FreeStyle FreeStyle 2-0 No FreeStyle [place] 2 [place] 2 6-19 [place] 2 [place] - [place] - 00:00: [place] - 00 FreeStyle FreeStyle 2-0 No FreeStyle [place] 2 [place] 2 6-19 [place] 2 Sensor - Sensor - 00:00: Sensor - 00 clonazePAM clonazePAM 2-0 No 1{table clonazePAM 0.5 MG 0.5 MG 1-19 t} 0.5 MG 00:00: 00 clonazePAM clonazePAM 2022-0 No 1{table clonazePAM 0.5 MG 0.5 MG 1-19 t} 0.5 MG 00:00: 00 clonazePAM clonazePAM 2022-0 No 1{table 0.5 MG 0.5 MG 1-19 t} 00:00: 00 clonazePAM clonazePAM 2022-0 No 1{table clonazePAM 0.5 MG 0.5 MG 1-19 t} 0.5 MG 00:00: 00 clonazePAM clonazePAM 2022-0 No 1{table clonazePAM 0.5 MG 0.5 MG 1-19 t} 0.5 MG 00:00: 00 clonazePAM clonazePAM 2022-0 No 1{table clonazePAM 0.5 MG 0.5 MG 1-19 t} 0.5 MG 00:00: 00 clonazePAM clonazePAM 2022-0 No 1{table clonazePAM 0.5 MG 0.5 MG 1-19 t} 0.5 MG 00:00: 00 clonazePAM clonazePAM 2022-0 No 1{table clonazePAM 0.5 MG 0.5 MG 1-19 t} 0.5 MG 00:00: 00 clonazePAM clonazePAM 2022-0 No 1{table clonazePAM 0.5 MG 0.5 MG 1-19 t} 0.5 MG 00:00: 00 clonazePAM clonazePAM 2022-0 No 1{table clonazePAM 0.5 MG 0.5 MG 1-19 t} 0.5 MG 00:00: 00 clonazePAM clonazePAM 2021-0 No 1{table clonazePAM 0.5 MG 0.5 MG 1-19 t} 0.5 MG 00:00: 00 clonazePAM clonazePAM 2021-0 No 1{table clonazePAM 0.5 MG 0.5 MG 1-19 t} 0.5 MG 00:00: 00 clonazePAM clonazePAM 2021-0 No 1{table clonazePAM 0.5 MG 0.5 MG 1-19 t} 0.5 MG 00:00: 00 clonazePAM clonazePAM 2021-0 No 1{table clonazePAM 0.5 MG 0.5 MG 1-19 t} 0.5 MG 00:00: 00 clonazePAM clonazePAM 2021-0 No 1{table clonazePAM 0.5 MG 0.5 MG 1-19 t} 0.5 MG 00:00: 00 clonazePAM clonazePAM 2021-0 No 1{table clonazePAM 0.5 MG 0.5 MG 1-19 t} 0.5 MG 00:00: 00 clonazePAM clonazePAM 2021-0 No 1{table clonazePAM 0.5 MG 0.5 MG 1-19 t} 0.5 MG 00:00: 00 Mupirocin 2 Mupirocin 2 2020-11- No Mupirocin % % 1-04 12-04 2 % 00:00: 00:00 00 :00 lisinopril- 2020-0 Yes [id number] 1{tbl} Take 1 Tab Univers hydrochloro 7-29 by mouth ity of thiazide 15:34: daily. [place] [facility] Medical ESTORETIC) Branch 20-25 mg per tablet levothyroxi Yes [id number] 50ug Take 50 Univers ne 7-29 mcg by ity of (SYNTHROID) 15:34: mouth [place] 50 mcg 41 every Medical tablet morning. Branch traZODone Yes 50mg Take 50 mg Un ajit 50 mg 7-29 by mouth ity of tablet 15:34: at [place] 41 bedtime. Medical Branch vitamin 0 Yes 1000ug Take 1,000 Un ajit B-12 7-29 mcg by ity of (VITAMIN 15:34: mouth [place] B-12) 1,000 41 daily. Medica l mcg tablet Branch pyridoxine Yes Take by [facility] ers HCl, 05-30 mouth. ity of vitamin B6, 15:34: [place] (VITAMIN Medical B-6 ORAL) [place] Cholecalcif Yes Take by Uni vers maria de jesus, 05-30 mouth. ity of Vitamin D3, 15:34: [place] (VITAMIN [address] [place] [address] D3) 25 mcg [place] (1,000 unit) Chew methocarbam Yes 500mg Take 500 U nivers oL 500 mg 7-29 mg by ity of tablet 15:34: mouth 4 [place] [address] (four) Medical times Branch daily. meloxicam Yes Take by [facility] rs 7.5 mg TbDL 05-30 mouth ity of 15:34: daily. [address] Branch Coenzyme Yes Take by [facility] s Q10 (CO 05-30 mouth. ity of Q-10) 10 mg 15:34: [address] Branch PNV Yes Take by [facility] 12-IRON-MET 05-30 mouth. ity of HYLFOLATE-D 15:34: [place] WALTERS ORAL [address] [place] [address] Branch turmeric Yes 250mg Take 250 [facility] ers capsule 7- mg by ity of 15:34: mouth. [address] Branch tizanidine Yes Take by [facility] ers HCl 05-30 mouth. ity of (TIZANIDINE 15:34: [place] ORAL) [address] [place] [address] Branch ALPRAZolam Yes .5mg Take 0.5 Uni vers 0.5 mg 7-29 mg by ity of tablet 15:34: mouth [place] [address] every 2 Medical (two) Branch hours as needed. solifenacin Yes 5mg Take 5 mg U nivers 5 mg tablet 05-30 by mouth ity of 15:34: daily. [address] Levothyroxi Levothyroxi No QD Levothyrox ne Sodium ne Sodium 7-16 ine Sodium 50 MCG 50 MCG 00:00: 50 MCG 00 Levothyroxi Levothyroxi No QD ne Sodium ne Sodium 7-16 50 MCG 50 MCG 00:00: 00 methocarbam Yes 500 mg = 1 Memoria ol 500 mg 7-07 tab, PO, l oral tablet 16:32: QID, # 56 H ermann 00 tab, 0 Refill(s) methocarbam 2020-0 Yes 500 mg = 1 Memoria ol 500 mg 7-07 tab, PO, l oral tablet 16:32: QID, # 56 H ermann 00 tab, 0 Refill(s) methocarbam 2020-0 Yes 500 mg = 1 Memoria ol 500 mg 7-07 tab, PO, l oral tablet 16:32: QID, # 56 H ermann 00 tab, 0 Refill(s) methocarbam 2020-0 Yes 500 mg = 1 Memoria ol 500 mg 7-07 tab, PO, l oral tablet 16:32: QID, # 56 H ermann 00 tab, 0 Refill(s) methocarbam 2020-0 Yes 500 mg = 1 Memoria ol 500 mg 7-07 tab, PO, l oral tablet 16:32: QID, # 56 H ermann 00 tab, 0 Refill(s) methocarbam 2020-0 Yes 500 mg = 1 Memoria ol 500 mg 7-07 tab, PO, l oral tablet 16:32: QID, # 56 H ermann 00 tab, 0 Refill(s) methocarbam 2020-0 Yes 500 mg = 1 Memoria ol 500 mg 7-07 tab, PO, l oral tablet 16:32: QID, # 56 H ermann 00 tab, 0 Refill(s) traMADoL 50 Yes [id number] 50mg Take 1 Univ ers mg tablet 7-06 tablet by ity o f 00:00: mouth 00 every 6 Medical (six) Branch hours as needed for Pain (scale 7-10) for up to 12 doses. Indication s: acute pain ibuprofen Yes TAKE 1 Univer s 800 mg 6-11 TABLET BY ity of tablet 00:00: MOUTH 00 THREE Medical TIMES Branch DAILY WITH FOOD OR MILK NEEDED metoprolol 2019-11 Yes Univers succinate -13 ity of XL 100 mg 00:00: [place] 24 hr 00 Medical tablet Branch anastrozole 2019-11 Yes Take by Uni vers 1 mg tablet 13 mouth ity of 00:00: 00 Medical Branch gabapentin 2019-11 Yes 300 mg = 1 M emoria 300 MG Oral -12 cap, PO, l Capsule 20:22: TID, # 270 Herm danial 00 cap, 1 Refill(s), Pharmacy: [facility] #[id number], 167.64, cm, 09/13/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, Height, 104.545, kg, 09/13/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, Weight gabapentin 2019-11 Yes 300 mg = 1 M emoria 300 MG Oral 1-12 cap, PO, l Capsule 20:22: TID, # 270 Herm danial 00 cap, 1 Refill(s), Pharmacy: 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 gabapentin 2019-11 Yes 300 mg = 1 M emoria 300 MG Oral 1-12 cap, PO, l Capsule 20:22: TID, # 270 Herm danial 00 cap, 1 Refill(s), Pharmacy: [facility] #[id number], 167.64, cm, 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/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, 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, 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, kg, 09/13/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, 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 2019-11 Yes 300 mg = 1 M emoria 300 MG Oral 0-15 cap, PO, l Capsule 20:19: BID, # 180 Herm danial 00 cap, 1 Refill(s), Pharmacy: [facility], 167.64, cm, 08/16/20 14:41:00 CDT, Height, 101.818, kg, 08/16/20 14:41:00 CDT, Weight gabapentin 2019-11 Yes 300 mg = 1 M emoria 300 MG Oral 0-15 cap, PO, l Capsule 20:19: BID, # 180 Herm danial 00 cap, 1 Refill(s), Pharmacy: [facility], 167.64, cm, 08/16/20 14:41:00 CDT, Height, 101.818, kg, 08/16/20 14:41:00 CDT, Weight gabapentin 2019-11 Yes 300 mg = 1 M emoria 300 MG Oral 0-15 cap, PO, l Capsule 20:19: BID, # 180 Herm danial 00 cap, 1 Refill(s), Pharmacy: [facility], 167.64, cm, 08/16/20 14:41:00 CDT, Height, 101.818, kg, 08/16/20 14:41:00 CDT, Weight gabapentin 2019-11 Yes 300 mg = 1 M emoria 300 MG Oral 0-15 cap, PO, l Capsule 20:19: BID, # 180 Herm danial 00 cap, 1 Refill(s), Pharmacy: [facility], 167.64, cm, 08/16/20 14:41:00 CDT, Height, 101.818, kg, 08/16/20 14:41:00 CDT, Weight gabapentin 2019-11 Yes 300 mg = 1 M emoria 300 MG Oral 0-15 cap, PO, l Capsule 20:19: BID, # 180 Herm danial 00 cap, 1 Refill(s), Pharmacy: [facility], 167.64, cm, 08/16/20 14:41:00 CDT, Height, 101.818, kg, 08/16/20 14:41:00 CDT, Weight gabapentin 2019-11 Yes 300 mg = 1 M emoria 300 MG Oral 0-15 cap, PO, l Capsule 20:19: BID, # 180 Herm danial 00 cap, 1 Refill(s), Pharmacy: [facility], 167.64, cm, 08/16/20 14:41:00 CDT, Height, 101.818, kg, 08/16/20 14:41:00 CDT, Weight gabapentin 2019-11 Yes 300 mg = 1 M emoria 300 MG Oral 0-15 cap, PO, l Capsule 20:19: BID, # 180 Herm danial 00 cap, 1 Refill(s), [facility], 167.64, cm, 08/16/20 14:41:00 CDT, Height, 101.818, kg, 08/16/20 14:41:00 CDT, Weight Trazodone 2019-11 Yes 1-3 tabs, Mem oria Hydrochlori 0-15 PO, l de 50 MG 19:48: Bedtime, # Her carmona Oral Tablet 00 30 tab, 1 Refill(s) Hydrochloro 2019-11 Yes 1 tab, PO, Memoria thiazide 25 0-15 Daily, 0 l MG / 19:48: Refill(s) [place] Lisinopril 00 20 MG Oral Tablet metoprolol 2019-11 Yes 100 mg = 1 M emoria tartrate 0-15 tab, PO, l 100 mg oral 19:48: Daily, 0 He rmann tablet 00 Refill(s) levothyroxi 2019-11 Yes 50 Memori a ne 50 mcg 0-15 microgram l (0.05 mg) 19:48: = 1 tab, Herm danial oral tablet 00 PO, Daily, 0 Refill(s) venlafaxine 2019-11 Yes 225 mg = 1 Memoria 225 mg oral 0-15 tab, PO, l tablet, 19:48: Daily, # Jeramy n extended 00 30 tab, 0 release Refill(s) Trazodone 2019-11 Yes 1-3 tabs, Mem oria Hydrochlori 0-15 PO, l de 50 MG 19:48: Bedtime, # Her carmona Oral Tablet 00 30 tab, 1 Refill(s) Hydrochloro 2019-11 Yes 1 tab, PO, Memoria thiazide 25 0-15 Daily, 0 l MG / 19:48: Refill(s) Zeferino Lisinopril 00 20 MG Oral Tablet metoprolol 2019-11 Yes 100 mg = 1 M emoria tartrate 0-15 tab, PO, l 100 mg oral 19:48: Daily, 0 He rmann tablet 00 Refill(s) levothyroxi 2019-11 Yes 50 Memori a ne 50 mcg 0-15 microgram l (0.05 mg) 19:48: = 1 tab, Herm danial oral tablet 00 PO, Daily, 0 Refill(s) venlafaxine 2019-11 Yes 225 mg = 1 Memoria 225 mg oral 0-15 tab, PO, l tablet, 19:48: Daily, # Jeramy n extended 00 30 tab, 0 release Refill(s) Trazodone 2019-11 Yes 1-3 tabs, Mem oria Hydrochlori 0-15 PO, l de 50 MG 19:48: Bedtime, # Her carmona Oral Tablet 00 30 tab, 1 Refill(s) Hydrochloro 2019-11 Yes 1 tab, PO, Memoria thiazide 25 0-15 Daily, 0 l MG / 19:48: Refill(s) [place] Lisinopril 00 20 MG Oral Tablet metoprolol 2019-11 Yes 100 mg = 1 M emoria tartrate 0-15 tab, PO, l 100 mg oral 19:48: Daily, 0 He rmann tablet 00 Refill(s) levothyroxi 2019-11 Yes 50 Memori a ne 50 mcg 0-15 microgram l (0.05 mg) 19:48: = 1 tab, Herm danial oral tablet 00 PO, Daily, 0 Refill(s) venlafaxine 2019-11 Yes 225 mg = 1 Memoria 225 mg oral 0-15 tab, PO, l tablet, 19:48: Daily, # Jeramy n extended 00 30 tab, 0 release Refill(s) Trazodone 2019-11 Yes 1-3 tabs, Mem oria Hydrochlori 0-15 PO, l de 50 MG 19:48: Bedtime, # Her carmona Oral Tablet 00 30 tab, 1 Refill(s) Hydrochloro 2019-11 Yes 1 tab, PO, Memoria thiazide 25 0-15 Daily, 0 l MG / 19:48: Refill(s) [place] Lisinopril 00 20 MG Oral Tablet metoprolol 2019-11 Yes 100 mg = 1 M emoria tartrate 0-15 tab, PO, l 100 mg oral 19:48: Daily, 0 He rmann tablet 00 Refill(s) levothyroxi 2019-11 Yes 50 Memori a ne 50 mcg 0-15 microgram l (0.05 mg) 19:48: = 1 tab, Herm danial oral tablet 00 PO, Daily, 0 Refill(s) venlafaxine 2019-11 Yes 225 mg = 1 Memoria 225 mg oral 0-15 tab, PO, l tablet, 19:48: Daily, # Jeramy n extended 00 30 tab, 0 release Refill(s) Trazodone 2019-11 Yes 1-3 tabs, Mem oria Hydrochlori 0-15 PO, l de 50 MG 19:48: Bedtime, # Her carmona Oral Tablet 00 30 tab, 1 Refill(s) Hydrochloro 2019-11 Yes 1 tab, PO, Memoria thiazide 25 0-15 Daily, 0 l MG / 19:48: Refill(s) [place] Lisinopril 00 20 MG Oral Tablet metoprolol 2019-11 Yes 100 mg = 1 M emoria tartrate 0-15 tab, PO, l 100 mg oral 19:48: Daily, 0 He rmann tablet 00 Refill(s) levothyroxi 2019-11 Yes 50 Memori a ne 50 mcg 0-15 microgram l (0.05 mg) 19:48: = 1 tab, Herm danial oral tablet 00 PO, Daily, 0 Refill(s) venlafaxine 2019-11 Yes 225 mg = 1 Memoria 225 mg oral 0-15 tab, PO, l tablet, 19:48: Daily, # Jeramy n extended 00 30 tab, 0 release Refill(s) Trazodone 2019-11 Yes 1-3 tabs, Mem oria Hydrochlori 0-15 PO, l de 50 MG 19:48: Bedtime, # Her carmona Oral Tablet 00 30 tab, 1 Refill(s) Hydrochloro 2019-11 Yes 1 tab, PO, Memoria thiazide 25 0-15 Daily, 0 l MG / 19:48: Refill(s) [place] Lisinopril 00 20 MG Oral Tablet metoprolol 2019-11 Yes 100 mg = 1 M emoria tartrate 0-15 tab, PO, l 100 mg oral 19:48: Daily, 0 He rmann tablet 00 Refill(s) levothyroxi 2019-11 Yes 50 Memori a ne 50 mcg 0-15 microgram l (0.05 mg) 19:48: = 1 tab, Herm danial oral tablet 00 PO, Daily, 0 Refill(s) venlafaxine 2019-11 Yes 225 mg = 1 Memoria 225 mg oral 0-15 tab, PO, l tablet, 19:48: Daily, # Jeramy n extended 00 30 tab, 0 release Refill(s) Trazodone 2019-11 Yes 1-3 tabs, Mem oria Hydrochlori 0-15 PO, l de 50 MG 19:48: Bedtime, # Her carmona Oral Tablet 00 30 tab, 1 Refill(s) Hydrochloro 2019-11 Yes 1 tab, PO, Memoria thiazide 25 0-15 Daily, 0 l MG / 19:48: Refill(s) [place] Lisinopril 00 20 MG Oral Tablet metoprolol 2019-11 Yes 100 mg = 1 M emoria tartrate 0-15 tab, PO, l 100 mg oral 19:48: Daily, 0 He rmann tablet 00 Refill(s) levothyroxi 2019-11 Yes 50 Memori a ne 50 mcg 0-15 microgram l (0.05 mg) 19:48: = 1 tab, Herm danial oral tablet 00 PO, Daily, 0 Refill(s) venlafaxine 2019-11 Yes 225 mg = 1 Memoria 225 mg oral 0-15 tab, PO, l tablet, 19:48: Daily, # Jeramy n extended 00 30 tab, 0 release Refill(s) gabapentin 2020-1 Yes [facility] 300 mg 0-15 ity of capsule 00:00: [facility] [place] Depo Medrol Depo Medrol 2018-0 No 40mg Common (40mg) (40mg) 01-25 [facility] 00:00: - [facility] LIDOCAINE LIDOCAINE 2018-0 No 10mg Com mon HCL 10MG/ML HCL 10MG/ML 01-25 S [facility] 00:00: - [facility] Depo Medrol Depo Medrol 2018-0 No 40mg Common (40mg) (40mg) 01-25 [facility] 00:00: - [facility] LIDOCAINE LIDOCAINE 2018-0 No 10mg Com mon HCL 10MG/ML HCL 10MG/ML 01-25 [facility] 00:00: - [facility] Depo Medrol Depo Medrol 2018-0 No 40mg Common (40mg) (40mg) 01-25 [facility] 00:00: - [facility] LIDOCAINE LIDOCAINE 2018-0 No 10mg Com mon HCL 10MG/ML HCL 10MG/ML 01-25 [facility] 00:00: - [facility] Depo Medrol Depo Medrol 2018-0 No 40mg Common (40mg) (40mg) 01-25 [facility] 00[facility]00: - [facility] LIDOCAINE LIDOCAINE 2018-0 No 10mg Com mon HCL 10MG/ML HCL 10MG/ML 01-25 [facility] 00:00: - [facility] Depo Medrol Depo Medrol 2018-0 No 40mg Common (40mg) (40mg) 01-25 [facility] 00:00: - [facility] LIDOCAINE LIDOCAINE 2018-0 No 10mg Com mon HCL 10MG/ML HCL 10MG/ML 01-25 [facility] 00:00: - [facility] Depo Medrol Depo Medrol 2018-0 No 40mg Common (40mg) (40mg) 01-25 [facility] 00:00: - [facility] LIDOCAINE LIDOCAINE 2018-0 No 10mg Com mon HCL 10MG/ML HCL 10MG/ML 01-25 [facility] 00:00: - [facility] Depo Medrol Depo Medrol 2018-0 No 40mg Common (40mg) (40mg) 01-25 [facility] 00:00: - [facility] LIDOCAINE LIDOCAINE 2019-0 No 10mg Com mon HCL 10MG/ML HCL 10MG/ML 01-25 [facility] 00:00: - [facility] Depo Medrol Depo Medrol 2018-0 No 40mg Common (40mg) (40mg) 01-25 [facility] 00:00: - [facility] LIDOCAINE LIDOCAINE 2019-0 No 10mg Com mon HCL 10MG/ML HCL 10MG/ML 01-25 [facility] 00:00: - [facility] Depo Medrol Depo Medrol 2018-0 No 40mg Common (40mg) (40mg) 01-25 [facility] 00:00: - [facility] LIDOCAINE LIDOCAINE 2019-0 No 10mg Com mon HCL 10MG/ML HCL 10MG/ML 01-25 [facility] 00:00: - [facility] Depo Medrol Depo Medrol 2019-0 No 40mg Common (40mg) (40mg) 01-25 [facility] 00:00: - [facility] LIDOCAINE LIDOCAINE 2019-0 No 10mg Com mon HCL 10MG/ML HCL 10MG/ML 01-25 [facility] 00:00: - [facility] Depo Medrol Depo Medrol 2018-0 No 40mg Common (40mg) (40mg) 01-25 [facility] 00:00: - [facility] LIDOCAINE LIDOCAINE 2019-0 No 10mg Com mon HCL 10MG/ML HCL 10MG/ML 01-25 [facility] 00:00: - [facility] Depo Medrol Depo Medrol 2019-0 No 40mg Common (40mg) (40mg) 01-25 [facility] 00:00: - [facility] LIDOCAINE LIDOCAINE 2019-0 No 10mg Com mon HCL 10MG/ML HCL 10MG/ML 01-25 [facility] 00:00: - [facility] Depo Medrol Depo Medrol 2019-0 No 40mg Common (40mg) (40mg) 01-25 [facility] 00:00: - [facility] LIDOCAINE LIDOCAINE 2019-0 No 10mg Com mon HCL 10MG/ML HCL 10MG/ML 01-25 [facility] 00:00: - [facility] Depo Medrol Depo Medrol 2019-0 No 40mg Common (40mg) (40mg) 01-25 [facility] 00:00: - [facility] LIDOCAINE LIDOCAINE 2019-0 No 10mg Com mon HCL 10MG/ML HCL 10MG/ML 01-25 [facility] 00:00: - [facility] Depo Medrol Depo Medrol 2019-0 No 40mg Common (40mg) (40mg) 01-25 [facility] 00:00: - [facility] LIDOCAINE LIDOCAINE 2019-0 No 10mg Com mon HCL 10MG/ML HCL 10MG/ML 01-25 [facility] 00:00: - [facility] Depo Medrol Depo Medrol 2018-0 No 40mg Common (40mg) (40mg) 01-25 [facility] 00:00: - [facility] LIDOCAINE LIDOCAINE 2019-0 No 10mg Com mon HCL 10MG/ML HCL 10MG/ML 01-25 [facility] 00:00: - [facility] Depo Medrol Depo Medrol 2019-0 No 40mg Common (40mg) (40mg) 01-25 [facility] 00:00: - [facility] LIDOCAINE LIDOCAINE 2019-0 No 10mg Com mon HCL 10MG/ML HCL 10MG/ML 01-25 [facility] 00:00: - [facility] Depo Medrol Depo Medrol 2019-0 No 40mg Common (40mg) (40mg) 01-25 [facility] 00:00: - [facility] LIDOCAINE LIDOCAINE 2019-0 No 10mg Com mon HCL 10MG/ML HCL 10MG/ML 01-25 [facility] 00:00: - [facility] Depo Medrol Depo Medrol 2019-0 No 40mg Common (40mg) (40mg) 01-25 [facility] 00:00: - [facility] LIDOCAINE LIDOCAINE 2019-0 No 10mg Com mon HCL 10MG/ML HCL 10MG/ML 01-25 [facility] 00:00: - [facility] Depo Medrol Depo Medrol 2019-0 No 40mg Common (40mg) (40mg) 01-25 [facility] 00:00: - [facility] LIDOCAINE LIDOCAINE 2019-0 No 10mg Com mon HCL 10MG/ML HCL 10MG/ML 01-25 [facility] 00:00: - [facility] Depo Medrol Depo Medrol 2018-0 No 40mg Common (40mg) (40mg) 01-25 [facility] 00:00: - [facility] LIDOCAINE LIDOCAINE 2019-0 No 10mg Com mon HCL 10MG/ML HCL 10MG/ML 01-25 [facility] 00:00: - [facility] Depo Medrol Depo Medrol 2018-0 No 40mg Common (40mg) (40mg) 01-25 [facility] 00:00: - [facility] LIDOCAINE LIDOCAINE 2018-0 No 10mg Com mon HCL 10MG/ML HCL 10MG/ML 01-25 [facility] 00:00: - [facility] Depo Medrol Depo Medrol 2018-0 No 40mg Common (40mg) (40mg) 01-25 [facility] 00:00: - [facility] LIDOCAINE LIDOCAINE 2018-0 No 10mg Com mon HCL 10MG/ML HCL 10MG/ML 01-25 [facility] 00:00: - [facility] Depo Medrol Depo Medrol 2018-0 No 40mg Common (40mg) (40mg) 01-25 [facility] 00:00: - [facility] LIDOCAINE LIDOCAINE 2019-0 No 10mg Com mon HCL 10MG/ML HCL 10MG/ML 01-25 [facility] 00:00: - [facility] Depo Medrol Depo Medrol 2018-0 No 40mg Common (40mg) (40mg) 01-25 [facility] 00:00: - [facility] LIDOCAINE LIDOCAINE 2019-0 No 10mg Com mon HCL 10MG/ML HCL 10MG/ML 01-25 [facility] 00:00: - [facility] Mobic 7.5 Mobic 7.5 No 1{table QD Mobic 7.5 MG MG t} MG tiZANidine tiZANidine No 1{table tiZANidine HCl 4 MG HCl 4 MG t_as_ne HCl 4 MG eded} Levothyroxi Levothyroxi No QD Levothyrox ne Sodium ne Sodium ine Sodium 50 MCG 50 MCG 50 MCG Metoprolol Metoprolol No Metoprolol Succinate Succinate Succinate ER 100 MG ER 100 MG ER 100 MG Meloxicam Meloxicam No 1{table QD Meloxicam 7.5 MG 7.5 MG t} 7.5 MG traZODone traZODone No 1{table QD traZODone HCl 50 MG HCl 50 MG t_at_be HCl 50 MG dtime} FreeStyle FreeStyle No FreeStyle [place] 2 [place] 2 [place] 2 [place] - [place] - [place] - Calcium 600 Calcium 600 No 1{table BID Calcium MG MG t_with_ 600 MG meals} OneTouch OneTouch No OneTouch Ultra - Ultra - Ultra - Vitamin B12 Vitamin B12 No Vitamin 3000 MCG 3000 MCG B12 3000 MCG ALPRAZolam ALPRAZolam No ALPRAZolam 0.5 MG 0.5 MG 0.5 MG Solifenacin Solifenacin No 1{table QD Solifenaci Succinate 5 Succinate 5 t} n MG MG Succinate 5 MG Anastrozole Anastrozole No QD Anastrozol 1 MG 1 MG e 1 MG Methocarbam Methocarbam No 1{table Methocarba ol 500 MG ol 500 MG t} mol 500 MG Gabapentin Gabapentin No 1{capsu QD Gabapentin 100 MG 100 MG le} 100 MG Vitamin D Vitamin D No 1{table QD Vitamin D (Cholecalci (Cholecalci t} (Cholecalc ferol) 25 ferol) 25 iferol) 25 MCG (1000 MCG (1000 MCG (1000 UT) UT) UT) FreeStyle FreeStyle No FreeStyle [place] 2 [place] 2 [place] 2 Sensor - Sensor - Sensor - traMADol traMADol No 1{table QD traMADol HCl 50 MG HCl 50 MG t_as_ne HCl 50 MG eded} Lisinopril- Lisinopril- No QD Lisinopril hydroCHLORO hydroCHLORO -hydroCHLO thiazide thiazide ROthiazide 20-25 MG 20-25 MG 20-25 MG CoQ-10 100 CoQ-10 100 No CoQ-10 100 MG MG MG Ibuprofen Ibuprofen No Ibuprofen 600 MG 600 MG 600 MG Mobic 7.5 Mobic 7.5 No 1{table QD Mobic 7.5 MG MG t} MG tiZANidine tiZANidine No 1{table tiZANidine HCl 4 MG HCl 4 MG t_as_ne HCl 4 MG eded} Levothyroxi Levothyroxi No QD Levothyrox ne Sodium ne Sodium ine Sodium 50 MCG 50 MCG 50 MCG Metoprolol Metoprolol No Metoprolol Succinate Succinate Succinate ER 100 MG ER 100 MG ER 100 MG FreeStyle FreeStyle No FreeStyle [place] 2 [place] 2 [place] 2 [place] - [place] - [place] - traZODone traZODone No 1{table QD traZODone HCl 50 MG HCl 50 MG t_at_be HCl 50 MG dtime} Gabapentin Gabapentin No 1{capsu QD Gabapentin 100 MG 100 MG le} 100 MG Calcium 600 Calcium 600 No 1{table BID Calcium MG MG t_with_ 600 MG meals} Meloxicam Meloxicam No 1{table QD Meloxicam 7.5 MG 7.5 MG t} 7.5 MG Vitamin B12 Vitamin B12 No Vitamin 3000 MCG 3000 MCG B12 3000 MCG OneTouch OneTouch No OneTouch Ultra - Ultra - Ultra - Anastrozole Anastrozole No QD Anastrozol 1 MG 1 MG e 1 MG Methocarbam Methocarbam No 1{table Methocarba ol 500 MG ol 500 MG t} mol 500 MG Lisinopril- Lisinopril- No Lisinopril hydroCHLORO hydroCHLORO -hydroCHLO thiazide thiazide ROthiazide 20-25 MG 20-25 MG 20-25 MG traMADol traMADol No 1{table QD traMADol HCl 50 MG HCl 50 MG t_as_ne HCl 50 MG eded} Solifenacin Solifenacin No 1{table QD Solifenaci Succinate 5 Succinate 5 t} n MG MG Succinate 5 MG ALPRAZolam ALPRAZolam No ALPRAZolam 0.5 MG 0.5 MG 0.5 MG Vitamin D Vitamin D No 1{table QD Vitamin D (Cholecalci (Cholecalci t} (Cholecalc ferol) 25 ferol) 25 iferol) 25 MCG (1000 MCG (1000 MCG (1000 UT) UT) UT) CoQ-10 100 CoQ-10 100 No CoQ-10 100 MG MG MG FreeStyle FreeStyle No FreeStyle [place] 2 [place] 2 [place] 2 Sensor - Sensor - Sensor - Ibuprofen Ibuprofen No Ibuprofen 600 MG 600 MG 600 MG Mobic 7.5 Mobic 7.5 No 1{table QD Mobic 7.5 MG MG t} MG tiZANidine tiZANidine No 1{table tiZANidine HCl 4 MG HCl 4 MG t_as_ne HCl 4 MG eded} Levothyroxi Levothyroxi No QD Levothyrox ne Sodium ne Sodium ine Sodium 50 MCG 50 MCG 50 MCG Metoprolol Metoprolol No Metoprolol Succinate Succinate Succinate ER 100 MG ER 100 MG ER 100 MG Meloxicam Meloxicam No 1{table QD Meloxicam 7.5 MG 7.5 MG t} 7.5 MG tiZANidine tiZANidine No 1{table tiZANidine HCl 4 MG HCl 4 MG t_as_ne HCl 4 MG eded} FreeStyle FreeStyle No FreeStyle [place] 2 [place] 2 [place] 2 [place] - [place] - [place] - Methocarbam Methocarbam No 1{table Methocarba ol 500 MG ol 500 MG t} mol 500 MG Venlafaxine Venlafaxine No Venlafaxin HCl ER 150 HCl ER 150 e HCl ER MG MG 150 MG Venlafaxine Venlafaxine No Venlafaxin HCl ER 75 HCl ER 75 e HCl ER MG MG 75 MG Lisinopril- Lisinopril- No Lisinopril hydroCHLORO hydroCHLORO -hydroCHLO thiazide thiazide ROthiazide 20-25 MG 20-25 MG 20-25 MG Ibuprofen Ibuprofen No Ibuprofen 600 MG 600 MG 600 MG Calcium 600 Calcium 600 No 1{table BID Calcium MG MG t_with_ 600 MG meals} OneTouch OneTouch No OneTouch Ultra - Ultra - Ultra - Metoprolol Metoprolol No Metoprolol Succinate Succinate Succinate ER 100 MG ER 100 MG ER 100 MG Solifenacin Solifenacin No Solifenaci Succinate 5 Succinate 5 n MG MG Succinate 5 MG ALPRAZolam ALPRAZolam No ALPRAZolam 0.5 MG 0.5 MG 0.5 MG Levothyroxi Levothyroxi No QD Levothyrox ne Sodium ne Sodium ine Sodium 50 MCG 50 MCG 50 MCG Mobic 7.5 Mobic 7.5 No 1{table QD Mobic 7.5 MG MG t} MG CoQ-10 100 CoQ-10 100 No CoQ-10 100 MG MG MG OneTouch OneTouch No OneTouch Ultra - Ultra - Ultra - traMADol traMADol No 1{table QD traMADol HCl 50 MG HCl 50 MG t_as_ne HCl 50 MG eded} Anastrozole Anastrozole No QD Anastrozol 1 MG 1 MG e 1 MG Vitamin D Vitamin D No 1{table QD Vitamin D (Cholecalci (Cholecalci t} (Cholecalc ferol) 25 ferol) 25 iferol) 25 MCG (1000 MCG (1000 MCG (1000 UT) UT) UT) traZODone traZODone No 1{table QD traZODone HCl 50 MG HCl 50 MG t_at_be HCl 50 MG dtime} Vitamin B12 Vitamin B12 No Vitamin 3000 MCG 3000 MCG B12 3000 MCG Gabapentin Gabapentin No 1{capsu QD Gabapentin 100 MG 100 MG le} 100 MG FreeStyle FreeStyle No FreeStyle [place] 2 [place] 2 [place] 2 Sensor - Sensor - Sensor - Gabapentin Gabapentin No 1{capsu QD Gabapentin 100 MG 100 MG le} 100 MG Meloxicam Meloxicam No 1{table QD Meloxicam 7.5 MG 7.5 MG t} 7.5 MG tiZANidine tiZANidine No 1{table tiZANidine HCl 4 MG HCl 4 MG t_as_ne HCl 4 MG eded} FreeStyle FreeStyle No FreeStyle [place] 2 [place] 2 [place] 2 [place] - [place] - Methocarbam Methocarbam No 1{table Methocarba ol 500 MG ol 500 MG t} mol 500 MG Venlafaxine Venlafaxine No Venlafaxin HCl ER 150 HCl ER 150 e HCl ER MG MG 150 MG Venlafaxine Venlafaxine No Venlafaxin HCl ER 75 HCl ER 75 e HCl ER MG MG 75 MG Lisinopril- Lisinopril- No Lisinopril hydroCHLORO hydroCHLORO -hydroCHLO thiazide thiazide ROthiazide 20-25 MG 20-25 MG 20-25 MG FreeStyle FreeStyle No FreeStyle [place] 2 [place] 2 [place] 2 Sensor - Sensor - Sensor - Ibuprofen Ibuprofen No Ibuprofen 600 MG 600 MG 600 MG Calcium 600 Calcium 600 No 1{table BID Calcium MG MG t_with_ 600 MG meals} OneTouch OneTouch No OneTouch Ultra - Ultra - Ultra - Metoprolol Metoprolol No Metoprolol Succinate Succinate Succinate ER 100 MG ER 100 MG ER 100 MG Solifenacin Solifenacin No Solifenaci Succinate 5 Succinate 5 n MG MG Succinate 5 MG ALPRAZolam ALPRAZolam No ALPRAZolam 0.5 MG 0.5 MG 0.5 MG Levothyroxi Levothyroxi No QD Levothyrox ne Sodium ne Sodium ine Sodium 50 MCG 50 MCG 50 MCG Mobic 7.5 Mobic 7.5 No 1{table QD Mobic 7.5 MG MG t} MG CoQ-10 100 CoQ-10 100 No CoQ-10 100 MG MG MG traMADol traMADol No 1{table QD traMADol HCl 50 MG HCl 50 MG t_as_ne HCl 50 MG eded} traZODone traZODone No 1{table QD traZODone HCl 50 MG HCl 50 MG t_at_be HCl 50 MG dtime} Anastrozole Anastrozole No QD Anastrozol 1 MG 1 MG e 1 MG Vitamin D Vitamin D No 1{table QD Vitamin D (Cholecalci (Cholecalci t} (Cholecalc ferol) 25 ferol) 25 iferol) 25 MCG (1000 MCG (1000 MCG (1000 UT) UT) UT) traZODone traZODone No 1{table QD traZODone HCl 50 MG HCl 50 MG t_at_be HCl 50 MG dtime} Vitamin B12 Vitamin B12 No Vitamin 3000 MCG 3000 MCG B12 3000 MCG Gabapentin Gabapentin No 1{capsu QD Gabapentin 100 MG 100 MG le} 100 MG FreeStyle FreeStyle No FreeStyle [place] 2 [place] 2 [place] 2 Sensor - Sensor - Sensor - Venlafaxine Venlafaxine No QD Venlafaxin HCl ER 225 HCl ER 225 e HCl ER MG MG 225 MG Meloxicam Meloxicam No 1{table QD Meloxicam 7.5 MG 7.5 MG t} 7.5 MG tiZANidine tiZANidine No 1{table tiZANidine HCl 4 MG HCl 4 MG t_as_ne HCl 4 MG eded} FreeStyle FreeStyle No FreeStyle [place] 2 [place] 2 [place] 2 [place] - Methocarbam Methocarbam No 1{table Methocarba ol 500 MG ol 500 MG t} mol 500 MG Venlafaxine Venlafaxine No Venlafaxin HCl ER 150 HCl ER 150 e HCl ER MG MG 150 MG Levothyroxi Levothyroxi No QD Levothyrox ne Sodium ne Sodium ine Sodium 50 MCG 50 MCG 50 MCG Venlafaxine Venlafaxine No Venlafaxin HCl ER 75 HCl ER 75 e HCl ER MG MG 75 MG Lisinopril- Lisinopril- No Lisinopril hydroCHLORO hydroCHLORO -hydroCHLO thiazide thiazide ROthiazide 20-25 MG 20-25 MG 20-25 MG Ibuprofen Ibuprofen No Ibuprofen 600 MG 600 MG 600 MG Calcium 600 Calcium 600 No 1{table BID Calcium MG MG t_with_ 600 MG meals} OneTouch OneTouch No OneTouch Ultra - Ultra - Ultra - Metoprolol Metoprolol No Metoprolol Succinate Succinate Succinate ER 100 MG ER 100 MG ER 100 MG Solifenacin Solifenacin No Solifenaci Succinate 5 Succinate 5 n MG MG Succinate 5 MG ALPRAZolam ALPRAZolam No ALPRAZolam 0.5 MG 0.5 MG 0.5 MG Levothyroxi Levothyroxi No QD Levothyrox ne Sodium ne Sodium ine Sodium 50 MCG 50 MCG 50 MCG Lisinopril- Lisinopril- No QD Lisinopril hydroCHLORO hydroCHLORO -hydroCHLO thiazide thiazide ROthiazide 20-25 MG 20-25 MG 20-25 MG Mobic 7.5 Mobic 7.5 No 1{table QD Mobic 7.5 MG MG t} MG CoQ-10 100 CoQ-10 100 No CoQ-10 100 MG MG MG traMADol traMADol No 1{table QD traMADol HCl 50 MG HCl 50 MG t_as_ne HCl 50 MG eded} Anastrozole Anastrozole No QD Anastrozol 1 MG 1 MG e 1 MG Vitamin D Vitamin D No 1{table QD Vitamin D (Cholecalci (Cholecalci t} (Cholecalc ferol) 25 ferol) 25 iferol) 25 MCG (1000 MCG (1000 MCG (1000 UT) UT) UT) traZODone traZODone No 1{table QD traZODone HCl 50 MG HCl 50 MG t_at_be HCl 50 MG dtime} Vitamin B12 Vitamin B12 No Vitamin 3000 MCG 3000 MCG B12 3000 MCG Gabapentin Gabapentin No 1{capsu QD Gabapentin 100 MG 100 MG le} 100 MG FreeStyle FreeStyle No FreeStyle [place] 2 [place] 2 [place] 2 Sensor - Sensor - Sensor - Meloxicam Meloxicam No 1{table QD Meloxicam 7.5 MG 7.5 MG t} 7.5 MG tiZANidine tiZANidine No 1{table tiZANidine HCl 4 MG HCl 4 MG t_as_ne HCl 4 MG eded} FreeStyle FreeStyle No FreeStyle [place] 2 [place] 2 [place] 2 [place] - CoQ-10 100 CoQ-10 100 No CoQ-10 100 MG MG MG Methocarbam Methocarbam No 1{table Methocarba ol 500 MG ol 500 MG t} mol 500 MG Venlafaxine Venlafaxine No Venlafaxin HCl ER 150 HCl ER 150 e HCl ER MG MG 150 MG Venlafaxine Venlafaxine No Venlafaxin HCl ER 75 HCl ER 75 e HCl ER MG MG 75 MG Lisinopril- Lisinopril- No Lisinopril hydroCHLORO hydroCHLORO -hydroCHLO thiazide thiazide ROthiazide 20-25 MG 20-25 MG 20-25 MG Ibuprofen Ibuprofen No Ibuprofen 600 MG 600 MG 600 MG Calcium 600 Calcium 600 No 1{table BID Calcium MG MG t_with_ 600 MG meals} OneTouch OneTouch No OneTouch Ultra - Ultra - Ultra - Metoprolol Metoprolol No Metoprolol Succinate Succinate Succinate ER 100 MG ER 100 MG ER 100 MG Calcium 600 Calcium 600 No 1{table BID Calcium MG MG t_with_ 600 MG meals} Solifenacin Solifenacin No Solifenaci Succinate 5 Succinate 5 n MG MG Succinate 5 MG ALPRAZolam ALPRAZolam No ALPRAZolam 0.5 MG 0.5 MG 0.5 MG Levothyroxi Levothyroxi No QD Levothyrox ne Sodium ne Sodium ine Sodium 50 MCG 50 MCG 50 MCG Mobic 7.5 Mobic 7.5 No 1{table QD Mobic 7.5 MG MG t} MG CoQ-10 100 CoQ-10 100 No CoQ-10 100 MG MG MG traMADol traMADol No 1{table QD traMADol HCl 50 MG HCl 50 MG t_as_ne HCl 50 MG eded} Anastrozole Anastrozole No QD Anastrozol 1 MG 1 MG e 1 MG Vitamin D Vitamin D No 1{table QD Vitamin D (Cholecalci (Cholecalci t} (Cholecalc ferol) 25 ferol) 25 iferol) 25 MCG (1000 MCG (1000 MCG (1000 UT) UT) UT) traZODone traZODone No 1{table QD traZODone HCl 50 MG HCl 50 MG t_at_be HCl 50 MG dtime} Vitamin B12 Vitamin B12 No Vitamin 3000 MCG 3000 MCG B12 3000 MCG Vitamin B12 Vitamin B12 No Vitamin 3000 MCG 3000 MCG B12 3000 MCG Gabapentin Gabapentin No 1{capsu QD Gabapentin 100 MG 100 MG le} 100 MG FreeStyle FreeStyle No FreeStyle [place] 2 [place] 2 [place] 2 Sensor - Sensor - Sensor - Anastrozole Anastrozole No QD Anastrozol 1 MG 1 MG e 1 MG Gabapentin Gabapentin No 1{capsu QD Gabapentin 100 MG 100 MG le} 100 MG Levothyroxi Levothyroxi No QD Levothyrox ne Sodium ne Sodium ine Sodium 50 MCG 50 MCG 50 MCG Vitamin D Vitamin D No 1{table QD Vitamin D (Cholecalci (Cholecalci t} (Cholecalc ferol) 25 ferol) 25 iferol) 25 MCG (1000 MCG (1000 MCG (1000 UT) UT) UT) traMADol traMADol No 1{table QD traMADol HCl 50 MG HCl 50 MG t_as_ne HCl 50 MG eded} Ibuprofen Ibuprofen No Ibuprofen 600 MG 600 MG 600 MG Lisinopril- Lisinopril- No Lisinopril hydroCHLORO hydroCHLORO -hydroCHLO thiazide thiazide ROthiazide 20-25 MG 20-25 MG 20-25 MG traZODone traZODone No 1{table QD traZODone HCl 50 MG HCl 50 MG t_at_be HCl 50 MG dtime} Vitamin D Vitamin D No 1{table QD Vitamin D (Cholecalci (Cholecalci t} (Cholecalc ferol) 25 ferol) 25 iferol) 25 MCG (1000 MCG (1000 MCG (1000 UT) UT) UT) Mobic 7.5 Mobic 7.5 No 1{table QD Mobic 7.5 MG MG t} MG FreeStyle FreeStyle No FreeStyle [place] 2 [place] 2 [place] 2 [place] - Venlafaxine Venlafaxine No Venlafaxin HCl ER 150 HCl ER 150 e HCl ER MG MG 150 MG OneTouch OneTouch No OneTouch Ultra - Ultra - Ultra - Calcium 600 Calcium 600 No 1{table BID Calcium MG MG t_with_ 600 MG meals} Venlafaxine Venlafaxine No Venlafaxin HCl ER 75 HCl ER 75 e HCl ER MG MG 75 MG FreeStyle FreeStyle No FreeStyle [place] 2 [place] 2 [place] 2 Sensor - Sensor - Sensor - ALPRAZolam ALPRAZolam No ALPRAZolam 0.5 MG 0.5 MG 0.5 MG CoQ-10 100 CoQ-10 100 No CoQ-10 100 MG MG MG Metoprolol Metoprolol No Metoprolol Succinate Succinate Succinate ER 100 MG ER 100 MG ER 100 MG tiZANidine tiZANidine No 1{table tiZANidine HCl 4 MG HCl 4 MG t_as_ne HCl 4 MG eded} Vitamin B12 Vitamin B12 No Vitamin 3000 MCG 3000 MCG B12 3000 MCG Anastrozole Anastrozole No Anastrozol 1 MG 1 MG e 1 MG Meloxicam Meloxicam No 1{table QD Meloxicam 7.5 MG 7.5 MG t} 7.5 MG Metoprolol Metoprolol No Metoprolol Succinate Succinate Succinate ER 100 MG ER 100 MG ER 100 MG Solifenacin Solifenacin No Solifenaci Succinate 5 Succinate 5 n MG MG Succinate 5 MG Methocarbam Methocarbam No 1{table Methocarba ol 500 MG ol 500 MG t} mol 500 MG Solifenacin Solifenacin No 1{table QD Solifenaci Succinate 5 Succinate 5 t} n MG MG Succinate 5 MG FreeStyle FreeStyle No FreeStyle [place] 2 [place] 2 [place] 2 [place] - [place] - [place] - Ibuprofen Ibuprofen No Ibuprofen 800 MG 800 MG 800 MG Gabapentin Gabapentin No 1{capsu QD Gabapentin 100 MG 100 MG le} 100 MG Ibuprofen Ibuprofen No Ibuprofen 800 MG 800 MG 800 MG traZODone traZODone No 1{table QD traZODone HCl 50 MG HCl 50 MG t_at_be HCl 50 MG dtime} Vitamin D Vitamin D No 1{table QD Vitamin D (Cholecalci (Cholecalci t} (Cholecalc ferol) 25 ferol) 25 iferol) 25 MCG (1000 MCG (1000 MCG (1000 UT) UT) UT) OneTouch OneTouch No OneTouch Ultra - Ultra - Ultra - Lisinopril- Lisinopril- No QD Lisinopril hydroCHLORO hydroCHLORO -hydroCHLO thiazide thiazide ROthiazide 20-25 MG 20-25 MG 20-25 MG Levothyroxi Levothyroxi No QD Levothyrox ne Sodium ne Sodium ine Sodium 50 MCG 50 MCG 50 MCG Calcium 600 Calcium 600 No 1{table BID Calcium MG MG t_with_ 600 MG meals} FreeStyle FreeStyle No FreeStyle [place] 2 [place] 2 [place] 2 Sensor - Sensor - Sensor - Metoprolol Metoprolol No Metoprolol Succinate Succinate Succinate ER 100 MG ER 100 MG ER 100 MG FreeStyle FreeStyle No FreeStyle [place] 2 [place] 2 [place] 2 [place] - CoQ-10 100 CoQ-10 100 No CoQ-10 100 MG MG MG Solifenacin Solifenacin No 1{table QD Solifenaci Succinate 5 Succinate 5 t} n MG MG Succinate 5 MG Vitamin B12 Vitamin B12 No Vitamin 3000 MCG 3000 MCG B12 3000 MCG Anastrozole Anastrozole No QD Anastrozol 1 MG 1 MG e 1 MG Gabapentin Gabapentin No 1{capsu QD Gabapentin 100 MG 100 MG le} 100 MG Ibuprofen Ibuprofen No Ibuprofen 800 MG 800 MG 800 MG traZODone traZODone No 1{table QD traZODone HCl 50 MG HCl 50 MG t_at_be HCl 50 MG dtime} Vitamin D Vitamin D No 1{table QD Vitamin D (Cholecalci (Cholecalci t} (Cholecalc ferol) 25 ferol) 25 iferol) 25 MCG (1000 MCG (1000 MCG (1000 UT) UT) UT) OneTouch OneTouch No OneTouch Ultra - Ultra - Ultra - Lisinopril- Lisinopril- No QD Lisinopril hydroCHLORO hydroCHLORO -hydroCHLO thiazide thiazide ROthiazide 20-25 MG 20-25 MG 20-25 MG Levothyroxi Levothyroxi No QD Levothyrox ne Sodium ne Sodium ine Sodium 50 MCG 50 MCG 50 MCG Calcium 600 Calcium 600 No 1{table BID Calcium MG MG t_with_ 600 MG meals} FreeStyle FreeStyle No FreeStyle [place] 2 [place] 2 [place] 2 Sensor - Sensor - Sensor - Metoprolol Metoprolol No Metoprolol Succinate Succinate Succinate ER 100 MG ER 100 MG ER 100 MG FreeStyle FreeStyle No FreeStyle [place] 2 [place] 2 [place] 2 [place] - [place] - CoQ-10 100 CoQ-10 100 No CoQ-10 100 MG MG MG Solifenacin Solifenacin No 1{table QD Solifenaci Succinate 5 Succinate 5 t} n MG MG Succinate 5 MG Vitamin B12 Vitamin B12 No Vitamin 3000 MCG 3000 MCG B12 3000 MCG Anastrozole Anastrozole No QD Anastrozol 1 MG 1 MG e 1 MG Metoprolol Metoprolol No 1{table QD Metoprolol Succinate Succinate t} Succinate ER 50 MG ER 50 MG ER 50 MG CoQ-10 100 CoQ-10 100 No CoQ-10 100 MG MG MG Anastrozole Anastrozole No Anastrozol 1 MG 1 MG e 1 MG Venlafaxine Venlafaxine No 1{capsu QD Venlafaxin HCl ER 225 HCl ER 225 le_with e HCl ER MG MG _food} 225 MG traZODone traZODone No 1{table QD traZODone HCl 50 MG HCl 50 MG t_at_be HCl 50 MG dtime} Vitamin B12 Vitamin B12 No Vitamin 3000 MCG 3000 MCG B12 3000 MCG Vitamin D Vitamin D No 1{table QD Vitamin D (Cholecalci (Cholecalci t} (Cholecalc ferol) 25 ferol) 25 iferol) 25 MCG (1000 MCG (1000 MCG (1000 UT) UT) UT) Ibuprofen Ibuprofen No Ibuprofen 800 MG 800 MG 800 MG Lisinopril- Lisinopril- No Lisinopril hydroCHLORO hydroCHLORO -hydroCHLO thiazide thiazide ROthiazide 20-25 MG 20-25 MG 20-25 MG Calcium 600 Calcium 600 No 1{table BID Calcium MG MG t_with_ 600 MG meals} Gabapentin Gabapentin No 1{capsu QD Gabapentin 100 MG 100 MG le} 100 MG Folate 400 Folate 400 No QD Folate 400 MCG MCG MCG Venlafaxine Venlafaxine No HCl ER 225 HCl ER 225 MG MG Anastrozole Anastrozole No 1 MG 1 MG traZODone traZODone No 1{table QD HCl 50 MG HCl 50 MG t_at_be dtime} Metoprolol Metoprolol No Succinate Succinate ER 100 MG ER 100 MG Gabapentin Gabapentin No 1{capsu QD 100 MG 100 MG le} Vitamin B12 Vitamin B12 No 3000 MCG 3000 MCG Vitamin D Vitamin D No 1{table QD (Cholecalci (Cholecalci t} ferol) 25 ferol) 25 MCG (1000 MCG (1000 UT) UT) CoQ-10 100 CoQ-10 100 No MG MG Lisinopril- Lisinopril- No hydroCHLORO hydroCHLORO thiazide thiazide 20-25 MG 20-25 MG Calcium 600 Calcium 600 No 1{table BID MG MG t_with_ meals} Ibuprofen Ibuprofen No 800 MG 800 MG Folate 400 Folate 400 No QD MCG MCG Metoprolol Metoprolol No Metoprolol Succinate Succinate Succinate ER 100 MG ER 100 MG ER 100 MG Lisinopril- Lisinopril- No Lisinopril hydroCHLORO hydroCHLORO -hydroCHLO thiazide thiazide ROthiazide 20-25 MG 20-25 MG 20-25 MG traZODone traZODone No 1{table QD traZODone HCl 50 MG HCl 50 MG t_at_be HCl 50 MG dtime} Vitamin D Vitamin D No 1{table QD Vitamin D (Cholecalci (Cholecalci t} (Cholecalc ferol) 25 ferol) 25 iferol) 25 MCG (1000 MCG (1000 MCG (1000 UT) UT) UT) Vitamin B12 Vitamin B12 No Vitamin 3000 MCG 3000 MCG B12 3000 MCG Solifenacin Solifenacin No 1{table QD Solifenaci Succinate 5 Succinate 5 t} n MG MG Succinate 5 MG Gabapentin Gabapentin No 1{capsu QD Gabapentin 100 MG 100 MG le} 100 MG Calcium 600 Calcium 600 No 1{table BID Calcium MG MG t_with_ 600 MG meals} Ibuprofen Ibuprofen No Ibuprofen 800 MG 800 MG 800 MG CoQ-10 100 CoQ-10 100 No CoQ-10 100 MG MG MG Levothyroxi Levothyroxi No QD Levothyrox ne Sodium ne Sodium ine Sodium 50 MCG 50 MCG 50 MCG Folate 400 Folate 400 No QD Folate 400 MCG MCG MCG Venlafaxine Venlafaxine No Venlafaxin HCl ER 225 HCl ER 225 e HCl ER MG MG 225 MG Vitamin D Vitamin D No 1{table QD Vitamin D (Cholecalci (Cholecalci t} (Cholecalc ferol) 25 ferol) 25 iferol) 25 MCG (1000 MCG (1000 MCG (1000 UT) UT) UT) traZODone traZODone No 1{table QD traZODone HCl 50 MG HCl 50 MG t_at_be HCl 50 MG dtime} Gabapentin Gabapentin No 1{capsu QD Gabapentin 100 MG 100 MG le} 100 MG Venlafaxine Venlafaxine No Venlafaxin HCl ER 225 HCl ER 225 e HCl ER MG MG 225 MG CoQ-10 100 CoQ-10 100 No CoQ-10 100 MG MG MG Lisinopril- Lisinopril- No Lisinopril hydroCHLORO hydroCHLORO -hydroCHLO thiazide thiazide ROthiazide 20-25 MG 20-25 MG 20-25 MG Vitamin B12 Vitamin B12 No Vitamin 3000 MCG 3000 MCG B12 3000 MCG Metoprolol Metoprolol No Metoprolol Succinate Succinate Succinate ER 100 MG ER 100 MG ER 100 MG Levothyroxi Levothyroxi No QD Levothyrox ne Sodium ne Sodium ine Sodium 50 MCG 50 MCG 50 MCG Solifenacin Solifenacin No 1{table QD Solifenaci Succinate 5 Succinate 5 t} n MG MG Succinate 5 MG Ibuprofen Ibuprofen No Ibuprofen 800 MG 800 MG 800 MG Calcium 600 Calcium 600 No 1{table BID Calcium MG MG t_with_ 600 MG meals} Gabapentin Gabapentin No 1{capsu QD Gabapentin 100 MG 100 MG le} 100 MG Venlafaxine Venlafaxine No Venlafaxin HCl ER 225 HCl ER 225 e HCl ER MG MG 225 MG traZODone traZODone No 1{table QD traZODone HCl 50 MG HCl 50 MG t_at_be HCl 50 MG dtime} Ibuprofen Ibuprofen No Ibuprofen 800 MG 800 MG 800 MG CoQ-10 100 CoQ-10 100 No CoQ-10 100 MG MG MG Levothyroxi Levothyroxi No QD Levothyrox ne Sodium ne Sodium ine Sodium 50 MCG 50 MCG 50 MCG Solifenacin Solifenacin No 1{table QD Solifenaci Succinate 5 Succinate 5 t} n MG MG Succinate 5 MG Calcium 600 Calcium 600 No 1{table BID Calcium MG MG t_with_ 600 MG meals} FreeStyle FreeStyle No FreeStyle [place] 2 [place] 2 [place] 2 [place] - Lisinopril- Lisinopril- No Lisinopril hydroCHLORO hydroCHLORO -hydroCHLO thiazide thiazide ROthiazide 20-25 MG 20-25 MG 20-25 MG Vitamin D Vitamin D No 1{table QD Vitamin D (Cholecalci (Cholecalci t} (Cholecalc ferol) 25 ferol) 25 iferol) 25 MCG (1000 MCG (1000 MCG (1000 UT) UT) UT) FreeStyle FreeStyle No FreeStyle [place] 2 [place] 2 [place] 2 Sensor - Sensor - Sensor - Metoprolol Metoprolol No Metoprolol Succinate Succinate Succinate ER 100 MG ER 100 MG ER 100 MG Vitamin B12 Vitamin B12 No Vitamin 3000 MCG 3000 MCG B12 3000 MCG Anastrozole Anastrozole No Anastrozol 1 MG 1 MG e 1 MG Gabapentin Gabapentin No 1{capsu QD Gabapentin 100 MG 100 MG le} 100 MG Venlafaxine Venlafaxine No Venlafaxin HCl ER 225 HCl ER 225 e HCl ER MG MG 225 MG traZODone traZODone No 1{table QD traZODone HCl 50 MG HCl 50 MG t_at_be HCl 50 MG dtime} Ibuprofen Ibuprofen No Ibuprofen 800 MG 800 MG 800 MG CoQ-10 100 CoQ-10 100 No CoQ-10 100 MG MG MG Levothyroxi Levothyroxi No QD Levothyrox ne Sodium ne Sodium ine Sodium 50 MCG 50 MCG 50 MCG Solifenacin Solifenacin No 1{table QD Solifenaci Succinate 5 Succinate 5 t} n MG MG Succinate 5 MG Calcium 600 Calcium 600 No 1{table BID Calcium MG MG t_with_ 600 MG meals} FreeStyle FreeStyle No FreeStyle [place] 2 [place] 2 [place] 2 [place] - [place] - [place] - Lisinopril- Lisinopril- No Lisinopril hydroCHLORO hydroCHLORO -hydroCHLO thiazide thiazide ROthiazide 20-25 MG 20-25 MG 20-25 MG Vitamin D Vitamin D No 1{table QD Vitamin D (Cholecalci (Cholecalci t} (Cholecalc ferol) 25 ferol) 25 iferol) 25 MCG (1000 MCG (1000 MCG (1000 UT) UT) UT) FreeStyle FreeStyle No FreeStyle [place] 2 [place] 2 [place] 2 Sensor - Sensor - Sensor - Metoprolol Metoprolol No Metoprolol Succinate Succinate Succinate ER 100 MG ER 100 MG ER 100 MG Vitamin B12 Vitamin B12 No Vitamin 3000 MCG 3000 MCG B12 3000 MCG Anastrozole Anastrozole No Anastrozol 1 MG 1 MG e 1 MG Gabapentin Gabapentin No 1{capsu QD Gabapentin 100 MG 100 MG le} 100 MG Venlafaxine Venlafaxine No Venlafaxin HCl ER 225 HCl ER 225 e HCl ER MG MG 225 MG traZODone traZODone No 1{table QD traZODone HCl 50 MG HCl 50 MG t_at_be HCl 50 MG dtime} Ibuprofen Ibuprofen No Ibuprofen 800 MG 800 MG 800 MG CoQ-10 100 CoQ-10 100 No CoQ-10 100 MG MG MG Levothyroxi Levothyroxi No QD Levothyrox ne Sodium ne Sodium ine Sodium 50 MCG 50 MCG 50 MCG Solifenacin Solifenacin No 1{table QD Solifenaci Succinate 5 Succinate 5 t} n MG MG Succinate 5 MG Calcium 600 Calcium 600 No 1{table BID Calcium MG MG t_with_ 600 MG meals} FreeStyle FreeStyle No FreeStyle [place] 2 [place] 2 [place] 2 [place] - [place] - [place] - Lisinopril- Lisinopril- No Lisinopril hydroCHLORO hydroCHLORO -hydroCHLO thiazide thiazide ROthiazide 20-25 MG 20-25 MG 20-25 MG Vitamin D Vitamin D No 1{table QD Vitamin D (Cholecalci (Cholecalci t} (Cholecalc ferol) 25 ferol) 25 iferol) 25 MCG (1000 MCG (1000 MCG (1000 UT) UT) UT) FreeStyle FreeStyle No FreeStyle [place] 2 [place] 2 [place] 2 Sensor - Sensor - Sensor - Metoprolol Metoprolol No Metoprolol Succinate Succinate Succinate ER 100 MG ER 100 MG ER 100 MG Vitamin B12 Vitamin B12 No Vitamin 3000 MCG 3000 MCG B12 3000 MCG Anastrozole Anastrozole No Anastrozol 1 MG 1 MG e 1 MG Venlafaxine Venlafaxine No Venlafaxin HCl ER 225 HCl ER 225 e HCl ER MG MG 225 MG Lisinopril- Lisinopril- No Lisinopril hydroCHLORO hydroCHLORO -hydroCHLO thiazide thiazide ROthiazide 20-25 MG 20-25 MG 20-25 MG Ibuprofen Ibuprofen No Ibuprofen 800 MG 800 MG 800 MG FreeStyle FreeStyle No FreeStyle [place] 2 [place] 2 [place] 2 [place] - [place] - [place] - Gabapentin Gabapentin No 1{capsu QD Gabapentin 100 MG 100 MG le} 100 MG CoQ-10 100 CoQ-10 100 No CoQ-10 100 MG MG MG Levothyroxi Levothyroxi No QD Levothyrox ne Sodium ne Sodium ine Sodium 50 MCG 50 MCG 50 MCG Solifenacin Solifenacin No 1{table QD Solifenaci Succinate 5 Succinate 5 t} n MG MG Succinate 5 MG Metoprolol Metoprolol No Metoprolol Succinate Succinate Succinate ER 100 MG ER 100 MG ER 100 MG Calcium 600 Calcium 600 No 1{table BID Calcium MG MG t_with_ 600 MG meals} Vitamin B12 Vitamin B12 No Vitamin 3000 MCG 3000 MCG B12 3000 MCG Anastrozole Anastrozole No Anastrozol 1 MG 1 MG e 1 MG traZODone traZODone No 1{table QD traZODone HCl 50 MG HCl 50 MG t_at_be HCl 50 MG dtime} Vitamin D Vitamin D No 1{table QD Vitamin D (Cholecalci (Cholecalci t} (Cholecalc ferol) 25 ferol) 25 iferol) 25 MCG (1000 MCG (1000 MCG (1000 UT) UT) UT) FreeStyle FreeStyle No FreeStyle [place] 2 [place] 2 [place] 2 Sensor - Sensor - Sensor - OneTouch OneTouch No OneTouch Ultra - Ultra - Ultra - Gabapentin Gabapentin No 1{capsu QD Gabapentin 100 MG 100 MG le} 100 MG Ibuprofen Ibuprofen No Ibuprofen 800 MG 800 MG 800 MG traZODone traZODone No 1{table QD traZODone HCl 50 MG HCl 50 MG t_at_be HCl 50 MG dtime} FreeStyle FreeStyle No FreeStyle [place] 2 [place] 2 [place] 2 Sensor - Sensor - Sensor - OneTouch OneTouch No OneTouch Ultra - Ultra - Ultra - Venlafaxine Venlafaxine No QD Venlafaxin HCl ER 225 HCl ER 225 e HCl ER MG MG 225 MG Levothyroxi Levothyroxi No QD Levothyrox ne Sodium ne Sodium ine Sodium 50 MCG 50 MCG 50 MCG Lisinopril- Lisinopril- No QD Lisinopril hydroCHLORO hydroCHLORO -hydroCHLO thiazide thiazide ROthiazide 20-25 MG 20-25 MG 20-25 MG Anastrozole Anastrozole No Anastrozol 1 MG 1 MG e 1 MG Calcium 600 Calcium 600 No 1{table BID Calcium MG MG t_with_ 600 MG meals} Vitamin B12 Vitamin B12 No Vitamin 3000 MCG 3000 MCG B12 3000 MCG CoQ-10 100 CoQ-10 100 No CoQ-10 100 MG MG MG Vitamin D Vitamin D No 1{table QD Vitamin D (Cholecalci (Cholecalci t} (Cholecalc ferol) 25 ferol) 25 iferol) 25 MCG (1000 MCG (1000 MCG (1000 UT) UT) UT) Solifenacin Solifenacin No 1{table QD Solifenaci Succinate 5 Succinate 5 t} n MG MG Succinate 5 MG FreeStyle FreeStyle No FreeStyle [place] 2 [place] 2 [place] 2 [place] - [place] - [place] - Metoprolol Metoprolol No Metoprolol Succinate Succinate Succinate ER 100 MG ER 100 MG ER 100 MG Ibuprofen Ibuprofen No Ibuprofen 800 MG 800 MG 800 MG Metoprolol Metoprolol No Metoprolol Succinate Succinate Succinate ER 100 MG ER 100 MG ER 100 MG OneTouch OneTouch No OneTouch Ultra - Ultra - Ultra - Vitamin D Vitamin D No 1{table QD Vitamin D (Cholecalci (Cholecalci t} (Cholecalc ferol) 25 ferol) 25 iferol) 25 MCG (1000 MCG (1000 MCG (1000 UT) UT) UT) Gabapentin Gabapentin No 1{capsu QD Gabapentin 100 MG 100 MG le} 100 MG Lisinopril- Lisinopril- No QD Lisinopril hydroCHLORO hydroCHLORO -hydroCHLO thiazide thiazide ROthiazide 20-25 MG 20-25 MG 20-25 MG traZODone traZODone No 1{table QD traZODone HCl 50 MG HCl 50 MG t_at_be HCl 50 MG dtime} Levothyroxi Levothyroxi No QD Levothyrox ne Sodium ne Sodium ine Sodium 50 MCG 50 MCG 50 MCG Calcium 600 Calcium 600 No 1{table BID Calcium MG MG t_with_ 600 MG meals} FreeStyle FreeStyle No FreeStyle [place] 2 [place] 2 [place] 2 Sensor - Sensor - Sensor - Venlafaxine Venlafaxine No QD Venlafaxin HCl ER 225 HCl ER 225 e HCl ER MG MG 225 MG FreeStyle FreeStyle No FreeStyle [place] 2 [place] 2 [place] 2 [place] - [place] - [place] - Anastrozole Anastrozole No Anastrozol 1 MG 1 MG e 1 MG Solifenacin Solifenacin No 1{table QD Solifenaci Succinate 5 Succinate 5 t} n MG MG Succinate 5 MG Vitamin B12 Vitamin B12 No Vitamin 3000 MCG 3000 MCG B12 3000 MCG CoQ-10 100 CoQ-10 100 No CoQ-10 100 MG MG MG Ibuprofen Ibuprofen No Ibuprofen 800 MG 800 MG 800 MG Metoprolol Metoprolol No Metoprolol Succinate Succinate Succinate ER 100 MG ER 100 MG ER 100 MG OneTouch OneTouch No OneTouch Ultra - Ultra - Ultra - FreeStyle FreeStyle No FreeStyle [place] 2 [place] 2 [place] 2 [place] - [place] - [place] - Gabapentin Gabapentin No 1{capsu QD Gabapentin 100 MG 100 MG le} 100 MG Levothyroxi Levothyroxi No QD Levothyrox ne Sodium ne Sodium ine Sodium 50 MCG 50 MCG 50 MCG traZODone traZODone No 1{table QD traZODone HCl 50 MG HCl 50 MG t_at_be HCl 50 MG dtime} FreeStyle FreeStyle No FreeStyle [place] 2 [place] 2 [place] 2 Sensor - Sensor - Sensor - Vitamin D Vitamin D No 1{table QD Vitamin D (Cholecalci (Cholecalci t} (Cholecalc ferol) 25 ferol) 25 iferol) 25 MCG (1000 MCG (1000 MCG (1000 UT) UT) UT) Lisinopril- Lisinopril- No QD Lisinopril hydroCHLORO hydroCHLORO -hydroCHLO thiazide thiazide ROthiazide 20-25 MG 20-25 MG 20-25 MG Anastrozole Anastrozole No Anastrozol 1 MG 1 MG e 1 MG Vitamin B12 Vitamin B12 No Vitamin 3000 MCG 3000 MCG B12 3000 MCG Calcium 600 Calcium 600 No 1{table BID Calcium MG MG t_with_ 600 MG meals} Solifenacin Solifenacin No 1{table QD Solifenaci Succinate 5 Succinate 5 t} n MG MG Succinate 5 MG Venlafaxine Venlafaxine No QD Venlafaxin HCl ER 225 HCl ER 225 e HCl ER MG MG 225 MG CoQ-10 100 CoQ-10 100 No CoQ-10 100 MG MG MG OneTouch OneTouch No OneTouch Ultra - Ultra - Ultra - Gabapentin Gabapentin No 1{capsu QD Gabapentin 100 MG 100 MG le} 100 MG FreeStyle FreeStyle No FreeStyle [place] 2 [place] 2 [place] 2 Sensor - Sensor - Sensor - traZODone traZODone No 1{table QD traZODone HCl 50 MG HCl 50 MG t_at_be HCl 50 MG dtime} Venlafaxine Venlafaxine No QD Venlafaxin HCl ER 225 HCl ER 225 e HCl ER MG MG 225 MG Levothyroxi Levothyroxi No QD Levothyrox ne Sodium ne Sodium ine Sodium 50 MCG 50 MCG 50 MCG Lisinopril- Lisinopril- No QD Lisinopril hydroCHLORO hydroCHLORO -hydroCHLO thiazide thiazide ROthiazide 20-25 MG 20-25 MG 20-25 MG CoQ-10 100 CoQ-10 100 No CoQ-10 100 MG MG MG Calcium 600 Calcium 600 No 1{table BID Calcium MG MG t_with_ 600 MG meals} Vitamin B12 Vitamin B12 No Vitamin 3000 MCG 3000 MCG B12 3000 MCG Anastrozole Anastrozole No QD Anastrozol 1 MG 1 MG e 1 MG Vitamin D Vitamin D No 1{table QD Vitamin D (Cholecalci (Cholecalci t} (Cholecalc ferol) 25 ferol) 25 iferol) 25 MCG (1000 MCG (1000 MCG (1000 UT) UT) UT) Metoprolol Metoprolol No Metoprolol Succinate Succinate Succinate ER 100 MG ER 100 MG ER 100 MG Solifenacin Solifenacin No 1{table QD Solifenaci Succinate 5 Succinate 5 t} n MG MG Succinate 5 MG FreeStyle FreeStyle No FreeStyle [place] 2 [place] 2 [place] 2 [place] - [place] - [place] - Ibuprofen Ibuprofen No Ibuprofen 800 MG 800 MG 800 MG Gabapentin Gabapentin No 1{capsu QD Gabapentin 100 MG 100 MG le} 100 MG Ibuprofen Ibuprofen No Ibuprofen 800 MG 800 MG 800 MG traZODone traZODone No 1{table QD traZODone HCl 50 MG HCl 50 MG t_at_be HCl 50 MG dtime} Vitamin D Vitamin D No 1{table QD Vitamin D (Cholecalci (Cholecalci t} (Cholecalc ferol) 25 ferol) 25 iferol) 25 MCG (1000 MCG (1000 MCG (1000 UT) UT) UT) OneTouch OneTouch No OneTouch Ultra - Ultra - Ultra - Lisinopril- Lisinopril- No QD Lisinopril hydroCHLORO hydroCHLORO -hydroCHLO thiazide thiazide ROthiazide 20-25 MG 20-25 MG 20-25 MG Levothyroxi Levothyroxi No QD Levothyrox ne Sodium ne Sodium ine Sodium 50 MCG 50 MCG 50 MCG Calcium 600 Calcium 600 No 1{table BID Calcium MG MG t_with_ 600 MG meals} FreeStyle FreeStyle No FreeStyle [place] 2 [place] 2 [place] 2 Sensor - Sensor - Sensor - Metoprolol Metoprolol No Metoprolol Succinate Succinate Succinate ER 100 MG ER 100 MG ER 100 MG FreeStyle FreeStyle No FreeStyle [place] 2 [place] 2 [place] 2 [place] - [place] - [place] - CoQ-10 100 CoQ-10 100 No CoQ-10 100 MG MG MG Solifenacin Solifenacin No 1{table QD Solifenaci Succinate 5 Succinate 5 t} n MG MG Succinate 5 MG Vitamin B12 Vitamin B12 No Vitamin 3000 MCG 3000 MCG B12 3000 MCG Anastrozole Anastrozole No QD Anastrozol 1 MG 1 MG e 1 MG Gabapentin Gabapentin No 1{capsu QD Gabapentin 100 MG 100 MG le} 100 MG Ibuprofen Ibuprofen No Ibuprofen 800 MG 800 MG 800 MG traZODone traZODone No 1{table QD traZODone HCl 50 MG HCl 50 MG t_at_be HCl 50 MG dtime} Vitamin D Vitamin D No 1{table QD Vitamin D (Cholecalci (Cholecalci t} (Cholecalc ferol) 25 ferol) 25 iferol) 25 MCG (1000 MCG (1000 MCG (1000 UT) UT) UT) OneTouch OneTouch No OneTouch Ultra - Ultra - Ultra - Lisinopril- Lisinopril- No QD Lisinopril hydroCHLORO hydroCHLORO -hydroCHLO thiazide thiazide ROthiazide 20-25 MG 20-25 MG 20-25 MG Levothyroxi Levothyroxi No QD Levothyrox ne Sodium ne Sodium ine Sodium 50 MCG 50 MCG 50 MCG Calcium 600 Calcium 600 No 1{table BID Calcium MG MG t_with_ 600 MG meals} FreeStyle FreeStyle No FreeStyle [place] 2 [place] 2 [place] 2 Sensor - Sensor - Sensor - Metoprolol Metoprolol No Metoprolol Succinate Succinate Succinate ER 100 MG ER 100 MG ER 100 MG FreeStyle FreeStyle No FreeStyle [place] 2 [place] 2 [place] 2 [place] - [place] - [place] - CoQ-10 100 CoQ-10 100 No CoQ-10 100 MG MG MG Solifenacin Solifenacin No 1{table QD Solifenaci Succinate 5 Succinate 5 t} n MG MG Succinate 5 MG Vitamin B12 Vitamin B12 No Vitamin 3000 MCG 3000 MCG B12 3000 MCG Anastrozole Anastrozole No QD Anastrozol 1 MG 1 MG e 1 MG Gabapentin Gabapentin No 1{capsu QD Gabapentin 100 MG 100 MG le} 100 MG Ibuprofen Ibuprofen No Ibuprofen 800 MG 800 MG 800 MG traZODone traZODone No 1{table QD traZODone HCl 50 MG HCl 50 MG t_at_be HCl 50 MG dtime} FreeStyle FreeStyle No FreeStyle [place] 2 [place] 2 [place] 2 [place] - [place] - [place] - OneTouch OneTouch No OneTouch Ultra - Ultra - Ultra - Metoprolol Metoprolol No Metoprolol Succinate Succinate Succinate ER 100 MG ER 100 MG ER 100 MG Solifenacin Solifenacin No 1{table QD Solifenaci Succinate 5 Succinate 5 t} n MG MG Succinate 5 MG FreeStyle FreeStyle No FreeStyle [place] 2 [place] 2 [place] 2 Sensor - Sensor - Sensor - Vitamin D Vitamin D No 1{table QD Vitamin D (Cholecalci (Cholecalci t} (Cholecalc ferol) 25 ferol) 25 iferol) 25 MCG (1000 MCG (1000 MCG (1000 UT) UT) UT) Lisinopril- Lisinopril- No QD Lisinopril hydroCHLORO hydroCHLORO -hydroCHLO thiazide thiazide ROthiazide 20-25 MG 20-25 MG 20-25 MG CoQ-10 100 CoQ-10 100 No CoQ-10 100 MG MG MG Vitamin B12 Vitamin B12 No Vitamin 3000 MCG 3000 MCG B12 3000 MCG Calcium 600 Calcium 600 No 1{table BID Calcium MG MG t_with_ 600 MG meals} Levothyroxi Levothyroxi No QD Levothyrox ne Sodium ne Sodium ine Sodium 50 MCG 50 MCG 50 MCG Anastrozole Anastrozole No QD Anastrozol 1 MG 1 MG e 1 MG Levothyroxi Levothyroxi No QD Levothyrox ne Sodium ne Sodium ine Sodium 50 MCG 50 MCG 50 MCG FreeStyle FreeStyle No FreeStyle [place] 2 [place] 2 [place] 2 [place] - [place] - [place] - FreeStyle FreeStyle No FreeStyle [place] 2 [place] 2 [place] 2 Sensor - Sensor - Sensor - Lisinopril- Lisinopril- No QD Lisinopril hydroCHLORO hydroCHLORO -hydroCHLO thiazide thiazide ROthiazide 20-25 MG 20-25 MG 20-25 MG Vitamin B12 Vitamin B12 No Vitamin 3000 MCG 3000 MCG B12 3000 MCG traZODone traZODone No 1{table QD traZODone HCl 50 MG HCl 50 MG t_at_be HCl 50 MG dtime} Metoprolol Metoprolol No Metoprolol Succinate Succinate Succinate ER 100 MG ER 100 MG ER 100 MG Ibuprofen Ibuprofen No Ibuprofen 800 MG 800 MG 800 MG Solifenacin Solifenacin No 1{table QD Solifenaci Succinate 5 Succinate 5 t} n MG MG Succinate 5 MG OneTouch OneTouch No OneTouch Ultra - Ultra - Ultra - Anastrozole Anastrozole No QD Anastrozol 1 MG 1 MG e 1 MG Calcium 600 Calcium 600 No 1{table BID Calcium MG MG t_with_ 600 MG meals} Gabapentin Gabapentin No 1{capsu QD Gabapentin 100 MG 100 MG le} 100 MG Vitamin D Vitamin D No 1{table QD Vitamin D (Cholecalci (Cholecalci t} (Cholecalc ferol) 25 ferol) 25 iferol) 25 MCG (1000 MCG (1000 MCG (1000 UT) UT) UT) CoQ-10 100 CoQ-10 100 No CoQ-10 100 MG MG MG Meloxicam Meloxicam No 1{table QD Meloxicam 7.5 MG 7.5 MG t} 7.5 MG traZODone traZODone No 1{table QD traZODone HCl 50 MG HCl 50 MG t_at_be HCl 50 MG dtime} FreeStyle FreeStyle No FreeStyle [place] 2 [place] 2 [place] 2 [place] - [place] - [place] - Calcium 600 Calcium 600 No 1{table BID Calcium MG MG t_with_ 600 MG meals} OneTouch OneTouch No OneTouch Ultra - Ultra - Ultra - Vitamin B12 Vitamin B12 No Vitamin 3000 MCG 3000 MCG B12 3000 MCG ALPRAZolam ALPRAZolam No ALPRAZolam 0.5 MG 0.5 MG 0.5 MG Solifenacin Solifenacin No 1{table QD Solifenaci Succinate 5 Succinate 5 t} n MG MG Succinate 5 MG Anastrozole Anastrozole No QD Anastrozol 1 MG 1 MG e 1 MG Methocarbam Methocarbam No 1{table Methocarba ol 500 MG ol 500 MG t} mol 500 MG Gabapentin Gabapentin No 1{capsu QD Gabapentin 100 MG 100 MG le} 100 MG Vitamin D Vitamin D No 1{table QD Vitamin D (Cholecalci (Cholecalci t} (Cholecalc ferol) 25 ferol) 25 iferol) 25 MCG (1000 MCG (1000 MCG (1000 UT) UT) UT) FreeStyle FreeStyle No FreeStyle [place] 2 [place] 2 [place] 2 Sensor - Sensor - Sensor - traMADol traMADol No 1{table QD traMADol HCl 50 MG HCl 50 MG t_as_ne HCl 50 MG eded} Lisinopril- Lisinopril- No QD Lisinopril hydroCHLORO hydroCHLORO -hydroCHLO thiazide thiazide ROthiazide 20-25 MG 20-25 MG 20-25 MG CoQ-10 100 CoQ-10 100 No CoQ-10 100 MG MG MG Ibuprofen Ibuprofen No Ibuprofen 600 MG 600 MG 600 MG Anastrozole Anastrozole 2021- No QD Anastrozol 1 MG 1 MG 06-03 e 1 MG 00:00 :00 Anastrozole Anastrozole 2021- No QD Anastrozol 1 MG 1 MG 06-03 e 1 MG 00:00 :00 Solifenacin Solifenacin No 1{table QD Solifenaci Succinate 5 Succinate 5 06-02 t} n MG MG 00:00 Succinate :00 5 MG Solifenacin Solifenacin No 1{table QD Succinate 5 Succinate 5 06-02 t} MG MG 00:00 :00 Immunizations Ordered Filled Immunization Date Status Comments Sourc e Immunization Name Name FLUZONE HIGH DOSE FLUZONE HIGH DOSE 2022-09-05 [facility] OVER [facility] 12:04:00 [facility] FLUZONE HIGH DOSE FLUZONE HIGH DOSE 2022-09-05 Completed [facility] - OVER 65 OVER 65 12:04:00 [facility] FLUZONE HIGH DOSE FLUZONE HIGH DOSE 2022-09-05 Completed [facility] - OVER 65 OVER 65 12:04:00 [facility] FLUZONE HIGH DOSE FLUZONE HIGH DOSE 2022-09-05 Completed [facility] - OVER 65 OVER 65 12:04:00 [facility] FLUZONE HIGH DOSE FLUZONE HIGH DOSE 2022-09-05 Completed [facility] - OVER 65 OVER 65 12:04:00 [facility] FLUZONE HIGH DOSE FLUZONE HIGH DOSE 2022-09-05 Completed [facility] - OVER 65 OVER 65 12:04:00 [facility] FLUZONE HIGH DOSE FLUZONE HIGH DOSE 2022-09-05 Completed [facility] - OVER 65 OVER 65 12:04:00 [facility] FLUZONE HIGH DOSE FLUZONE HIGH DOSE 2022-09-05 Completed [facility] - OVER 65 OVER 65 12:04:00 [facility] FLUZONE HIGH DOSE FLUZONE HIGH DOSE 2022-09-05 Completed [facility] - OVER 65 OVER 65 12:04:00 [facility] FLUZONE HIGH DOSE FLUZONE HIGH DOSE 2021-08-19 Completed [facility] - OVER 65 OVER 65 11:36:00 [facility] FLUZONE HIGH DOSE FLUZONE HIGH DOSE 2021-08-19 Completed [facility] - OVER 65 OVER 65 11:36:00 [facility] FLUZONE HIGH DOSE FLUZONE HIGH DOSE 2021-08-19 Completed [facility] - OVER 65 OVER 65 11:36:00 [facility] FLUZONE HIGH DOSE FLUZONE HIGH DOSE 2021-08-19 Completed [facility] - OVER 65 OVER 65 11:36:00 [facility] FLUZONE HIGH DOSE FLUZONE HIGH DOSE 2021-08-19 Completed [facility] - OVER 65 OVER 65 11:36:00 [facility] FLUZONE HIGH DOSE FLUZONE HIGH DOSE 2021-08-19 Completed [facility] - OVER 65 OVER 65 11:36:00 [facility] FLUZONE HIGH DOSE FLUZONE HIGH DOSE 2021-08-19 Completed [facility] - OVER 65 OVER 65 11:36:00 [facility] FLUZONE HIGH DOSE FLUZONE HIGH DOSE 2021-08-19 Completed [facility] - OVER 65 OVER 65 11:36:00 [facility] FLUZONE HIGH DOSE FLUZONE HIGH DOSE 2021-08-19 Completed [facility] - OVER 65 OVER 65 11:36:00 [facility] FLUZONE HIGH DOSE FLUZONE HIGH DOSE 2021-08-19 Completed [facility] - OVER 65 OVER 65 11:36:00 [facility] FLUZONE HIGH DOSE FLUZONE HIGH DOSE 2021-08-19 Completed [facility] - OVER 65 OVER 65 11:36:00 [facility] FLUZONE HIGH DOSE FLUZONE HIGH DOSE 2021-08-19 Completed [facility] - OVER 65 OVER 65 11:36:00 [facility] FLUZONE HIGH DOSE FLUZONE HIGH DOSE 2021-08-19 Completed [facility] - OVER 65 OVER 65 11:36:00 [facility] FLUZONE HIGH DOSE FLUZONE HIGH DOSE 2021-08-19 Completed [facility] - OVER 65 OVER 65 11:36:00 [facility] FLUZONE HIGH DOSE FLUZONE HIGH DOSE 2021-08-19 Completed [facility] - OVER 65 OVER 65 11:36:00 [facility] FLUZONE HIGH DOSE FLUZONE HIGH DOSE 2021-08-19 Completed [facility] - OVER 65 OVER 65 11:36:00 [facility] FLUZONE HIGH DOSE FLUZONE HIGH DOSE 2021-08-19 Completed [facility] - OVER 65 OVER 65 11:36:00 [facility] FLUZONE HIGH DOSE FLUZONE HIGH DOSE 2021-08-19 Completed [facility] - OVER 65 OVER 65 11:36:00 [facility] FLUZONE HIGH DOSE FLUZONE HIGH DOSE 2021-08-19 Completed [facility] - OVER 65 OVER 65 11:36:00 [facility] FLUZONE HIGH DOSE FLUZONE HIGH DOSE 2021-08-19 Completed [facility] - OVER 65 OVER 65 11:36:00 [facility] FLUZONE HIGH DOSE FLUZONE HIGH DOSE 2021-08-19 Completed [facility] - OVER 65 OVER 65 11:36:00 [facility] FLUZONE HIGH DOSE FLUZONE HIGH DOSE 2021-08-19 Completed [facility] - OVER 65 OVER 65 11:36:00 [facility] FLUZONE HIGH DOSE FLUZONE HIGH DOSE 2021-08-19 Completed [facility] - OVER 65 OVER 65 11:36:00 [facility] FLUZONE HIGH DOSE FLUZONE HIGH DOSE 2021-08-19 Completed [facility] - OVER 65 OVER 65 11:36:00 [facility] FLUZONE HIGH DOSE FLUZONE HIGH DOSE 2021-08-19 Completed [facility] - OVER 65 OVER 65 11:36:00 [facility] FLUZONE HIGH DOSE FLUZONE HIGH DOSE 2021-08-19 Completed [facility] - OVER 65 OVER 65 11:36:00 [facility] FLUZONE HIGH DOSE FLUZONE HIGH DOSE 2021-08-19 Completed [facility] - OVER 65 OVER 65 11:36:00 [facility] SARS-COV-2 COVID-19 2021-01-05 Completed [facility] MODERNA 12+ YRS 00:00:00 [facility] VACC[facility] SARS-COV-2 COVID-19 2020-12-08 Completed [facility] rs[facility] of MODERNA 12+ YRS 00:00:00 [facility] VACCINE Branch Influenza High Dose 2020-08-11 Completed [facility] [place] 00:00:00 [facility] Vital Signs Vital Name Observation Time Observation Value Comments Source HEIGHT 2023-01-31 23:30:00 170.2 cm WEIGHT 2023-01-31 23:30:00 98.5 kg HEIGHT 2023-01-31 23:30:00 170.2 cm WEIGHT 2023-01-31 23:30:00 98.5 kg HEIGHT 2023-01-31 23:30:00 170.2 cm WEIGHT 2023-01-31 23:30:00 98.5 kg height 2022-11-04 10:00:00 66.5 [in_i] [facility] weight 2022-11-04 10:00:00 210 [lb_av] [facility] temperature 2022-11-04 10:00:00 97.9 [degF] [facility] bmi 2022-11-04 10:00:00 33.38 kg/m2 [facility] blood pressure 2022-11-04 10:00:00 120 mm[Hg] [facility] - systolic [facility] blood pressure 2022-11-04 10:00:00 80 mm[Hg] [facility] - diastolic [facility] height 2022-09-24 11:00:00 66.5 [in_i] [facility] weight 2022-09-24 11:00:00 210 [lb_av] [facility] temperature 2022-09-24 11:00:00 97.3 [degF] [facility] bmi 2022-09-24 11:00:00 33.38 kg/m2 [facility] blood pressure 2022-09-24 11:00:00 118 mm[Hg] [facility] - systolic [facility] blood pressure 2022-09-24 11:00:00 82 mm[Hg] [facility] - diastolic [facility] height 2022-09-05 11:40:00 66.5 [in_i] [facility] weight 2022-09-05 11:40:00 210.8 [lb_av] [facility] temperature 2022-09-05 11:40:00 96.3 [degF] [facility] bmi 2022-09-05 11:40:00 33.51 kg/m2 [facility] oximetry 2022-09-05 11:40:00 98 % [facility] respiratory rate 2022-09-05 11:40:00 17 /min [facility] blood pressure 2022-09-05 11:40:00 111 mm[Hg] [facility] - systolic [facility] blood pressure 2022-09-05 11:40:00 78 mm[Hg] [facility] - diastolic [facility] Body temperature 2022-07-14 20:32:00 36.06 [facility] height 2022-07-14 20:32:00 170.2 cm [facility] Body weight 2022-07-14 20:32:00 91.627 kg [facility] BMI 2022-07-14 20:32:00 31.64 kg/m2 [facility] height 2022-07-04 09:40:00 66.5 [in_i] [facility] weight 2022-07-04 09:40:00 208.6 [lb_av] [facility] temperature 2022-07-04 09:40:00 97.3 [degF] [facility] bmi 2022-07-04 09:40:00 33.16 kg/m2 [facility] oximetry 2022-07-04 09:40:00 94 % [facility] respiratory rate 2022-07-04 09:40:00 16 /min [facility] blood pressure 2022-07-04 09:40:00 133 mm[Hg] [facility] - systolic [facility] blood pressure 2022-07-04 09:40:00 87 mm[Hg] [facility] - diastolic [facility] height 2022-05-12 10:00:00 66.5 [in_i] [facility] weight 2022-05-12 10:00:00 202.2 [lb_av] [facility] temperature 2022-05-12 10:00:00 98.1 [degF] [facility] bmi 2022-05-12 10:00:00 32.14 kg/m2 [facility] oximetry 2022-05-12 10:00:00 95 % [facility] respiratory rate 2022-05-12 10:00:00 16 /min [facility] blood pressure 2022-05-12 10:00:00 112 mm[Hg] [facility] systolic [facility] blood pressure 2022-05-12 10:00:00 74 mm[Hg] [facility] - diastolic [facility] height 2022-05-12 10:20:00 66.5 [in_i] [facility] weight 2022-05-12 10:20:00 202.2 [lb_av] [facility] temperature 2022-05-12 10:20:00 98.1 [degF] [facility] bmi 2022-05-12 10:20:00 32.14 kg/m2 [facility] oximetry 2022-05-12 10:20:00 95 % [facility] respiratory rate 2022-05-12 10:20:00 16 /min [facility] blood pressure 2022-05-12 10:20:00 112 mm[Hg] [facility] - systolic [facility] blood pressure 2022-05-12 10:20:00 74 mm[Hg] [facility] - diastolic [facility] height 2022-04-04 10:20:00 67 [in_i] [facility] weight 2022-04-04 10:20:00 206.8 [lb_av] Common [facility] temperature 2022-04-04 10:20:00 98.0 [degF] [facility] bmi 2022-04-04 10:20:00 32.39 kg/m2 [facility] oximetry 2022-04-04 10:20:00 95 % [facility] respiratory rate 2022-04-04 10:20:00 18 /min [facility] blood pressure 2022-04-04 10:20:00 134 mm[Hg] [facility] - systolic [facility] blood pressure 2022-04-04 10:20:00 76 mm[Hg] [facility] - diastolic [facility] height 2022-03-05 14:00:00 67 [in_i] [facility] weight 2022-03-05 14:00:00 204.4 [lb_av] Common [facility] temperature 2022-03-05 14:00:00 97.7 [degF] [facility] bmi 2022-03-05 14:00:00 32.01 kg/m2 [facility] oximetry 2022-03-05 14:00:00 97 % [facility] respiratory rate 2022-03-05 14:00:00 16 /min [facility] blood pressure 2022-03-05 14:00:00 121 mm[Hg] [facility] - systolic [facility] blood pressure 2022-03-05 14:00:00 81 mm[Hg] [facility] - diastolic [facility] height 2021-09-05 10:20:00 67 [in_i] [facility] weight 2021-09-05 10:20:00 214 [lb_av] [facility] temperature 2021-09-05 10:20:00 97.0 [degF] [facility] bmi 2021-09-05 10:20:00 33.51 kg/m2 [facility] oximetry 2021-09-05 10:20:00 96 % [facility] respiratory rate 2021-09-05 10:20:00 16 /min [facility] blood pressure 2021-09-05 10:20:00 108 mm[Hg] [facility] - systolic [facility] blood pressure 2021-09-05 10:20:00 60 mm[Hg] [facility] - diastolic [facility] Heart rate 2023-02-07 19:00:00 76 /min [facility] Systolic blood 2023-02-07 16:30:00 123 mm[Hg] [facility] Diastolic blood 2023-02-07 16:30:00 77 mm[Hg] [facility] Body temperature 2023-02-07 16:30:00 36.61 Puja [facility] Respiratory rate 2023-02-07 16:30:00 18 /min [facility] Oxygen saturation in 2023-02-07 16:30:00 98 /min [facility] Arterial blood by [facility]ter Pulse oximetry Body height 2023-02-01 12:13:00 170.2 cm [facility] Body weight 2023-02-01 12:13:00 98.431 kg [facility] BMI 2023-02-01 12:13:00 33.99 kg/m2 [facility] Systolic (mm Hg) 2021-11-12 20:04:00 David rial [place] Diastolic (mm Hg) 2021-11-12 20:04:00 [facility] [place] Heart Rate 2021-11-12 20:04:00 [facility] Respitory Rate 2021-11-12 20:04:00 Memori al [place] Height 2021-11-12 20:04:00 167.64 cm [facility] Weight 2021-11-12 20:04:00 [facility] [place] BMI Calculated 2021-11-12 20:04:00 [facility] [place] Systolic (mm Hg) 2021-05-08 16:15:00 David rial [place] Diastolic (mm Hg) 2021-05-08 16:15:00 Mem orial [place] Heart Rate 2021-05-08 16:15:00 [facility] [place] Respitory Rate 2021-05-08 16:15:00 [facility] [place] Height 2021-05-08 16:15:00 167.64 cm [facility] Weight 2021-05-08 16:15:00 [facility] [place] BMI Calculated 2021-05-08 16:15:00 [facility]ori [facility] [place] Systolic (mm Hg) 2020-11-08 20:05:00 David rial [place] Diastolic (mm Hg) 2020-11-08 20:05:00 Mem orial [place] Heart Rate 2020-11-08 20:05:00 [facility] [place] Respitory Rate 2020-11-08 20:05:00 Memori [facility] Height 2020-11-08 20:05:00 170.18 cm [facility] [place] Weight 2020-11-08 20:05:00 [facility] BMI Calculated 2020-11-08 20:05:00 [facility] [place] Systolic (mm Hg) 2020-09-13 19:17:00 David rial [place] Diastolic (mm Hg) 2020-09-13 19:17:00 Mem [facility] [place] Heart Rate 2020-09-13 19:17:00 [facility] [place] Respitory Rate 2020-09-13 19:17:00 Memori [facility] Height 2020-09-13 19:17:00 167.64 cm [facility] Weight 2020-09-13 19:17:00 [facility] BMI Calculated 2020-09-13 19:17:00 [facility] [place] Systolic (mm Hg) 2020-08-16 19:23:00 David Pa Diastolic (mm Hg) 2020-08-16 19:23:00 Delma Pa Heart Rate 2020-08-16 19:23:00 Isaura Pa Respitory Rate 2020-08-16 19:23:00 Katie Keyes Height 2020-08-16 19:23:00 167.64 cm Isaura [facility] Weight 2020-08-16 19:23:00 Isaura Pa BMI Calculated 2020-08-16 19:23:00 Katie Keyes Procedures Procedure Date / Time Performing Clinician Source Performed POCT-GLUCOSE METER 2023-02-07 17:46[facility] 2023-02-07 12:10[facility] ([facility] & 2023-02-07 09:16:00 Talia [facility] REF LAB[facility]) [facility] POCT-GLUCOSE METER 2023-02-07 07:29:00 Talia [facility] CBC W/PLT COUNT & AUTO 2023-02-07 03:42:00 Talia [facility] CBC W/PLT COUNT & AUTO 2023-02-07 03:42:00 Talia [facility] BASIC METABOLIC PANEL 2023-02-07 03:41:00 [facility] 2023-02-07 03:41:00 Talia [facility] POCT-GLUCOSE METER 2023-02-07 00:15:00 Talia [facility] POCT-GLUCOSE METER 2023-02-06 17:29:00 Talia [facility] POCT-GLUCOSE METER 2023-02-06 13:00:00 Talia [facility] FL ESOPH SWALLOW FUNCT 2023-02-06 11:07:00 Dony Paul CHI WITH CINE VIDEO [facility] CBC W/PLT COUNT & AUTO 2023-02-06 05:11:00 Talia [facility] BASIC METABOLIC PANEL 2023-02-06 05:11:00 Melgar, [facility] MAGNESIUM 2023-02-06 05:11:00 Melgar, [facility] CBC W/PLT COUNT & AUTO 2023-02-06 05:11:00 Melgar, [facility] POCT-GLUCOSE METER 2023-02-05 23:20:00 Melgar, [facility] POCT-GLUCOSE METER 2023-02-05 17:17:00 Talia [facility] VENOUS DOPPLER ARMS 2023-02-05 12:48:00 Dony Paul [facility] VENOUS DOPPLER LEGS 2023-02-05 12:06:00 Nicholas Wagner [facility] POCT-GLUCOSE METER 2023-02-05 05:34:00 Talia [facility] CBC W/PLT COUNT & AUTO 2023-02-05 04:51:00 Talia [facility] BASIC METABOLIC PANEL 2023-02-05 04:51:00 Talia [facility] MAGNESIUM 2023-02-05 04:51:00 Talia [facility] CBC W/PLT COUNT & AUTO 2023-02-05 04:51:00 Melgar, [facility] POCT-GLUCOSE METER 2023-02-05 00:29:00 Talia [facility] XR ABDOMEN/KUB 1 VIEW 2023-02-04 18:01:00 Talia [facility] POCT-GLUCOSE METER 2023-02-04 17:44:00 Talia [facility] XR ABDOMEN/KUB 1 VIEW 2023-02-04 14:47:00 Talia [facility] POCT-GLUCOSE METER 2023-02-04 12:13:00 [facility]SE [facility]ER 2023-02-04 06:04:00 Dony Paul [facility] ANTITHROMBIN III 2023-02-04 04:16:00 [facility] CARDIOLIPIN ANTIBODIES, 2023-02-04 04:16:00 [facility] IGG AND IGM [facility] PROTEIN C ACTIVITY 2023-02-04 04:16:00 [facility] PROTEIN S ACTIVITY 2023-02-04 04:16:00 [facility] HC LAB PROTHROMBIN FACTOR 2023-02-04 04:16:00 [facility] POCT-GLUCOSE METER 2023-02-03 23:26:00 Humberto [facility] XR ANKLE 3 VIEWS LEFT 2023-02-03 17:41:00 Humberto [facility] XR FOOT 3 VIEWS LEFT 2023-02-03 17:41:00 [facility]ly [facility] XR LEG / TIBIA AND FIBULA 2023-02-03 17:41:00 [facility] [address] [facility] [facility] POCT-GLUCOSE METER 2023-02-03 16:55:00 [facility] TRANSESOP[facility]AL [facility]CHO 2023-02-03 13:57:09 [facility] COLOR-FLOW MAPPING 2023-02-03 13:57:09 [facility] CONT WAVE PULSED DOPPLER 2023-02-03 13:57:09 [facility] VITAMIN B12 2023-02-03 13:12[facility] PO[facility] 2023-02-03 11:30:00 [facility] POCT-GLUCOSE METER 2023-02-03 06:22:00 Melida Vanegas [facility] CBC W/PLT COUNT & AUTO 2023-02-03 04:51:00 Melida Vanegas [facility] CREATINE KINASE (CK) 2023-02-03 04:51:00 Melida Vanegas [facility] CBC W/PLT COUNT & AUTO 2023-02-03 04:51:00 Melida Vanegas [facility] BASIC METABOLIC PANEL 2023-02-03 04:51:00 Melida Vanegas [facility] POCT-GLUCOSE METER 2023-02-02 23:25:00 Melida Vanegas [facility] CT BRAIN WITHOUT IV 2023-02-02 08:25:00 Noel [facility] POCT-GLUCOSE METER 2023-02-02 08:03:00 [facility] POCT-GLUCOSE METER 2023-02-02 07:02:00 [facility] 2D ECHO W/ DOPPLER 2023-02-02 05:18:24 [facility] CBC W/PLT COUNT & AUTO 2023-02-02 03:08:00 [facility] CREATINE KINASE (CK) 2023-02-02 03:08:00 Melida Vanegas [facility] CBC W/PLT COUNT & AUTO 2023-02-02 03:08:00 Melida Vanegas [facility] BASIC METABOLIC PANEL 2023-02-02 03:08:00 Melida Vanegas [facility] POCT-GLUCOSE METER 2023-02-02 00:40:00 [facility] POTASSIUM 2023-02-01 22:03:00 Melida Vanegas [facility] MAGNESIUM 2023-02-01 22:03:00 Melida Vanegas [facility] MR BRAIN WITHOUT IV 2023-02-01 16:15:00 Claus Bailey [facility] MRA NECK WITHOUT IV 2023-02-01 16:15:00 Polly Ko [facility] MRA HEAD WITHOUT IV 2023-02-01 16:14:00 Polly Ko [facility] XR ABDOMEN/KUB 1 VIEW 2023-02-01 14:11:00 Jamee Flanneryu [facility] HIGH SENSITIVITY TROPONIN 2023-02-01 09:54:00 Jamee Flannery u [facility] POTASSIUM 2023-02-01 09:54:00 Melida Vanegas [facility] MAGNESIUM 2023-02-01 09:54:00 Melida Vanegas [facility] POCT-GLUCOSE METER 2023-02-01 06:52:00 Aline [facility] CBC W/PLT COUNT & AUTO 2023-02-01 03:36:00 Samantha [facility] CREATINE KINASE (CK) 2023-02-01 03:36:00 Melida Vanegas [facility] CBC W/PLT COUNT & AUTO 2023-02-01 03:36:00 Meilda Vanegas [facility] BASIC METABOLIC PANEL 2023-02-01 03:36:00 Melida Vanegas [facility] EEG AWAKE AND DROWSY 2023-02-01 02:12:00 [facility] ECG 12-LEAD 2023-02-01 00:19:05 [facility] ECG 12-LEAD 2023-02-01 00:19:05 Unknown, Hl7 [facility] CBC W/PLT COUNT & AUTO 2023-01-31 23:55:00 Samantha Sadaf [facility] CBC W/PLT COUNT & AUTO 2023-01-31 23:55:00 Samantha [facility] COMPREHENSIVE METABOLIC 2023-01-31 23:55:00 [facility] MAGNESIUM 2023-01-31 23:55:00 [facility] 2023-01-31 23:55[facility]00 [facility] TSH/FREE T4 IF INDICATED 2023-01-31 23:55:00 [facility] LIPID PANEL 2023-01-31 23:55:00 [facility] HEMOGLOBIN A1C 2023-01-31 23:55:00 [facility], [facility] PROTHROMBIN TIME/INR 2023-01-31 23:55:00 [facility], [facility] APTT 2023-01-31 23:55:00 [facility] POCT-GLUCOSE METER 2023-01-31 23:52:00 Aline Turcios [facility] Plan of Care Planned Activity Planned Date Details Comments Source Future Scheduled 2022-12-31 Medicare IPPE (WELCOME [facility] 00:[facility]00 TO MEDICARE) [code = [facility] Medicare IPPE (WELCOME TO MEDICARE)] Future Scheduled 2022-11-[address] [facility] 00:00:00 (12+) [code = [facility] DEPRESSION SCREENING (12+)] Future Scheduled 2022-11-02 FALLS RISK SCREENING [facility] 00:00:00 [code = FALLS RISK Medical enter SCREENING] Future Scheduled 2021-03-02 COVID-19 VACCINE (3 - [facility]00 Booster for [facility] [place] [facility] series) [code = COVID-19 VACCINE (3 - Booster for Modern[employer] series)] Future Scheduled 2019 PNEUMOCOCCAL 65+ YRS ([address] [facility] 00:00:00 - PCV) [code = Medical [facility] r PNEUMOCOCCAL 65+ YRS (1 - PCV)] Future Scheduled 2004 SHINGLES VACCINES ([address] [facility] 00:00:00 2) [code = SHINGLES [facility] VACCINES (1 of 2)] Future Scheduled 1973 DTAP/TDAP/TD VACCINES [facility] 00:00:00 (1 - Tdap) [code = Medical C enter DTAP/TDAP/TD VACCINES (1 - Tdap)] Future Scheduled 1972 HEPATITIS C SCREENING [facility] 00:00:00 [code = HEPATITIS C Medical Center SCREENING] Future Scheduled [address] [facility] 00:00:00 [facility] r Screening (12+) [code = Tobacco Cessation Counseling and Screening (12+)] Future Scheduled 1954 Screening for malignant [facility] 00:00:00 neoplasm of breast Medical C enter (procedure) [code = 137164992] Future Scheduled 1954 CT Colonography (combo) [facility] 00:00:00 [code = CT Colonography [facility] (combo)] Future Scheduled 1954 Screening for malignant [facility] 00:00:00 neoplasm of colon Medical Ce nter (procedure) [code = 584968022] Future Scheduled 1954 Screening for malignant [facility] 00:00:00 neoplasm of colon Medical Ce nter (procedure) [code = 291899030] Future Scheduled 1954 DXA SCAN [code = DXA [facility] 00:00:00 SCAN] [facility] Future Scheduled 1954 Screening for malignant [facility] 00:00:00 neoplasm of colon Medical Ce nter (procedure) [code = 188335914] Future Scheduled 1954 Screening for malignant [facility] 00:00:00 neoplasm of colon Medical Ce nter (procedure) [code = 514881981] Future Scheduled 1954 Sigmoidoscopy [code = [facility]00 Sigmoidoscopy] Medical Cente r Medication 2023-02-08 atorvastatin (LIPITOR) [facility]00 80 MG tablet [code = Medical Center 795434] Medication 2023-02-08 aspirin 81 [facility]wable [facility] tablet [code = 670017] [facility] Encounters Start End Encounter Admission Attending Care Care Encounter Source Date/Time Date/Time Type Type Clinicians Facility Department ID 2023-01-31 [facility] Aline Turcios I. [facility] [id number] 23:11:00 Encounter Shaheen Ruiz [facility] Linsey Melgar 2023-01-31 Inpatient ER TALIA, [facility] Neuro ICU [id number] [facility] 23:11:00 [facility] 2023-01-16 Outpatient [facility] [id number] [place] 09:07:[id number] [facility] 2023-01-14 Outpatient [facility] [id number] [place] 10:37:[id number] [facility] 2023-01-06 Outpatient [facility] [id number] [place] 16:37:[id number] [facility] 2022-12-25 Outpatient Rains, STLMLC STLMLC [id number] Common 10:44:00 Maribel [facility] 2022-12-08 Outpatient [facility] [id number] [place] 10:21:[id number] [facility] 2022-11-28 Outpatient [facility] [id number] [place] 14:32:[id number] [facility] 2022-11-21 Outpatient [facility] [id number] [place] 11:25:[id number] [facility] 2022-11-05 Outpatient [facility] [id number] [place] 09:30:[id number] [facility] 2022-11-04 Outpatient Rains, STLMLC STLMLC [id number] Common 09:53:00 Maribel [id number] [facility] 2022-09-24 Outpatient Rains, STLMLC STLMLC [id number] Common 11:47:00 Maribel [facility] 2022-09-09 Outpatient Rains, STLMLC STLMLC [id number] Common 14:09:01 Maribel [facility] 2022-09-03 Outpatient Rains, STLMLC STLMLC [id number] Common 16:41:00 Maribel [facility] 2022-07-08 Outpatient Rains, STLMLC STLMLC [id number] Common 12:59:01 Maribel [facility] 2022-05-08 Outpatient Rains, STLMLC STLMLC [id number] Common 09:22:00 Maribel 95933 [facility] 2022-04-21 Outpatient Rains, STLMLC STLMLC [id number] Common 07:08:00 Maribel [id number] [facility] 2022-03-17 Outpatient [facility] [id number] [place] 17:15:[id number] [place] [address] 2022-03-03 Outpatient Rains, STLMLC STLMLC [id number] Common 11:19:00 Maribel [facility] 2021-11-27 Outpatient Rains, STLMLC STLMLC [id number] Common 14:07:57 Maribel 65810 [facility] 2021-11-27 Outpatient Rains, STLMLC STLMLC [id number] Common 13:34:17 Maribel [id number] [facility] 2021-11-27 Outpatient Rains, STLMLC STLMLC [id number] Common 13:00:28 Maribel 52055 [facility] 2021-11-27 Outpatient Rains, STLMLC STLMLC [id number] Common 12:43:15 Maribel [id number] [facility] 2021-11-27 Outpatient Feaver, STLMLC STLMLC [id number] Common 11:06:46 Michael 34136 [facility] 2021-11-27 Outpatient Feaver, STLMLC STLMLC [id number] Common 10:57:26 Michael 79835 [facility] 2021-09-02 Inpatient SOMERSON, [facility] SOR [id number] Univers 08:11:07 DEANGELO eldridge [facility] 2021-09-02 Emergency [facility] [id number] Univers 06:21:20 chente [facility] 2021-08-31 Outpatient R ADRIANA [facility] NALINI [id number] Univers 07:36:51 OXANA Najera [facility] 2023-05-21 2023-05-21 Outpatient MHIE MHIE [id number] Memoria 14:00:00 14:00:00 10 [facility] 2023-05-21 2023-05-21 Outpatient MHIE MHIE [id number] Memoria 14:00:00 14:00:00 10 [facility] 2023-02-02 2023-02-02 Outpatient GAUVAIN, [facility] [id number] [place] 14:45:00 14:45:00 [facility] 2023-02-01 2023-02-01 [facility] [id number] 00:00:00 00:00:00 [facility] 2023-01-15 2023-01-15 Outpatient GAUVAIN, MHBL MHBL [id number] MHBL 05:08:00 15:02:00 [facility] 2022-11-28 2022-11-28 Outpatient [facility] [id number] [place] 00:00:00 16:23:29 [facility] 2022-11-28 2022-11-28 Outpatient GAUVAIN, [facility] [id number] [place] 15:00:00 16:23:08 [facility] 2022-11-24 2022-11-24 (TEL) STLMLC STLMLC [id number] Co mmon 00:00:00 00:00:00 [facility] 2022-11-21 2022-11-21 Outpatient MHIE MHIE [id number] Memoria 13:45:00 13:45:00 09 [facility] 2022-11-21 2022-11-21 Outpatient MHIE MHIE [id number] Memoria 13:45:00 13:45:00 09 [facility] 2022-11-21 2022-11-21 (TEL) STLMLC STLMLC [id number] Co mmon 00:00:00 00:00:00 [facility] 2022-11-11 2022-11-11 (TEL) STLMLC STLMLC [id number] Co mmon 00:00:00 00:00:00 [facility] 2022-11-04 2022-11-04 OFFICE STLMLC STLMLC [id number] Co mmon 00:00:00 00:00:00 VISIT Spirit ESTAB PT - CHI LEVEL 4 [facility] 2022-10-03 2022-10-03 (TEL) STLMLC STLMLC [id number] Co mmon 00:00:00 00:00:00 [facility] 2022-09-24 2022-09-24 OFFICE STLMLC STLMLC [id number] Co mmon 00:00:00 00:00:00 VISIT Spirit ESTAB PT - CHI LEVEL [facility] 2022-09-05 2022-09-05 OFFICE STLMLC STLMLC [id number] Co mmon 00:00:00 00:00:00 VISIT [facility] ESTAB PT - CHI LEVEL [facility] 2022-09-01 2022-09-01 (TEL) STLMLC STLMLC [id number] Co mmon 00:00:00 00:00:00 [facility] 2022-08-26 2022-08-26 (TEL) STLMLC STLMLC [id number] Co mmon 00:00:00 00:00:00 [facility] 2022-08-21 2022-08-21 Outpatient MHIE MHIE [id number] Memoria 15:15:00 15:15:00 08 sarah SpringerZeferino 2022-08-21 2022-08-21 Outpatient MHIE MHIE [id number] Memoria 15:15:00 15:15:00 08 sarah Pa 2022-07-31 2022-07-31 (TEL) STLMLC STLMLC [id number] Co mmon 00:00:00 00:00:00 [facility] 2022-07-28 2022-07-28 (TEL) STLMLC STLMLC [id number] Co mmon 00:00:00 00:00:00 [facility] 2022-07-24 2022-07-24 (TEL) STLMLC STLMLC [id number] Co mmon 00:00:00 00:00:00 [facility] 2022-07-14 2022-07-14 Outpatient Diandra RAMÍREZ [facility] [id number] Univers 15:39:12 23:59:00 DEANGELO eldridge [facility] 2022-07-14 2022-07-14 Hospital [facility] [id number] Univers 15:35:00 23:59:00 Encounter Deangelo SPECIALTY 350.1.13.10 ity [facility] 4.2.7.2.686 [facility] AT [phone] Ca efrain VEGA 809 [facility] 2022-07-14 2022-07-14 Outpatient R [facility] [id number] Univers 14:45:00 16:14:45 DEANGELO ity [facility] 2022-07-14 2022-07-14 Office [facility] [id number] Univers 14:45:00 16:14:45 Visit Deangelo SPECIALTY 350.1.13.10 [facility] 4.2.7.2.686 [facility] AT [phone] Ca efrain VEGA 198 [facility] 2022-07-10 2022-07-10 (TEL) STLMLC STLMLC [id number] Co mmon 00:00:00 00:00:00 [facility] 2022-07-08 2022-07-08 (TEL) STLMLC STLMLC [id number] Co mmon 00:00:00 00:00:00 [facility] 2022-07-04 2022-07-04 OFFICE STLMLC STLMLC [id number] Co mmon 00:00:00 00:00:00 VISIT EST Spir it PT LEVEL 3 - [facility] 2022-06-30 2022-06-30 Outpatient [facility] [id number] Univers 14:15:00 14:15:00 DEANGELO ity [facility] 2022-06-25 2022-06-25 (TEL) STLMLC STLMLC [id number] Co mmon 00:00:00 00:00:00 [facility] 2022-06-24 2022-06-24 Outpatient MHIE JENNIFERIE [id number] Memoria 14:45:00 14:45:00 07 sarah Pa 2022-06-242022-06-24 Outpatient MHIE MHIE [id number] Memoria 14:45:00 14:45:00 07 sarah Zeferino 2022-05-13 2022-05-13 Outpatient Diandra RAMÍREZ [facility] [id number] Univers 14:00:00 14:00:00 DEANGELO eldridge of [facility] 2022-05-12 2022-05-12 OFFICE STLMLC STLMLC [id number] Co mmon 00:00:00 00:00:00 VISIT EST Spir it PT LEVEL 3 - [facility] 2022-05-12 2022-05-12 (TEL) STLMLC STLMLC [id number] Co mmon 00:00:00 00:00:00 Spirit - [facility] 2022-05-12 2022-05-12 SUB ANNUAL STLMLC STLMLC [id number] Common 00:00:00 00:00:00 MCR Spirit WELLNESS - CHI VISIT [facility] 2022-05-09 2022-05-09 Outpatient MHIE MHIE [id number] Memoria 10:30:00 10:30:00 06 sarah Zeferino 2022-05-09 2022-05-09 Outpatient MHIE MHIE [id number] Memoria 10:30:00 10:30:00 06 sarah Pa 2022-04-04 2022-04-04 OFFICE STLMLC STLMLC [id number] Co mmon 00:00:00 00:00:00 VISIT EST Spir it PT LEVEL 3 - [facility] 2022-03-16 2022-03-17 Emergency E MADDOW, [facility] [id number] [facility] 16:59:00 11:01:00 ANA 2022-03-16 2022-03-16 Outpatient MCGARRY, [facility] NALINI [id number] [facility] 17:00:00 23:59:00 KELSI 2022-03-12 2022-03-12 Ambulatory nullFlavo MNA [id number] Memoria 19:00:00 19:00:00 Pre-Reg r Neurology 05 l Nannette Pa 2022-03-12 2022-03-12 Ambulatory nullFlavo MNA [id number] Memoria 19:00:00 19:00:00 Pre-Reg r Neurology 05 l Nannette Pa 2022-03-12 2022-03-12 Outpatient MHIE MHIE [id number] Memoria 14:00:00 14:00:00 05 sarah Pa 2022-03-12 2022-03-12 Outpatient RUMA LopesSCHER MHMISCHER [id number] 14:00:00 14:00:00 Ezra 05 Carlitos 2022-03-05 2022-03-05 OFFICE STLMLC STLC [id number] Co mmon 00:00:00 00:00:00 VISIT [facility] PT - CHI LEVEL 4 [facility] 2021-11-20 2021-11-20 (TEL) STLMLC STLC [id number] Co mmon 00:00:00 00:00:00 Spirit - [facility] 2021-11-12 2021-11-13 Outpatient nullFlavo MNA [id number] Memoria 20:00:00 05:59:59 r Neurology 04 l Nannette Pa 2021-11-12 2021-11-13 Outpatient nullFlavo MNA [id number] Memoria 20:00:00 05:59:59 r Neurology 04 l Nannette Pa 2021-11-12 2021-11-12 Outpatient RUMA LopesSCHER MHMISCHER [id number] 14:00:00 23:59:59 Ezra Wesley Urbina 2021-11-12 2021-11-12 Outpatient MHIE MHIE [id number] Memoria 14:00:00 14:00:00 04 sarah Pa 2021-10-08 2021-10-08 [facility] [id number] Univers 13:26:21 23:59:00 DEANGELO eldridge of [facility] 2021-10-08 2021-10-08 [facility] 1.2.840.114 [id number] Univers 13:26:21 23:59:00 Encounter Deangelo SPECIAL[facility].13.10 [facility] 4.2.7.2.686 [facility] AT [phone] Ca efrain [address] 2021-10-08 2021-10-08 Out[facility] [id number] Univers 13:26:21 23:59:00 DEANGELO ity of [facility] 2021-10-08 2021-10-08 Office [facility] [id number] [id number] Univers 13:05:18 13:48:29 Visit Deangelo SPECIALTY 350.1.13.10 ity of [facility] [place].7.[place] [phone] Ca efrain VEGA [address] [place] [address] 2021-09-13 2021-09-13 Telephone [facility] 1.2.840.114 [id number] Univers 00:00:00 00:00:00 Deangelo SPECIALTY 350.1.13.10 ity of [facility] [place].7.2.[place] [phone] Ca efrain VEGA [address] [place] [address] 2021-09-05 2021-09-05 OFFICE STLMLC STLC [id number] Co mmon 00:00:00 00:00:00 VISIT Spirit ESTAB PT - CHI LEVEL 4 [facility] 2021-07-30 2021-07-30 Orders Doctor PO 1.2.840.114 [id number] Univers 00:00:00 00:00:00 Only Unassigned, EDEL 350.1.13.10 ity of [place] [facility] 4.2.7.2.686 Munir as [phone] [address] 2021-07-17 2021-07-17 Outpatient STLMLC STLMLC [id number] Common 00:00:00 00:00:00 Spirit - [facility] 2021-07-09 2021-07-09 Office [facility] [id number] Univers 13:11:37 13:38:40 Visit Deangelo SPECIALTY 350.1.13.10 ity of [facility] 4.2.7.2.686 [facility] AT [phone] Ca efrain VEGA [address] [place] [address] 2021-07-09 2021-07-09 [facility] [id number] Univers 13:15:00 13:15:00 DEANGELO ity of [facility] 2021-07-03 2021-07-03 Outpatient STLMLC STLMLC [id number] Common 00:00:00 00:00:00 [facility] 2021-06-21 2021-06-21 Orders Doctor PO 1.2.840.114 [id number] Univers 00:00:00 00:00:00 Only Unassigned, EDEL 350.1.13.10 ity of [place] [facility] 4.2.7.2.686 Munir as [phone] [address] 2021-06-17 2021-06-17 Telephone [facility] 1.2.840.114 [id number] Univers 00:00:00 00:00:00 Deangelo SPECIALTY 350.1.13.10 ity of [facility] [place]2.7.2.[place] [phone] Ca efrain VEGA 198 [facility] 2021-06-11 2021-06-11 [facility] 1.2.840.114 [id number] Univers 11:26:20 23:59:00 Encounter Alondra J SPECIALTY 350.1.13.10 ity of [place] AT [phone] Ca kareenglenny VEGA 809 [facility] 2021-06-11 2021-06-11 Office [facility] 1.2.104.399 [id number] Univers 11:09:29 11:54:03 Visit Alondra J SPECIALTY 350.1.13.10 ity of [place]2.[place] AT [phone] Ca efrain VEGA 198 [facility] 2021-06-11 2021-06-11 Outpatient [facility] [id number] Univers 11:00:00 11:00:00 ALONDRA ayalakyung [facility] 2021-06-07 2021-06-07 Outpatient STLMLC STLMLC [id number] Common 00:00:00 00:00:00 [facility] 2021-05-29 2021-05-30 [facility] 1.2.840.114 [id number] Univers 07:23:00 15:30:[address] [facility] 350.1.13.10 ity of Jt Ng 4.2.7.2.[address] [place] [phone] ([facility]) 2021-05-29 2021-05-29 Surgery [facility] 1.2.794.622 [id number] Univers 09:00:00 12:17:00 Deangelo SPECIALTY 350.1.13.10 ity of [facility] 4.2.7.2.[address] [place] [address] AT [phone] Ca efrain VEGA 020 [facility] 2021-05-29 2021-05-29 Orders Doctor PO 1.2.840.114 [id number] Univers 00:00:00 00:00:00 Only Unassigned, EDEL 350.1.13.10 ity of [place] [facility] 4.2.7.2.[address] [place] [address] [phone] [facility] [address] [place] 2021-05-28 2021-05-28 Laboratory Only, Adc Test [facility] 1.2.840. 114 [id number] Univers 15:52:01 16:07:01 Only [place] 350.1.13.10 ity of [place] 4.2.7.2.[address] [place] [address] [phone] [facility] 353 [place] 2021-05-28 2021-05-28 Outpatient R [facility] [id number] Univers 15:15:00 15:15:00 ity of [facility] 2021-05-21 2021-05-21 Office [facility] [id number] [id number] Univers 15:11:59 16:00:23 Visit Deangelo SPECIALTY 350.1.13.10 ity of [facility] 4.2.7.2.[address] [place] [address] AT [phone] Ca efrain VEGA 198 [facility] 2021-05-21 2021-05-21 Outpatient R [facility] [id number] Univers 15:30:00 15:30:00 DEANGELO ity of [facility] 2021-05-21 2021-05-21 Orders Doctor PO 1.2.840.114 [id number] Univers 00:00:00 00:00:00 Only Unassigned, EDEL 350.1.13.10 [facility] 4.2.7.2.686 [facility] [phone] [facility] [address] [place] 2021-05-21 2021-05-21 [facility] 1.2.076.051 [id number] Univers 00:00:00 00:00:00 Management Deangelo SPECIALTY 350.1.13.10 ity of [facility] 4.2.7.2.686 [facility] AT [phone] Ca efrain VEGA [address] [place] [address] 2021-05-21 2021-05-21 [facility] 1.2.788.049 [id number] Univers 00:00:00 00:00:00 Management Deangelo SPECIALTY 350.1.13.10 ity of [address] [place] [address] AT [phone] Ca efrain VEGA [address] [place] [address] 2021-05-17 2021-05-17 Outpatient STLMLC STLC [id number] Common 00:00:00 00:00:00 [facility] 2021-05-13 2021-05-13 [facility] 1.2.840.114 [id number] Univers 09:00:00 23:59:00 Encounter Deangelo Herbert 350.1.13.10 ity of [place] 4.2.7.2.686 [facility] [phone] [facility] [address] [place] 2021-05-13 2021-05-13 Outpatient R [facility] [id number] Univers 00:00:00 00:00:00 DEANGELO eldridge [facility] 2021-05-09 2021-05-09 Social Sciences Lecturer Marshall, Adc Lab Main [facility] 1.2.8 40.114 [id number] Univers 10:30:56 10:45:56 Visit Deangelo Ramírez 350.1 .13.10 ity of Hany Cole 4.2.7.2.686 [facility] [phone] Ca efrain jimi 353 [facility] 2021-05-09 2021-05-09 Outpatient R DOUGLAS [facility] [id number] Univers 10:30:00 10:30:00 HANY eldridge [facility] 2021-05-08 2021-05-09 Outpatient nullFlavo MNA [id number] Memoria 16:00:00 04:59:59 r Neurology 03 l Nannette Pa 2021-05-08 2021-05-09 Outpatient nullFlavo MNA [id number] Memoria 16:00:00 04:59:59 r Neurology 03 l Nannette Pa 2021-05-08 2021-05-08 Outpatient AYDEN Lopes MHMISCHER [id number] 11:00:00 23:59:59 Ezra Stephanie Carlitos 2021-05-08 2021-05-08 Outpatient MHIE JENNIFERIE [id number] Memoria 11:00:00 11:00:00 03 sarah Pa 2021-05-07 2021-05-07 Emergency [facility] 1.2.973.534 [id number] Univers 15:01:00 18:00:00 [facility] 350.1.13.10 it y of [place] 4.2.7.2.686 [facility] [phone] [address] ([facility]) 2021-05-07 2021-05-07 Hospital [facility] 1.2.840.114 [id number] Univers 13:20:00 15:00:00 Encounter Deangelo SPECIALTY 350.1.13.10 ity of Jt CARE 4.2.7.2.686 [facility] AT [phone] Ca efrain VEGA 809 [facility] 2021-05-07 2021-05-07 Office [facility] 1.2.176.166 [id number] Univers 12:41:36 13:39:30 Visit Deangelo SPECIALTY 350.1.13.10 ity of Jt CARE 4.2.7.2.686 [facility] AT [phone] Ca efrain VEGA 198 [facility] 2021-05-07 2021-05-07 [facility] [id number] Univers 13:00:00 13:00:00 DEANGELO eldridge [facility] 2021-05-06 2021-05-06 [facility] 1.2.287.273 [id number] Univers 13:28:55 14:10:36 [address] De La [facility] 350.1.13.10 it y of Surgical 4.2.7.2.686 Munir as Specialti [phone] Ca efrain foy 198 [facility] 2021-05-06 2021-05-06 [facility] [id number] Univers 13:30:00 13:30:00 HANY eldridge [facility] 2021-05-02 2021-05-02 Outpatient STLMLC STLMLC [id number] Common 00:00:00 00:00:00 [facility] 2021-04-30 2021-04-30 Outpatient STLMLC STLMLC [id number] Common 00:00:00 00:00:00 [facility] 2021-04-26 2021-04-26 [facility] 1.2.840.114 [id number] Univers 10:43:20 23:59:00 [address] [facility] 350.1.13.10 ity of Surgical 4.2.7.2.686 Munir as Specialti [phone] Ca efrain es 809 [facility] 2021-04-26 2021-04-26 [facility] [id number] Univers 10:26:30 11:02:25 Visit [address] De La [facility] 350.1.13.10 it y of Surgical 4.2.7.2.686 Munir as Specialti [phone] Ca efrain foy 198 [facility] 2021-04-26 2021-04-26 [facility] [id number] Univers 10:15:00 10:15:00 HANY [facility] 2021-04-24 2021-04-24 (TEL) STLC STLMLC [id number] Co mmon 00:00:00 00:00:00 [facility] 2021-04-03 2021-04-03 Letter PO Farah [id number] Univers 00:00:00 00:00:00 (Out) Maribel [place] 350.1.13.10 ity of HOSPITAL 4.2.7.2.686 Munir as [phone] [facility] [address] 2021-03-25 2021-03-25 Outpatient STLMLC STLMLC [id number] Common 00:00:00 00:00:00 [facility] 2021-03-25 2021-03-25 Outpatient STLMLC STLC [id number] Common 00:00:00 00:00:00 [facility] 2021-03-25 2021-03-25 Orders Doctor FONTENOT [id number] Univers 00:00:00 00:00:00 Only Unassigned, EDEL 350.1.13.10 ity of [place] [facility] 4.2.7.2.686 Munir as [phone] [facility] [address] 2021-03-15 2021-03-15 [facility] [id number] Univers 10:57:56 23:59:00 Encounter Hany [facility] 350.1.13.10 ity of Surgical 4.2.7.2.686 Munir as Specialti [phone] Ca dical es 809 [facility] 2021-03-15 2021-03-15 [facility] 1.2.840.114 [id number] Univers 10:50:34 11:05:[address] [facility] Hospital 350.1.13.10 it y of Surgical 4.2.7.2.686 Munir as Specialti [phone] Me dical es 198 [facility] 2021-03-15 2021-03-15 [facility] [id number] Univers 10:30:00 10:30:00 ROSA ity [facility] 2021-03-15 2021-03-15 Outpatient STLC [facility] [id number] Common 00:00:00 00:00:00 [facility] 2021-03-07 2021-03-07 Outpatient STLC ST[facility] [id number] Common 00:00:00 00:00:00 [facility] 2021-02-20 2021-02-20 [facility] 1.2.106.412 [id number] Univers 15:10:25 15:40:20 Visit Hany De La Cruz [employer] 350.1.13.10 it y of Surgical 4.2.7.2.686 Munir as Specialti [phone] Me dical es 198 [facility] 2021-02-20 2021-02-20 [facility] [id number] Univers 15:15:00 15:15:00 HANY ity [facility] 2021-02-20 2021-02-20 Orders Doctor PO 1.2.840.114 [id number] Univers 00:00:00 00:00:00 Only Unassigned, EDEL 350.1.13.10 ity of [place] [facility] 4.2.7.2.686 Munir as [phone] [address] 2021-02-19 2021-02-19 [facility]phone [facility] 1.2.840.114 [id number] Univers 00:00:00 00:00:00 Hany De La Cruz [employer] 350.1.13.10 it y of Surgical 4.2.7.2.686 Munir as Specialti [phone] Me dical es 198 [facility] 2021-02-13 2021-02-13 Hospital [facility] 1.2.840.114 [id number] Univers 14:14:48 23:59:00 Encounter [facility] 350.1.13.10 ity of Surgical 4.2.7.2.686 Munir as Specialti [phone] Me dical es 809 [facility] 2021-02-13 2021-02-13 [facility] 1.2.070.037 [id number] Univers 14:10:34 14:57:32 Visit Hany De La Cruz [employer] 350.1.13.10 it y of Surgical 4.2.7.2.686 Munir as Specialti [phone] Ca dical es 198 [facility] 2021-02-13 2021-02-13 [facility] [id number] Univers 14:00:00 14:00:00 HANY eldridge [facility] 2021-02-06 2021-02-06 Orders Doctor PO 1.2.840.114 [id number] Univers 00:00:00 00:00:00 Only Unassigned, EDEL 350.1.13.10 ity of [place] [facility] 4.2.7.2.686 Munir as [phone] [facility] [address] 2021-01-30 2021-01-30 [facility] 1.2.840.114 [id number] Univers 13:06:00 23:59:00 Encounter Hany [place] 350.1.13.10 [place] [phone] [facility] 043 [address] 2021-01-30 2021-01-30 [facility] N[facility] [id number] Univers 00:00:00 00:00:00 HANY eldridge [facility] 2021-01-29 2021-01-29 [facility] [id number] Univers 16:17:13 23:59:00 HANY eldridge [facility] 2021-01-29 2021-01-29 [facility] 1.2.840.114 [id number] Univers 16:17:13 23:59:00 Encounter Hany Herbert 350.1.13.10 [place] [phone] [facility] [address] [place] 2021-01-29 2021-01-29 Outpatient [facility] [id number] Univers 16:45:00 16:45:00 HANY eldridge [facility] 2021-01-29 2021-01-29 Social Sciences Lecturer Marshall, Adc Lab Main [facility] 1.2.8 40.114 [id number] Univers 16:15:25 16:30:25 Visit Hany Cole 350.1.13.10 ity of [place] 4.2.7.2.686 [place] Ramiresio [phone] Ca dical nal 353 [facility] 2021-01-29 2021-01-29 Telephone Cole [facility] 1.2.840.114 [id number] Univers 00:00:00 00:00:00 Hany Angulo 350.1.13.10 it y of Surgical 4.2.7.2.686 Munir as Specialti [phone] Ca dical es 198 [facility] 2021-01-28 2021-01-28 Orders Doctor PO 1.2.840.114 [id number] Univers 00:00:00 00:00:00 Only Unassigned, EDEL 350.1.13.10 it[place] [facility]OSP[facility] 4.2.7.2.686 Munir as [phone] [address] 2021-01-22 2021-01-24 [facility] [id number] Memoria 20:07:22 04:59:59 Medical r Neurology 00 l Records Nannette Springerann 2021-01-22 2021-01-24 Outside [facility] [id number] Memoria 20:07:22 04:59:59 Medical r Neurology 00 l Records Nannette Springerann 2021-01-22 2021-01-23 Outpatient MHMISCHER MHMISCHER [id number] 15:07:22 23:59:59 00 2021-01-22 2021-01-22 Orders Doctor PO 1.2.840.114 [id number] Univers 00:00:00 00:00:00 Only Unassigned, EDEL 350.1.13.10 ity of [place] [facility] 4.2.7.2.686 Munir as [phone] [address] 2021-01-21 2021-01-21 Office Rhonda [facility] 1.2.840.114 [id number] Univers 15:29:28 15:44:28 Visit Rosa Angulo 350.1.13.10 it y of Surgical 4.2.7.2.686 Munir as Specialti [id number] Ca dical es 198 [facility] 2021-01-21 2021-01-21 Outpatient R RHONDA [facility] [id number] Univers 15:15:00 15:15:00 ROSA ity of [facility] 2021-01-05 2021-01-05 Outpatient [facility] [id number] Univers 08:15:00 08:15:00 ity [facility] 2020-12-08 2020-12-08 Outpatient [facility] [id number] Univers 08:10:00 08:10:00 ity [facility] 2020-11-08 2020-11-09 Outpatient nullFlavo MNA [id number] Memoria 19:45:00 05:59:59 r Neurology 02 l Nannette Springerann 2020-11-08 2020-11-09 Outpatient nullFlavo MNA [id number] Memoria 19:45:00 05:59:59 r Neurology 02 l Nannette [place] 2020-11-08 2020-11-08 Outpatient Moses MHMISCHER MHMISCHER [id number] 13:45:00 23:59:59 Ezra 02 Carlitos 2020-11-08 2020-11-08 Outpatient MHIE MHIE [id number] Memoria 13:45:00 13:45:00 02 sarah [place] 2020-10-22 2020-10-22 Orders Doctor PO 1.2.840.114 [id number] Univers 00:00:00 00:00:00 Only Unassigned, EDEL 350.1.13.10 ity of [place] [facility] 4.2.7.2.686 Munir as [phone] [address] 2020-10-03 2020-10-03 [facility] 1.2.840.114 [id number] 07:10:00 09:07:00 Encounter Oxana najera 350.1.13.10 [place] 4.2.7.2.686 Surgical [phone] [place] [address] 2020-10-03 2020-10-03 [facility] 1.2.840.114 [id number] Univers 07:10:00 09:07:00 Encounter Oxana najera 350.1.13.10 [place] [phone] [facility] [address] 2020-10-02 2020-10-02 Outpatient R ADRIANA [facility] [id number] Univers 13:30:00 13:30:00 OXANA Najera [facility] 2020-10-02 2020-10-02 Laboratory Only, [facility] 1.2.840.114 [id number] 11:22:32 11:37:32 Only Test [place] 350.1.13.10 [place] 4.2.7.2.686 Hanna [id number] 353 2020-10-02 2020-10-02 Laboratory Only, [facility] Test [place] 1.2.840. 114 [id number] Univers 11:22:32 11:37:32 Only Oxana Gross 350.1.1 3.10 [place] [phone] [facility] 353 [address] 2020-10-02 2020-10-02 Orders Doctor FONTENOT 1.2.840.114 [id number] 00:00:00 00:00:00 Only Unassigned, E[place] 350.1.13.10 [place] [facility] 4.2.7.2.686 [id number] 009 2020-10-02 2020-10-02 Orders Doctor FONTENOT 1.2.840.114 [id number] Univers 00:00:00 00:00:00 Only Unassigned, EDEL 350.1.13.10 ity of [place] HOSPITAL 4.2.7.2.686 Munir as [phone] [facility] [address] 2020-09-18 2020-09-18 Outpatient R AMBROSE, [facility] [id number] Univers 19:40:00 19:40:00 YURIDIA ogden [facility] 2020-09-18 2020-09-18 Urgent Provider, [facility] 1.2.411.747 [id number] 17:08:48 18:15:00 Care [facility] 350.1.13.10 Care [place] 4.2.7.2.686 Professio [phone] nal [address] One 2020-09-18 2020-09-18 Urgent Provider, [facility] 1.2.840.114 [id number] [facility] 17:08:48 18:15:00 [facility] Yuridia [facility] 350.1.13.10 ity of [place] 4.2.7.2.686 Munir as [place] [phone] [facility] 044 [facility] One 2020-09-13 2020-09-14 Outpatient nullFlavo MNA [id number] Memoria 19:00:00 05:59:59 r Neurology 01 l [place] 2020-09-13 2020-09-14 Outpatient nullFlavo MNA [id number] Memoria 19:00:00 05:59:59 r Neurology 01 l [place] 2020-09-13 2020-09-13 Outpatient RUMA LopesSCHER MHMISCHER [id number] 13:00:00 23:59:59 Ezra [facility] 2020-09-13 2020-09-13 Outpatient MHIE MHIE [id number] Memoria 13:00:00 13:00:00 01 [facility] 2020-09-12 2020-09-12 Orders Doctor PO 1.2.840.114 [id number] 00:00:00 00:00:00 Only Unassigned, E[place] 350.1.13.10 [place] [facility] 4.2.7.2.[id number] [facility] 2020-09-12 2020-09-12 Orders Doctor PO 1.2.840.114 [id number] Univers 00:00:00 00:00:00 Only Unassigned, EDEL 350.1.13.10 ity of [place] [facility] 4.2.7.2.686 Munir as [phone] [address] 2020-08-16 2020-08-17 Outpatient nullFlavo MNA [id number] Memoria 18:30:00 04:59:59 r Neurology 00 l Beck[place] 2020-08-16 2020-08-17 Outpatient nullFlavo MNA [id number] Memoria 18:30:00 04:59:59 r Neurology 00 l [place] 2020-08-16 2020-08-16 Outpatient RUMA LopesSCHER MHMISCHER [id number] 13:30:00 23:59:59 Ezra 00 [facility] 2020-08-16 2020-08-16 Outpatient IE IE [id number] Memoria 13:30:00 13:30:00 00 sarah [place] 2020-06-05 2020-06-05 Telephone PO Yanez 1.2.874.742 [id number] 00:00:00 00:00:00 Michael J [place] 350.1.13.10 HOSPITAL 4.2.7.2.686 [id number] 019 2020-06-05 2020-06-05 Letter PO Montano 1.2.840.114 [id number] 00:00:00 00:00:00 (Out) Dea Calle [place] 350.1.13.10 HOSPITAL 4.2.7.2.686 [id number] 019 2020-06-05 2020-06-05 Telephone PO Yanez 1.2.445.082 [id number] Univers 00:00:00 00:00:00 Michael Jamison E[place] 350.1.13.10 it y of HOSPITAL 4.2.7.2.686 Munir as [phone] [address] 2020-06-05 2020-06-05 Letter PO Montano 1.2.840.114 [id number] Univers 00:00:00 00:00:00 (Out) Dea [place] 350.1.13.10 it y of HOSPITAL 4.2.7.2.686 Munir as [phone] [address] 2020-06-01 2020-06-01 Laboratory Lab, [facility] [place] 1.2.840.114 [id number] 14:41:25 15:01:25 Only Fam Pob I Health 350.1.13.10 [place] 4.2.7.2.686 Professio [phone] nal 044 Office Building [facility] 2020-06-01 2020-06-01 Laboratory Lab, Adc Fam Pob I [facility] 1.2. 840.114 [id number] [facility] 14:41:25 15:01:25 Only Anene, Fabien Health 350.1.13.10 ity of [place] 4.2.7.2.686 Munir as Professio [id number] Ca dical nal [address] [place] Office Building [facility] 2020-06-01 2020-06-01 Outpatient R NKECHI, [facility] [id number] Univers 15:00:00 15:00:00 FABIEN eldridge of [facility] 2020-06-01 2020-06-01 Letter Doctor PO 1.2.840.114 [id number] 00:00:00 00:00:00 (Out) Unassigned, E[place] 350.1.13.10 [place] [facility] 4.2.7.2.686 [id number] 044 2020-06-01 2020-06-01 Letter Doctor PO 1.2.840.114 [id number] Univers 00:00:00 00:00:00 (Out) Unassigned, EDEL 350.1.13.10 ity of [place] HOSPITAL 4.2.7.2.686 Munir as [phone] [facility] 044 [address] Orders Doctor PO 1.2.840.114 [id number] Univers 00:00:00 00:00:00 Only Unassigned, EDEL 350.1.13.10 ity of [place] HOSPITAL 4.2.7.2.686 Munir as [phone] [facility] 009 Branch Results Test Description Test Time Test Comments Results Result Comments Source POC-Glucose meter 2023-02-07 17:57:39 Test Item Value Reference Range Interpretation Comme nts POC-Glucose Meter (test code = 88 mg/dL 70-110 : TESTED AT [facility] [address] [facility] 1538) [facility], 770 30: Window Unit Air Conditioning Mechanic/Techni lukas ID = [id number] for NAVEEN FLOREZ Lab Interpretation (test code = Normal 82840-7) [facility] [id number] 17:57:39 Test Item Value Reference Range Interpretation Comments POC-GLUCOSE METER 88 mg/dL 70-110 : TESTED A T [facility] 6720 ([employer]) (test code = ANA Jim [facility], 1538) 903[address]: Window Unit Air Conditioning Mechanic/Techni lukas ID = [id number] for NAVEEN HOLT POCT-GLUCOSE [id number] 12:22:03 Test Item Value Reference Range Interpretation Comments POC-GLUCOSE METER 135 mg/dL 70-110 H : TESTED A T [facility] 6720 (BEAKER) (test code = ANA [place], 1538) [address]: Window Unit Air Conditioning Mechanic/Techni lukas ID = [id number] for NAVEEN SHERIFF SARS-CoV2/RT-PCR (Asymptomatic ONLY)2023-02-07 10:59:43 Test Item Value Reference Interpretation Comments Range SARS-COV2/RT-PCR Negative Negative The SARS-Co V-2 (test code = target nucleic 03950-5) acids are not detected in thi s specimen. Negat haroon results do not preclude SARS-C oV-2 infection and should not be u sed as the sole bas is for patient management decisions. Nega tive results must be combined with clinical observations, patient history , and epidemiolog ical information. A false negative result may occu r if a specimen is improperly collected, transported or handled. This S ARS CoV-2 test is a rapid, real-irina e RT-PCR test intended for th e qualitative detection of nucleic acid fr om SARS-CoV-2 in a nasopharyngeal swab specimen collec javan from individual s suspected of COVID-19 by the ir healthcare provider. BARBARA (test code = This test has been BARBARA) authorized by FDA under an EUA for use by authorized laboratories. This test is only authorized for the duration of the declaration that circumstances exist justifying the authorization of emergency use of in vitro diagnostic tests for detection and/or diagnosis of COVID-19 under Section 564(b)(1) of the Federal Food, Drug and Cosmetic Act, 21 U.S.C. 360bbb-3(b)(1), unless the authorization is terminated or revoked sooner. Fact Sheet for Healthcare Providers: https://www.[employer]/Documents/Xp ert%20Xpress%20SAR S%20CoV-2/Fact%20S heets/3023802%20S ARS-COV-2%20HEALTH CARE%20PROVIDERS%2 0FACT%20SHEET.pdf Fact Sheet for Healthcare Patients: https://www.[employer]/Documents/Xp ert%20Xpress%20SAR S%20CoV-2/Fact%20S heets/3023801%20S ARS-COV-2%20PATIEN T%20FACT%20SHEET.p df Lab Interpretation Normal (test code = 53711-5) [facility])2023-02-07 10:59:43 Test Item Value Reference Range Interpretation Comments SARS-COV2/RT-PCR Negative Negative The SARS-Co V-2 target (test code = nucleic acids a re not 8577087) detected in thi s specimen. Negative result s do not preclude SARS-C oV-2 infection and s hould not be used as the petros e basis for patient managem ent decisions. Nega tive results must be combine d with clinical observ ations, patient history , and epidemiological information. A false negativ e result may occur if a spec imen is improperly eliane ected, transported or handled. This SARS CoV-2 test is a rapid, real-time RT-PC R test intended for th e qualitative detection of nu cleic acid from SARS-CoV-2 in a nasopharyngeal swab specimen collected from individuals suspected of CO VID-19 by their healthcar e provider. This test has been authorized by FDA under an EUA for use by authorized laboratories. This test is only authorized for the duration of the declaration that circumstances exist justifying the authorization of emergency use of in vitro diagnostic tests for detection and/or diagnosis of COVID-19 under Section 564(b)(1) of the Federal Food, Drug and Cosmetic Act, 21 U.S.C. 360bbb-3(b)(1), unless the authorization is terminated or revoked sooner. Fact Sheet for Healthcare Providers: https://www.[employer].HouzeMe m/Documents/Xpert%20Xpress%20SARS%20CoV-2/Fact%20Sheets/302-1072%08EWKG-VAT-5%20 HEALTHCARE%20PROVIDERS%20FACT%20SHEET.pdf Fact Sheet for Healthcare Patients: https://www.[employer]/Documents/Xpert%20Xp ress%20SARS%20CoV-2/Fact%20Sheets/302-2271%87LRAQ-JBA-7%20PATIENT%20FACT%20SHEET .pdfPOCT-GLUCOSE [id number] 07:41:09 Test Item Value Reference Range Interpretation Comments POC-GLUCOSE METER 100 mg/dL 70-110 : TESTED A T [facility] 6720 (BEAKER) (test code = ANA R [facility], 1538) [address]: Window Unit Air Conditioning Mechanic/Techni lukas ID = [id number] for NAVEEN SHERIFF BASIC METABOLIC [id number] 05:11:42 Test Item Value Reference Range Interpretation Comments SODIUM (BEAKER) 141 meq/L 136-145 (test code = 381) POTASSIUM 4.1 meq/L 3.5-5.1 (BEAKER) (test code = 379) CHLORIDE (BEAKER) 106 meq/L 98-107 (test code = 382) CO2 (BEAKER) 25 meq/L 22-29 (test code = 355) BLOOD UREA 12 mg/dL 7-21 NITROGEN (BEAKER) (test code = 354) CREATININE 0.68 mg/dL 0.57-1.25 (BEAKER) (test code = 358) GLUCOSE RANDOM 96 mg/dL 70-105 (BEAKER) (test code = 652) CALCIUM (BEAKER) 9.8 mg/dL 8.4-10.2 (test code = 697) EGFR (BEAKER) 95 Interpretatio n of eGFR (test code = mL/min/1.73 values Stage De scription 1092) sq m Result G1 Norm al or high >=90 G2 Mildly decreased 60-89 G3a Mildl y to moderately 45-5 9 G3b Moderately to s everely 30-44 G4 Severl y decreased 15-29 G5 Kidne y failure <15Reported eGF R is based on the CKD-EPI 2020 equation that d oes not use a race coefficientEsti mated GFR is not as accur ate as Creatinine Kassidy lei in predicting glom erular filtration rate . Estimated GFR is not appl icable for dialysis patien ts Window Unit Air Conditioning Mechanic ID - [id number] 05:11:42 Test Item Value Reference Range Interpretation Comments MAGNESIUM (BEAKER) (test code = 2.2 mg/dL 1.6-2.6 627) Window Unit Air Conditioning Mechanic ID - MARCOCBC W/PLT COUNT & AUTO [id number] 04:06:42 Test Item Value Reference Range Interpretation Comments WHITE BLOOD CELL COUNT (BEAKER) 7.6 K/ L 3.5-10.5 (test code = 775) RED BLOOD CELL COUNT (BEAKER) 3.55 M/ L 3.93-5.22 L (test code = 761) HEMOGLOBIN (BEAKER) (test code = 11.1 GM/DL 11.2-15.7 L 410) HEMATOCRIT (BEAKER) (test code = 34.4 % 34.1-44.9 411) MEAN CORPUSCULAR VOLUME (BEAKER) 97 fL 79-95 H (test code = 753) MEAN CORPUSCULAR HEMOGLOBIN 31.3 pg 25.6-32.2 (BEAKER) (test code = 751) MEAN CORPUSCULAR HEMOGLOBIN CONC 32.3 GM/DL 32.2-35.5 (BEAKER) (test code = 752) RED CELL DISTRIBUTION WIDTH 14.2 % 11.7-14.4 (BEAKER) (test code = 412) PLATELET COUNT (BEAKER) (test 230 K/CU MM 150-450 code = 756) MEAN PLATELET VOLUME (BEAKER) 11.6 fL 9.4-12.3 (test code = 754) NUCLEATED RED BLOOD CELLS 0 /100 WBC 0-0 (BEAKER) (test code = 413) NEUTROPHILS RELATIVE PERCENT 73 % (BEAKER) (test code = 429) LYMPHOCYTES RELATIVE PERCENT 13 % (BEAKER) (test code = 430) MONOCYTES RELATIVE PERCENT 7 % (BEAKER) (test code = 431) EOSINOPHILS RELATIVE PERCENT 7 % (BEAKER) (test code = 432) BASOPHILS RELATIVE PERCENT 0 % (BEAKER) (test code = 437) NEUTROPHILS ABSOLUTE COUNT 5.51 K/ L 1.56-6.13 (BEAKER) (test code = 670) LYMPHOCYTES ABSOLUTE COUNT 0.99 K/ L 1.18-3.74 L (BEAKER) (test code = 414) MONOCYTES ABSOLUTE COUNT (BEAKER) 0.53 K/ L 0.24-0.36 H (test code = 415) EOSINOPHILS ABSOLUTE COUNT 0.51 K/ L 0.04-0.36 H (BEAKER) (test code = 416) BASOPHILS ABSOLUTE COUNT (BEAKER) 0.02 K/ L 0.01-0.08 (test code = 417) IMMATURE GRANULOCYTES-RELATIVE 0.30 % 0.00-1.00 PERCENT (BEAKER) (test code = 2801) POCT-GLUCOSE [id number] 00:26:03 Test Item Value Reference Range Interpretation Comments POC-GLUCOSE METER 106 mg/dL 70-110 : TESTED A T [facility] 6720 (LUIS) (test code = ANA Jim [place], 1538) [address]: Window Unit Air Conditioning Mechanic/Techni lukas ID = [id number] for ANJELICA GRAVES POCT-GLUCOSE [id number] 17:42:00 Test Item Value Reference Range Interpretation Comments POC-GLUCOSE METER 126 mg/dL 70-110 H : TESTED A T [facility] 67[address] (LUIS) (test code = ANA Jim [place], 1538) [address]: Window Unit Air Conditioning Mechanic/Techni lukas ID = [id number] for VICENTE TAPIA FL, ESOPH, SWALLOW FUNCTION, WITH CINE OR [id number] 13:16:00Reason for exam:->[facility]hag[facility] Mitchell Jospeh : 1955 Sex: FFINAL REPORT EXAMINATION: Modified barium swallow study INDICATION: Dysphagia. COMPARISON: None. TECHNIQUE: The examination was performed in conjunction with speech pathology. Varying consistencies of barium was administered under lateral fluoroscopic observation. 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 Prominent anterior cervical osteophytes. Fluoroscopy time: 1.8 minutesNumber of images: 4 IMPRESSION:Please refer to the speech pathologist's note from the same date for further description. Signed: Koffi Rinaldi Verified Date/Time: 02/06/2023 13:16:16 Reading Location: [address] Consult Reading Room POCT-GLUCOSE [id number] 13:12:23 Test Item Value Reference Range Interpretation Comments POC-GLUCOSE METER 126 mg/dL 70-110 H : TESTED A T [facility] 6720 (BEAKER) (test code = ANA [place], 1538) [address]: Window Unit Air Conditioning Mechanic/Techni lukas ID = [id number] for VICENTE TAPIA BASIC METABOLIC [id number] 05:48:11 Test Item Value Reference Range Interpretation Comments SODIUM (BEAKER) 138 meq/L 136-145 (test code = 381) POTASSIUM 3.9 meq/L 3.5-5.1 (BEAKER) (test code = 379) CHLORIDE (BEAKER) 103 meq/L 98-107 (test code = 382) CO2 (BEAKER) 25 meq/L 22-29 (test code = 355) BLOOD UREA 13 mg/dL 7-21 NITROGEN (BEAKER) (test code = 354) CREATININE 0.70 mg/dL 0.57-1.25 (BEAKER) (test code = 358) GLUCOSE RANDOM 140 mg/dL 70-105 H (BEAKER) (test code = 652) CALCIUM (BEAKER) 9.1 mg/dL 8.4-10.2 (test code = 697) EGFR (BEAKER) 94 Interpretatio n of eGFR (test code = mL/min/1.73 values Stage De scription 1092) sq m Result G1 Betty l or high >=90 G2 Mildly decreased 60-89 G3a Mildl y to moderately 45-5 9 G3b Moderately to s everely 30-44 G4 Severl y decreased 15-29 G5 Kidney failure <15Reported eGF R is based on the CKD-EPI 1 equation that d oes not use a race coefficientEsti mated GFR is not as accur ate as Creatinine Kassidy quique in predicting glom erular filtration rate . Estimated GFR is not appl icable for dialysis patien ts Window Unit Air Conditioning Mechanic ID - [id number] 05:48:11 Test Item Value Reference Range Interpretation Comments MAGNESIUM (BEAKER) (test code = 2.0 mg/dL 1.6-2.6 627) Window Unit Air Conditioning Mechanic ID - BSCBC W/PLT COUNT & AUTO [id number] 05:42:10 Test Item Value Reference Range Interpretation Comments WHITE BLOOD CELL COUNT (BEAKER) 7.6 K/ L 3.5-10.5 (test code = 775) RED BLOOD CELL COUNT (BEAKER) 3.67 M/ L 3.93-5.22 L (test code = 761) HEMOGLOBIN (BEAKER) (test code = 11.6 GM/DL 11.2-15.7 410) HEMATOCRIT (BEAKER) (test code = 35.3 % 34.1-44.9 411) MEAN CORPUSCULAR VOLUME (BEAKER) 96 fL 79-95 H (test code = 753) MEAN CORPUSCULAR HEMOGLOBIN 31.6 pg 25.6-32.2 (BEAKER) (test code = 751) MEAN CORPUSCULAR HEMOGLOBIN CONC 32.9 GM/DL 32.2-35.5 (BEAKER) (test code = 752) RED CELL DISTRIBUTION WIDTH 14.2 % 11.7-14.4 (BEAKER) (test code = 412) PLATELET COUNT (BEAKER) (test 233 K/CU MM 150-450 code = 756) MEAN PLATELET VOLUME (BEAKER) 11.7 fL 9.4-12.3 (test code = 754) NUCLEATED RED BLOOD CELLS 0 /100 WBC 0-0 (BEAKER) (test code = 413) NEUTROPHILS RELATIVE PERCENT 72 % (BEAKER) (test code = 429) LYMPHOCYTES RELATIVE PERCENT 12 % (BEAKER) (test code = 430) MONOCYTES RELATIVE PERCENT 8 % (BEAKER) (test code = 431) EOSINOPHILS RELATIVE PERCENT 7 % (BEAKER) (test code = 432) BASOPHILS RELATIVE PERCENT 0 % (BEAKER) (test code = 437) NEUTROPHILS ABSOLUTE COUNT 5.47 K/ L 1.56-6.13 (BEAKER) (test code = 670) LYMPHOCYTES ABSOLUTE COUNT 0.90 K/ L 1.18-3.74 L (BEAKER) (test code = 414) MONOCYTES ABSOLUTE COUNT (BEAKER) 0.64 K/ L 0.24-0.36 H (test code = 415) EOSINOPHILS ABSOLUTE COUNT 0.52 K/ L 0.04-0.36 H (BEAKER) (test code = 416) BASOPHILS ABSOLUTE COUNT (BEAKER) 0.03 K/ L 0.01-0.08 (test code = 417) IMMATURE GRANULOCYTES-RELATIVE 0.30 % 0.00-1.00 PERCENT (BEAKER) (test code = 2801) POCT-GLUCOSE [id number] 23:31:12 Test Item Value Reference Range Interpretation Comments POC-GLUCOSE METER 134 mg/dL 70-110 H : TESTED A T [facility] 6720 (BEAKER) (test code = ANA Jim [facility], 1538) [address]: Window Unit Air Conditioning Mechanic/Techni lukas ID = [id number] for Venkata Royal Venous doppler legs [id number] 18:27:45Ejection FractionSLEH ECHO HEARTLAB MKCKESSON [facility] Center[facility]ous do[facility] arms bilateral 2023-02-05 18:27:19Ejection FractionSLEH ECHO HEARTLAB MKCKESSON [facility] [id number] 17:29:53 Test Item Value Reference Range Interpretation Comments POC-GLUCOSE METER 74 mg/dL 70-110 : TESTED A T [facility] 6720 (BEAKER) (test code = ANA [place], 1538) [address]: Window Unit Air Conditioning Mechanic/Techni lukas ID = [id number] for VICENTE LUCAS [id number] 05:47:28 Test Item Value Reference Range Interpretation Comments MAGNESIUM (BEAKER) (test code = 1.9 mg/dL 1.6-2.6 627) Window Unit Air Conditioning Mechanic ID - ADMINBASIC METABOLIC [id number] 05:47:27 Test Item Value Reference Range Interpretation Comments SODIUM (BEAKER) 141 meq/L 136-145 (test code = 381) POTASSIUM 4.2 meq/L 3.5-5.1 (BEAKER) (test code = 379) CHLORIDE (BEAKER) 106 meq/L 98-107 (test code = 382) CO2 (BEAKER) 26 meq/L 22-29 (test code = 355) BLOOD UREA 9 mg/dL 7-21 NITROGEN (BEAKER) (test code = 354) CREATININE 0.66 mg/dL 0.57-1.25 (BEAKER) (test code = 358) GLUCOSE RANDOM 101 mg/dL 70-105 (BEAKER) (test code = 652) CALCIUM (BEAKER) 9.6 mg/dL 8.4-10.2 (test code = 697) EGFR (BEAKER) 95 Interpretatio n of eGFR (test code = mL/min/1.73 values Stage De scription 1092) sq m Result G1 Betty l or high >=90 G2 Mildly decreased 60-89 G3a Mildl y to moderately 45-5 9 G3b Moderately to s everely 30-44 G4 Severl y decreased 15-29 G5 Kidney failure <15Reported eGF R is based on the CKD-EPI 2020 equation that d oes not use a race coefficientEsti mated GFR is not as accur ate as Creatinine Kassidy quique in predicting glom erular filtration rate . Estimated GFR is not appl icable for dialysis patien ts Window Unit Air Conditioning Mechanic ID - ADMINPOCT-GLUCOSE [id number] 05:45:55 Test Item Value Reference Range Interpretation Comments POC-GLUCOSE METER 111 mg/dL 70-110 H : [facility] ([place]ER[place] (test code = [place], 1538) [address]: Window Unit Air Conditioning Mechanic/Techni lukas ID = [id number] for Ty Maria Teresa blankenshiphawslime CBC W/PLT COUNT & AUTO [id number] 05:20:18 Test Item Value Reference Range Interpretation Comments WHITE BLOOD CELL COUNT (BEAKER) 7.0 K/ L 3.5-10.5 (test code = 775) RED BLOOD CELL COUNT (BEAKER) 3.38 M/ L 3.93-5.22 L (test code = 761) HEMOGLOBIN (BEAKER) (test code = 10.9 GM/DL 11.2-15.7 L 410) HEMATOCRIT (BEAKER) (test code = 33.0 % 34.1-44.9 L 411) MEAN CORPUSCULAR VOLUME (BEAKER) 98 fL 79-95 H (test code = 753) MEAN CORPUSCULAR HEMOGLOBIN 32.2 pg 25.6-32.2 (BEAKER) (test code = 751) MEAN CORPUSCULAR HEMOGLOBIN CONC 33.0 GM/DL 32.2-35.5 (BEAKER) (test code = 752) RED CELL DISTRIBUTION WIDTH 14.2 % 11.7-14.4 (BEAKER) (test code = 412) PLATELET COUNT (BEAKER) (test 221 K/CU MM 150-450 code = 756) MEAN PLATELET VOLUME (BEAKER) 11.8 fL 9.4-12.3 (test code = 754) NUCLEATED RED BLOOD CELLS 0 /100 WBC 0-0 (BEAKER) (test code = 413) NEUTROPHILS RELATIVE PERCENT 71 % (BEAKER) (test code = 429) LYMPHOCYTES RELATIVE PERCENT 12 % (BEAKER) (test code = 430) MONOCYTES RELATIVE PERCENT 9 % (BEAKER) (test code = 431) EOSINOPHILS RELATIVE PERCENT 7 % (BEAKER) (test code = 432) BASOPHILS RELATIVE PERCENT 0 % (BEAKER) (test code = 437) NEUTROPHILS ABSOLUTE COUNT 4.97 K/ L 1.56-6.13 (BEAKER) (test code = 670) LYMPHOCYTES ABSOLUTE COUNT 0.86 K/ L 1.18-3.74 L (BEAKER) (test code = 414) MONOCYTES ABSOLUTE COUNT (BEAKER) 0.62 K/ L 0.24-0.36 H (test code = 415) EOSINOPHILS ABSOLUTE COUNT 0.50 K/ L 0.04-0.36 H (BEAKER) (test code = 416) BASOPHILS ABSOLUTE COUNT (BEAKER) 0.02 K/ L 0.01-0.08 (test code = 417) IMMATURE GRANULOCYTES-RELATIVE 0.30 % 0.00-1.00 PERCENT (BEAKER) (test code = 2801) POCT-GLUCOSE [id number] 00:40:20 Test Item Value Reference Range Interpretation Comments POC-GLUCOSE METER 133 mg/dL 70-110 H : TESTED A T [facility] 6720 (BEAKER) (test code = A[place], 1538) [address]: Window Unit Air Conditioning Mechanic/Techni lukas ID = [id number] for Ty ler, Reshawn RAD, ABDOMEN/KUB, 1 VIEW [id number] 18:24:00Reason for exam:->Enteric tube placement [facility] 1955 Sex: FFINAL REPORT TECHNIQUE: Single View of the Abdomen. INDICATION: Enteric tube placement verification. COMPARISON: Radiographs from earlier today. FINDINGS/IMPRESSION: The feeding tube has its tip over the gastric body. The bowel gas pattern is normal. No acute bone abnormality. Moderate degenerative changes of L4-L5. The lung bases are clear. Signed: Koffi Rinaldi MDReport Verified Date/Time: 02/04/2023 18:24:12 POCT-GLUCOSE [id number] 18:06:35 Test Item Value Reference Range Interpretation Comments POC-GLUCOSE METER 90 mg/dL 70-110 : TESTED A T [facility] [facility] (test code = [place], 1538) [address]: Window Unit Air Conditioning Mechanic/Techni lukas ID = [id number] for EVA KILLIAN, VICENTE RAD, ABDOMEN/KUB, 1 VIEW [id number] 16:19:00Reason for exam:->corpak placementShould this be performed at the bedside?->Yes [facility] 1955 Sex: FFINAL REPORT TECHNIQUE: Single View of the Abdomen. INDICATION: corpak placement. COMPARISON: Abdominal radiographs from 02/01/2023. FINDINGS/IMPRESSION: The bowel gas pattern is normal. Thetip of the feeding tube is likely over the gastric fundus, although this is uncertain due to the overlying EKG lead. No abnormal calcifications. No acute bone abnormality. There is likely mild left basilar atelectasis. Signed: Koffi Rinaldi MDReport Verified Date/Time: 02/04/2023 16:19:25 THROMBIN [id number] 13:24:18 Test Item Value Reference Range Interpretation Comments ANTITHROMBIN III ACTIVITY (BEAKER) 82.0 % 80.0-120.0 (test code = 711) PROTEIN C [id number] 13:24:18 Test Item Value Reference Range Interpretation Comments PROTEIN C ACTIVITY (BEAKER) (test code 99.0 % 70.0-130.0 = 582) POCT-GLUCOSE [id number] 12:26:40 Test Item Value Reference Range Interpretation Comments POC-GLUCOSE METER 136 mg/dL 70-110 H : TESTED A T [facility] 6720 (BEAKER) (test code = [place], 1538) [address]: Window Unit Air Conditioning Mechanic/Techni lukas ID = [id number] for VICENTE TAPIA CARDIOLIPIN ANTIBODIES, IGG AND [id number] 12:24:40 Test Item Value Reference Range Interpretation Comments ANTICARDIOLIPIN IGG ANTIBODY (BEAKER) < GPL <20.0 (test code = 712) ANTICARDIOLIPIN IGM ANTIBODY (BEAKER) < MPL <20.0 (test code = 713) Anticardiolipin IgG Result Interpretation: <20.0 GPL Normal>/= 20.0 GPL PositiveAnticardiolipin IgM Result Interpretation: <20.0 MPL Normal>/= 20.0 MPL PositiveRAD, ANKLE, MIN 3 VIEWS, [id number] 07:54:00Reason for exam:->post ankle replacement follow [facility] 1955 Sex: FFINAL REPORT RAD, FOOT, MIN 3 VIEWS, LEFT, RAD, ANKLE, MIN 3 VIEWS, LEFT, RAD, LEG, TIBIA \\T\\ FIBULA, 2 VIEWS, LEFT CLINICAL HISTORY:post ankle replacement follow up TECHNIQUE: RAD, FOOT, MIN 3 VIEWS, LEFT, RAD, ANKLE, MIN 3 VIEWS, LEFT, RAD, LEG, TIBIA \\T\\ FIBULA, 2 VIEWS, LEFT COMPARISON: None.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 Fixation screws through the medial malleolus present. Left ankle prominent soft tissue swelling. No acute periprosthetic fractureor evidence of hardware malpositioning. Left knee arthroplasty changes also present without acute periprosthetic fracture. IMPRESSION: Status post left tibiotalar joint arthroplasty. Left ankle soft tis donald swelling. Left knee arthroplasty changes. 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 Fixation screws through the medial malleolus present. Left ankle prominent soft tissue swelling. No acute periprosthetic fractureor evidence of hardware malpositioning. Left knee arthroplasty changes also present without acute periprosthetic fracture. IMPRESSION: Status post left tibiotalar joint arthroplasty. Left ankle soft tis donald swelling. Left knee arthroplasty changes. Signed: Darwin Martinez MDReport Verified Date/Time: 02/04/2023 07:54:52 RAD, LEG, [id number] 07:54:00Reason for exam:->post ankle replacement. 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 Fixation screws through the medial malleolus present. Left ankle prominent soft tissue swelling. No acute periprosthetic fractureor evidence of hardware malpositioning. Left knee arthroplasty changes also present without acute periprosthetic fracture. IMPRESSION: Status post left tibiotalar joint arthroplasty. Left ankle soft tis donald swelling. Left knee arthroplasty changes. Signed: Darwin Martinez MDReport Verified Date/Time: 02/04/2023 07:54:52 POCT-GLUCOSE [id number] 06:16:29 Test Item Value Reference Range Interpretation Comments POC-GLUCOSE METER 168 mg/dL 70-110 H : Notified RN/MD: ([facility]) (test code = TESTED AT [place] [address] 1538) [facility], [address]: Window Unit Air Conditioning Mechanic/Techni lukas ID = [id number] for LATHBRIDGE, ELVIA ICE POCT-GLUCOSE [id number] 23:37:46 Test Item Value Reference Range Interpretation Comments POC-GLUCOSE METER 161 mg/dL 70-110 H : Notified RN/MD: ([facility]) (test code = TESTED AT [place] [address]) [facility], [address]: Window Unit Air Conditioning Mechanic/Techni lukas ID = [id number] for LATHBRIDGE, ELVIA ICE POCT-GLUCOSE [id number] 17:07:27 Test Item Value Reference Range Interpretation Comments POC-GLUCOSE METER 168 mg/dL 70-110 H : TESTED A T [facility] 6720 ([facility]) (test code = [facility], 1538) [address]: Window Unit Air Conditioning Mechanic/Techni lukas ID = [id number] for An Landy holden VITAMIN [id number] 14:24:33 Test Item Value Reference Range Interpretation Comments VITAMIN B12 ([facility]) (test code = 913 pg/mL 213-816 H 774) Window Unit Air Conditioning Mechanic ID - MARCOPOCT-GLUCOSE [id number] 11:42:40 Test Item Value Reference Range Interpretation Comments POC-GLUCOSE METER 155 mg/dL 70-110 H : TESTED A T [facility] 6720 ([facility]) (test code = [facility], 1538) [address]: Window Unit Air Conditioning Mechanic/Techni lukas ID = [id number] for An Spring holdena POCT-GLUCOSE [id number] 06:33:41 Test Item Value Reference Range Interpretation Comments POC-GLUCOSE METER 115 mg/dL 70-110 H : Notified RN/MD: ([facility]) (test code = TESTED AT [place] [address]) [facility], [address]: Window Unit Air Conditioning Mechanic/Techni lukas ID = [id number] for ELVIA [place] BASIC METABOLIC [id number] 05:40:31 Test Item Value Reference Range Interpretation Comments SODIUM (BEAKER) 139 meq/L 136-145 (test code = 381) POTASSIUM 3.6 meq/L 3.5-5.1 (BEAKER) (test code = 379) CHLORIDE (BEAKER) 110 meq/L 98-107 H (test code = 382) CO2 (BEAKER) 24 meq/L 22-29 (test code = 355) BLOOD UREA 7 mg/dL 7-21 NITROGEN (BEAKER) (test code = 354) CREATININE 0.65 mg/dL 0.57-1.25 (BEAKER) (test code = 358) GLUCOSE RANDOM 88 mg/dL 70-105 (BEAKER) (test code = 652) CALCIUM (BEAKER) 8.8 mg/dL 8.4-10.2 (test code = 697) EGFR (BEAKER) 96 Interpretatio n of eGFR (test code = mL/min/1.73 values Stage De scription 1092) sq m Result G1 Betty l or high >=90 G2 Mildly decreased 60-89 G3a Mildl y to moderately 45-5 9 G3b Moderately to s everely 30-44 G4 Severl y decreased 15-29 G5 Kidney failure <15Reported eGF R is based on the CKD-EPI 2020 equation that d oes not use a race coefficientEsti mated GFR is not as accur ate as Creatinine Kassidy lei in predicting glom erular filtration rate . Estimated GFR is not appl icable for dialysis patien ts Window Unit Air Conditioning Mechanic ID - MARCOCREATINE KINASE (CK)2023-02-03 05:40:31 Test Item Value Reference Range Interpretation Comments CREATINE KINASE TOTAL (BEAKER) (test 284 U/L 29-200 H code = 380) Window Unit Air Conditioning Mechanic ID - MARCOCBC W/PLT COUNT & AUTO [id number] 05:13:22 Test Item Value Reference Range Interpretation Comments WHITE BLOOD CELL COUNT (BEAKER) 5.5 K/ L 3.5-10.5 (test code = 775) RED BLOOD CELL COUNT (BEAKER) 3.25 M/ L 3.93-5.22 L (test code = 761) HEMOGLOBIN (BEAKER) (test code = 10.0 GM/DL 11.2-15.7 L 410) HEMATOCRIT (BEAKER) (test code = 31.2 % 34.1-44.9 L 411) MEAN CORPUSCULAR VOLUME (BEAKER) 96 fL 79-95 H (test code = 753) MEAN CORPUSCULAR HEMOGLOBIN 30.8 pg 25.6-32.2 (BEAKER) (test code = 751) MEAN CORPUSCULAR HEMOGLOBIN CONC 32.1 GM/DL 32.2-35.5 L (BEAKER) (test code = 752) RED CELL DISTRIBUTION WIDTH 13.9 % 11.7-14.4 (BEAKER) (test code = 412) PLATELET COUNT (BEAKER) (test 201 K/CU MM 150-450 code = 756) MEAN PLATELET VOLUME (BEAKER) 11.2 fL 9.4-12.3 (test code = 754) NUCLEATED RED BLOOD CELLS 0 /100 WBC 0-0 (BEAKER) (test code = 413) NEUTROPHILS RELATIVE PERCENT 71 % (BEAKER) (test code = 429) LYMPHOCYTES RELATIVE PERCENT 14 % (BEAKER) (test code = 430) MONOCYTES RELATIVE PERCENT 8 % (BEAKER) (test code = 431) EOSINOPHILS RELATIVE PERCENT 7 % (BEAKER) (test code = 432) BASOPHILS RELATIVE PERCENT 0 % (BEAKER) (test code = 437) NEUTROPHILS ABSOLUTE COUNT 3.86 K/ L 1.56-6.13 (BEAKER) (test code = 670) LYMPHOCYTES ABSOLUTE COUNT 0.74 K/ L 1.18-3.74 L (BEAKER) (test code = 414) MONOCYTES ABSOLUTE COUNT (BEAKER) 0.42 K/ L 0.24-0.36 H (test code = 415) EOSINOPHILS ABSOLUTE COUNT 0.39 K/ L 0.04-0.36 H (BEAKER) (test code = 416) BASOPHILS ABSOLUTE COUNT (BEAKER) 0.02 K/ L 0.01-0.08 (test code = 417) IMMATURE GRANULOCYTES-RELATIVE 0.50 % 0.00-1.00 PERCENT (BEAKER) (test code = 2801) POCT-GLUCOSE [id number] 23:37:11 Test Item Value Reference Range Interpretation Comments POC-GLUCOSE METER 72 mg/dL 70-110 : Notified RN/MD: TESTED (BEAKER) (test code = AT [facility] [address] [place] 1538) [facility], [address]: Window Unit Air Conditioning Mechanic/Techni lukas ID = [id number] for BERYL STACK CT, BRAIN, WITHOUT [id number] 09:03:00Reason for Exam (Free Text) - Addiitonal information for Radiologist->follow up large right temporal stroke [facility] : 1955 Sex: FFINAL REPORT CT, BRAIN, WITHOUT CONTRAST CLINICAL INDICATION: Stroke, follow up COMPARISON: None TECHNIQUE: Noncontrast axial CT imaging of the brain and skull. DOSE REDUCTION: Dose modulation, iterative reconstruction, and/or weight-based adjustment of the mA/kV was utilized to reduce the radiation dose to as low as reasonably achievable. FINDINGS:Subacute appearing right MCA territory infarct. There is persistent sulcal effacement and mild localized mass effect without midline shift or herniation. No hemorrhagic conversion. Scattered foci of hypoattenuation are present throughout theperiventricular and subcortical white matter, and, although nonspecific by imaging, statistically represent mild chronic microvascular ischemic changes in this age group. No hydrocephalus. Orbits are within normal limits. No obstructive paranasal sinus disease. IMPRESSION: Subacute appearing right MCAterritory infarct. There is persistent sulcal effacement and mild localized mass effect without midline shift or herniation. No hemorrhagic conversion. If there is persistent clinical concern for intracranial pathology, MR examination is recommended for further characterization. Signed: Florencia Roper MDReport Verified Date/Time: 02/02/2023 09:03:43 Reading Location: [address] Reading Room -GLUCOSE [id number] 08:14:20 Test Item Value Reference Range Interpretation Comments POC-GLUCOSE METER 95 mg/dL 70-110 : TESTED A T [facility] 6720 (BEAKER) (test code = ANA Jim [facility], 1538) [address]: Window Unit Air Conditioning Mechanic/Techni lukas ID = [id number] for Alexa Dailey 2D Echo W/Doppler(CW/PW/Color)2023-02-02 07:30:03Ejection FractionSLEH ECHO HEARTLAB MKCKESSON [facility] [id number] 07:14:02 Test Item Value Reference Range Interpretation Comments POC-GLUCOSE METER 61 mg/dL 70-110 L : TESTED A T [facility] 6720 (BEAKER) (test code = ANA Jim [facility], 1538) [address]: Window Unit Air Conditioning Mechanic/Techni lukas ID = [id number] for Darrius , [place] BASIC METABOLIC [id number] 04:11:42 Test Item Value Reference Range Interpretation Comments SODIUM (BEAKER) 142 meq/L 136-145 (test code = 381) POTASSIUM 3.8 meq/L 3.5-5.1 (BEAKER) (test code = 379) CHLORIDE (BEAKER) 111 meq/L 98-107 H (test code = 382) CO2 (BEAKER) 23 meq/L 22-29 (test code = 355) BLOOD UREA 9 mg/dL 7-21 NITROGEN (BEAKER) (test code = 354) CREATININE 0.65 mg/dL 0.57-1.25 (BEAKER) (test code = 358) GLUCOSE RANDOM 66 mg/dL 70-105 L (BEAKER) (test code = 652) CALCIUM (BEAKER) 8.9 mg/dL 8.4-10.2 (test code = 697) EGFR (BEAKER) 96 Interpretatio n of eGFR (test code = mL/min/1.73 values Stage De scription 1092) sq m Result G1 Betty l or high >=90 G2 Mildly decreased 60-89 G3a Mildl y to moderately 45- 59 G3b Moderately to s everely 30-44 G4 Severl y decreased 15-29 G5 Kidney failure <15Reported eGF R is based on the CKD-EPI 2020 equation that d oes not use a race coefficientEsti mated GFR is not as accur ate as Creatinine Kassidy lei in predicting glom erular filtration rate . Estimated GFR is not appl icable for dialysis patien ts Window Unit Air Conditioning Mechanic ID - MARCOCREATINE KINASE (CK)2023-02-02 04:11:42 Test Item Value Reference Range Interpretation Comments CREATINE KINASE TOTAL (BEAKER) (test 565 U/L 29-200 H code = 380) Window Unit Air Conditioning Mechanic ID - MARCOCBC W/PLT COUNT & AUTO [id number] 03:51:28 Test Item Value Reference Range Interpretation Comments WHITE BLOOD CELL COUNT 6.6 K/ L 3.5-10.5 (BEAKER) (test code = 775) RED BLOOD CELL COUNT 3.28 M/ L 3.93-5.22 L (BEAKER) (test code = 761) HEMOGLOBIN (BEAKER) 10.2 GM/DL 11.2-15.7 L (test code = 410) HEMATOCRIT (BEAKER) 31.8 % 34.1-44.9 L (test code = 411) MEAN CORPUSCULAR 97 fL 79-95 H Discordant results VOLUME (BEAKER) (test compar ed to previous code = 753) results; clinic al correlation req uired MEAN CORPUSCULAR 31.1 pg 25.6-32.2 HEMOGLOBIN (BEAKER) (test code = 751) MEAN CORPUSCULAR 32.1 GM/DL 32.2-35.5 L HEMOGLOBIN CONC (BEAKER) (test code = 752) RED CELL DISTRIBUTION 14.1 % 11.7-14.4 WIDTH (BEAKER) (test code = 412) PLATELET COUNT 235 K/CU MM 150-450 (BEAKER) (test code = 756) MEAN PLATELET VOLUME 11.3 fL 9.4-12.3 (BEAKER) (test code = 754) NUCLEATED RED BLOOD 0 /100 WBC 0-0 CELLS (BEAKER) (test code = 413) NEUTROPHILS RELATIVE 71 % PERCENT (BEAKER) (test code = 429) LYMPHOCYTES RELATIVE 14 % PERCENT (BEAKER) (test code = 430) MONOCYTES RELATIVE 9 % PERCENT (BEAKER) (test code = 431) EOSINOPHILS RELATIVE 5 % PERCENT (BEAKER) (test code = 432) BASOPHILS RELATIVE 1 % PERCENT (BEAKER) (test code = 437) NEUTROPHILS ABSOLUTE 4.73 K/ L 1.56-6.13 COUNT (BEAKER) (test code = 670) LYMPHOCYTES ABSOLUTE 0.95 K/ L 1.18-3.74 L COUNT (BEAKER) (test code = 414) MONOCYTES ABSOLUTE 0.59 K/ L 0.24-0.36 H COUNT (BEAKER) (test code = 415) EOSINOPHILS ABSOLUTE 0.32 K/ L 0.04-0.36 COUNT (BEAKER) (test code = 416) BASOPHILS ABSOLUTE 0.03 K/ L 0.01-0.08 COUNT (BEAKER) (test code = 417) IMMATURE 0.30 % 0.00-1.00 GRANULOCYTES-RELATIVE PERCENT (BEAKER) (test code = 2801) POCT-GLUCOSE [id number] 00:51:28 Test Item Value Reference Range Interpretation Comments POC-GLUCOSE METER 75 mg/dL 70-110 : TESTED A T [facility] 6720 (BEAKER) (test code = [place], 1538) [address]: Window Unit Air Conditioning Mechanic/Techni lukas ID = [id number] for Darrius , Nneoma [id number] 22:29:40 Test Item Value Reference Range Interpretation Comments POTASSIUM (BEAKER) (test code = 3.6 meq/L 3.5-5.1 379) Window Unit Air Conditioning Mechanic ID - [id number] 22:29:39 Test Item Value Reference Range Interpretation Comments MAGNESIUM (BEAKER) (test code = 2.2 mg/dL 1.6-2.6 627) Window Unit Air Conditioning Mechanic ID - BSMR, MRA, BRAIN, WITHOUT [id number] 16:49:00Unlisted Reason for Exam - Click Yes and Enter Reason Below->No [facility] 1955 Sex: FFINAL REPORT MRA Head CLINICAL HISTORY: Stroke, follow up TECHNIQUE: MRA of the head utilizing 3-D eveb-dh-fskdmy technique, with 3-D reconstructions. COMPARISON: None FINDINGS: There is loss of flow related enhancement beyond the proximal right middle cerebral artery, compatible with thedistribution of the large acute infarct seen on MRI brain. The other major branch vessels are approximately patent. There is no critical branch vessel stenosis or aneurysm. IMPRESSION: Right MCA M1 segment occlusion compatible with acute infarction seen on the separately reported MRI. MRA Neck CLINICAL HISTORY: Stroke, follow up TECHNIQUE: MRA of the neck utilizing 2-D and 3-D xxdv-ml-tummjx technique, with 3-D reconstructions. COMPARISON: None FINDINGS: The internal carotid arteries in the neck arepatent including their bifurcations. There is antegrade flow in the vertebral arteries in the neck. IMPRESSION: No evidence of hemodynamically significant stenosis in the cervical carotid or vertebral arteries by NASCET criteria. Signed: Dl Lewis MDReport Verified Date/Time: 02/01/2023 16:49:55 MR, MRA, NECK, WITHOUT IV [id number] 16:49:00Unlisted Reason for Exam - Click Yes and Enter Reason Below->No [facility] Joseph : 1955 Sex: FFINAL REPORT MRA Head CLINICAL HISTORY: Stroke, follow up TECHNIQUE: MRA of the head utilizing 3-D zwqr-ix-pvmejv technique, with 3-D reconstructions. COMPARISON: None FINDINGS: There is loss of flow related enhancement beyond the proximal right middle cerebral artery, compatible with thedistribution of the large acute infarct seen on MRI brain. The other major branch vessels are approximately patent. There is no critical branch vessel stenosis or aneurysm. IMPRESSION: Right MCA M1 segment occlusion compatible with acute infarction seen on the separately reported MRI. MRA Neck CLINICAL HISTORY: Stroke, follow up TECHNIQUE: MRA of the neck utilizing 2-D and 3-D qphj-ll-xyqtom technique, with 3-D reconstructions. COMPARISON: None FINDINGS: The internal carotid arteries in the neck arepatent including their bifurcations. There is antegrade flow in the vertebral arteries in the neck. IMPRESSION: No evidence of hemodynamically significant stenosis in the cervical carotid or vertebral arteries by NASCET criteria. Signed: Dl Lewis MDReport Verified Date/Time: 02/01/2023 16:49:55 MR, BRAIN, WITHOUT [id number] 16:42:00Unlisted Reason for Exam - Click Yes and Enter Reason Below->No [facility] : 1955 Sex: FFINAL REPORT MRI Brain without contrast Clinical History: Stroke, follow up Technique: MRI of the brain utilizing axial T2, FLAIR, GRE, DWI; sagittal and coronal T1-weighted images. Comparisons: None available Findings: There is large volume acute right middle cerebral artery distributioninfarction. There is no evidence of hemorrhagic transformation. There is local cerebral sulcal efface ment with mild narrowing of the right lateral ventricle and slight bowing of the septum pellucidum. There is generalized parenchymal volume loss without hydrocephalus. There is mild nonspecific white matter disease. There are no extra-axial fluid collections. IMPRESSION: Large volume acute right MCA di stribution infarction compatible with the clinical history. No hemorrhagic transformation. Signed: Dl Lewis Verified Date/Time: 02/01/2023 16:42:31 , ABDOMEN/KUB, 1 VIEW [id number] 16:26:00Reason for exam:->[facility]ic tube placement [facility] 1955 Sex: FFINAL REPORT RAD, ABDOMEN/KUB, 1 VIEW AP INDICATION: Enteric tube placement verification COMPARISON: None TECHNIQUE: Limited portable radiograph of the lower chest and upper abdomen was acquired for purposes of evaluating tube placement FINDINGS/IMPRESSION:Feeding tube tip overlies the distal stomach. Signed: Florencia Roper Verified Date/Time: 02/01/2023 16:26:04 Electronicallysigned by: FLORENCIA ROPER MD on 02/01/2023 04:26 PMHIGH SENSITIVITY TROPONIN [id number] 10:24:41 Test Item Value Reference Range Interpretation Comments HIGH SENSITIVITY TROPONIN I (test 10 pg/ml <=17 code = 4142413) Window Unit Air Conditioning Mechanic ID - MARCOThe COMBAT SYSTEMS OPERATOR STAT High Sensitivity Troponin-I results should be used in conjunction with other diagnostic information such as ECG, clinical observations and information, and patientsymptoms to aid in the diagnosis of [place]. [id number] 10:17:41 Test Item Value Reference Range Interpretation Comments MAGNESIUM (BEAKER) (test code = 2.0 mg/dL 1.6-2.6 627) Window Unit Air Conditioning Mechanic ID - [id number] 10:17:41 Test Item Value Reference Range Interpretation Comments POTASSIUM (BEAKER) (test code = 3.0 meq/L 3.5-5.1 L 379) Window Unit Air Conditioning Mechanic ID - MARCOHEMOGLOBIN [id number] 08:37:13 Test Item Value Reference Range Interpretation Comments HEMOGLOBIN A1C 5.9 % See_Comment H [Automated m essage] ELECTROPHORESIS (BEAKER) The system which (test code = 3811) generated this result transmitted ref erence range: <=5.6%. The reference range was not used to int erpret this result as normal/abnormal . "The A1c is measured using a [facility]-certified method. HbA1c value equal to or greater than 6.5% as thediagnosis cutoff for diabetes. An HbA1c value of 5.7- 6.4% indicates increased risk for diabetes (prediabetes)."Window Unit Air Conditioning Mechanic ID - ADMPOCT- GLUCOSE [id number] 07:03:49 Test Item Value Reference Range Interpretation Comments POC-GLUCOSE METER 86 mg/dL 70-110 : [facility] (BEAKER) (test code = [place], 1538) [address]: Window Unit Air Conditioning Mechanic/Techni lukas ID = [id number] for Dominga Rivera BASIC METABOLIC [id number] 04:05:12 Test Item Value Reference Range Interpretation Comments SODIUM (BEAKER) 141 meq/L 136-145 (test code = 381) POTASSIUM 2.9 meq/L 3.5-5.1 L (BEAKER) (test code = 379) CHLORIDE (BEAKER) 107 meq/L 98-107 (test code = 382) CO2 (BEAKER) 24 meq/L 22-29 (test code = 355) BLOOD UREA 14 mg/dL 7-21 NITROGEN (BEAKER) (test code = 354) CREATININE 0.69 mg/dL 0.57-1.25 (BEAKER) (test code = 358) GLUCOSE RANDOM 104 mg/dL 70-105 (BEAKER) (test code = 652) CALCIUM (BEAKER) 9.1 mg/dL 8.4-10.2 (test code = 697) EGFR (BEAKER) 94 Interpretatio n of eGFR (test code = mL/min/1.73 values Stage De scription 1092) sq m Result G1 Betty l or high >=90 G2 Mildly decreased 60-89 G3a Mildl y to moderately 45-5 9 G3b Moderately to s everely 30-44 G4 Severl y decreased 15-29 G5 Kidne y failure <15Reported eGF R is based on the CKD-EPI 2020 equation that d oes not use a race coefficientEsti mated GFR is not as accur ate as Creatinine Kassidy quique in predicting glom erular filtration rate . Estimated GFR is not appl icable for dialysis patien ts Window Unit Air Conditioning Mechanic ID - MARCOCREATINE KINASE ([id number] 04:05:12 Test Item Value Reference Range Interpretation Comments CREATINE KINASE TOTAL (BEAKER) (test 1208 U/L 29-200 H code = 380) Window Unit Air Conditioning Mechanic ID - MARCOCBC W/PLT COUNT & AUTO [id number] 03:49:04 Test Item Value Reference Range Interpretation Comments WHITE BLOOD CELL COUNT (BEAKER) 9.3 K/ L 3.5-10.5 (test code = 775) RED BLOOD CELL COUNT (BEAKER) 3.41 M/ L 3.93-5.22 L (test code = 761) HEMOGLOBIN (BEAKER) (test code = 10.6 GM/DL 11.2-15.7 L 410) HEMATOCRIT (BEAKER) (test code = 31.8 % 34.1-44.9 L 411) MEAN CORPUSCULAR VOLUME (BEAKER) 93 fL 79-95 (test code = 753) MEAN CORPUSCULAR HEMOGLOBIN 31.1 pg 25.6-32.2 (BEAKER) (test code = 751) MEAN CORPUSCULAR HEMOGLOBIN CONC 33.3 GM/DL 32.2-35.5 (BEAKER) (test code = 752) RED CELL DISTRIBUTION WIDTH 14.0 % 11.7-14.4 (BEAKER) (test code = 412) PLATELET COUNT (BEAKER) (test 287 K/CU MM 150-450 code = 756) MEAN PLATELET VOLUME (BEAKER) 10.9 fL 9.4-12.3 (test code = 754) NUCLEATED RED BLOOD CELLS 0 /100 WBC 0-0 (BEAKER) (test code = 413) NEUTROPHILS RELATIVE PERCENT 81 % (BEAKER) (test code = 429) LYMPHOCYTES RELATIVE PERCENT 10 % (BEAKER) (test code = 430) MONOCYTES RELATIVE PERCENT 7 % (BEAKER) (test code = 431) EOSINOPHILS RELATIVE PERCENT 1 % (BEAKER) (test code = 432) BASOPHILS RELATIVE PERCENT 0 % (BEAKER) (test code = 437) NEUTROPHILS ABSOLUTE COUNT 7.53 K/ L 1.56-6.13 H (BEAKER) (test code = 670) LYMPHOCYTES ABSOLUTE COUNT 0.93 K/ L 1.18-3.74 L (BEAKER) (test code = 414) MONOCYTES ABSOLUTE COUNT (BEAKER) 0.63 K/ L 0.24-0.36 H (test code = 415) EOSINOPHILS ABSOLUTE COUNT 0.11 K/ L 0.04-0.36 (BEAKER) (test code = 416) BASOPHILS ABSOLUTE COUNT (BEAKER) 0.03 K/ L 0.01-0.08 (test code = 417) IMMATURE GRANULOCYTES-RELATIVE 0.20 % 0.00-1.00 PERCENT (BEAKER) (test code = 2801) TSH/FREE T4 IF [id number] 00:44:27 Test Item Value Reference Range Interpretation Comments THYROID STIMULATING HORMONE 0.435 uIU/mL 0.350-4.940 (BEAKER) (test code = 772) Window Unit Air Conditioning Mechanic ID - [id number] 00:31:22 Test Item Value Reference Range Interpretation Comments PHOSPHORUS (BEAKER) 3.2 mg/dL 2.3-4.7 Specimen slightly (test code = 604) hemolyzed Window Unit Air Conditioning Mechanic ID - BSCOMPREHENSIVE METABOLIC [id number] 00:31:22 Test Item Value Reference Range Interpretation Comments TOTAL PROTEIN 6.7 gm/dL 6.0-8.3 Specimen sligh tly (BEAKER) (test hemolyzed code = 770) ALBUMIN (BEAKER) 3.7 g/dL 3.5-5.0 Specimen sl ightly (test code = 1145) hemolyzed ALKALINE 62 U/L 40-150 PHOSPHATASE (BEAKER) (test code = 346) BILIRUBIN TOTAL 0.6 mg/dL 0.2-1.2 Specimen sli ghtly (BEAKER) (test hemolyzed code = 377) SODIUM (BEAKER) 137 meq/L 136-145 (test code = 381) POTASSIUM (BEAKER) 3.1 meq/L 3.5-5.1 L Specimen slightly (test code = 379) hemolyzed CHLORIDE (BEAKER) 102 meq/L 98-107 (test code = 382) CO2 (BEAKER) (test 21 meq/L 22-29 L code = 355) BLOOD UREA 16 mg/dL 7-21 NITROGEN (BEAKER) (test code = 354) CREATININE 0.72 mg/dL 0.57-1.25 Specimen slight ly (BEAKER) (test hemolyzed code = 358) GLUCOSE RANDOM 114 mg/dL 70-105 H (BEAKER) (test code = 652) CALCIUM (BEAKER) 9.4 mg/dL 8.4-10.2 (test code = 697) AST (SGOT) 38 U/L 5-34 H Specimen slight ly (BEAKER) (test hemolyzed code = 353) ALT (SGPT) 23 U/L 6-55 Specimen slight ly (BEAKER) (test hemolyzed code = 347) EGFR (BEAKER) 91 Interpretatio n of eGFR (test code = 1092) mL/min/1.[address] age Description sq m Result G1 Betty l or high >=90 G2 Mildly decreased 60-89 G3a Mildl y to moderately 45-5 9 G3b Moderately to s everely 30-44 G4 Severl y decreased 15-29 G5 Kidney failure <15Reported eGF R is based on the CKD-EPI 2021 equation that d oes not use a race coefficientEsti mated GFR is not as accur ate as Creatinine Kassidy lei in predicting glom erular filtration rate . Estimated GFR is not appl icable for dialysis patien ts Window Unit Air Conditioning Mechanic ID - BSLIPID [id number] 00:31:22 Test Item Value Reference Range Interpretation Comments TRIGLYCERIDES (BEAKER) 87 mg/dL Speci men slightly (test code = 540) hemolyzed CHOLESTEROL (BEAKER) 153 mg/dL Specime n slightly (test code = 631) hemolyzed HDL CHOLESTEROL (BEAKER) 37 mg/dL (test code = 976) LDL CHOLESTEROL 99 mg/dL CALCULATED (BEAKER) (test code = 633) Triglyceride Reference Range: Low Risk <150 Borderline 150-199 High Risk 200- 499 Very High Risk >=500Cholesterol Reference Range: Low Risk <200 Borderline 200-239 High Risk >240HDL Cholesterol Reference Range: Low Risk >=60 High Risk <40LDL Cholesterol Reference Range: Optimal <100 Near Optimal 100-129 Borderline 130-159 High 160-189 Very High >=190 Window Unit Air Conditioning Mechanic ID - [id number] 00:31:21 Test Item Value Reference Range Interpretation Comments MAGNESIUM (BEAKER) 1.8 mg/dL 1.6-2.6 Specimen slightly (test code = 627) hemolyzed Window Unit Air Conditioning Mechanic ID - [id number] 00:23:10 Test Item Value Reference Range Interpretation Comments PARTIAL THROMBOPLASTIN TIME 21.7 seconds 22.5-36.0 L (BEAKER) (test code = 760) PROTHROMBIN TIME/[id number] 00:17:23 Test Item Value Reference Range Interpretation Comments PROTIME (BEAKER) (test code = 14.9 seconds 11.9-14.2 H 759) INR (BEAKER) (test code = 370) 1.24 <=5.90 RECOMMENDED COUMADIN/WARFARIN INR THERAPY RANGESSTANDARD DOSE: 2.0 - 3.0 Includes: PROPHYLAXIS for venous thrombosis, systemic embolization; TREATMENT for venous thrombosis and/or pulmonary embolus.HIGH RISK: Target INR is 2.5-3.5 for patients with mechanical heart valves.CBC W/PLT COUNT & AUTO [id number] 00:05:24 Test Item Value Reference Range Interpretation Comments WHITE BLOOD CELL COUNT (BEAKER) 11.4 K/ L 3.5-10.5 H (test code = 775) RED BLOOD CELL COUNT (BEAKER) 3.62 M/ L 3.93-5.22 L (test code = 761) HEMOGLOBIN (BEAKER) (test code = 11.4 GM/DL 11.2-15.7 410) HEMATOCRIT (BEAKER) (test code = 34.0 % 34.1-44.9 L 411) MEAN CORPUSCULAR VOLUME (BEAKER) 94 fL 79-95 (test code = 753) MEAN CORPUSCULAR HEMOGLOBIN 31.5 pg 25.6-32.2 (BEAKER) (test code = 751) MEAN CORPUSCULAR HEMOGLOBIN CONC 33.5 GM/DL 32.2-35.5 (BEAKER) (test code = 752) RED CELL DISTRIBUTION WIDTH 13.9 % 11.7-14.4 (BEAKER) (test code = 412) PLATELET COUNT (BEAKER) (test 277 K/CU MM 150-450 code = 756) MEAN PLATELET VOLUME (BEAKER) 10.8 fL 9.4-12.3 (test code = 754) NUCLEATED RED BLOOD CELLS 0 /100 WBC 0-0 (BEAKER) (test code = 413) NEUTROPHILS RELATIVE PERCENT 87 % (BEAKER) (test code = 429) LYMPHOCYTES RELATIVE PERCENT 8 % (BEAKER) (test code = 430) MONOCYTES RELATIVE PERCENT 5 % (BEAKER) (test code = 431) EOSINOPHILS RELATIVE PERCENT 0 % (BEAKER) (test code = 432) BASOPHILS RELATIVE PERCENT 0 % (BEAKER) (test code = 437) NEUTROPHILS ABSOLUTE COUNT 9.87 K/ L 1.56-6.13 H (BEAKER) (test code = 670) LYMPHOCYTES ABSOLUTE COUNT 0.90 K/ L 1.18-3.74 L (BEAKER) (test code = 414) MONOCYTES ABSOLUTE COUNT (BEAKER) 0.55 K/ L 0.24-0.36 H (test code = 415) EOSINOPHILS ABSOLUTE COUNT 0.01 K/ L 0.04-0.36 L (BEAKER) (test code = 416) BASOPHILS ABSOLUTE COUNT (BEAKER) 0.03 K/ L 0.01-0.08 (test code = 417) IMMATURE GRANULOCYTES-RELATIVE 0.40 % 0.00-1.00 PERCENT (BEAKER) (test code = 2801) POCT-GLUCOSE [id number] 00:04:11 Test Item Value Reference Range Interpretation Comments POC-GLUCOSE METER 112 mg/dL 70-110 H : TESTED A T [facility] 6720 (BEAKER) (test code = [place], 1538) [address]: Window Unit Air Conditioning Mechanic/Techni lukas ID = [id number] for Hunter Giles HEMOGLOBIN [id number] 00:00:00 Test Item Value Reference Range Interpretation Comments A1C (test code = 4548-4) 5.3
[2023-02-07] MEDS ORDERED: GLUCAGON 1 MG/VIAL IM PRN (23:51)
[2023-02-07] MEDS ORDERED: D50W 25 GM/50 ML SYRINGE IV PRN (23:51)
[2023-02-08] MEDS: LIDOCAINE 4% PATCH TOP SCH ×2 (00:24→08:46)
[2023-02-08] MEDS ORDERED: MAGNESIUM HYDROXIDE 8% 30 ML PO PRN (06:11)
[2023-02-08 06:54] LABS: Specific Gravity 1.015 (1.005-1.030); Urine Bacteria <20 /HPF (<20); Urine Bilirubin NEGATIVE (Negative); Urine Blood Negative (Negative); Urine Clarity Turbid (Clear); Urine Color Light-Yellow (Yellow); Urine Glucose NEGATIVE (Negative); Urine Mucus Slight /HPF (None Seen); Urine Protein NEGATIVE (Negative); Urine RBC 21-50 /HPF (None Seen); Urine Urobilinogen Normal (Normal); Urine WBC Clump Rare /HPF (None Seen)
[2023-02-08 07:00] LABS: Magnesium 2.3 mg/dL (1.6-2.4); Potassium 3.7 mEq/L (3.5-5.1); Prealbumin 13.7 mg/dL (20-40)
[2023-02-08] MEDS: INSULIN -REGULAR HUMAN 50 UNIT/0.5 ML ML SQ SCH ×4 (07:30→20:20)
[2023-02-08] MEDS ORDERED: LIDOCAINE 4% PATCH TOP SCH (08:00)
[2023-02-08] MEDS: FLUTICASONE 50MCG NASAL SPRAY NAS SCH ×2 (08:00→19:45)
[2023-02-08] MEDS ORDERED: ATORVASTATIN 80 MG TAB PO SCH (08:00)
[2023-02-08] MEDS ORDERED: lisinopriL 20 MG TAB PO SCH (08:00)
[2023-02-08 08:11] LABS: Hematocrit 34.2 % (36.0-45.0); MCV 96.8 fL (80-100); MPV 10.4 fL (7.6-11.3); RBC Red Blood Cell Count 3.54 M/uL (3.86-4.86)
[2023-02-08] MEDS: LEVOTHYROXINE SOD 0.05 MG TABLET PO SCH (08:24)
[2023-02-08] MEDS: HYDROCODONE/APAP 10/325 TAB PO PRN ×2 (08:24→17:27)
[2023-02-08] MEDS: ENOXAPARIN 40 MG/0.4 ML SQ SCH (08:25)
[2023-02-08] MEDS: ANASTROZOLE 1 MG TAB PO SCH (08:46)
[2023-02-08] MEDS: lisinopriL 20 MG TAB PO SCH (08:47)
[2023-02-08] MEDS: ASPIRIN 81 MG CHEWABLE TABLET PO SCH (08:47)
[2023-02-08] MEDS ORDERED: PNEUMOCOCCAL VACCINE 0.5 ML IMVAC ONE (10:00)
[2023-02-08] MEDS: VENLAFAXINE HCL XR 75 MG CAP PO SCH (10:30)
[2023-02-08] MEDS: NIFEDIPINE XL 30 MG TABLET PO SCH (11:23)
[2023-02-08] MEDS: METOPROLOL TAR 50 MG TAB PO SCH ×2 (11:25→19:44)
[2023-02-08] MEDS: GUAIFENESIN/DM 5 ML UCUP PO PRN (14:16)
[2023-02-08] MEDS: MELATONIN 3 MG TABLET PO PRN (20:43)
--- NOTE | 2023-02-09 00:31 | HP ---
Date of Admission: 02/07/2023 Cojm-xq-Sdyl Rehabilitation Admission History and Physical. Time Of Service: 3 p.m. Chief Complaint: "I had a stroke." History Of Present Illness: Ms. Barros is a 67-year-old right-handed patient with history of breast cancer, hyperthyroidism, hypothyroidism, and recent left lower extremity surgery who was f ound on her floor down after about 2 days of being down. She was brought by [facility] on the first. She was confused, dysarthric, aphasic. She had left facial droop and significant left leg and arm weakness with some arm shaking. There was waxing, waning of her co gnitive functioning when the EMS saw her and it was felt that she possibly was in the midst of status epilepticus and was treated with IV Keppra. Her head CT scan identified a large 12 cm right tempora l lobe infarct and she was transferred to [facility] in [place] for higher level of c are. There she is admitted to the ICU from the 31 of January to the . She was evaluated by Speech Pathology and found to have significant oropharyngeal dysphagia requiring tube placement, which is N G-tube and she was fed by NG tube until it was evidenced by barium swallow was done which showed that she was able to manage soft bite size food with honey thick liquids with strict aspiration precautio ns. She had a routine EEG, which was negative for epileptiform discharges. However, she was continu ed on Keppra, given the possibility of a large stroke and there was originally shaking identified. S he did show gradual improvement in cognitive functioning with persistent left-sided weakness, but sti ll required significant cuing for cognitive functioning, moderate assistance for bed mobility, static standing balances, moderate assistance for transfers, especially with her nonweightbearing status of the left lower extremity. She did have as noted NG tube that has been removed, significant left-jennifer ed weakness, oropharyngeal dysphagia, uncontrolled blood pressure, and decline in the ability to perf orm more activities of daily living, transfers, ambulate, and significant decrease in her cognitive f unctioning. As a result of her complex medical condition and acute stroke, she is an ideal patient f or an inpatient rehabilitation unit where she can receive aggressive physical, occupational, and spee ch therapy along with very careful medical management as she is likely to worsen if she is admitted t o a lower level of care. Past Medical History: Breast cancer, hypertension, hypothyroidism, osteoarthritis, prediabetes. Social History: She is , lives at home with her . No recent alcohol or IV drug or tob acco use. Past Surgical History: Appendectomy, total abdominal hysterectomy, left knee replacement and right k nee replacement, foot surgery for hammertoe. Allergies: CODEINE. Family History: Noncontributory. Medications: Aspirin 81 mg daily, Lipitor 80 mg at bedtime, Arimidex 1 mg daily, Lovenox 40 mg subcu taneously daily, Flonase 50 mcg spray twice daily, Synthroid 0.05 mg daily, [place] 10/325 every 6 hour s as needed, lidocaine patch 2 patches on the right ankle daily, Prinivil 20 mg daily, milk of magnes ia 30 mL daily as needed for constipation, melatonin 3 mg at night for sleep as needed, Lopressor 50 mg daily, nifedipine 30 mg daily, Senokot-S 2 at bedtime, Ultram 50 mg every 4 hours, Effexor 150 mg daily. Laboratory Studies: White blood cell count 7.1, hemoglobin 11.2, platelets 232. Sodium 139, potassi um 3.7, chloride 109, carbon dioxide 26, BUN 18, creatinine 0.68, glucose ranged from 88 to 151, prea lbumin 13.7, albumin 3.0, calcium 9.5, magnesium 2.3. Urinalysis shows esterase 500, white blood enriqueta ls greater than 50, red blood cells 21 to 50. Clarity is turbid. Cultures are pending. X-ray imaging: Right foot x-ray, 3 views of the left ankle on 02/24/2023 shows left tibial talar franky nt arthroplasty. There was left ankle soft tissue swelling. Left ankle arthroplasty changes as note d. CT scan brain without contrast on 02/02/2023 at 8:25 a.m. shows subacute appearing right MCA terr itory infarct. There is persistence, sulcal effacement, mild localized mass effect without midline s hift or herniation. No hemorrhagic conversion. MRA of the head done on 02/01/2023 at 1614 shows rig ht MCA M1 segment occlusion compatible with acute infarct seen separately on MRI. MRA of the neck sh ows no evidence of significant stenosis in the carotid vertebral arteries. It should be noted, there was reported large volume right MCA distribution infarct, which was compatible with the patient's cl inical history. A KUB on 02/01/2023 shows feeding tube tip overlies the distal stomach. Note, while at [facility], consultations were done for the Neurology Service. She had Physical, Occupational, and [facility] Therapy, Orthopedic Service as well. There was initially a splint placed, but that was removed on 02/04/2023 and this is of the right foot. Review of Systems: This summary does report some pain in the right ankle, which is mitigated with pain medication includ ing [place] and the lidocaine patches. She also has constipation and is now on stool softener and laxa tive. She does have some generalized myalgias and arthralgias, which are improving and has no rash. No other complaints on a 10-point systems review. Please note that while she was down for 2 days, s he did have some evidence of rhabdomyolysis, which has resolved. Physical Examination: Vital Signs: Blood pressure 124/73, pulse 77, respiratory rate 16, temperature 97.5, oxygen saturati on 97% on room air. Pain level between 1 and 4. General: Ms. Barros is resting in bed. She is in no significant distress. HEENT: She is normocephalic, atraumatic. Her sclerae are anicteric. Oropharynx is moist. Neck: Supple. Chest: Clear. Heart: Regular. Extremities: Show no significant edema or cyanosis. She does have milder trace edema in the right a nkle. Otherwise, in terms of cranial nerves 2 through 12, slight decrease of the left nasolabial fol d with good excursions on smiling. The left arm, she has improved strength around 3+ 4/5 proximally and distally. Left lower extremity around 3 to 4/5 proximally and distally. On the right side, she has 5/5 strength proximally and distally. In the left upper and lower extremity, decreased sensation to light touch and temperature compared to the right side. Has depressed reflexes in upper and lowe r extremities. Coordination is slow, but intact in upper and lower extremities. Gait, she will be a mbulated with physical therapy with a gait belt in place. Current Level Of Functioning: She requires set up assistance for eating, oral hygiene, dependent for toilet hygiene, bathing is dependent, upper body dressing is moderate assistance level, lower body d ressing, dependent. Rehabilitation And Medical Assessment And Plan: Her rehabilitation impairment category is 01 stroke. Rehabilitation impairment group code is 01.1, left body involvement, right brain. Etiologic diagno sis large volume right middle cerebral artery distribution stroke. Active Comorbidities: Breast cancer, encephalopathy, decreased mobility and physical functioning, dy sphagia, hypertension, hypothyroidism, obesity, recurrent falls, rhabdomyolysis, osteoarthritis, and possible seizures along with mood disorder and prediabetes. Plan: 1.She will have physical, occupational, and speech therapy for 3.5 hours, 5 of 7 days. 2.Blood sugars will be monitored a.c. and at nighttime and she will be on a mild sliding scale. 3.Lipitor 20 mg daily for dyslipidemia. 4.Aspirin 81 mg daily for stroke risk reduction. 5.Lovenox 40 mg subcutaneously daily for DVT prophylaxis. 6.Robitussin for mild cough. 7.Synthroid 0.5 mg daily for hypothyroidism. 8.Prinivil 20 mg daily. 9.Lopressor 50 mg twice daily along with Procardia XL 30 mg daily for hypertension. 10.Tramadol 50 mg every 4 hours for pain. 11.Effexor 150 mg daily for depression. Rehab Specific Plan: As noted, she will have 3.5 hours 5 of 7 days to improve her speech or cognitio n, memory, judgment, thinking, and her ability to perform activities of daily living for transferring from the bed to shower to toilet to chair to commode, ambulating 250 feet with modified independence , climbing 10 steps with modified independence. She has a good understanding of the process that led to admission and as she is admitted also what is going to take place in the rehabilitation unit. She does understand it will be an interdisciplinary approach. She has great potential to make improvement when receiving physical, occupational, and sp eech therapy. If need be, Orthopedic Service, Pulmonary Service, Cardiac Service, Respiratory Servic e will be involved in addition to Psychiatry. Given her complex condition and further risk of medica l complications, an inpatient rehabilitation unit is preferred over a lower level such as skilled margy sing. Barriers To Discharge: She does have multiple comorbidities and those are going to be aggressively m anaged and the risk of depression can worsen and that will be addressed aggressively as well. Estimated Length Of Stay: Around 15 days. Disposition: Expected to be home. Prognosis: Good. Rehabilitation Goals: 1.Become independent with upper and lower body dressing and toileting, transferring. 2.Ambulate over 250 feet with modified independence. 3.Up and down 15 steps with modified independence. 4.Continue doing swallowing, eating with independence. 5.Cognitive functioning to be independent. 6.All of her medical conditions to be well managed. I acknowledge I personally performed a full physical examination on Ms. Adilia Barros no more than 24 hours of her admission to the inpatient rehabilitation unit and determined that she is able to betina ate the above course of treatment at the intensive level stated. A detailed individualized plan of c are for her will be completed by hospital day 4 based on the preadmission screen, rehabilitation hist ory and physical, and therapy evaluations. PEGGY Voice ID: [id number]
[2023-02-09] MEDS: LEVOTHYROXINE SOD 0.05 MG TABLET PO SCH (06:56)
[2023-02-09] MEDS: INSULIN -REGULAR HUMAN 50 UNIT/0.5 ML ML SQ SCH ×4 (07:00→20:06)
[2023-02-09] MEDS: ENOXAPARIN 40 MG/0.4 ML SQ SCH (07:39)
[2023-02-09] MEDS: METOPROLOL TAR 50 MG TAB PO SCH ×2 (07:40→19:30)
[2023-02-09] MEDS: ASPIRIN 81 MG CHEWABLE TABLET PO SCH (07:40)
[2023-02-09] MEDS: LIDOCAINE 4% PATCH TOP SCH (09:14)
[2023-02-09] MEDS: NIFEDIPINE XL 30 MG TABLET PO SCH ×2 (09:15→11:31)
[2023-02-09] MEDS: lisinopriL 20 MG TAB PO SCH (09:16)
[2023-02-09] MEDS: FLUTICASONE 50MCG NASAL SPRAY NAS SCH ×2 (09:50→19:48)
[2023-02-09] MEDS: ANASTROZOLE 1 MG TAB PO SCH (09:52)
[2023-02-09] MEDS: VENLAFAXINE HCL XR 75 MG CAP PO SCH (09:53)
[2023-02-09] MEDS: TRAMADOL HCL 50 MG TAB PO PRN ×3 (10:42→19:30)
[2023-02-09] MEDS ORDERED: HYDROCODONE/APAP 5/325 MG TAB PO PRN (15:03)
[2023-02-09] MEDS ORDERED: D10W 250 ML BAG IV PRN (16:00)
[2023-02-09] MEDS: ATORVASTATIN 80 MG TAB PO SCH (19:29)
[2023-02-09] MEDS: MELATONIN 3 MG TABLET PO PRN (19:30)
--- NOTE | 2023-02-10 02:10 | PN ---
Date of Progress Note: 02/09/2023 [facility] Progress Note Visit Time Of Service: 12:30 p.m. Subjective: Ms. Barros is doing well. She has no complaints in terms of her subjective, although s he did say last night she tried to get up and go to the bathroom. She actually climbed over the [facility] bedside rails and fell onto her buttocks. She denied any head injury or any pain. She has no ad ditional subjective complaints. Review of Systems: No fevers, chills, nausea, vomiting, myalgias, arthralgias, rash, headache, weight change. No psychi atric issues or dermatological issues. Physical Examination: Vital Signs: Blood pressure 102/66, pulse 78, respiratory rate 16, temperature 97.7, oxygen saturati on 98% on room air. General: Ms. Barros is resting comfortably in bed. She is in no significant distress. HEENT: She is normocephalic, atraumatic. Sclerae anicteric. Oropharynx is pink and moist. Neck: Supple. Chest: Clear. Heart: Regular. Neurological: She does have a mild left upper quadrant hemianopsia and the left sided weakness which is subtle involving her left arm and leg more than face. She is, however, improving strength and se nsation on the left side. Laboratory Studies: She has no new laboratory studies compared to yesterday, except blood sugars ran ged from 87 to 117. X-ray/imaging: No new x-ray or imaging. Medications: [place] 5/325 every 6 hours as needed, Arimidex 1 mg daily, aspirin 81 mg daily, Lipitor 80 mg at bedtime, Lovenox 40 mg subcutaneously daily, Flonase 1 spray twice daily, Robitussin 10 mL e very 6 hours as needed, Synthroid 0.05 mg daily, lidocaine patch 2 topically daily, Prinivil 20 mg da lisa, milk of magnesia 30 mL daily for constipation, melatonin 3 at bedtime for insomnia, Lopressor 50 mg twice daily, Procardia XL 30 mg daily, Senokot-S 2 at bedtime, Ultram 50 mg every 4 hours as need ed, Effexor 150 mg daily. Current Functional Status: Currently, she did hip abduction exercises, 10 repetitions, and hip exten tameka 10 repetitions without significant difficulty. In addition, she mobilized wheelchair 12 feet mu ltiple times with difficulty maintaining a straight course had to be redirected compare to the left. She is beginning to work with the speech pathologist bedside swallow evaluation. She passed recomme nded thin liquids upright at 90 degrees small bites and sips. She did bed mobility activity which is in supine sit, head of bed raised with contact guard assistance. Progress Towards Rehabilitation Goals: Ms. Barros is making slow progress so far with rehabilitatio n goals of upper and lower body dressing independently, toileting, and also transferring to toilet an d shower independently, and beginning to ambulate and ambulate actually independently more than house hold distances. Again, overall slow progress, although she is now just beginning rehabilitation. Assessment: Ms. Barros is a 67-year-old patient in rehabilitation unit with a right hemispheric str prakash and left-sided weakness, left visual field deficit, who has some impulsivity and did climb over t he bed last night and fell. She does have a history of breast cancer with encephalopathy, decreased mobility, dysphagia, hypertension, hypothyroidism, again recurrent falls with rhabdomyolysis, osteoar thritis, and possible seizures along with prediabetes. Plan: Physical and occupational therapy along with speech therapy 3.5 hours 5 to 7 days, Lipitor 20 mg at bedtime, aspirin 81 mg daily, Lovenox 40 mg subcutaneously daily, Synthroid 0.5 mcg daily, Prin ivil 20 mg daily, Lopressor 50 mg twice daily, Procardia XL 30 mg daily, tramadol 50 mg every 4 hours , Effexor 150 mg daily. Comorbidities That Continue To Impact Her Rehabilitation Process: At this point, she is impulsive an d did climb out of bed early in the morning. She was told and agreed to ask for assistance with nurs es whenever she needs to go to the restroom and a bed alarm was put in place. LB/DANICAL Voice ID: [id number] Report ID: [id number]
[2023-02-10] MEDS: LEVOTHYROXINE SOD 0.05 MG TABLET PO SCH (06:26)
[2023-02-10] MEDS: INSULIN -REGULAR HUMAN 50 UNIT/0.5 ML ML SQ SCH ×3 (06:56→19:49)
[2023-02-10] MEDS: NIFEDIPINE XL 30 MG TABLET PO SCH (07:00)
[2023-02-10] MEDS: ENOXAPARIN 40 MG/0.4 ML SQ SCH (07:01)
[2023-02-10] MEDS: LIDOCAINE 4% PATCH TOP SCH (08:27)
[2023-02-10] MEDS: ASPIRIN 81 MG CHEWABLE TABLET PO SCH (08:27)
[2023-02-10] MEDS: VENLAFAXINE HCL XR 75 MG CAP PO SCH (08:27)
[2023-02-10] MEDS: ANASTROZOLE 1 MG TAB PO SCH (08:27)
[2023-02-10] MEDS: FLUTICASONE 50MCG NASAL SPRAY NAS SCH ×2 (10:12→19:48)
[2023-02-10] MEDS: METOPROLOL TAR 50 MG TAB PO SCH ×2 (10:24→19:48)
[2023-02-10] MEDS: lisinopriL 20 MG TAB PO SCH (12:28)
[2023-02-10] MEDS: HYDROCODONE/APAP 5/325 MG TAB PO PRN ×2 (12:42→19:49)
[2023-02-10] MEDS: TRAMADOL HCL 50 MG TAB PO PRN (18:37)
[2023-02-10] MEDS: MELATONIN 3 MG TABLET PO PRN (19:48)
[2023-02-10] MEDS: ATORVASTATIN 80 MG TAB PO SCH (19:48)
--- NOTE | 2023-02-11 01:09 | PN ---
Date of Progress Note: 02/10/2023 [facility] Progress Note Visit Time Of Service: 1 p.m. Subjective: Ms. Barros is resting well in bed. She has family at the bedside. No new complaints. She denied any attempts of climbing out of the bed today as she did the night previously and she fee ls she is making some progress, especially with the left upper extremity and lower extremity return o f strength and coordination. Review of Systems: No fevers, chills, nausea, or vomiting. No myalgias, arthralgias, rash, headache, or weight change. Physical Examination: Vital Signs: Blood pressure 124/68, pulse 69, respiratory rate 16, temperature 97.3, and oxygen satu ration 93%. General: Ms. Barros is resting comfortably. Neurologic: She does have mild decrease of left nasolabial fold and around 4/5 strength in left uppe r and lower extremity. Decreased light touch and temperature in left upper and lower extremity when compared to the right side. Laboratory Studies: No new laboratory studies except blood glucose ranged from 88 to 119. X-ray/imaging: No new x-ray or imaging. Medications: Remain unchanged compared to her most recent visit yesterday. Still on aspirin 81 mg d aily, Lipitor 80 mg at bedtime, Synthroid 0.05 mg daily, Prinivil 10 mg daily, melatonin 3 mg at bedt morgan, Lopressor 50 mg twice daily, venlafaxine 150 mg twice daily, and tramadol 50 mg every 4 hours as needed. Current Functional Status: Today she did transfer from supine to sit position with minimum assistanc e. She did stand and pivot transfer through wheelchair with a rolling walker, requiring maximal assi stance. She did require maximal assistance for pulling up pants and toilet transfer done with maximu m assistance. She was not compliant with nonweightbearing of the left lower extremity where she has an ankle fracture. Progress Towards Rehabilitation Goals: Ms. Barros is making again slow progress as noted previously towards her goals of becoming independent with upper and lower body dressing, toileting, transferrin g, and ambulating. She does have the left lower extremity ankle fracture, which is a limitation agai n of the stroke affecting that side. Her comorbids do include history of breast cancer encephalopath y, decreased mobility, dysphagia, hypertension, hypothyroidism, osteoarthritis, and prediabetes. Plan: 1.Continue physical, occupational, and speech therapy for 3.5 hours, 5 of 7 days. 2.Lipitor for dyslipidemia. 3.Aspirin 81 mg daily for stroke risk reduction. 4.Lovenox subcutaneously daily for DVT risk reduction. 5.Synthroid continued for hypothyroidism. 6.Prinivil 20 mg and Lopressor 50 mg along with Procardia 30 mg for hypertension. 7.Tramadol every 4 hours for pain. 8.Effexor for depression. Comorbids That Continue To Impact Rehabilitation: Given the left ankle fracture and not being able t o put weight on the left lower extremity, is a challenge to her improving quickly and she is somewhat impulsive when she had climbed out of the bed and fell, but she is actually doing better and agrees to call the nurses for any help getting to the bathroom. CRUZ/KATHRYN Voice ID: [id number] Report ID: [id number]
[2023-02-11] MEDS: LEVOTHYROXINE SOD 0.05 MG TABLET PO SCH (06:24)
[2023-02-11] MEDS: INSULIN -REGULAR HUMAN 50 UNIT/0.5 ML ML SQ SCH ×2 (07:16→20:00)
[2023-02-11] MEDS: TRAMADOL HCL 50 MG TAB PO PRN ×2 (07:31→12:44)
[2023-02-11] MEDS: LIDOCAINE 4% PATCH TOP SCH (07:31)
[2023-02-11] MEDS: METOPROLOL TAR 50 MG TAB PO SCH ×2 (07:32→20:03)
[2023-02-11] MEDS: ANASTROZOLE 1 MG TAB PO SCH (07:32)
[2023-02-11] MEDS: ASPIRIN 81 MG CHEWABLE TABLET PO SCH (07:32)
[2023-02-11] MEDS: FLUTICASONE 50MCG NASAL SPRAY NAS SCH ×2 (07:33→20:03)
[2023-02-11] MEDS: VENLAFAXINE HCL XR 75 MG CAP PO SCH (07:34)
[2023-02-11] MEDS: ENOXAPARIN 40 MG/0.4 ML SQ SCH (07:35)
[2023-02-11] MEDS: lisinopriL 10 MG TAB PO SCH ×2 (08:00→10:11)
[2023-02-11] MEDS: NIFEDIPINE XL 30 MG TABLET PO SCH (10:11)
[2023-02-11] MEDS: ATORVASTATIN 80 MG TAB PO SCH (20:03)
--- NOTE | 2023-02-11 21:26 | PN ---
Date of Progress Note: 02/11/2023 Time Of Service: 1 p.m. Subjective: Ms. Barros is resting comfortably in bed with family at the bedside. She has no new co mplaints. She feels she is improving her left upper extremity strength and dexterity as she does her therapy. Review of Systems: No fevers, chills, nausea, vomiting, myalgias, or arthralgias. She does have some pain on the left a nkle where there is a fracture. Physical Examination: Vital Signs: Blood pressure 101/51, pulse 84, respiratory rate 16, temperature 98.2, oxygen saturati on 94% to 100%. General: Ms. Barros is resting in bed. She is in no significant distress. Extremities: Her left upper extremity dexterity is still significantly impacted and she has 4/5 stre ngth proximally and distally. Lower extremity 4/5 strength on the left. Right side is intact and th tj are not significant changes in her examination. Laboratory Studies: No new laboratory studies except blood glucose ranged from 70 to 119. Imaging: No new x-ray imaging. Medications: Have been reviewed and are unchanged from yesterday. Current Functional Status: Today she mobilized a wheelchair 120 feet with standby assistance requiri ng verbal cues. She did ambulate max in the parallel bars, but required maximum assistance, again se lf propelled a wheelchair 120 feet with standby assistance requiring verbal cues. With speech therap y, she needed constant maximum cues to recall safety awareness and was easily distracted by the arianna ny who were present. She did demonstrate unsafe behaviors even at 45 degrees reclined and overfillin g her mouth and talking while eating, and she does continue to need additional swallow therapy to tea ch her safe swallowing precaution. Progress Towards Rehabilitation Goals: Ms. Barros is making slow progress overall towards her goals of becoming independent with her eating and swallowing and communication, performing upper and lower body dressing, transferring, and toileting along with her shower. She also is making slow progress towards her ability to ambulate right now just in the parallel bars with maximum assistance. She is doing better mobilizing a wheelchair up to 150 feet with verbal cues. Assessment And Plan: Ms. Barros is in the rehabilitation unit with a right hemispheric stroke produ cing left upper more than lower extremity weakness, incoordination, and poor dexterity, unsteady gait and dysarthria and dysphagia. She has hypertension, hypothyroidism, osteoarthritis, and diabetes as comorbid conditions. Plan: 1.Continue with physical, occupational, and speech therapy for 3-1/2 hours 5 of 7 days. 2.Continue Lipitor for dyslipidemia, aspirin for stroke risk reduction, Lovenox subcutaneously daily for DVT risk reduction, Synthroid for hypothyroidism. Continue Prinivil and Lopressor. Procardia f or hypertension. Continue Effexor for depression. Continue tramadol for pain management. Comorbids That Continue To Impact Her Rehabilitation: She does have a left ankle fracture, making it difficult to put weight on the left leg and she has multiple comorbidities and significant difficult y maintaining focus on tasks, which make it somewhat challenging to address her rehabilitation. Adilson martini, she is working with therapy and making slow progress. CRUZ/KATHRYN Voice ID: [id number] Report ID: [id number]
[2023-02-11] MEDS: MELATONIN 3 MG TABLET PO PRN (23:51)
[2023-02-12 04:34] LABS: Absolute Lymphocytes (CBC) 1.1 K/uL (0.7-4.9); Hematocrit 32.9 % (36.0-45.0); Lymphocytes % 14.7 % (15.3-44.8); MCV 94.2 fL (80-100); MPV 9.8 fL (7.6-11.3)
[2023-02-12 05:00] LABS: Albumin 3.1 g/dL (3.4-5.0); Magnesium 2.2 mg/dL (1.6-2.4); Potassium 3.9 mEq/L (3.5-5.1); Prealbumin 20.2 mg/dL (20-40)
[2023-02-12] MEDS: LEVOTHYROXINE SOD 0.05 MG TABLET PO SCH (06:23)
[2023-02-12] MEDS: ENOXAPARIN 40 MG/0.4 ML SQ SCH (07:10)
[2023-02-12] MEDS: LIDOCAINE 4% PATCH TOP SCH (07:10)
[2023-02-12] MEDS: VENLAFAXINE HCL XR 75 MG CAP PO SCH (07:47)
[2023-02-12] MEDS: lisinopriL 10 MG TAB PO SCH (07:48)
[2023-02-12] MEDS: METOPROLOL TAR 50 MG TAB PO SCH ×2 (07:48→19:24)
[2023-02-12] MEDS: ASPIRIN 81 MG CHEWABLE TABLET PO SCH (07:49)
[2023-02-12] MEDS: ANASTROZOLE 1 MG TAB PO SCH (07:49)
[2023-02-12] MEDS: FLUTICASONE 50MCG NASAL SPRAY NAS SCH ×2 (07:50→19:25)
[2023-02-12] MEDS: INSULIN -REGULAR HUMAN 50 UNIT/0.5 ML ML SQ SCH ×2 (08:00→19:24)
[2023-02-12] MEDS: NIFEDIPINE XL 30 MG TABLET PO SCH (11:31)
[2023-02-12] MEDS: TRAMADOL HCL 50 MG TAB PO PRN (16:45)
[2023-02-12] MEDS: ATORVASTATIN 80 MG TAB PO SCH (19:24)
--- NOTE | 2023-02-12 20:49 | PN ---
Date of Progress Note: 01/12/2023 Time Of Service: 1:00 p.m. Subjective: Ms. Barros is resting comfortably. She is in no significant distress. She has no new complaints. Left hand dexterity is improving, but slowly. Review of Systems: Mild pain in the left ankle where there is a fracture and some difficulty with dexterity of the left hand. Otherwise, she is making fair progress. She does not have any other complaints such as gastro intestinal or genitourinary complaints. Physical Examination: Vital Signs: Blood pressure 132/60, pulse up to 101, respiratory rate 15 to 18, temperature 97.8, ox ygen saturation 96%. General: Ms. Barros is actually sitting in a chair in the bathroom tending to her hair and her pers onal hygiene. Extremities: She is using the right hand. Left hand held somewhat down. She did move the hand was a ble to open and close and did work, but slowly, was able to touch each finger with some. Otherwise, the left lower extremity is showing or improvement in strength, but she has a chronic fracture in the lower extremity, making it difficult to be able to do very well. Her weightbearing is limited. Laboratory Studies: White blood cell count 7.5, hemoglobin 11.1, platelets 229. Sodium 138, potassi um 3.9, chloride 107, carbon dioxide 26, BUN 17, creatinine 0.73, glucose ranged from 74-126. Prealb umin 20.2. Magnesium 2.2. Calcium 9.7. X-ray/imaging: None. Medications: Her medications have not been changed. She is still on aspirin 81 mg daily, Lovenox 40 mg subcutaneously daily, venlafaxine 150 mg daily, tramadol 50 mg every 4 hours as needed, Senokot S 2 tabs at bedtime, Procardia XL 30 mg daily, Lopressor 50 mg twice daily, melatonin 3 mg at bedtime, milk of magnesia 30 mL daily for constipation, Prinivil 10 mg daily, lidocaine patch 2 daily to the left lower extremity as needed, Synthroid 0.05 mg daily, Robitussin 10 mg every 6 hours as needed, Fl onase 1 spray twice daily. Current Functional Status: Today, she mobilized in wheelchair 100 feet with standby assistance and v erbal cues. She does have a short attention span. Does not pay attention to the left side with some neglect. Twr-kh-[id number] performed and transfers performed with minimum assistance in the parallel bar s. She did attempt to ambulate, but it is very difficult she did stand and pivot transfers using a r olling walker with minimum assistance. She was able to maintain nonweightbearing status of the left lower extremity. With speech therapy, she completed more difficult translation tasks than previously completed. She scored 62% accuracy with 72% of the errors in the left side of the page. She did pe rform toilet hygiene with supervision and verbal cuing. Progress Towards Rehabilitation Goals: Ms. Barros is making slow progress towards her goals of beco lizabeth modified independent with upper and lower body dressing, toileting, performing her activities of daily living, transferring from bed to toilet to shower and mobilizing a wheelchair 250 feet with mo dified independence and beginning to ambulate household distances with modified independence. Again, slow progress towards those goals. Assessment: Ms. Barros is a 67-year-old patient with a right hemispheric stroke producing left uppe r more than lower extremity weakness, incoordination, poor dexterity, unsteady gait, some left-sided neglect. She has mild dysarthria and dysphagia. She has hypertension, hypothyroidism, osteoarthriti s, diabetes. Plan: 1.Continue with physical, occupational, and speech therapy for 3.5 hours 5 of 7 days. 2.Lipitor for dyslipidemia, aspirin for stroke risk reduction. 3.Lovenox subcutaneously for risk reduction. 4.Synthroid for hyperthyroidism. 5.Prinivil and Procardia for hypertension. 6.Effexor for depression. 7.Tramadol for pain. 8.Melatonin for insomnia. Comorbidities That Continue To Impact Rehabilitation: She does have a left ankle fracture with nonwe ightbearing status of left lower extremity, making it somewhat for her to do well in terms of mobiliz ing. In addition, she has left upper extremity weakness and incoordination that makes it hard to use the left arm as she attempts to ambulate and therefore that will be continued to be a challenge unti l her weightbearing status in the left lower extremity can improve. LB/MODL Voice ID: [id number] Report ID: [id number]
[2023-02-13] MEDS: LEVOTHYROXINE SOD 0.05 MG TABLET PO SCH (06:32)
[2023-02-13] MEDS: INSULIN -REGULAR HUMAN 50 UNIT/0.5 ML ML SQ SCH ×2 (08:00→19:42)
[2023-02-13] MEDS: lisinopriL 10 MG TAB PO SCH ×2 (08:00→09:36)
[2023-02-13] MEDS: ENOXAPARIN 40 MG/0.4 ML SQ SCH (08:10)
[2023-02-13] MEDS: LIDOCAINE 4% PATCH TOP SCH (08:11)
[2023-02-13] MEDS: VENLAFAXINE HCL XR 75 MG CAP PO SCH (08:11)
[2023-02-13] MEDS: ASPIRIN 81 MG CHEWABLE TABLET PO SCH (08:12)
[2023-02-13] MEDS: METOPROLOL TAR 50 MG TAB PO SCH ×2 (08:12→19:02)
[2023-02-13] MEDS: ANASTROZOLE 1 MG TAB PO SCH (08:12)
--- NOTE | 2023-02-13 08:25 | P.RH.PN ---
Estimated Length of Stay: 13 Expected Discharge Date: 02/20/23 Discharge Disposition Plan: Home Family Support: Yes Custodial Goal: Mobility, Transfers, Self Care Vital Signs: Last Vital Signs Temp 97.5 F 02/13/23 06:52 Pulse 75 02/13/23 08:12 Resp 18 02/13/23 06:52 BP 124/93 H 02/13/23 08:12 Pulse Ox 99 02/13/23 06:52 Laboratory: Laboratory Last Values WBC 7.50 thou/uL (4.3-10.9) 02/12/23 03:58 RBC 3.50 M/uL (3.86-4.86) L 02/12/23 03:58 Hgb 11.1 g/dL (12.0-15.0) L 02/12/23 03:58 Hct 32.9 % (36.0-45.0) L 02/12/23 03:58 MCV 94.2 fL (80-100) 02/12/23 03:58 MCH 31.7 pg (27.0-35.0) 02/12/23 03:58 MCHC 33.6 g/dL (32.0-36.0) 02/12/23 03:58 RDW 16.2 % (12.1-15.2) H 02/12/23 03:58 Plt Count 229 thou/uL (152-406) 02/12/23 03:58 MPV 9.8 fL (7.6-11.3) 02/12/23 03:58 Neutrophils % 72.6 % (41.7-73.7) 02/12/23 03:58 Lymphocytes % 14.7 % (15.3-44.8) L 02/12/23 03:58 Monocytes % 5.9 % (3.3-12.3) 02/12/23 03:58 Eosinophils % 6.4 % (0-4.4) H 02/12/23 03:58 Basophils % 0.4 % (0-1.3) 02/12/23 03:58 Absolute Neutrophils 5.4 K/uL (1.8-8.0) 02/12/23 03:58 Absolute Lymphocytes 1.1 K/uL (0.7-4.9) 02/12/23 03:58 Absolute Monocytes 0.4 K/uL (0.1-1.3) 02/12/23 03:58 Absolute Eosinophils 0.5 K/uL (0-0.5) 02/12/23 03:58 Absolute Basophils 0.0 K/uL (0-0.5) 02/12/23 03:58 Sodium 138 mEq/L (136-145) 02/12/23 03:58 Potassium 3.9 mEq/L (3.5-5.1) 02/12/23 03:58 Chloride 107 mEq/L (98-107) 02/12/23 03:58 Carbon Dioxide 26 mEq/L (21-32) 02/12/23 03:58 Anion Gap 8.9 mEq/L (5.0-15.0) 02/12/23 03:58 BUN 17 mg/dL (7-18) 02/12/23 03:58 Creatinine 0.73 mg/dL (0.55-1.02) 02/12/23 03:58 Est GFR (CKD-EPI) 90 ml/min (=/>90) 02/12/23 03:58 Glucose 104 mg/dL (74-106) 02/12/23 03:58 POC Glucose 76 mg/dL (65-120) 02/13/23 06:49 Calcium 9.7 mg/dL (8.5-10.1) 02/12/23 03:58 Magnesium 2.2 mg/dL (1.6-2.4) 02/12/23 03:58 Albumin 3.1 g/dL (3.4-5.0) L 02/12/23 03:58 Prealbumin 20.2 mg/dL (20-40) 02/12/23 03:58 Urine Color Light-yellow (Yellow) 02/08/23 05:39 Urine Clarity Turbid (Clear) H 02/08/23 05:39 Urine pH 6.0 (5.0-7.0) 02/08/23 05:39 Ur Specific [place] 1.015 (1.005-1.030) 02/08/23 05:39 Glucose (UA)(Auto) Negative (Negative) 02/08/23 05:39 Urine Ketones Negative (Negative) 02/08/23 05:39 Urine Blood Negative (Negative) 02/08/23 05:39 Urine Nitrite Negative (Negative) 02/08/23 05:39 Urine Bilirubin Negative (Negative) 02/08/23 05:39 Urine Urobilinogen Normal (Normal) 02/08/23 05:39 Ur Leukocyte Esterase 500 Asha/uL (Negative) H 02/08/23 05:39 Urine RBC 21-50 /HPF (None Seen) H 02/08/23 05:39 Urine WBC >50 /HPF (<5) H 02/08/23 05:39 Urine WBC Clumps Rare /HPF (None Seen) 02/08/23 05:39 Ur Squamous Epith Cells <5 /HPF (None Seen) 02/08/23 05:39 Urine Bacteria <20 /HPF (<20) 02/08/23 05:39 Urine Mucus Slight /HPF (None Seen) 02/08/23 05:39 Urine Culture Reflexed Reflexed 02/08/23 05:39 Urine Total Protein Negative (Negative) 02/08/23 05:39 Weight: 210 lb Abdomen Skin Alteration: Bruising Wound Present: No Closed Surgical Incision Present: No Negative Pressure Wound Therapy Present: No Physician Update: Making slow overall progress with all therapy. She has a left ankle fracture without putting weight on the left leg. SBA bed mobility transfers. Wheelchair 150' with SBA. Poor awareness of safety. On the MOCA with poor insight. 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 Please see the Rehabilitation Signature page for all necessary signatures.
[2023-02-13] MEDS: NIFEDIPINE XL 30 MG TABLET PO SCH (09:36)
[2023-02-13] MEDS: FLUTICASONE 50MCG NASAL SPRAY NAS SCH ×2 (09:37→19:02)
[2023-02-13] MEDS: TRAMADOL HCL 50 MG TAB PO PRN (19:03)
[2023-02-13] MEDS: ATORVASTATIN 80 MG TAB PO SCH (19:03)
[2023-02-13] MEDS: DOCUSATE NA/SENNA CONC 1 TAB PO PRN (19:04)
[2023-02-13] MEDS: MELATONIN 3 MG TABLET PO PRN (20:51)
[2023-02-14 05:36] VITALS: BMI 32.0
[2023-02-14] MEDS: LEVOTHYROXINE SOD 0.05 MG TABLET PO SCH (06:19)
[2023-02-14] MEDS: LIDOCAINE 4% PATCH TOP SCH (06:19)
[2023-02-14] MEDS: FLUTICASONE 50MCG NASAL SPRAY NAS SCH ×2 (06:20→20:38)
[2023-02-14] MEDS: ENOXAPARIN 40 MG/0.4 ML SQ SCH (07:04)
[2023-02-14] MEDS: INSULIN -REGULAR HUMAN 50 UNIT/0.5 ML ML SQ SCH ×2 (07:46→20:00)
[2023-02-14] MEDS: VENLAFAXINE HCL XR 75 MG CAP PO SCH (07:48)
[2023-02-14] MEDS: ASPIRIN 81 MG CHEWABLE TABLET PO SCH (07:48)
[2023-02-14] MEDS: ANASTROZOLE 1 MG TAB PO SCH (07:48)
[2023-02-14] MEDS: lisinopriL 10 MG TAB PO SCH (07:49)
[2023-02-14] MEDS: METOPROLOL TAR 50 MG TAB PO SCH ×2 (07:49→20:25)
[2023-02-14] MEDS: NIFEDIPINE XL 30 MG TABLET PO SCH (08:52)
[2023-02-14] MEDS: TRAMADOL HCL 50 MG TAB PO PRN (17:13)
[2023-02-14] MEDS ORDERED: clonazePAM 0.5 MG TAB PO PRN (18:57)
[2023-02-14] MEDS: ATORVASTATIN 80 MG TAB PO SCH (20:25)
[2023-02-14] MEDS: MELATONIN 3 MG TABLET PO PRN (20:25)
[2023-02-15] MEDS: LEVOTHYROXINE SOD 0.05 MG TABLET PO SCH (06:38)
[2023-02-15] MEDS: INSULIN -REGULAR HUMAN 50 UNIT/0.5 ML ML SQ SCH ×2 (08:00→19:56)
[2023-02-15] MEDS: NIFEDIPINE XL 30 MG TABLET PO SCH (08:00)
[2023-02-15] MEDS: METOPROLOL TAR 50 MG TAB PO SCH ×3 (08:00→19:55)
[2023-02-15] MEDS: lisinopriL 10 MG TAB PO SCH ×2 (08:00→13:04)
[2023-02-15] MEDS: ENOXAPARIN 40 MG/0.4 ML SQ SCH (08:57)
[2023-02-15] MEDS: VENLAFAXINE HCL XR 75 MG CAP PO SCH (08:57)
[2023-02-15] MEDS: FLUTICASONE 50MCG NASAL SPRAY NAS SCH ×2 (08:58→19:55)
[2023-02-15] MEDS: LIDOCAINE 4% PATCH TOP SCH (08:58)
[2023-02-15] MEDS: ANASTROZOLE 1 MG TAB PO SCH (08:58)
[2023-02-15] MEDS: ASPIRIN 81 MG CHEWABLE TABLET PO SCH (08:58)
[2023-02-15] MEDS: TRAMADOL HCL 50 MG TAB PO PRN ×2 (12:59→19:55)
[2023-02-15] MEDS: MELATONIN 3 MG TABLET PO PRN (19:55)
[2023-02-15] MEDS: ATORVASTATIN 80 MG TAB PO SCH (19:55)
[2023-02-15] MEDS: clonazePAM 0.5 MG TAB PO PRN (23:24)
[2023-02-16] MEDS: LEVOTHYROXINE SOD 0.05 MG TABLET PO SCH (06:31)
[2023-02-16] MEDS: INSULIN -REGULAR HUMAN 50 UNIT/0.5 ML ML SQ SCH ×2 (07:24→20:00)
[2023-02-16] MEDS: ENOXAPARIN 40 MG/0.4 ML SQ SCH (07:25)
[2023-02-16] MEDS: NIFEDIPINE XL 30 MG TABLET PO SCH ×2 (08:00→08:24)
[2023-02-16] MEDS: VENLAFAXINE HCL XR 75 MG CAP PO SCH (08:20)
[2023-02-16] MEDS: lisinopriL 10 MG TAB PO SCH (08:20)
[2023-02-16] MEDS: METOPROLOL TAR 50 MG TAB PO SCH ×2 (08:20→20:11)
[2023-02-16] MEDS: ASPIRIN 81 MG CHEWABLE TABLET PO SCH (08:21)
[2023-02-16] MEDS: TRAMADOL HCL 50 MG TAB PO PRN ×2 (08:21→16:27)
[2023-02-16] MEDS: FLUTICASONE 50MCG NASAL SPRAY NAS SCH ×2 (08:23→20:11)
[2023-02-16] MEDS: LIDOCAINE 4% PATCH TOP SCH (08:24)
[2023-02-16] MEDS: ANASTROZOLE 1 MG TAB PO SCH (08:58)
[2023-02-16] MEDS: ATORVASTATIN 80 MG TAB PO SCH (20:11)
--- NOTE | 2023-02-16 20:21 | RAD REPORT ---
EXAM DESCRIPTION: CT - Head Brain Wo Cont - 02/16/2023 8:13 pm CLINICAL HISTORY: s/p fall Fall, head injury, CVA COMPARISON: <Comparisons> TECHNIQUE: All CT scans are performed using dose optimization technique as appropriate and may inclu de automated exposure control or mA/KV adjustment according to patient size. FINDINGS: No intracranial hemorrhage, hydrocephalus or extra-axial fluid collection.Diminished densi ty is seen in the right middle cerebral artery territory compatible with evolving infarct. No hemorrh agic conversion is evident. The paranasal sinuses and mastoids are clear. The calvarium is intact. IMPRESSION: No acute intracranial abnormality. Subacute right MCA territory infarct.
--- NOTE | 2023-02-16 21:52 | PN ---
Date of Progress Note: 02/16/2023 [facility] Progress Note Visit Time Of Service: 1 p.m. Subjective: Ms. Barros is resting in bed, with family at the bedside. She is able to sit up and ag ain show that she can manipulate small objects, although with significant difficulty using the left h and, which is her stroke side. She has no new complaints. Review of Systems: She reports mild pain in the left ankle where there is a fracture and some issues with the poor dexte rity of the left hand. She has no other complaints such as dermatological, pulmonary, gastrointestin al, or genitourinary complaints. Physical Examination: Vital Signs: Blood pressure 140/94, pulse 74, respiratory rate 16, temperature 98.2, and oxygen satu ration 98% to 100% on room air. General: Ms. Barros is resting in her bed. She is in no significant distress. 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 She has poor dexterity, which is all related to her stroke. More strength noted in the left l ower extremity. She has full strength in the right upper and lower extremities. Sensory exam decrea sed to light touch and temperature in the left arm and leg compared to the right side. Laboratory Studies: Blood sugars ranged from 75 to 119. X-ray/imaging: None. Medications: Aspirin 81 mg daily, Lipitor 80 mg at bedtime, anastrozole 1 mg daily, Klonopin 0.5 mg twice daily as needed, Lovenox 40 mg subcutaneously daily, Flonase 1 spray to each nostril twice may y, Robitussin 10 mg every 6 hours, Synthroid 0.05 mg daily, Prinivil 10 mg daily, milk of mag 30 mL d aily as needed, melatonin 3 mg at bedtime, Lopressor 50 mg twice daily, Procardia XL 30 mg daily, Sen okot-S 2 tablets at bedtime, Ultram 50 mg every 4 hours, and Effexor 150 mg daily. Current Functional Status: Today she mobilized her wheelchair 200 feet twice with contact guard assi stance requiring verbal cues. Multiple [id number] transfers done with contact guard assistance. S he did stand and pivot transfers using a rolling walker from wheelchair to bed with contact guard ass istance. She did attempt to do a cancellation task with smaller fonts used on previous session and s he did it with 80% accuracy on the first attempt and 90% accuracy on the second attempt and the [facility] pathologist noted 100% of her errors were in the left visual field. Progress Towards Rehabilitation Goals: Ms. Barros has made [id number] progress towards her go als of improving strength in the left upper extremity, improving dexterity and coordination, improvin g her use of that left side so she can improve her balance, gait, and coordination. However, she sti ll has a significant way to go. She has some difficulty because of left ankle fracture and the inabi lity to put full weight on the left leg. She is more likely to require longer therapy and as such is going to be heading to group home facility. Assessment: Ms. Barros is a 67-year-old patient with a right hemispheric stroke and left upper more than lower extremity weakness, incoordination, poor dexterity, unsteady gait, and left-sided neglect with left visual field deficits. She has mild dysarthria and dysphagia. She has hypertension, hypo thyroidism, osteoarthritis, and diabetes mellitus. Plan: 1.Continue with physical, occupational, and speech therapy 3.5 hours, 5 of 7 days. 2.Continue aspirin for stroke risk reduction. 3.Lipitor for dyslipidemia. 4.Lovenox for DVT risk reduction. 5.Synthroid for hypothyroidism. 6.Prinivil and Procardia for hypertension. 7.Effexor for depression. 8.Tramadol for pain. 9.Melatonin for insomnia. Comorbids That Continue To Impact Rehabilitation Process: Ms. Barros is impulsive and has had an ep isode of climbing out of the bed and falling and she continues to be at risk of that as she has poor judgment and poor understanding that the left side will not support her. The left hand will be too w eak to hold her and yet she still tries to get out of bed and a bed alarm will be kept in place. She also has depression and antidepressants are on board. LB/MODL Voice ID: [id number] Report ID: [id number]
[2023-02-17] MEDS: TRAMADOL HCL 50 MG TAB PO PRN ×3 (03:43→17:52)
[2023-02-17] MEDS: INSULIN -REGULAR HUMAN 50 UNIT/0.5 ML ML SQ SCH ×2 (06:52→19:16)
[2023-02-17] MEDS: LEVOTHYROXINE SOD 0.05 MG TABLET PO SCH (06:55)
[2023-02-17] MEDS: METOPROLOL TAR 50 MG TAB PO SCH ×2 (07:06→19:15)
[2023-02-17] MEDS: ENOXAPARIN 40 MG/0.4 ML SQ SCH (07:33)
[2023-02-17] MEDS: FLUTICASONE 50MCG NASAL SPRAY NAS SCH ×2 (08:24→19:15)
[2023-02-17] MEDS: ASPIRIN 81 MG CHEWABLE TABLET PO SCH (08:25)
[2023-02-17] MEDS: VENLAFAXINE HCL XR 75 MG CAP PO SCH (08:25)
[2023-02-17] MEDS: lisinopriL 10 MG TAB PO SCH (08:25)
[2023-02-17] MEDS: ANASTROZOLE 1 MG TAB PO SCH (08:25)
[2023-02-17] MEDS: LIDOCAINE 4% PATCH TOP SCH (08:26)
--- NOTE | 2023-02-17 11:09 | RAD REPORT ---
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 Cannulated s crews traverse the medial malleolus. No evidence of hardware loosening. No acute fractures are identi fied. Subtalar degenerative changes noted. Cortical thickening along the lateral distal tibial metadi aphysis may be postsurgical.
[2023-02-17] MEDS: NIFEDIPINE XL 30 MG TABLET PO SCH (11:32)
[2023-02-17] MEDS: ATORVASTATIN 80 MG TAB PO SCH (19:15)
[2023-02-17] MEDS: clonazePAM 0.5 MG TAB PO PRN (22:09)
--- NOTE | 2023-02-17 23:39 | PN ---
Date of Progress Note: 02/17/2023 Time Of Service: 1:30 p.m. Subjective: Ms. Barros is resting in a chair, looking out of the window. She did have a fall earli er, where she hit her face and has the appearance of the raccoon eyes on the left eye where she hit t he face. She did have CT scan of her head, which revealed no fractures of the face or orbits. No sk ull fracture. No intracranial bleed is noted on the scan. A subacute right MCA territory infarct, w hich is her reason for the rehabilitation. She also had an ankle x-ray of the left ankle where she h as sustained a fracture and has hardware in place. The study done was compared to one from 9 and that shows status post left total ankle arthroplasty at the tibiotalar joint. There were cannu lated screws traversing the medial malleolus. No evidence of hardware loosening. No acute fractures are identified. There is a subtalar degenerative changes are noted. There is cortical thickening a long the lateral distal tibial metaphysis, which may be postsurgical. Rest of her subjective, she denies any significant pain in the face. The redness is there. No fever s, chills. No significant myalgias. She does have the persistent weakness and incoordination along with poor dexterity of the left hand is noted. Review of Systems: Again, left ankle pain from her fracture. She has poor left hand dexterity and recent fall with cielo ing the left face with bruising and hyperemic area beneath the left eye. Physical Examination: Vital Signs: Blood pressure 128/77, pulse 65, respiratory rate 16, temperature 97.8 oxygen saturatio n 100%. Pain level 2-4. General: Ms. Barros is sitting comfortably in a chair, looking out of the window. She is in no acu te distress. HEENT: She does have racoon eyes from the fall and hitting her face. Some tenderness to the left fa ce. It is beneath the eye, but not in the supraorbital region. Extremities: The left upper extremity, 3/5 strength distally, 3+ proximally. Left lower extremity, 3+ proximally and distally and there is decreased light touch temperature less compared to the right side. Laboratory Studies: Blood sugars ranged from 84 to 87. X-ray imaging is described above. Medications: Medications have been reviewed, are unchanged. Current Functional Status: Currently, she performed multiple [id number]-jq-[id number] transfers with contact gua rd assistance in the parallel bars and multiple stand pivot transfers with a rolling walker from whee lchair to bed with contact guard assistance. She mobilized a wheelchair 200 feet twice with contact guard assistance and verbal cues to maneuver along the hallway. At speech therapy, she demonstrates sustained attention to pen and paper task for 3-5 minutes without cues. She demonstrated organizatio nal thinking skills in order to sequence letters and words with 55% accuracy. She with occupational therapy was at the sink with a wheelchair and completed oral hygiene with verbal cues and has already rinsed her mouth. 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 Progress Towards Rehabilitation Goals: As noted previously, Ms. Barros has made slow to moderate pr ogress towards her goals of improving the strength of the left upper extremity, improving her dexteri ty, coordination, and functional use. However, she is still impulsive and has a tendency to attempt to get out of bed and has fallen twice. However, she has not fractured any bones. She does have a c hronic surgery on the left ankle. No displacement noted with her x-ray there and she has CT scan of the face showing no fractures. The plan was to go to [facility]; however, she is really not ryan te ready for that and requires a higher level of continued care [facility] that was done this morning. Assessment: Ms. Barros is a 67-year-old patient with a right hemispheric stroke, left upper extremi ty paresis, facial weakness, left lower extremity weakness. She has a left-sided neglect, left visua l field deficit. She has dysarthria, dysphagia. She has hypertension, hypothyroidism, osteo arthrit is, diabetes mellitus, and recent fall with left infraorbital hematoma. Plan: 1.Patient will have bed alarm. Will have a sitter from family to be there. Between a sitter and e patient's family, 24 hour direct supervision, although she is still at the nursing station with the door open and they will still be watching her constantly. Again, bed alarm in place. 2.Aspirin for stroke risk reduction. 3.Lipitor for dyslipidemia. 4.Continue physical, occupational, speech therapy 3.5 hours 5/7 days. 5.Synthroid for hypothyroidism. 6.Prinivil and Procardia for hypertension. 7.Tramadol for pain. 8.Melatonin for insomnia. 9.Depression. Comorbidities That Continue To Impact Rehabilitation Process: Her biggest issue was impulsivity, whi ch has led now to 2 falls. Despite multiple attempts training the patient, she is unable to use that arm because it is not strong enough. She keeps trying to use the arm to get out of bed. She does h ave depression with antidepressants and has the chronic left ankle fracture with no displacement of h ardware noted, which is good and again CT scan of the head shows no fractures. Attempts are being ma de to extend her stay in the inpatient rehabilitation unit. CRUZ/KATHRYN Voice ID: [id number] Report ID: [id number]
[2023-02-18] MEDS: LEVOTHYROXINE SOD 0.05 MG TABLET PO SCH (06:44)
[2023-02-18] MEDS: FLUTICASONE 50MCG NASAL SPRAY NAS SCH ×2 (07:44→19:28)
[2023-02-18] MEDS: ENOXAPARIN 40 MG/0.4 ML SQ SCH (07:44)
[2023-02-18] MEDS: lisinopriL 10 MG TAB PO SCH (07:45)
[2023-02-18] MEDS: LIDOCAINE 4% PATCH TOP SCH (07:45)
[2023-02-18] MEDS: VENLAFAXINE HCL XR 75 MG CAP PO SCH (07:46)
[2023-02-18] MEDS: METOPROLOL TAR 50 MG TAB PO SCH ×2 (07:46→19:28)
[2023-02-18] MEDS: ANASTROZOLE 1 MG TAB PO SCH (07:47)
[2023-02-18] MEDS: ASPIRIN 81 MG CHEWABLE TABLET PO SCH (07:47)
[2023-02-18] MEDS: NIFEDIPINE XL 30 MG TABLET PO SCH (08:00)
[2023-02-18] MEDS: INSULIN -REGULAR HUMAN 50 UNIT/0.5 ML ML SQ SCH ×2 (08:00→20:00)
[2023-02-18] MEDS: ATORVASTATIN 80 MG TAB PO SCH (19:28)
[2023-02-18] MEDS: MELATONIN 3 MG TABLET PO PRN (19:35)
--- NOTE | 2023-02-18 21:22 | PN ---
[facility] Progress Note Visit Subjective: Ms. Barros is doing well. She denies any new complaints. As noted yesterday, she did fall and hit her left face. She does not have any new complaints. She did go today for evaluation o f her left ankle chronic fracture that was treated surgically and she was released to put weightbeari ng on the left foot as tolerated. Review of Systems: She does not have fevers or chills. No nausea or vomiting. Denies myalgias and arthralgias except s ome pain in the left ankle and she has the raccoon eyes over the left lower eye. Physical Examination: Vital Signs: Blood pressure 118/80, pulse 84, respiratory rate 16, temperature 97.7, and oxygen satu ration 97%. General: Ms. Barros is resting well. She is in no significant distress. HEENT: She has bruising on her left eye from a fall. Otherwise, normocephalic. Neurologic: She does have significant weakness and incoordination in the left hand where her stroke has impacted her. She has some decreased left nasolabial fold and lower extremity on the left is als o weak, but slowly improving strength and sensation. Laboratory Studies: No new laboratory studies except blood glucose of 83 up to 192. X-ray/imaging: No new x-rays or imaging. Medications: Unchanged and have been reviewed. Current Level Of Functioning: Today she did sit to stand transfers with contact guard assistance usi ng a rolling walker. With speech therapy, she did demonstrate increased awareness of safe swallowing strategies. She needed minimal cues for using appropriate positioning during drinking on bed, but d id not recall to use chin tuck 90% of the time. She did require partial assistance for donning and d offing shirt. Progress Towards Rehabilitation Goals: As noted previously she is making slow overall progress given her significant left upper extremity weakness and impulsivity. She was released to put weight on th e left ankle after she was evaluated by Orthopedic Surgery. She does have comorbid depression and is on Effexor. She has hypertension treated with Procardia and Lopressor. Her pain is managed with Ul tram, hypothyroidism managed with Synthroid and she has aspirin 81 mg daily for stroke risk reduction . Assessment: Ms. Barros is a 67-year-old patient with a right hemispheric stroke and significant lef t upper extremity paresis, facial weakness, and to a lesser extent left lower extremity weakness. Sh e has dysarthria, dysphagia, and impulsivity. Her comorbids include hypertension, hypothyroidism, os teoarthritis, diabetes mellitus, and a left infraorbital hematoma from her recent fall. Plan: 1.Continue with bed alarm and 24 hours supervision with a sitter. 2.Aspirin for stroke risk reduction. 3.Lipitor for dyslipidemia. 4.Physical and occupational along with speech therapy, continued for 3.5 hours, 5 of 7 days. 5.Synthroid for hypothyroidism. 6.Prinivil and Procardia for hypertension. 7.Tramadol for pain. 8.Melatonin for insomnia. 9.Continue venlafaxine 100 mg daily for depression. Comorbids That Continue To Impact Rehabilitation Process: She is impulsive with a tendency to attemp t to get up or ambulate when she is unable to maintain her balance or support herself on the left jennifer e due to weakness from her stroke. She is now allowed to put weight on the left lower extremity, but is still weak from her stroke and is likely to not support her and especially as her left hand is we ak, she will continue to have a strong tendency to fall. It would be important if she could continue with inpatient rehabilitation to regain more strength and to work on her cognitive functioning to improve her safety awareness. CRUZ/KATHRYN Voice ID: [id number] Report ID: [id number]
[2023-02-18] MEDS: DOCUSATE NA/SENNA CONC 1 TAB PO PRN (23:59)
[2023-02-18] MEDS: clonazePAM 0.5 MG TAB PO PRN (23:59)
[2023-02-19 04:29] LABS: Hematocrit 31.4 % (36.0-45.0); Lymphocytes % 14.1 % (15.3-44.8); MCV 94.4 fL (80-100); MPV 9.8 fL (7.6-11.3); RBC Red Blood Cell Count 3.32 M/uL (3.86-4.86)
[2023-02-19 05:31] LABS: Potassium 3.4 mEq/L (3.5-5.1)
[2023-02-19 05:32] LABS: Albumin 2.9 g/dL (3.4-5.0); Magnesium 1.8 mg/dL (1.6-2.4)
[2023-02-19] MEDS: LEVOTHYROXINE SOD 0.05 MG TABLET PO SCH (06:21)
[2023-02-19] MEDS: LIDOCAINE 4% PATCH TOP SCH (07:34)
[2023-02-19] MEDS: FLUTICASONE 50MCG NASAL SPRAY NAS SCH ×2 (07:34→19:27)
[2023-02-19] MEDS: ANASTROZOLE 1 MG TAB PO SCH (07:35)
[2023-02-19] MEDS: lisinopriL 10 MG TAB PO SCH (07:35)
[2023-02-19] MEDS: ASPIRIN 81 MG CHEWABLE TABLET PO SCH (07:35)
[2023-02-19] MEDS: VENLAFAXINE HCL XR 75 MG CAP PO SCH (07:35)
[2023-02-19] MEDS: ENOXAPARIN 40 MG/0.4 ML SQ SCH (07:35)
[2023-02-19] MEDS: METOPROLOL TAR 50 MG TAB PO SCH ×2 (07:36→19:28)
[2023-02-19] MEDS: NIFEDIPINE XL 30 MG TABLET PO SCH (08:00)
[2023-02-19] MEDS: INSULIN -REGULAR HUMAN 50 UNIT/0.5 ML ML SQ SCH ×2 (08:00→19:39)
[2023-02-19] MEDS: DOCUSATE NA/SENNA CONC 1 TAB PO PRN (19:27)
[2023-02-19] MEDS: MELATONIN 3 MG TABLET PO PRN (19:27)
[2023-02-19] MEDS: ATORVASTATIN 80 MG TAB PO SCH (19:27)
[2023-02-19] MEDS: TRAMADOL HCL 50 MG TAB PO PRN (19:27)
--- NOTE | 2023-02-19 20:52 | PN ---
Date of Progress Note: 02/19/2023 [facility] Progress Note Visit Subjective: Ms. Barros is doing well. She has no new complaints. She is feeling stronger. The le ft hand is showing more dexterity. She is feeling better about the left ankle, which now is released for her to put full weightbearing as tolerated. Review of Systems: No fevers, chills, myalgias, or arthralgias. No rash. She does have some tenderness around the left periorbital region from where she fell to the floor. Physical Examination: Vital Signs: Blood pressure 117/76, pulse 68, respiratory rate 16, and temperature 97.8. General: Ms. Barros is sitting in a chair. She does have her pet dog with her, that dog is seen as a therapeutic dog. Family is in the room as well. HEENT: She has hematoma noted below the left eye, which is healing from a recent fall, otherwise atr aumatic. Neurologic: She has some improvement in strength and dexterity in the left upper extremity, but stil l around 3+/5 for wrist extension and flexion along with finger extension and flexion on the left. P roximally, she is stronger 4/5 in left biceps and deltoid. No weakness in the right upper and lower extremity. Laboratory Studies: White blood cell count 7, hemoglobin 10.5, and platelets are 172. Chemistries: Sodium 141, potassium 3.4, chloride 111, carbon dioxide 27, BUN 15, creatinine 0.71, glucose ranged from 80 to 169. Prealbumin 13, albumin 2.9. It should be noted on the 13th, which is 7 days ago, pr ealbumin was 20.2, indicating a drop of 7 mg/dL. X-ray/imaging: No new x-rays or imaging. Medications: Have been reviewed and remained unchanged. Current Functional Status: Today she ambulated 20 feet, 15 feet, and 12 feet with moderate assistanc e using a rolling walker. Supine to sit transfer is done with standby assistance. Xkk-rh-bkhwz toledo sfers is with contact guard standby assistance. With speech therapy, she completed organizational th inking tasks with 86% accuracy and maximum cues. Progress Towards Rehabilitation Goals: As noted, Ms. Barros is making slow progress and is not like ly to be safe to go home and would need more time in the inpatient rehabilitation unit, which is pend ing insurance approval and she may still have to go to jail, but at this point she is stil l unsafe to go to jail. Assessment: Ms. Barros is a 67-year-old patient in the rehabilitation unit with a right hemispheric stroke producing left upper extremity more than lower extremity weakness, dysphagia, dysarthria, and impulsivity. She has hypertension, hypothyroidism, osteoarthritis, diabetes mellitus, left infraorb ital hematoma, and chronic left ankle fracture. Plan: 1.Continue with 24 hours supervision and a sitter. 2.Aspirin for stroke risk reduction. 3.Lipitor for dyslipidemia. 4.Synthroid for hypothyroidism. 5.Prinivil and Procardia for hypertension. 6.Tramadol for pain. 7.Melatonin for insomnia. 8.Venlafaxine for depression. 9.Continue with physical, occupational, and speech therapy for 3.5 hours, 5 of 7 days. Comorbids That Continue To Impact Rehabilitation Process: She is still impulsive with a tendency to not listen to instructions resulting in 2 falls since being in the unit. She is perhaps doing better now and she is allowed now to put some weight on the left lower extremity as tolerated and she does have a pet dog and has improved mood. She is pending approval for an extended stay in the inpatient rehabilitation unit. CRUZ/KATHRYN Voice ID: [id number] Report ID: [id number]
[2023-02-20] MEDS: LEVOTHYROXINE SOD 0.05 MG TABLET PO SCH (05:22)
[2023-02-20] MEDS: FLUTICASONE 50MCG NASAL SPRAY NAS SCH ×2 (07:38→19:30)
[2023-02-20] MEDS: lisinopriL 10 MG TAB PO SCH (07:39)
[2023-02-20] MEDS: ENOXAPARIN 40 MG/0.4 ML SQ SCH (07:39)
[2023-02-20] MEDS: METOPROLOL TAR 50 MG TAB PO SCH ×2 (07:40→19:40)
[2023-02-20] MEDS: VENLAFAXINE HCL XR 75 MG CAP PO SCH (07:40)
[2023-02-20] MEDS: ASPIRIN 81 MG CHEWABLE TABLET PO SCH (07:41)
[2023-02-20] MEDS: ANASTROZOLE 1 MG TAB PO SCH (07:41)
[2023-02-20] MEDS: NIFEDIPINE XL 30 MG TABLET PO SCH (08:00)
[2023-02-20] MEDS: INSULIN -REGULAR HUMAN 50 UNIT/0.5 ML ML SQ SCH ×2 (08:00→19:46)
--- NOTE | 2023-02-20 08:24 | P.RH.PN ---
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 Goal: Mobility, Transfers, Self Care Vital Signs: Last Vital Signs Temp 98.9 F 02/19/23 21:00 Pulse 88 02/20/23 07:40 Resp 18 02/19/23 21:00 BP 148/96 H 02/20/23 07:40 Pulse Ox 98 02/19/23 21:00 Laboratory: Laboratory Last Values WBC 7.00 thou/uL (4.3-10.9) 02/19/23 03:57 RBC 3.32 M/uL (3.86-4.86) L 02/19/23 03:57 Hgb 10.5 g/dL (12.0-15.0) L 02/19/23 03:57 Hct 31.4 % (36.0-45.0) L 02/19/23 03:57 MCV 94.4 fL (80-100) 02/19/23 03:57 MCH 31.7 pg (27.0-35.0) 02/19/23 03:57 MCHC 33.6 g/dL (32.0-36.0) 02/19/23 03:57 RDW 15.9 % (12.1-15.2) H 02/19/23 03:57 Plt Count 172 thou/uL (152-406) 02/19/23 03:57 MPV 9.8 fL (7.6-11.3) 02/19/23 03:57 Neutrophils % 72.8 % (41.7-73.7) 02/19/23 03:57 Lymphocytes % 14.1 % (15.3-44.8) L 02/19/23 03:57 Monocytes % 7.1 % (3.3-12.3) 02/19/23 03:57 Eosinophils % 5.5 % (0-4.4) H 02/19/23 03:57 Basophils % 0.5 % (0-1.3) 02/19/23 03:57 Absolute Neutrophils 5.1 K/uL (1.8-8.0) 02/19/23 03:57 Absolute Lymphocytes 1.0 K/uL (0.7-4.9) 02/19/23 03:57 Absolute Monocytes 0.5 K/uL (0.1-1.3) 02/19/23 03:57 Absolute Eosinophils 0.4 K/uL (0-0.5) 02/19/23 03:57 Absolute Basophils 0.0 K/uL (0-0.5) 02/19/23 03:57 Sodium 141 mEq/L (136-145) 02/19/23 03:57 Potassium 3.4 mEq/L (3.5-5.1) L 02/19/23 03:57 Chloride 111 mEq/L (98-107) H 02/19/23 03:57 Carbon Dioxide 27 mEq/L (21-32) 02/19/23 03:57 Anion Gap 6.4 mEq/L (5.0-15.0) 02/19/23 03:57 BUN 15 mg/dL (7-18) 02/19/23 03:57 Creatinine 0.71 mg/dL (0.55-1.02) 02/19/23 03:57 Est GFR (CKD-EPI) 93 ml/min (=/>90) 02/19/23 03:57 Glucose 100 mg/dL (74-106) 02/19/23 03:57 POC Glucose 85 mg/dL (65-120) 02/20/23 07:12 Calcium 9.6 mg/dL (8.5-10.1) 02/19/23 03:57 Magnesium 1.8 mg/dL (1.6-2.4) 02/19/23 03:57 Albumin 2.9 g/dL (3.4-5.0) L 02/19/23 03:57 Prealbumin 13.0 mg/dL (20-40) L 02/19/23 03:57 Urine Color Light-yellow (Yellow) 02/08/23 05:39 Urine Clarity Turbid (Clear) H 02/08/23 05:39 Urine pH 6.0 (5.0-7.0) 02/08/23 05:39 Ur Specific [place] 1.015 (1.005-1.030) 02/08/23 05:39 Glucose (UA)(Auto) Negative (Negative) 02/08/23 05:39 Urine Ketones Negative (Negative) 02/08/23 05:39 Urine Blood Negative (Negative) 02/08/23 05:39 Urine Nitrite Negative (Negative) 02/08/23 05:39 Urine Bilirubin Negative (Negative) 02/08/23 05:39 Urine Urobilinogen Normal (Normal) 02/08/23 05:39 Ur Leukocyte Esterase 500 Asha/uL (Negative) H 02/08/23 05:39 Urine RBC 21-50 /HPF (None Seen) H 02/08/23 05:39 Urine WBC >50 /HPF (<5) H 02/08/23 05:39 Urine WBC Clumps Rare /HPF (None Seen) 02/08/23 05:39 Ur Squamous Epith Cells <5 /HPF (None Seen) 02/08/23 05:39 Urine Bacteria <20 /HPF (<20) 02/08/23 05:39 Urine Mucus Slight /HPF (None Seen) 02/08/23 05:39 Urine Culture Reflexed Reflexed 02/08/23 05:39 Urine Total Protein Negative (Negative) 02/08/23 05:39 Weight: 204 lb 6.4 oz Abdomen Skin Alteration: Bruising Wound Present: No Closed Surgical Incision Present: No Negative Pressure Wound Therapy Present: No Physician Update: Making slow progress with all therapy. She will likely require 24/7 and SNF. Her prealbumin dropped to 13 from 20. Will add protein drinks twice daily. SBA with bed mobility, min rachael with transfers. She needs mod assistance with hemiwalker. Very impulsive has poor protection of her airway. Poor attention to ADLs and dressing. Comment: some bruising on abd from lovenox shot Summary: Patient's care plan and [facility] goals have been reviewed and revised as necessary. Please see the Rehabilitation Signature page for all necessary signatures.
[2023-02-20] MEDS: LIDOCAINE 4% PATCH TOP SCH (08:54)
[2023-02-20] MEDS: ACETAMINOPHEN 500 MG TAB PO PRN (14:35)
[2023-02-20] MEDS: ATORVASTATIN 80 MG TAB PO SCH (19:39)
[2023-02-20] MEDS: MELATONIN 3 MG TABLET PO PRN (19:40)
[2023-02-21] MEDS: LEVOTHYROXINE SOD 0.05 MG TABLET PO SCH (07:38)
[2023-02-21] MEDS: INSULIN -REGULAR HUMAN 50 UNIT/0.5 ML ML SQ SCH ×2 (08:00→20:00)
[2023-02-21] MEDS: ENOXAPARIN 40 MG/0.4 ML SQ SCH (09:29)
[2023-02-21] MEDS: LIDOCAINE 4% PATCH TOP SCH (09:29)
[2023-02-21] MEDS: lisinopriL 10 MG TAB PO SCH (09:30)
[2023-02-21] MEDS: NIFEDIPINE XL 30 MG TABLET PO SCH (09:31)
[2023-02-21] MEDS: ANASTROZOLE 1 MG TAB PO SCH (09:31)
[2023-02-21] MEDS: VENLAFAXINE HCL XR 75 MG CAP PO SCH (09:31)
[2023-02-21] MEDS: METOPROLOL TAR 50 MG TAB PO SCH ×2 (09:32→19:52)
[2023-02-21] MEDS: ASPIRIN 81 MG CHEWABLE TABLET PO SCH (09:32)
[2023-02-21] MEDS: FLUTICASONE 50MCG NASAL SPRAY NAS SCH ×2 (09:32→19:52)
[2023-02-21] MEDS: ACETAMINOPHEN 500 MG TAB PO PRN (16:29)
[2023-02-21] MEDS: ATORVASTATIN 80 MG TAB PO SCH (19:52)
[2023-02-21] MEDS: MELATONIN 3 MG TABLET PO PRN (19:52)
[2023-02-22] MEDS: LEVOTHYROXINE SOD 0.05 MG TABLET PO SCH (06:37)
[2023-02-22] MEDS: VENLAFAXINE HCL XR 75 MG CAP PO SCH (07:45)
[2023-02-22] MEDS: ENOXAPARIN 40 MG/0.4 ML SQ SCH (07:45)
[2023-02-22] MEDS: ANASTROZOLE 1 MG TAB PO SCH (07:46)
[2023-02-22] MEDS: FLUTICASONE 50MCG NASAL SPRAY NAS SCH ×2 (07:46→19:48)
[2023-02-22] MEDS: LIDOCAINE 4% PATCH TOP SCH (07:46)
[2023-02-22] MEDS: lisinopriL 10 MG TAB PO SCH (07:46)
[2023-02-22] MEDS: ASPIRIN 81 MG CHEWABLE TABLET PO SCH (07:46)
[2023-02-22] MEDS: METOPROLOL TAR 50 MG TAB PO SCH ×2 (07:47→19:48)
[2023-02-22] MEDS: INSULIN -REGULAR HUMAN 50 UNIT/0.5 ML ML SQ SCH ×2 (08:00→19:49)
[2023-02-22] MEDS: NIFEDIPINE XL 30 MG TABLET PO SCH (10:05)
[2023-02-22] MEDS: ACETAMINOPHEN 500 MG TAB PO PRN (15:17)
[2023-02-22] MEDS: MELATONIN 3 MG TABLET PO PRN (19:48)
[2023-02-22] MEDS: ATORVASTATIN 80 MG TAB PO SCH (19:48)
[2023-02-23] MEDS: GUAIFENESIN/DM 5 ML UCUP PO PRN (01:42)
[2023-02-23] MEDS: LEVOTHYROXINE SOD 0.05 MG TABLET PO SCH (06:26)
[2023-02-23] MEDS: ENOXAPARIN 40 MG/0.4 ML SQ SCH (07:22)
[2023-02-23] MEDS: FLUTICASONE 50MCG NASAL SPRAY NAS SCH ×2 (07:22→20:17)
[2023-02-23] MEDS: ASPIRIN 81 MG CHEWABLE TABLET PO SCH (07:46)
[2023-02-23] MEDS: VENLAFAXINE HCL XR 75 MG CAP PO SCH (07:46)
[2023-02-23] MEDS: ANASTROZOLE 1 MG TAB PO SCH (07:46)
[2023-02-23] MEDS: lisinopriL 10 MG TAB PO SCH (07:46)
[2023-02-23] MEDS: METOPROLOL TAR 50 MG TAB PO SCH ×2 (07:47→20:17)
[2023-02-23] MEDS: INSULIN -REGULAR HUMAN 50 UNIT/0.5 ML ML SQ SCH ×2 (08:00→20:00)
[2023-02-23] MEDS: NIFEDIPINE XL 30 MG TABLET PO SCH (08:00)
[2023-02-23] MEDS: LIDOCAINE 4% PATCH TOP SCH (10:09)
[2023-02-23] MEDS: ATORVASTATIN 80 MG TAB PO SCH (20:17)
[2023-02-23] MEDS: MELATONIN 3 MG TABLET PO PRN (20:49)
[2023-02-23] MEDS: HYDROCODONE/APAP 5/325 MG TAB PO PRN (23:39)
--- NOTE | 2023-02-24 01:16 | PN ---
Date of Progress Note: 02/23/2023 Dfjf-jr-Gyef progress Note Visit Time Of Service: 1 p.m. Subjective: Ms. Barros is doing well, lying in bed. She has her dog with her, which is medical dog . She has no new complaints. Her left hand strength is only slightly improved, still significantly impacted in terms of dexterity and strength. She again could put weight on the left lower extremity without restriction. This is where she has a chronic ankle injury and surgery. Review of Systems: No fevers or chills. No significant myalgias, arthralgias, or rash. She does have some tenderness a round the left orbital. No significant swelling in the left lower extremity. Physical Examination: Vital Signs: Blood pressure 128/86, pulse 64, respiratory rate 16, temperature 97.8, oxygen saturati on 99% on room air. General: Ms. Barros is resting comfortably. She is in no acute distress. HEENT: Normocephalic, atraumatic. Sclerae anicteric. Oropharynx moist. Neck: Supple. Chest: Clear. Abdomen: Soft. Extremities: Show no significant edema or cyanosis. Neurological: The left upper extremity distally, she has around 2/5 wrist extension and finger exten tameka, 3 for ultrasound technician on the left and approximately around 3+. Left lower extremity is stronger, around 4 . Otherwise, decreased sensation in the left compared to right upper and lower extremity. Laboratory Studies: Blood sugars ranged from 74 to 124. X-ray/imaging: No new x-ray or imaging. Medications: Medications are unchanged. Current Functional Status: Today she ambulated 150 feet twice with contact guard assistance using a platform rolling walker. She also ascended and descended 15 steps with contact guard assistance and she repeated short distance ambulation and turns up 25 feet with a rolling walker. With Speech Thera py, cancellation task for 1 digit was completed with medium font for 8 lines with 100% accuracy witho ut cues. She sequenced numbers chronologically with 87% accuracy without cues. She did transfer fro m bed to wheelchair to shower bench to wheelchair with minimum assistance. Progress Towards Rehabilitation Goals: Ms. Barros is making better progress as she can now put weig ht on the left lower extremity. However, she is still somewhat limited by poor strength and coordina tion in the left hand. Otherwise, her mood is better as she has her medical pet dog with her. Assessment: Ms. Barros is a 67-year-old patient with a right hemispheric stroke and residual left u pper extremity more than lower extremity weakness. She has dysphasia and dysarthria and impulsivity following her stroke. She has comorbid hypertension, hypothyroidism, osteoarthritis, diabetes mellit us, left infraorbital hematoma for fall, chronic left ankle fracture that has been repaired. Plan: 1.Continue physical, occupational, and speech therapy. She is actually looking to be placed in critical access hospital led nursing as she is not safe to be at home. 2.Aspirin. Continue stroke risk reduction. 3.Lipitor for dyslipidemia. 4.Synthroid for hypothyroidism. 5.Prinivil and Procardia for hypertension. 6.Tramadol for pain. 7.Melatonin for insomnia. 8.Venlafaxine for depression and as noted previously we will continue physical, occupational, and sp eech therapy for 3.5 hours 5 to 7 days. Comorbidities That Continue To Impact Rehabilitation Process: As noted previously, she does have a t endency to try to climb out of bed and as a result, had 2 falls and continues to be the most signific ant impacting condition, although she did have a 1:1 sitter earlier last week. She did very well ove r the weekend and did not have a sitter. She is now having her pet dog with her and that has improved her mood significantly. She is otherwis e doing well. CRUZ/KATHRYN Voice ID: [id number] Report ID: [id number]
[2023-02-24 04:30] LABS: Absolute Lymphocytes (CBC) 1.2 K/uL (0.7-4.9); Hematocrit 31.9 % (36.0-45.0); Lymphocytes % 16.7 % (15.3-44.8); MCV 92.9 fL (80-100); MPV 9.7 fL (7.6-11.3); RBC Red Blood Cell Count 3.43 M/uL (3.86-4.86)
[2023-02-24 05:20] LABS: Albumin 2.9 g/dL (3.4-5.0); Magnesium 1.8 mg/dL (1.6-2.4); Potassium 3.5 mEq/L (3.5-5.1); Prealbumin 13.5 mg/dL (20-40)
[2023-02-24] MEDS: LEVOTHYROXINE SOD 0.05 MG TABLET PO SCH (05:34)
[2023-02-24] MEDS: ANASTROZOLE 1 MG TAB PO SCH (07:54)
[2023-02-24] MEDS: VENLAFAXINE HCL XR 75 MG CAP PO SCH (07:55)
[2023-02-24] MEDS: lisinopriL 10 MG TAB PO SCH (07:55)
[2023-02-24] MEDS: ASPIRIN 81 MG CHEWABLE TABLET PO SCH (07:55)
[2023-02-24] MEDS: METOPROLOL TAR 50 MG TAB PO SCH ×2 (07:55→19:54)
[2023-02-24] MEDS: ENOXAPARIN 40 MG/0.4 ML SQ SCH (07:56)
[2023-02-24] MEDS: FLUTICASONE 50MCG NASAL SPRAY NAS SCH ×2 (07:56→19:57)
[2023-02-24] MEDS: LIDOCAINE 4% PATCH TOP SCH (07:57)
[2023-02-24] MEDS: INSULIN -REGULAR HUMAN 50 UNIT/0.5 ML ML SQ SCH ×2 (08:00→19:54)
[2023-02-24] MEDS: ACETAMINOPHEN 500 MG TAB PO PRN (10:18)
[2023-02-24] MEDS: NIFEDIPINE XL 30 MG TABLET PO SCH (10:18)
--- NOTE | 2023-02-24 19:43 | PN ---
Date of Progress Note: 02/24/2023 Ejsi-Rd-Cztk Visit Time Of Service: 1:30 p.m. Subjective: Ms. Barros is doing well. She is sitting in a chair, getting ready to do therapy. Tres gonzalez is in the room. She is feeling better about her recovery and where she will head to next. She s till has significant issues with left arm and hand dexterity. She also has some issues with the left leg, which is impacted by her stroke and chronic fracture of the left ankle. Review of Systems: No fevers or chills. No significant myalgias or arthralgias. No rash. No headache. No active psyc hiatric issues. No significant swelling in extremities. Physical Examination: Vital Signs: Blood pressure 101/63, pulse of 72, respiratory rate 16, temperature 97.3, and oxygen s aturation 96%. General: Ms. Barros is resting comfortably. She is in no significant distress. Neurologic: She has left arm weakness around 3/5 and left leg weakness around 4. Sensation decrease d in the left compared to right upper and lower extremities. Laboratory Studies: White blood cell count 7.1, hemoglobin 10.5, hematocrit 31.9, and platelets 179. Chemistries: Sodium 139, potassium 3.5, chloride 108, carbon dioxide 28, BUN 15, creatinine 0.7, g lucose ranged from 82 to 111, calcium 9.7, magnesium 1.8, prealbumin 13.5, and albumin 2.9. X-ray/imaging: No new x-ray or imaging. Medications: Have been reviewed and are unchanged. Current Functional Status: Today she participated in gait training on outdoor surfaces. She ambulat ed 100 feet twice with contact guard assistance using a platform walker. She is able to negotiate on even sidewalks and mild slopes. With her occupational therapy, she needed partial assistance requir ed for toileting hygiene using the grab bars to maintain balance while pulling her pants up and she n eeded assistance to pull pants down and up on the left side. She did grasp and release cones in the left hand and completed hand strength exercises 3 sets with 15 repetitions each with hand gripper and that was to improve fine motor coordination. With speech therapy, visual-spatial skills improved as evidenced by ability to complete cancellation task without errors. She did remain free from falls o lianet the last 7 days. As noted, she was impulsive and did have 2 falls. She has not had any again in the last 7 days. She did demonstrate knowledge of cause and effect relationships with 100% accuracy . Progress Towards Rehabilitation Goals: Ms. Barros is making much better progress since now she is a ble to put weight down on the left leg and is participating much. She is less depressed about the si tuation and again is making progress and knows that she will now be heading to jail either in the next day or 2 and she is satisfied about that and family will be following along. Assessment: Ms. Barros is a 67-year-old patient with a right hemispheric stroke causing left upper motor and lower extremity weakness. Additional deficits are dysphagia, dysarthria, aphasia, and impu lsivity. She has hypertension, hypothyroidism, osteoarthritis, diabetes mellitus, and healing left i nfraorbital hematoma from one of her falls and chronic left ankle fracture status post repair. Plan: 1.Continue with physical, occupational, and speech therapy for 3.5 hours, 5 of 7 days. 2.Continue with aspirin for stroke risk reduction. 3.Lipitor for dyslipidemia. 4.Synthroid for hypothyroidism. 5.For hypertension, continue Prinivil and Procardia. 6.Tramadol for pain, melatonin for insomnia. 7.For depression, continue venlafaxine. Comorbids That Continue To Impact Her Rehabilitation: Since the last 5 days, she has not required a one-on-one sitter. She is doing very well and following instructions to remain safe, not trying to c limb out of bed, and her mood is much better and therefore it is less of an issue as she now goes to skill ed nursing. CRUZ/KATHRYN Voice ID: [id number] Report ID: [id number]
[2023-02-24] MEDS: ATORVASTATIN 80 MG TAB PO SCH (19:53)
[2023-02-24] MEDS: MELATONIN 3 MG TABLET PO PRN (20:13)
[2023-02-25] MEDS: LEVOTHYROXINE SOD 0.05 MG TABLET PO SCH (06:38)
[2023-02-25] MEDS: FLUTICASONE 50MCG NASAL SPRAY NAS SCH ×2 (07:25→20:23)
[2023-02-25] MEDS: LIDOCAINE 4% PATCH TOP SCH (07:25)
[2023-02-25] MEDS: ENOXAPARIN 40 MG/0.4 ML SQ SCH (07:25)
[2023-02-25] MEDS: INSULIN -REGULAR HUMAN 50 UNIT/0.5 ML ML SQ SCH ×2 (07:26→20:00)
[2023-02-25] MEDS: VENLAFAXINE HCL XR 75 MG CAP PO SCH (07:26)
[2023-02-25] MEDS: METOPROLOL TAR 50 MG TAB PO SCH ×2 (07:26→20:24)
[2023-02-25] MEDS: ANASTROZOLE 1 MG TAB PO SCH (07:26)
[2023-02-25] MEDS: ASPIRIN 81 MG CHEWABLE TABLET PO SCH (07:26)
[2023-02-25] MEDS: lisinopriL 10 MG TAB PO SCH (07:26)
[2023-02-25] MEDS: NIFEDIPINE XL 30 MG TABLET PO SCH (09:21)
[2023-02-25] MEDS: ACETAMINOPHEN 500 MG TAB PO PRN (14:47)
[2023-02-25] MEDS: ATORVASTATIN 80 MG TAB PO SCH ×2 (20:24→20:25)
[2023-02-25] MEDS: GUAIFENESIN/DM 5 ML UCUP PO PRN (20:26)
--- NOTE | 2023-02-26 00:52 | PN ---
Date of Progress Note: 02/25/2023 Ohgl-Ux-Zffj Rehabilitation Progress Note Time Of Service: 1 p.m. Subjective: Ms. Barros is in her bed, doing therapy. She is in no significant distress. She has n o complaints. She does feel much stronger, especially in the left leg and no significant pain there. Review of Systems: Mild pain in the ankle where she has a fracture on the left. Otherwise, no myalgias or arthralgias. No rash, headache, or weight change. No psychiatric complaints. Physical Examination: Vital Signs: Blood pressure 128/74, pulse of 77, respiratory rate 16, temperature 97.1, and oxygen s aturation 95%. General: Ms. Barros is resting in bed. HEENT: She does have an improved look of the hyperemia below the left eye where she fell, that is cl earing up. No significant swelling noted there. She does have a slight decrease of left nasolabial fold. Neurologic: Left upper extremity strength slightly increased, but still around 3/5. Dexterity is im proving in the left upper extremity. She has much more improved strength in the left lower extremity and can lift the leg straight up and maintain that up off the bed very well. Mild decrease to light touch, left more than right upper and lower extremities. Laboratory Studies: White blood cell count 7.1 and hemoglobin 10.5. Sodium 139, potassium 3.5, chlo ride 108, carbon dioxide 28, creatinine 0.7, glucose ranged from 82 to 123. X-ray/imaging: No new x-ray or imaging. Medications: Have been reviewed and are unchanged. Current Functional Status: Currently, she ambulated 250 feet twice and 170 feet once with contact gu sumit assistance using a platform walker. She ascended and descended 15 steps with standby assistance using bilateral handrails. With speech therapy, she performed sustained attention for divergent mary ng skills for 7 items for abstract category. She also used internal memory strategies to recall 3 of 3 unrelated pictures after 15 minutes without cues. Progress Towards Rehabilitation Goals: Ms. Pat is making much improved progress, now that she can put weight on the left lower extremity and doing excellent with her transfers and ambulation and her cognitive functioning. Assessment: Ms. Barros is a 67-year-old patient with a right hemispheric stroke and left upper extr emity more than lower extremity weakness. The stroke has also caused dysarthria, dysphagia, and apha ramos. She has hypertension, hypothyroidism, osteoarthritis, diabetes mellitus, and healing left infra orbital hematoma from a fall and her left ankle fracture is in good stable state and is not causing s ignificant pain. Plan: 1.Continue with physical, occupational, and speech therapy 3.5 hours, 5 of 7 days. 2.Continue with aspirin for stroke risk reduction. 3.Synthroid for hypothyroidism. 4.Lipitor for dyslipidemia. 5.Prinivil and Procardia for hypertension. 6.Melatonin for insomnia. 7.Tramadol for pain. 8.Venlafaxine for depression. Comorbids That Continue To Impact Her Rehabilitation Process: Right now she is doing much better, no t requiring one-to-one sitter. She is much less impulsive and making great progress with her therapy and her comorbids do not negatively impact her rehabilitation. CRUZ/MODL Voice ID: [id number] Report ID: [id number]
[2023-02-26] MEDS: ACETAMINOPHEN 500 MG TAB PO PRN (01:52)
[2023-02-26] MEDS: LEVOTHYROXINE SOD 0.05 MG TABLET PO SCH (06:25)
[2023-02-26 06:46] VITALS: TEMP 97.6
[2023-02-26] MEDS: INSULIN -REGULAR HUMAN 50 UNIT/0.5 ML ML SQ SCH (06:47)
[2023-02-26] MEDS: ENOXAPARIN 40 MG/0.4 ML SQ SCH (07:27)
[2023-02-26] MEDS: LIDOCAINE 4% PATCH TOP SCH (07:33)
[2023-02-26] MEDS: ANASTROZOLE 1 MG TAB PO SCH (07:33)
[2023-02-26] MEDS: METOPROLOL TAR 50 MG TAB PO SCH (07:34)
[2023-02-26] MEDS: VENLAFAXINE HCL XR 75 MG CAP PO SCH (07:34)
[2023-02-26] MEDS: ASPIRIN 81 MG CHEWABLE TABLET PO SCH (07:34)
[2023-02-26] MEDS: FLUTICASONE 50MCG NASAL SPRAY NAS SCH (07:36)
[2023-02-26] MEDS: lisinopriL 10 MG TAB PO SCH (08:00)
[2023-02-26] MEDS: NIFEDIPINE XL 30 MG TABLET PO SCH (08:00)
[2023-02-26 10:40] VITALS: BP 102/61
== END 2023-02-26 12:10 | DRG 57 ==
LOC: 5TH 02-07 22:53
PROVIDERS: ADMIT Psychiatry & Neurology Neurology with Special Qualifications in Child Neurology; ATTEND Psychiatry & Neurology Neurology with Special Qualifications in Child Neurology
DX: I69.354 Hemiplegia and hemiparesis following cerebral infarction affecting left non-dominant side (principal); G93.40 Encephalopathy, unspecified; M62.82 Rhabdomyolysis; I69.391 Dysphagia following cerebral infarction; I69.322 Dysarthria following cerebral infarction; I69.320 Aphasia following cerebral infarction; E03.9 Hypothyroidism, unspecified; I10 Essential (primary) hypertension; M19.90 Unspecified osteoarthritis, unspecified site; R73.03 Prediabetes; K59.00 Constipation, unspecified; M79.10 Myalgia, unspecified site; M25.50 Pain in unspecified joint; E66.9 Obesity, unspecified; R13.10 Dysphagia, unspecified; F32.A Depression, unspecified; G47.00 Insomnia, unspecified; R45.87 Impulsiveness; E78.5 Hyperlipidemia, unspecified; Z20.822 Contact with and (suspected) exposure to COVID-19; S05.12XD Contusion of eyeball and orbital tissues, left eye, subsequent encounter; S82.892D Other fracture of left lower leg, subsequent encounter for closed fracture with routine healing; Z85.3 Personal history of malignant neoplasm of breast; Z23 Encounter for immunization
CPT/HCPCS: 36415; 70450; 80048; 81001; 82040; 82947; 83735; 84134; 85025; 87077; 87086; 87088; 87186; 90471; 90732; 92523; 92526; 92610; 94010; 97110; 97112; 97116; 97129; 97161; 97165; 97530; 97542; J1650; J1815; J2001; U0003

== ENCOUNTER 2024-07-04 16:15 | Observation (INO) | payer OTHER ==
--- NOTE | 2024-07-04 17:02 | RAD REPORT ---
EXAM DESCRIPTION: CT - Ct Stroke Brain Wo Cont - 07/04/2024 4:56 pm CLINICAL HISTORY: STROKE ALERT COMPARISON: Head Brain Wo Cont dated 04/22/2023; Head Brain Wo Cont dated 02/16/2023 TECHNIQUE: All CT scans are performed using dose optimization technique as appropriate and may inclu de automated exposure control or mA/KV adjustment according to patient size. FINDINGS: No intracranial hemorrhage, hydrocephalus or extra-axial fluid collection.No areas of brai n edema or evidence of midline shift. Moderate size remote right MCA territory infarct. Mild cerebral atrophy. Mild chronic small vessel ischemic changes The paranasal sinuses and mastoids are clear. The calvarium is intact. IMPRESSION: No acute intracranial abnormality. Moderate remote right MCA territory infarct. Discussed with Dr. Hoffman by Dr. Camargo at [id number] on 07/04/24
--- NOTE | 2024-07-04 17:15 | RAD REPORT ---
EXAM DESCRIPTION: CT - Head angio - 07/04/2024 5:07 pm CLINICAL HISTORY: Lt sided weakness COMPARISON: Ct Stroke Brain Wo Cont dated 07/04/2024; Head Brain Wo Cont dated 04/22/2023; Head angio d ated 01/31/2023 TECHNIQUE: CT angiography of the head was performed with maximum intensity reformatted images. 3D maximum intensity pixel (MIP) reconstructions were created All CT scans are performed using dose optimization technique as appropriate and may include automated exposure control or mA/KV adjustment according to patient size. FINDINGS: Anterior circulation: No aneurysm or large vessel occlusion. No hemodynamically significant stenosis. No arteriovenous malf ormation identified. Recannulized right M1 compared with 01/31/2023. Posterior circulation: No aneurysm or large vessel occlusion. No hemodynamically significant stenosis. No arteriovenous malf ormation identified. IMPRESSION: No significant flow abnormality is detected.
--- NOTE | 2024-07-04 17:17 | RAD REPORT ---
EXAM DESCRIPTION: CT - Neck Angio - 07/04/2024 5:07 pm CLINICAL HISTORY: cva COMPARISON: Neck Angio dated 01/31/2023; Neck Angio dated 12/24/2019; Head C Spine Mpr Wo Con dated 12/04; NJ-[id number]-WO dated 08/17/2015 TECHNIQUE: CT angiography of the neck vessels was performed with maximum intensity reformatted image s. CAROTID STENOSIS REFERENCE USING NASCET CRITERIA: Mild - <50% stenosis. Moderate - 50-69% stenosis. Severe - 70-94% stenosis. Near occlusion - 95-99% stenosis. Occluded - 100% stenosis. All CT scans are performed using dose optimization technique as appropriate and may include automated exposure control or mA/KV adjustment according to patient size. FINDINGS: A left aortic arch is identified with normal three vessel configuration of the great vesse ls. No significant flow abnormality is seen of the common carotid bilaterally. No significant stenosis is identified involving the cervical segments of both internal carotid arteri es. Mild noncalcified plaque present at both proximal ICAs but without flow limiting stenoses. Normal flow is seen within both vertebral arteries. Reversal the normal cervical lordosis . IMPRESSION: No significant flow abnormality of the neck vessels is identified.
[2024-07-04 17:21] LABS: Absolute Eosinophils 0.2 K/uL (0-0.5); Absolute Lymphocytes (CBC) 0.8 K/uL (0.7-4.9); Absolute Monocytes 0.3 K/uL (0.1-1.3); Absolute Neutrophil 3.9 K/uL (1.8-8.0); Basophils % 0.3 % (0-1.3); Eosinophils % 3.9 % (0-4.4); Hematocrit 34.3 % (36.0-45.0); Hemoglobin 11.2 g/dL (12.0-15.0); Lymphocytes % 14.6 % (15.3-44.8); MCH 28.2 pg (27.0-35.0); MCHC 32.8 g/dL (32.0-36.0); MCV 85.9 fL (80-100); MPV 8.4 fL (7.6-11.3); Monocytes % 6.1 % (3.3-12.3); Neutrophils % 75.1 % (41.7-73.7); Platelets 142 thou/uL (152-406); RBC Red Blood Cell Count 3.99 M/uL (3.86-4.86); Red Cell Distribution Width 16.5 % (12.1-15.2)
[2024-07-04 17:25] LABS: PT Prothrombin Time 13.4 SECONDS (9.4-12.5); PTT, Activated Partial Thromb 36.8 SECONDS (24.3-36.9); Protime INR 1.2
--- NOTE | 2024-07-04 17:28 | RAD REPORT ---
EXAM DESCRIPTION: RAD - Chest Single View - 07/04/2024 5:20 pm CLINICAL HISTORY: cva COMPARISON: Chest Single View dated 01/31/2023; Chest Single View dated 12/24/2018; Chest Pa And Lat (2 Views) dated 08/06/2017; CHEST SINGLE VIEW dated 08/17/2015 FINDINGS: Lines: None. Lungs: No evidence of edema or pneumonia. Pleural: No significant pleural effusions or pneumothorax. Cardiac: Mild cardiomegaly. Loop recorder. Mediastinum: Within normal limits. Bones: No acute fractures. Right shoulder arthroplasty. Other: None IMPRESSION: No acute cardiopulmonary disease.
[2024-07-04 17:37] LABS: ALT/SGPT 15 U/L (13-56); Albumin 3.3 g/dL (3.4-5.0); Albumin/Globulin Ratio 1.1 (1.1-1.8); Alkaline Phosphatase 60 U/L (45-117); Anion Gap 5.4 mEq/L (5.0-15.0); BUN Blood Urea Nitrogen 14 mg/dL (7-18); Bicarbonate 32 mEq/L (21-32); Bilirubin Total 0.3 mg/dL (0.2-1.0); Globulin 2.9 g/dL (2.3-3.5); Glomerular Filtration Rate 95 ml/min (=/>90); Glucose Level 101 mg/dL (74-106); Magnesium 1.8 mg/dL (1.6-2.4); Potassium 3.4 mEq/L (3.5-5.1); Protein, Total 6.2 g/dL (6.4-8.2); Sodium Level 139 mEq/L (136-145); Troponin High Sensitivity 5.6 pg/mL (<58.9)
[2024-07-04 17:40] LABS: AST/SGOT < 10 U/L (15-37); Bilirubin Direct < 0.2 mg/dL (0-0.2); Bilirubin Indirect, Calculated 0.1 mg/dL (0.2-0.8)
[2024-07-04] MEDS ORDERED: ASPIRIN 325 MG TAB ONE (18:26)
--- NOTE | 2024-07-04 19:05 | ER ---
Nurse's Notes [facility] Name: Adilia Barros Age: 68 yrs Sex: Female : 1955 Arrival Date: 07/04/2024 Time: 16:15 Bed 6 Private MD: Diagnosis: Transient ischemic attack Presentation: 07/04 16:28 Chief complaint: EMS states: Pt brought in via EMS for slurred speech. Per EMS, pt woke dd2 from nap at 3:14 to a phone call in which pts friend stated she had slurred speech and asked if she was drunk. Pt denied alcohol and went back to sleep. Pt woke again to a friend calling and stating she had slurred speech and called 911. EMS checked BGS 50, administered total of 30gm of Glucagon ship's captain. Pt has HX of CVA 01/31/2023 with Lt sided weakness. Coronavirus screen: At this time, the client does not indicate any symptoms associated with coronavirus-19. Ebola Screen: No symptoms or risks identified at this time. Initial Sepsis Screen: Does the patient meet any 2 criteria? No. Patient's initial sepsis screen is negative. Does the patient have a suspected source of infection? No. Patient's initial sepsis screen is negative. Risk Assessment: Do you want to hurt yourself or someone else? Patient reports no desire to harm self or others. Onset of symptoms was July 04, 2024. Care prior to arrival: Medication(s) given: Glucagon, IV initiated. 20 GA, in the right hand, Glucose check: 58. 16:28 Method Of Arrival: EMS: [facility] dd2 16:28 Acuity: ROMAIN 3 dd2 16:48 Acuity: ROMAIN 2 kc6 Triage Assessment: 16:35 General: Appears in no apparent distress. Behavior is calm, cooperative. Pain: Denies dd2 pain. Neuro: Level of Consciousness is awake, alert, obeys commands, Oriented to person, place, time, situation, Speech is slurred, Facial droop on left. Historical: - Allergies: 16:34 Codeine; dd2 - PMHx: 16:34 breast cancer; Hypertension; HYPOGLYCEMIA; Hypothyroidism; dd2 16:35 Cerebrovascular accident; dd2 - Immunization history:: Adult Immunizations unknown. - Infectious Disease History:: Denies. - Social history:: Smoking status: Patient denies any tobacco usage or history of. - Family history:: not pertinent. Screenin:49 [facility] ED Fall Risk Assessment (Adult) History of falling in the last 3 months, kc6 including since admission No falls in past 3 months (0 pts) Confusion or Disorientation No (0 pts) Intoxicated or Sedated No (0 pts) Impaired Gait No (0 pts) Mobility Assist Device Used No (0 pt) Altered Elimination No (0 pt) Score/Fall Risk Level 0 - 2 = Low Risk Oriented to surroundings. Abuse screen: Denies threats or abuse. Denies injuries from another. Nutritional screening: No deficits noted. Tuberculosis screening: No symptoms or risk factors identified. 17:40 Hanna Swallow Protocol Brief Cognitive Screen What is your name? Normal, Where are you dd2 right now? Normal, What year is it? Normal. Oral Mechanism Examination Facial Symmetry: Normal, Motion: Normal, Lip Closure: Normal, Oral Mechanism Result: Normal. 3 oz Water Swallow Challenge: Pt able to drink all water without stopping, coughing, choking or throat clearing: Yes Result: PASS MD Notified: Raman Hoffman MD. Assessment: 16:49 Reassessment: code stroke called, pt to CT via stretcher with ADRIANA Cooper \T\ ADRIANA Sofia. kc6 17:16 General: Appears in no apparent distress. Behavior is calm, cooperative. Pain: Denies dd2 pain. Neuro: Level of Consciousness is awake, alert, obeys commands, Oriented to person, place, time, Moves all extremities. Speech is slurred, Facial droop on left, Reports weakness. Cardiovascular: No deficits noted. Patient's skin is warm and dry. Respiratory: Airway is patent Breath sounds are clear bilaterally. GI: No signs and/or symptoms were reported involving the gastrointestinal system. Abdomen is non-distended, Abd is soft and non tender X 4 quads. : No signs and/or symptoms were reported regarding the genitourinary system. EENT: No signs and/or symptoms were reported regarding the EENT system. Derm: Partial RT Mastectomy. Musculoskeletal: No signs and/or symptoms reported regarding the musculoskeletal system. 19:39 Reassessment: Patient appears in no apparent distress at this time. Patient and/or bm8 family updated on plan of care and expected duration. Pain level reassessed. Patient is alert, oriented x 3, equal unlabored respirations, skin warm/dry/pink. Patient denies pain at this time. General: Appears in no apparent distress. comfortable, Behavior is calm, cooperative, appropriate for age. Pain: Denies pain. Neuro: Level of Consciousness is awake, alert, obeys commands, Oriented to person, place, time, situation, Moves all extremities. Speech is normal, Facial droop on left, pt showing signs of muscular weakness on left side, along with decreased sensation. Reports weakness in left sided. Cardiovascular: Capillary refill < 3 seconds in bilateral fingers toes Patient's skin is warm and dry. Rhythm is sinus rhythm with unifocal PVCs. Respiratory: Airway is patent Trachea midline Respiratory effort is even, unlabored, Respiratory pattern is regular, symmetrical, Breath sounds are clear bilaterally. GI: No signs and/or symptoms were reported involving the gastrointestinal system. : No signs and/or symptoms were reported regarding the genitourinary system. EENT: No signs and/or symptoms were reported regarding the EENT system. Derm: No signs and/or symptoms reported regarding the dermatologic system. Musculoskeletal: No signs and/or symptoms reported regarding the musculoskeletal system. Vital Signs: 16:28 BP 101 / 72; Pulse 72; Resp 16; Temp 98.2; Pulse Ox 98% ; Weight 92.08 kg; Height 5 ft. dd2 7 in. ; 17:16 BP 99 / 74; Pulse 71; Resp 16; Pulse Ox 96% ; dd2 19:39 BP 100 / 86; Pulse 68; Resp 16; Temp 98.2; Pulse Ox 97% on R/A; Pain 0/10; bm8 16:28 Body Mass Index 31.79 (92.08 kg, 170.18 cm) dd2 19:39 Pain Scale: Adult bm8 [place] Coma Score: 19:39 Eye Response: spontaneous(4). Motor Response: obeys commands(6). Verbal Response: bm8 oriented(5). Total: 15. NIH Stroke Scale Scores: 16:29 NIHSS Score: 2 dd2 19:39 NIHSS Score: 2 bm8 ED Course: 16:21 Patient arrived in ED. kc6 16:22 Raman Hoffman MD is Attending Physician. rt 16:28 TYRONE TORREZ RN is Primary Nurse. dd2 16:34 Triage completed. dd2 16:35 Arm band placed on right wrist. Patient placed in an exam room, on a stretcher, on dd2 pulse oximetry. 16:58 CT Stroke Brain w/o Contrast In Process Unspecified. EDMS 17:09 CT Neck Angio In Process Unspecified. EDMS 17:09 Head angio In Process Unspecified. EDMS 17:16 Patient has correct armband on for positive identification. Bed in low position. Call dd2 light in reach. Side rails up X2. Provided Education on: Call light, labs, procedures. Client placed on continuous cardiac and pulse oximetry monitoring. NIBP monitoring applied. body line finisher on. Door closed. Warm blanket given. Verbal reassurance given. 17:16 No provider procedures requiring assistance completed. Initial lab(s) drawn, by me, dd2 sent to lab. EKG done, by ED staff, reviewed by Raman Hoffman MD X-ray(s) taken. Inserted saline lock: 22 gauge in left antecubital area, using aseptic technique. Blood collected. Flushed with 10 mL NS. 17:22 Stroke CXR 1 View In Process Unspecified. EDMS 19:04 Prince Washington MD is Hospitalizing Provider. rt 19:39 Patient admitted, IV remains in place. bm8 Administered Medications: 18:47 Drug: Aspirin PO 325 mg PO once Route: PO; dd2 20:08 Follow up: Response: No adverse reaction bm8 Medication: 17:16 VIS not applicable for this client. dd2 Point of Care Testing: Blood Glucose: 16:35 Blood Glucose: 80 mg/dL; dd2 Ranges: Outcome: 19:05 Decision to Hospitalize by Provider. rt 19:39 Admitted to Med/surg accompanied by nurse, via wheelchair, with chart, bm8 19:39 Condition: stable 19:39 Instructed on the need for admit, Demonstrated understanding of instructions, follow-up care, 20:18 Patient left the ED. bm8 NIH Stroke Scale - NIH Stroke Score Date: 07/04/2024 Time: 16:29 Total Score = 2 10. Dysarthria (speech clarity - read or repeat words) - 1(Mild to Moderate) 11. Extinction and Inattention (visual/tactile/auditory/spatial/personal) - 0(No abnormality) 1a. Level of Consciousness (LOC) - 0(Alert) 1b. Level of Consciousness (LOC) (Month \T\ Age) - 0(Both) 1c. LOC Commands (Open \T\ Closes Eyes/Hand Crocheter) - 0(Both) 2. Best Gaze (Lateral Gaze Paresis) - 0(Normal) 3. Visual Field Loss - 0(No visual loss) 4. Facial Palsy - 1(Minor Paralysis) 5a. Left Arm: Motor (10-second hold) - 0(No drift) 5b. Right Arm: Motor (10-second hold) - 0(No drift) 6a. Left Leg: Motor (5-second hold - always test supine) - 0(No drift) 6b. Right Leg: Motor (5-second hold - always test supine) - 0(No drift) 7. Limb Ataxia (finger/nose \T\ heel/mcneil - test with eyes open) - 0(Absent) 8. Sensory Loss (pinprick arms/legs/face) - 0(Normal) 9. Best Language: Aphasia (description/naming/reading) - 0(No aphasia) Initials: dd2 NIH Stroke Scale - NIH Stroke Score Date: 07/04/2024 Time: 19:39 Total Score = 2 10. Dysarthria (speech clarity - read or repeat words) - 0(Normal) 11. Extinction and Inattention (visual/tactile/auditory/spatial/personal) - 1(Present) 1a. Level of Consciousness (LOC) - 0(Alert) 1b. Level of Consciousness (LOC) (Month \T\ Age) - 0(Both) 1c. LOC Commands (Open \T\ Closes Eyes/Hand Crocheter) - 0(Both) 2. Best Gaze (Lateral Gaze Paresis) - 0(Normal) 3. Visual Field Loss - 0(No visual loss) 4. Facial Palsy - 1(Minor Paralysis) 5a. Left Arm: Motor (10-second hold) - 0(No drift) 5b. Right Arm: Motor (10-second hold) - 0(No drift) 6a. Left Leg: Motor (5-second hold - always test supine) - 0(No drift) 6b. Right Leg: Motor (5-second hold - always test supine) - 0(No drift) 7. Limb Ataxia (finger/nose \T\ heel/mcneil - test with eyes open) - 0(Absent) 8. Sensory Loss (pinprick arms/legs/face) - 0(Normal) 9. Best Language: Aphasia (description/naming/reading) - 0(No aphasia) Initials: bm8 Signatures: Dispatcher [employer] Baylee Espinoza, RN RN kc6 Raman Hoffman MD MD rt Albino Andrews RN RN bm8 TYRONE TORREZ RN RN dd2 Corrections: (The following items were deleted from the chart) 16:36 16:34 PMHx: Stroke (Hypothyroidism); dd2 dd2
--- NOTE | 2024-07-04 19:05 | EDPHYS ---
Physician Documentation [facility] Name: Adilia Barros Age: 68 yrs Sex: Female : 1955 Arrival Date: 07/04/2024 Time: 16:15 Bed 6 Private MD: ED Physician Raman Hoffman HPI: 07/04 16:38 This 68 yrs old Female presents to ER via EMS with complaints of Slurred speech. rt 16:38 Patient presents to the ED with slurred speech. Patient took a nap, currently went to rt sleep sometime this morning. The patient subsequently woke up, called a friend who said that she had slurred speech, she subsequently back to sleep, continued with slurred speech. Reportedly her blood sugar was in the 50s, glucose did not improve her symptoms. Denies other acute complaints at this time, symptoms are moderate in severity, no other aggravating or alleviating factors.. Historical: - Allergies: 16:34 Codeine; dd2 - PMHx: 16:34 breast cancer; Hypertension; HYPOGLYCEMIA; Hypothyroidism; dd2 16:35 Cerebrovascular accident; dd2 - Immunization history:: Adult Immunizations unknown. - Infectious Disease History:: Denies. - Social history:: Smoking status: Patient denies any tobacco usage or history of. - Family history:: not pertinent. ROS: 16:38 Constitutional: Negative for fever, chills, and weight loss, Cardiovascular: Negative rt for chest pain, palpitations, and edema, Respiratory: Negative for shortness of breath, cough, wheezing, and pleuritic chest pain, Abdomen/GI: Negative for abdominal pain, nausea, vomiting, diarrhea, and constipation, MS/Extremity: Negative for injury and deformity, Skin: Negative for injury, rash, and discoloration, 16:38 Neuro: Positive for speech changes, Negative for numbness, weakness, Exam: 16:38 Constitutional: This is a well developed, well nourished patient who is awake, alert, rt and in no acute distress. Head/Face: Normocephalic, atraumatic. Chest/axilla: Normal chest wall appearance and motion. Nontender with no deformity. No lesions are appreciated. Cardiovascular: Regular rate and rhythm with a normal S1 and S2. No gallops, murmurs, or rubs. Normal PMI, no JVD. No pulse deficits. Respiratory: Lungs have equal breath sounds bilaterally, clear to auscultation and percussion. No rales, rhonchi or wheezes noted. No increased work of breathing, no retractions or nasal flaring. Abdomen/GI: Soft, non-tender, with normal bowel sounds. No distension or tympany. No guarding or rebound. No evidence of tenderness throughout. Skin: Warm, dry with normal turgor. Normal color with no rashes, no lesions, and no evidence of cellulitis. MS/ Extremity: Pulses equal, no cyanosis. Neurovascular intact. Full, normal range of motion. 16:38 Eyes: Extraocular muscles are intact, no visual field deficits. 16:38 Neuro: Dysarthria noted, no aphasia, patient is awake, alert. No cranial nerve deficits, strength and sensation are intact in upper and lower extremities, mild extinction noted on lower extremities, 17:38 ECG was reviewed by the Attending Physician. rt Vital Signs: 16:28 BP 101 / 72; Pulse 72; Resp 16; Temp 98.2; Pulse Ox 98% ; Weight 92.08 kg; Height 5 ft. dd2 7 in. ; 17:16 BP 99 / 74; Pulse 71; Resp 16; Pulse Ox 96% ; dd2 19:39 BP 100 / 86; Pulse 68; Resp 16; Temp 98.2; Pulse Ox 97% on R/A; Pain 0/10; bm8 16:28 Body Mass Index 31.79 (92.08 kg, 170.18 cm) dd2 19:39 Pain Scale: Adult bm8 NIH Stroke Scale Scores: 16:29 NIHSS Score: 2 dd2 19:39 NIHSS Score: 2 bm8 Cerulean Coma Score: 19:39 Eye Response: spontaneous(4). Motor Response: obeys commands(6). Verbal Response: bm8 oriented(5). Total: 15. MDM: 16:23 Patient medically screened. rt 19:46 Differential Diagnosis CVA, TIA. Data reviewed: vital signs, nurses notes, lab test rt result(s), EKG, radiologic studies. Consideration of Admission/Observation Patient was admitted/placed on observation. Management of patient was discussed with the following: Hospitalist: Agrees to admit. I considered the following discharge prescriptions or medication management in the emergency department Medications were administered in the Emergency Department. See MAR. Independent interpretation of the following test(s) in the Emergency Department CT Scan: My interpretation is No intracranial hemorrhage seen on interpretation of CT scan images. Discussion of test interpretation with radiology: I had a discussion with radiology regarding a test interpretation. No hemorrhage. Care significantly affected by the following chronic conditions: Hypertension. Counseling: I had a detailed discussion with the patient and/or guardian regarding the historical points, exam findings, and any diagnostic results supporting the discharge/admit diagnosis, lab results, radiology results, the need for further work-up and treatment in the hospital. Response to treatment: the patient's symptoms have mildly improved after treatment. ED course: Patient's last seen normal is greater than 4.5 hours prior to arrival. 07/04 16:32 Order name: Basic Metabolic Panel; Complete Time: 18:22 rt 07/04 16:32 Order name: CBC with Diff; Complete Time: 17:31 rt 07/04 16:32 Order name: Hepatic Function; Complete Time: 18:22 rt 07/04 16:32 Order name: High Sensitivity Troponin; Complete Time: 18:22 rt 07/04 16:32 Order name: Magnesium; Complete Time: 18:22 rt 07/04 16:32 Order name: Protime (+inr); Complete Time: 17:31 rt 07/04 16:32 Order name: Ptt, Activated rt 07/04 16:38 Order name: Glucose, Ancillary Testing; Complete Time: 17:31 EDMS 07/04 19:49 Order name: Glucose, Ancillary Testing EDMS 07/04 16:32 Order name: CT Neck Angio; Complete Time: 17:31 rt 07/04 16:32 Order name: CT Stroke Brain w/o Contrast; Complete Time: 17:31 rt 07/04 16:32 Order name: Stroke CXR 1 View; Complete Time: 17:31 rt 07/04 16:56 Order name: Head angio; Complete Time: 17:31 EDMS 07/04 16:32 Order name: EKG; Complete Time: 16:33 rt 07/04 16:32 Order name: Accucheck; Complete Time: 17:16 rt 07/04 16:32 Order name: Cardiac monitoring; Complete Time: 17:16 rt 07/04 16:32 Order name: EKG - Nurse/Tech; Complete Time: 17:16 rt 07/04 16:32 Order name: IV Saline Lock; Complete Time: 16:39 rt 07/04 16:32 Order name: Labs collected and sent; Complete Time: 17:16 rt 09 16:32 Order name: NPO; Complete Time: 16:39 rt 07/04 16:32 Order name: O2 Per Protocol; Complete Time: 16:39 rt 09 16:32 Order name: O2 Sat Monitoring; Complete Time: 16:39 rt 09 16:32 Order name: Stroke Swallow Screen; Complete Time: 17:16 rt EC:38 Rate is 69 beats/min. Rhythm is regular, Normal Sinus Rhythm with No ectopy. QRS [place] rt is Normal. MN interval is normal. QRS interval is normal. QT interval is normal. No Q waves. T waves are Normal. No ST changes noted. Interpreted by me. Administered Medications: 18:47 Drug: Aspirin PO 325 mg PO once Route: PO; dd2 20:08 Follow up: Response: No adverse reaction bm8 Point of Care Testing: Blood Glucose: 16:35 Blood Glucose: 80 mg/dL; dd2 Ranges: Critical Glucose Levels:Adult <50 mg/dl or >400 mg/dl <40 mg/dl or >180 mg/dl Disposition Summary: 07/04/24 19:05 Hospitalization Ordered Notes: Hospitalization Status: Observation rt Provider: Prince Felix [facility] Condition: Stable rt Problem: new rt Symptoms: have improved rt Bed/Room Type: Standard rt Room Assignment: 216(07/04/24 19:13) rv1 Diagnosis - Transient ischemic attack rt Forms: - Medication Reconciliation Form rt - SBAR form rt - Leadership Thank You Letter rt NIH Stroke Scale - NIH Stroke Score Date: 07/04/2024 Time: 16:29 Total Score = 2 10. Dysarthria (speech clarity - read or repeat words) - 1(Mild to Moderate) 11. Extinction and Inattention (visual/tactile/auditory/spatial/personal) - 0(No abnormality) 1a. Level of Consciousness (LOC) - 0(Alert) 1b. Level of Consciousness (LOC) (Month \T\ Age) - 0(Both) 1c. LOC Commands (Open \T\ Closes Eyes/Director Of Instructional Technology) - 0(Both) 2. Best Gaze (Lateral Gaze Paresis) - 0(Normal) 3. Visual Field Loss - 0(No visual loss) 4. Facial Palsy - 1(Minor Paralysis) 5a. Left Arm: Motor (10-second hold) - 0(No drift) 5b. Right Arm: Motor (10-second hold) - 0(No drift) 6a. Left Leg: Motor (5-second hold - always test supine) - 0(No drift) 6b. Right Leg: Motor (5-second hold - always test supine) - 0(No drift) 7. Limb Ataxia (finger/nose \T\ heel/mcneil - test with eyes open) - 0(Absent) 8. Sensory Loss (pinprick arms/legs/face) - 0(Normal) 9. Best Language: Aphasia (description/naming/reading) - 0(No aphasia) Initials: dd2 NIH Stroke Scale - NIH Stroke Score Date: 07/04/2024 Time: 19:39 Total Score = 2 10. Dysarthria (speech clarity - read or repeat words) - 0(Normal) 11. Extinction and Inattention (visual/tactile/auditory/spatial/personal) - 1(Present) 1a. Level of Consciousness (LOC) - 0(Alert) 1b. Level of Consciousness (LOC) (Month \T\ Age) - 0(Both) 1c. LOC Commands (Open \T\ Closes Eyes/Director Of Instructional Technology) - 0(Both) 2. Best Gaze (Lateral Gaze Paresis) - 0(Normal) 3. Visual Field Loss - 0(No visual loss) 4. Facial Palsy - 1(Minor Paralysis) 5a. Left Arm: Motor (10-second hold) - 0(No drift) 5b. Right Arm: Motor (10-second hold) - 0(No drift) 6a. Left Leg: Motor (5-second hold - always test supine) - 0(No drift) 6b. Right Leg: Motor (5-second hold - always test supine) - 0(No drift) 7. Limb Ataxia (finger/nose \T\ heel/mcneil - test with eyes open) - 0(Absent) 8. Sensory Loss (pinprick arms/legs/face) - 0(Normal) 9. Best Language: Aphasia (description/naming/reading) - 0(No aphasia) Initials: bm8 Signatures: Dispatcher [employer] EDRaman García MD MD rt Villegas, Rebecca rv1 TYRONE TORREZ RN RN dd2 Albino Andrews RN bm8 Corrections: (The following items were deleted from the chart) 16:36 16:34 PMHx: Stroke (Hypothyroidism); dd2 dd2 19:13 19:05 rt rv1
--- NOTE | 2024-07-04 19:06 | P.HP ---
Certification for Inpatient Patient admitted to: Observation With expected LOS: <2 Midnights Practitioner: I am a practitioner with admitting privileges, knowledge of patient current condition, hospital course, and medical plan of care. Services: Services provided to patient in accordance with Admission requirements found in Title 42 Section 412.3 of the Code of Federal Regulations Patient History Date of Service: 07/04/24 Reason for admission: CVA r/o History of Present Illness: Patient is a 68-year-old female with a past medical history of stroke with left-sided residual deficit 1 year ago. At the time, she required transfer to [facility]. As per chart review, it was believed to be a right temporal infarct possibly with superimposed status epilepticus. She presented to the ER today via EMS complaining of acute onset of expressive aphasia. Patient was on the phone with her friend who became concerned as patient's age sounded slurred. Patient denies a history of hypertension, hyperlipidemia or diabetes mellitus. She has a history of osteoarthritis. She is taking gabapentin at this time. Workup included a CT head, CTA head and neck all of which were negative for acute stroke. During my evaluation, patient's mental status was appropriate and appears to be at baseline. Her speech was normal without expressive or receptive aphasia. Allergies No Known Allergies Allergy (Verified 02/07/23 23:45) Home Medications: Aspirin Chewable [Aspirin Chewable*] 81 mg PO DAILY 02/07/23 Anastrozole [Arimidex*] 1 mg PO DAILY tab 02/26/23 Aspirin [[place] Aspirin] 81 mg PO DAILY 30 Days tab.chew 02/26/23 Atorvastatin Calcium [Lipitor] 80 mg PO BEDTIME tab 02/26/23 D10w [Dextrose 10% Water IV Soln*] 125 ml IV PRN PRN bag 02/26/23 Docusate/Senna [Senokot-S*] 2 tab PO BEDTIME PRN tab 02/26/23 Enoxaparin Sodium [Lovenox 40 MG INJ*] 40 mg SQ DAILY syr 02/26/23 Fluticasone [Flonase 50MCG Nasal [place]*] 1 sprays TAYLOR BID bottle 02/26/23 Guaifenesin/Dextromethorphan [Siltussin Dm 100 mg-10 mg/5 ml] 5 ml PO Q4HP PRN 30 Days 02/26/23 Hydrocodone 5/APAP 325 [[place] 5/325*] 1 tab PO Q4HP PRN tab 02/26/23 Insulin -Regular Human [Novolin -R*] See Protocol SQ BID ml 02/26/23 Levothyroxine [Synthroid*] 0.05 mg PO DAILYAC 02/26/23 Lidocaine 4% Patch [Lidoderm 5% Patch*] 2 patch TOP DAILY pat 02/26/23 Melatonin [Melatonin*] 3 mg PO BEDTIME PRN PRN 02/26/23 Metoprolol Tartrate [Lopressor*] 50 mg PO BID tab 02/26/23 Nifedipine Xl [Procardia Xl*] 30 mg PO DAILY tab 02/26/23 Venlafaxine HCl *Xr* [Effexor XR] 150 mg PO DAILY cap 02/26/23 clonazePAM [Klonopin*] 0.5 mg PO BID PRN tab 02/26/23 lisinopriL [Prinivil*] 10 mg PO DAILY tab 02/26/23 traMADol HCL [Ultram*] 50 mg PO Q4H PRN tab 02/26/23 - Past Medical/Surgical History Diabetic: No -: hypothyroidism -: hypertension -: hypoglycemia -: R breast CA - had chemo & radiation -: anemia -: sleep apnea - cpap @ night -: 01/31 - R CVA -: BILATERAL knee surgeries - TKAs -: bilateral ANKLE SURGERIES -: HYSTERECTOMY -: right lumpectomy with removal of lymph nodes -: appendectomy - Family History Father -: Hypertension Notes: THYROID PROBLEM. - Social History Alcohol use: Yes CD- Drugs: No Caffeine use: Yes Physical Examination - Physical Exam General: Alert, In no apparent distress, Oriented x3 HEENT: Atraumatic, Normocephalic Respiratory: Other (Breathing not labored on room air) Cardiovascular: No edema Musculoskeletal: No clubbing, No swelling Neurological: Normal speech, Normal strength at 5/5 x4 extr - Studies Laboratory Data (last 24 hrs) 07/04/24 07/04/24 07/04/24 17:10 17:10 17:10 WBC 5.30 Hgb 11.2 L Hct 34.3 L Plt Count 142 L PT 13.4 H INR 1.20 APTT 36.8 Sodium 139 Potassium 3.4 L BUN 14 Creatinine 0.67 Glucose 101 Magnesium 1.8 Total Bilirubin 0.3 AST < 10 L ALT 15 Alkaline Phosphatase 60 Assessment and Plan - Problems (Diagnosis) (1) TIA (transient ischemic attack) Current Visit: Yes Status: Acute - Plan Assessment Patient is 68 year old female with a pMH of CVA admitted for CVA work up after she presented expressive aphasia. She has a history of remote right MCA infarct based on CAT scan obtained on admission. Nothing acute. CT angio of the head and neck did not show any hemodynamically significant stenosis. CVAhistory HTN OA SEIZURE Hypokalemia Thrombocytopenia PLAN: Will admit under observation with telemetry Obtain a formal brain MRI 2D echo Check hemoglobin A1c and lipid panel PT/OT for discharge Will start patient on aspirin and atorvastatin due to absence of intracranial bleed on the CT Potassium replacement has been ordered Repeat CBC tomorrow check for thrombocytopenia Patient is full code - Advance Directives Does patient have a Living Will: Yes Does patient have a Durable POA for Healthcare: No
[2024-07-04] MEDS: POTASSIUM CL SA 10 MEQ TAB PO ONE (20:38)
[2024-07-04] MEDS: ATORVASTATIN 80 MG TAB PO SCH (20:38)
[2024-07-04 20:56] VITALS: O2SAT 97
[2024-07-04 21:14] VITALS: BMI 31.8
[2024-07-05 06:21] LABS: Absolute Eosinophils 0.2 K/uL (0-0.5); Absolute Monocytes 0.4 K/uL (0.1-1.3); Basophils % 0.4 % (0-1.3); Eosinophils % 3.5 % (0-4.4); Hematocrit 38.4 % (36.0-45.0); Hemoglobin 12.2 g/dL (12.0-15.0); Lymphocytes % 15.2 % (15.3-44.8); MCH 27.9 pg (27.0-35.0); MCHC 31.9 g/dL (32.0-36.0); MCV 87.4 fL (80-100); MPV 9.4 fL (7.6-11.3); Neutrophils % 74.9 % (41.7-73.7); Platelets 142 thou/uL (152-406); RBC Red Blood Cell Count 4.39 M/uL (3.86-4.86); Red Cell Distribution Width 16.5 % (12.1-15.2)
[2024-07-05] MEDS: ASPIRIN EC 81 MG TAB PO SCH (09:06)
--- NOTE | 2024-07-05 09:10 | RAD REPORT ---
EXAM DESCRIPTION: MRI - Brain Wo Cont - 07/05/2024 8:56 am CLINICAL HISTORY: cva COMPARISON: 05/20/[address] angiogram 07/04/2024 TECHNIQUE: Multiplanar multisequence MRI of the brain performed without IV contrast. FINDINGS: Motion artifact somewhat limits evaluation, despite attempts at repeat imaging. No evidence of acute infarct or other diffusion signal abnormality. Stable region of encephalomalacia centered on the perisylvian opercular and temporal cortex, with adjacent gliosis and mild hemosideri n staining, similar in extent to the most recent head CT, suggesting sequelae of remote ischemia. No evidence of acute intracranial hemorrhage or abnormal extra-axial fluid collections. Mild diffuse parenchymal volume loss. Ventricular caliber otherwise within normal for age. Midline st ructures are unremarkable. Mild periventricular white matter T2/FLAIR hyperintensities, nonspecific, but suggestive of chronic s mall vessel ischemic changes. No mass effect or midline shift. Major vascular flow voids are preserved. Mastoid air cells and paranasal sinuses are clear. IMPRESSION: No acute intracranial process. No evidence of ventriculomegaly or mass effect. Stable sequelae of remote ischemia in the right MCA territory as above.
[2024-07-05] MEDS ORDERED: LIDOCAINE 4% PATCH TOP PRN (11:36)
[2024-07-05] MEDS ORDERED: MELATONIN 3 MG TABLET PO PRN (11:36)
[2024-07-05] MEDS ORDERED: ANASTROZOLE 1 MG TAB PO SCH ×2 (11:36→21:00)
[2024-07-05 12:24] VITALS: BP 124/79; TEMP 97.7
--- NOTE | 2024-07-05 12:43 | ECHO ---
HEIGHT: 5 ft 7 in WEIGHT: 203 lb 0 oz DATE OF STUDY: 07/05/[address]: Prince Joseph Washington MD 2-DIMENSIONAL: YES M.MODE: YES DOPPLER: YES COLOR FLOW: YES TDS: PORTABLE: YES DEFINITY: BUBBLE STUDY: DIAGNOSIS: TRANSIENT ISCHEMIC ATTACK CARDIAC HISTORY: CATHERIZATION: NO SURGERY: NO PROSTHETIC VALVE: NO PACEMAKER: NO MEASUREMENTS (cm) DIASTOLIC (NORMALS) SYSTOLIC (NORMALS) IVSd 0.9 (0.6-1.2) LA Diam 2.4 (1.9-4.0) LVEF 60-65% LVIDd 4.7 (3.5-5.7) LVIDs 3.1 (2.0-3.5) %FS 34% LVPWd 1.1 (0.6-1.2) Ao Diam 2.7 (2.0-3.7) 2 DIMENSIONAL ASSESSMENT: RIGHT ATRIUM: NORMAL LEFT ATRIUM: NORMAL RIGHT VENTRICLE: NORMAL LEFT VENTRICLE: NORMAL TRICUSPID VALVE: TRACE TRICUSPID REGURGITATION MITRAL VALVE: NORMAL PULMONIC VALVE: NORMAL AORTIC VALVE: TRACE AORTIC REGURGITATION PERICARDIAL EFFUSION: NONE AORTIC ROOT: NORMAL LEFT VENTRICULAR WALL MOTION: NORMAL DOPPLER/COLOR FLOW: NORMAL COMMENTS: 1. NORMAL LEFT VENTRICULAR SYSTOLIC FUNCTION, EJECTION FRACTION 60-65%, NORMAL WALL MOTION 2. NORMAL DIASTOLIC FUNCTION TECHNOLOGIST: SLADE NESBITT
[2024-07-05] MEDS: GABAPENTIN 300 MG CAP PO SCH (12:48)
[2024-07-05] MEDS: ACETAMINOPHEN 325 MG TABLET PO PRN (12:48)
[2024-07-05] MEDS: FLUTICASONE 50MCG NASAL SPRAY NAS SCH (12:48)
--- NOTE | 2024-07-05 14:20 | P.DS ---
Admission Date: 07/04/24 Discharge Date: 07/05/24 Disposition: ROUTINE DISCHARGE Discharge Condition: FAIR Reason for Admission: CVA r/o - Problems (1) Dysarthria Current Visit: Yes Status: Acute (2) History of CVA (cerebrovascular accident) Current Visit: Yes Status: Acute Hospital Course: Diagnosis Drug-induced dysarthria History of CVA Peripheral neuropathy Hypothyroidism Patient with a past medical history of stroke with left-sided residual deficit 1 year ago presented to the ER with a complaint of sudden onset slurred speech. Patient was on the phone with her friend who became concerned as patient's age sounded slurred. Of note patient takes gabapentin for peripheral neuropathy. Workup in the ED which included a CT head, CTA head and neck all of which were negative for acute stroke. Patient neurology status was at baseline, no more slurred speech during examination for admission. MRI of the brain done did not show any acute stroke. Patient was evaluated by PT and she was able to ambulate up to 220 feet with a walker. She had no p roblem with swallowing, no speech problems during the hospital stay. Echocardiogram done during the hospital stay was unremarkable, showed normal EF and no blood clot. Patient has been noncompliant with antiplatelet therapy. Patient is restarted on aspirin and Plavix. She is informed to take Plavix for 1 month. She is also prescribed folic acid to take for 1 month. She has been advised to continue aspirin indefinitely. Vital Signs/Physical Exam: Temp Pulse Resp BP Pulse Ox 97.7 F 62 16 124/79 100 07/05/24 12:00 07/05/24 12:00 07/05/24 12:00 07/05/24 12:07/05/24 12:00 General: Alert, In no apparent distress, Oriented x3 HEENT: Mucous membr. moist/pink Neck: Supple, JVD not distended Respiratory: Clear to auscultation bilaterally, Normal air movement Cardiovascular: No edema, Regular rate/rhythm, Normal S1 S2 Gastrointestinal: Normal bowel sounds, Soft and benign, Non-distended, No tenderness Musculoskeletal: No swelling Integumentary: No rashes Neurological: Normal speech, Normal strength at 5/5 x4 extr, Cranial nerves 3-12 intact Laboratory Data at Discharge: WBC 6.70 thou/uL (4.3-10.9) 07/05/24 05:41 Hgb 12.2 g/dL (12.0-15.0) D 07/05/24 05:41 Hct 38.4 % (36.0-45.0) 07/05/24 05:41 Plt Count 142 thou/uL (152-406) L 07/05/24 05:41 PT 13.4 SECONDS (9.4-12.5) H 07/04/24 17:10 INR 1.20 07/04/24 17:10 APTT 36.8 SECONDS (24.3-36.9) 07/04/24 17:10 Sodium 139 mEq/L (136-145) 07/04/24 17:10 Potassium 3.4 mEq/L (3.5-5.1) L 07/04/24 17:10 BUN 14 mg/dL (7-18) 07/04/24 17:10 Creatinine 0.67 mg/dL (0.55-1.02) 07/04/24 17:10 Glucose 101 mg/dL (74-106) 07/04/24 17:10 Magnesium 1.8 mg/dL (1.6-2.4) 07/04/24 17:10 Total Bilirubin 0.3 mg/dL (0.2-1.0) 07/04/24 17:10 AST < 10 U/L (15-37) L 07/04/24 17:10 ALT 15 U/L (13-56) 07/04/24 17:10 Alkaline Phosphatase 60 U/L (45-117) 07/04/24 17:10 Triglycerides 106 mg/dL (<150) 07/05/24 05:41 Cholesterol 160 mg/dL (<200) 07/05/24 05:41 HDL Cholesterol 40 mg/dL (40-60) 07/05/24 05:41 Cholesterol/HDL Ratio 4.00 07/05/24 05:41 Home Medications: Levothyroxine [Synthroid*] 0.05 mg PO DAILYAC 02/26/23 Melatonin [Melatonin*] 3 mg PO BEDTIME PRN PRN 02/26/23 Venlafaxine HCl *Xr* [Effexor XR] 150 mg PO DAILY cap 02/26/23 lisinopriL [Prinivil*] 10 mg PO DAILY tab 02/26/23 Fluticasone [Flonase 50MCG Nasal [place]*] 1 sprays TAYLOR DAILY 07/04/24 Gabapentin 300 mg PO TID 07/04/24 Lidocaine 4% Patch [Lidoderm 5% Patch*] 2 patch TOP DAILYPRN PRN 07/04/24 Metoprolol Succinate [Toprol Xl*] 100 mg PO DAILY 07/04/24 Trazodone [Desyrel*] 100 mg PO BEDTIME 07/04/24 Anastrozole [Arimidex*] 1 mg PO BEDTIME 07/05/24 Aspirin [Aspirin EC 81 MG] 81 mg PO DAILY #30 tab 07/05/24 Atorvastatin Calcium [Lipitor] 40 mg PO BEDTIME #30 tab 07/05/24 Folic Acid 1 mg PO DAILY #30 tab 07/05/24 New Medications: Aspirin [Aspirin EC 81 MG] 81 mg PO DAILY #30 tab Folic Acid 1 mg PO DAILY #30 tab Atorvastatin Calcium [Lipitor] 40 mg PO BEDTIME #30 tab Physician Discharge Instructions: Patient with a past medical history of stroke with left-sided residual deficit 1 year ago presented to the ER with a complaint of sudden onset slurred speech. Patient was on the phone with her friend who became concerned as patient's age sounded slurred. Of note patient takes gabapentin for peripheral neuropathy. Workup in the ED which included a CT head, CTA head and neck all of which were negative for acute stroke. Patient neurology status was at baseline, no more slurred speech during examination for admission. MRI of the brain done did not show any acute stroke. Patient was evaluated by PT and she was able to ambulate up to 220 feet with a walker. She had no problem with swallowing, no speech problems during the hospital stay. Echocardiogram done during the hospital stay was unremarkable, showed normal EF and no blood clot. Patient has been noncompliant with antiplatelet therapy. Patient is restarted on aspirin and Plavix. She is informed to take Plavix for 1 month. She is also prescribed folic acid to take for 1 month. She has been advised to continue aspirin indefinitely. Diet: AHA Activity: Fall precautions Followup: Blane gAuilar MD [ASSOCIATE-ACTIVE - CAN ADMIT] - 1-2 Weeks Rozina Warren NP [Primary Care Provider] - 1-2 Weeks Time spent managing pt's care (in minutes): 26
[2024-07-05] MEDS ORDERED: ENOXAPARIN 40 MG/0.4 ML SQ SCH (15:00)
[2024-07-05] MEDS ORDERED: TRAZODONE 50 MG TABLET PO SCH (21:00)
[2024-07-06] MEDS ORDERED: LEVOTHYROXINE SOD 0.05 MG TABLET PO SCH (06:30)
[2024-07-06] MEDS ORDERED: lisinopriL 10 MG TAB PO SCH (09:00)
[2024-07-06] MEDS ORDERED: VENLAFAXINE HCL XR 75 MG CAP PO SCH (09:00)
[2024-07-06] MEDS ORDERED: METOPROLOL XL 100 MG TAB PO SCH (12:00)
== END 2024-07-05 15:31 | disposition home or self-care (01) ==
LOC: ER 16:15 → ERHOLD 18:37 → 2ND 20:00
PROVIDERS: ADMIT Internal Medicine; ATTEND Internal Medicine
DX: R47.1 Dysarthria and anarthria (principal); I10 Essential (primary) hypertension; M19.90 Unspecified osteoarthritis, unspecified site; E87.6 Hypokalemia; D69.6 Thrombocytopenia, unspecified; G62.89 Other specified polyneuropathies; E03.9 Hypothyroidism, unspecified; C50.919 Malignant neoplasm of unspecified site of unspecified female breast; R29.702 NIHSS score 2; Z91.148 Patient's other noncompliance with medication regimen for other reason; Z86.73 Personal history of transient ischemic attack (TIA), and cerebral infarction without residual deficits
CPT/HCPCS: 93306; 85025; 80061; 70551; 97116; 97161; 99285; G0378 ×3